=== PATIENT | female | born 1970 | race Caucasian/White ===

== ENCOUNTER → 2016-08-18 | Outpatient (CLI) | payer MEDICARE, MEDICAID ==
[~2016-08-18] MED LIST: CALC1TAB87 PO; EMTR1TAB4 PO; ERGO1CAP10 PO; FURO20TA PO; OMEP20CA2 PO; OMEP40CA2 PO; SPIR50TA PO; SUST50CA PO; VALA1TAB PO; XIFA550T4 PO
[2016-08-18 09:07] LABS: HEMATOCRIT 32.9 % (35.0-46.0); MEAN CELL VOLUME 99.7 FL (80.0-100.0); MEAN CORPUSCULAR HEMOGLOBIN 33.5 PG (27.0-34.0); MEAN CORPUSCULAR HGB CONC 33.6 % (32.0-36.0); PLATELET COUNT 67 TH/MM3 (150-450); RED CELL DISTRIBUTION WIDTH 17.6 % (11.6-17.2); WHITE BLOOD COUNT 2.8 TH/MM3 (4.0-11.0)
[2016-08-18 09:11] LABS: REVIEW FLAG FINAL
[2016-08-18 09:18] LABS: APTT (PATIENT) 33.2 SEC (24.3-30.1); INTERNATIONAL NORMALIZED RATIO 1.4 RATIO; PROTHROMBIN TIME - PATIENT 16.2 SEC (9.8-11.6)
== END ==
LOC: CLAB 08:48
PROVIDERS: ATTEND Specialist
DX: B18.2 Chronic viral hepatitis C (principal); D70.9 Neutropenia, unspecified; N18.9 Chronic kidney disease, unspecified; D69.6 Thrombocytopenia, unspecified
CPT/HCPCS: 36415; 85027; 85610; 85730

== ENCOUNTER 2016-08-20 09:39 | Day surgery (SDC) | payer MEDICARE, MEDICAID ==
[~2016-08-20 09:39] MED LIST changes: -ERGO1CAP10 PO; -FURO20TA PO; -OMEP40CA2 PO; -VALA1TAB PO
[2016-08-20 10:32] VITALS: BP 117/61; PULSE 99; RESP 22; TEMP 97; O2SAT 90
[2016-08-20 12:01] VITALS: BP 100/56; PULSE 89; RESP 18; TEMP 98.6; O2SAT 91
[2016-08-20 12:09] VITALS: BP 92/45; PULSE 85; RESP 18; O2SAT 91
--- NOTE | 2016-08-20 12:20 | RADRPT ---
EXAM DATE/TIME: 08/20/2016 10:25 [facility] COMPARISON: EXTERNAL COMPARISON: US GUID[facility], [facility] 2016[facility] - LOWER LIMITED, S ep 2015. [facility], US LIVER February 10, 2016. INDICATIONS : Ascites. MEDICAL HISTORY : Hepatitis C. Cirrhosis. Gastroesophageal reflux disease. Migrane. Headache. Heart burn. Arthritis. De pression. Anxiety. Claustrophobia. HIV. Thrombocytopenia. SURGICAL HISTORY : Tonsillectomy. section. Tubal ligation. Benign lesion removed from neck. ENCOUNTER: Sequela ACUITY: 1 week PAIN SCORE: 3/10 LOCATION: Right lower quadrant [place]UID: [place] [address] cc of hina fluid was removed. Fluid was discarded. Paracentesis was therapeutic only. Post procedure scanning reveals no hematoma or other complication. TECHNIQUE: 1. Ultrasound guidance for abdominal paracentesis. 2. Paracentesis. The risks, benefits, and alternatives to ultrasound guided paracentesis were explained to the patient in detail including the risk of bleeding and infection. Written and verbal informed consent was obt ained. Patient was prepped and draped in the usual fashion. 6-Lithuanian catheter placed in the peritoneal spac e and 10,000 cc of fluid were removed. The patient tolerated the procedure well and left the ultrasound suite in stable condition. CONCLUSION: Uncomplicated ultrasound guided paracentesis. Patient received albumin per protocol. Dwight Tellez MD FACR on August 20, 2016 at 12:17 Board Certified Radiologist. This report was verified electronically.
[2016-08-20 12:24] VITALS: BP 95/53; PULSE 86; RESP 18; O2SAT 88
[2016-08-20] MEDS ORDERED: ALBUMIN HUMAN 25% 12.5GM-W/50GM FOR 62.5GM IV ONE (12:30)
[2016-08-20] MEDS ORDERED: ALBUMIN HUMAN 25% 50GM-W/12.5GM FOR 62.5GM IV ONE (12:30)
[2016-08-20 12:57] VITALS: BP 109/56; PULSE 89; RESP 20; TEMP 98.5; O2SAT 90
== END 2016-08-20 13:50 | disposition home or self-care (01) ==
LOC: HRAD 09:39 → HRIP 09:40 → HRAD 13:50
PROVIDERS: ATTEND Specialist
DX: R18.8 Other ascites (principal)
CPT/HCPCS: 49083; 96365; C1729; P9047

== ENCOUNTER → 2016-09-08 | Outpatient (CLI) | payer MEDICARE, MEDICAID ==
[~2016-09-08] MED LIST changes: +ERGO1CAP10 PO; +FURO20TA PO; +OMEP40CA2 PO; +VALA1TAB PO
[2016-09-08 08:45] LABS: HEMATOCRIT 31.5 % (35.0-46.0); MEAN CELL VOLUME 98.6 FL (80.0-100.0); MEAN CORPUSCULAR HEMOGLOBIN 33.4 PG (27.0-34.0); MEAN CORPUSCULAR HGB CONC 33.9 % (32.0-36.0); PLATELET COUNT 64 TH/MM3 (150-450); RED CELL DISTRIBUTION WIDTH 17.3 % (11.6-17.2)
[2016-09-08 08:47] LABS: REVIEW FLAG FINAL
[2016-09-08 08:52] LABS: APTT (PATIENT) 34.8 SEC (24.3-30.1); INTERNATIONAL NORMALIZED RATIO 1.4 RATIO; PROTHROMBIN TIME - PATIENT 15.5 SEC (9.8-11.6)
== END ==
LOC: CLAB 08:27
PROVIDERS: ATTEND Specialist
DX: D70.9 Neutropenia, unspecified (principal); D69.6 Thrombocytopenia, unspecified; Z79.899 Other long term (current) drug therapy
CPT/HCPCS: 36415; 85027; 85610; 85730

== ENCOUNTER 2016-09-13 07:54 | Day surgery (SDC) | payer MEDICARE, MEDICAID ==
[~2016-09-13 07:54] MED LIST changes: -ERGO1CAP10 PO; -FURO20TA PO; -OMEP40CA2 PO; -VALA1TAB PO
[2016-09-13 08:29] VITALS: BP 133/78; PULSE 100; RESP 22; TEMP 98.6; O2SAT 92
[2016-09-13 10:20] VITALS: BP 106/51; PULSE 83; RESP 18; TEMP 98.5; O2SAT 90
--- NOTE | 2016-09-13 10:23 | RADRPT ---
EXAM DATE/TIME: 09/13/2016 08:24 [facility] COMPARISON: EXTERNAL COMPARISON: US GUIDED ABD PARACENTESIS, August 20, 2016, 10:25. [facility], CT ABDOMEN, W & W/O CONTRAS T, Aug 27 2016, US ABDOMEN LOWER LIMITED, April 21, 2016, MRI ABDOMEN W & W/O CONTRAST, August, January 04, 2014, US ABDOMEN - COMPLETE, August 22, 2013, March 06, 2013, [facility], C T ABDOMEN, W/O CONTRAST, November 20, 2012. INDICATIONS : Ascites. MEDICAL HISTORY : Hepatitis C. Cirrhosis. Arthritis. GERD. Migraines. Heart murmur. COPD. HIV. Asthma. Dyspnea. Ascites . Thrombocytopenia. Depression. Anxiety. Substance use. SURGICAL HISTORY : Tonsillectomy. section. Tubal ligation. Benign lesion removed from neck. Paracentesis. Blood transfusions. ENCOUNTER: Sequela ACUITY: 3 weeks PAIN SCORE: 10/10 LOCATION: Right lower quadrant FLUID: Total volume of 10,900 cc of clear, hina fluid was removed. Fluid was discarded. Paracentesis was therapeutic only. Post procedure scanning reveals no hematoma or other complication. TECHNIQUE: 1. Ultrasound guidance for abdominal paracentesis. 2. Paracentesis. The risks, benefits, and alternatives to ultrasound guided paracentesis were explained to the patient in detail including the risk of bleeding and infection. Written and verbal informed consent was obt ained. With the patient on the ultrasound table, ultrasound imaging was used to select the most appropriate approach for paracentesis. Overlying skin was prepped and draped in the usual sterile fashion and wi th a local anesthetic, a dermatotomy was made with an 11 blade scalpel. A 6 Italian [id number]-[id number]-cefldyrk ca theter was introduced into the peritoneal cavity and fluid was collected. The patient tolerated the procedure well and left the ultrasound suite in stable condition. CONCLUSION: Uncomplicated ultrasound guided paracentesis. Panchito Rocha MD on September 13, 2016 at 10:21 Board Certified Radiologist. This report was verified electronically.
[2016-09-13] MEDS ORDERED: ALBUMIN HUMAN 25% 50GM-W/12.5GM FOR 62.5GM IV ONE (10:30)
[2016-09-13] MEDS ORDERED: ALBUMIN HUMAN 25% 12.5GM-W/50GM FOR 62.5GM IV ONE (10:30)
[2016-09-13 10:35] VITALS: BP 104/64; PULSE 85; RESP 18; O2SAT 91
== END 2016-09-13 12:10 | disposition home or self-care (01) ==
LOC: HRAD 07:54 → HRIP 07:55 → HRAD 12:10
PROVIDERS: ATTEND Specialist
DX: R18.8 Other ascites (principal); K74.60 Unspecified cirrhosis of liver; B19.20 Unspecified viral hepatitis C without hepatic coma; K21.9 Gastro-esophageal reflux disease without esophagitis; J44.9 Chronic obstructive pulmonary disease, unspecified; R01.1 Cardiac murmur, unspecified; B20 Human immunodeficiency virus [HIV] disease; D69.6 Thrombocytopenia, unspecified
CPT/HCPCS: 49083; 96365; C1729; P9047

== ENCOUNTER → 2016-09-28 | Outpatient (CLI) | payer MEDICARE, MEDICAID ==
[~2016-09-28] MED LIST changes: +ERGO1CAP10 PO; +FURO20TA PO; +OMEP40CA2 PO; +VALA1TAB PO
[2016-09-28 10:06] LABS: APTT (PATIENT) 34.9 SEC (24.3-30.1); INTERNATIONAL NORMALIZED RATIO 1.4 RATIO; PROTHROMBIN TIME - PATIENT 15.4 SEC (9.8-11.6)
[2016-09-28 10:23] LABS: ANION GAP 11 MEQ/L (5-15); BICARBONATE 18.2 MEQ/L (21.0-32.0); BLOOD UREA NITROGEN 38 MG/DL (7-18); CHLORIDE 113 MEQ/L (98-107); GLOMERULAR FILTRATION RATE 29 ML/MIN (>89); GLUCOSE,FASTING 110 MG/DL (74-99); POTASSIUM 3.7 MEQ/L (3.5-5.1); SODIUM (NA) 142 MEQ/L (136-145)
[2016-09-28 11:12] LABS: HEMOGLOBIN A1b 0.6 %; HEMOGLOBIN Ao 86.3 %; HEMOGLOBIN F 1.7 %; HEMOGLOBIN LA1C 1.9 %; HEMOGLOBIN P3 4.9 %
== END ==
LOC: CLAB 09:22
PROVIDERS: ATTEND Specialist
DX: B20 Human immunodeficiency virus [HIV] disease (principal); E55.9 Vitamin D deficiency, unspecified; D70.9 Neutropenia, unspecified; R10.84 Generalized abdominal pain; G47.00 Insomnia, unspecified; K74.60 Unspecified cirrhosis of liver; N18.9 Chronic kidney disease, unspecified; K21.9 Gastro-esophageal reflux disease without esophagitis; B18.2 Chronic viral hepatitis C; B00.9 Herpesviral infection, unspecified; D69.6 Thrombocytopenia, unspecified; F10.10 Alcohol abuse, uncomplicated; R60.1 Generalized edema; R80.8 Other proteinuria; Z79.899 Other long term (current) drug therapy
CPT/HCPCS: 36415; 80048; 82140; 83036; 85610; 85730

== ENCOUNTER 2016-09-30 08:56 | Day surgery (SDC) | payer MEDICARE, MEDICAID ==
[~2016-09-30 08:56] MED LIST changes: -ERGO1CAP10 PO; -FURO20TA PO; -OMEP40CA2 PO; -VALA1TAB PO
[2016-09-30 10:43] VITALS: BP 117/68; PULSE 91; RESP 22; TEMP 97.8; O2SAT 92
[2016-09-30 12:17] VITALS: BP 97/42; PULSE 84; RESP 22; TEMP 98; O2SAT 96
[2016-09-30] MEDS ORDERED: ALBUMIN HUMAN 25% 12.5GM-W/50GM FOR 62.5GM IV ONE (12:30)
[2016-09-30] MEDS ORDERED: ALBUMIN HUMAN 25% 50GM-W/12.5GM FOR 62.5GM IV ONE (12:30)
[2016-09-30 12:32] VITALS: BP 112/70; PULSE 83; RESP 20; O2SAT 97
--- NOTE | 2016-09-30 15:50 | RADRPT ---
EXAM DATE/TIME: 09/30/2016 10:37 [facility] COMPARISON: EXTERNAL COMPARISON: US GUIDED ABD PARACENTESIS, September 13, 2016, 8:24. [facility], CT ABDOMEN, W & W/O CONTRAS T, Aug 27 2016. US ABDOMEN LOWER LIMITEDSeptember 2015, MRI ABDOMEN W & W/O CONTRAST,August 13, 2015, January 04, 2014, US ABDOMEN - COMPLETE, August 22, 2013, March 06, 2013, [facility], CT A BDOMEN,COMPLETE, August 22, 2013, March 06, 2013,[facility], CT ABDOMEN,W/O CONTRAST, November 20, 2012. INDICATIONS : Ascites. MEDICAL HISTORY : Gastroesophageal reflux disease. Hepatitis C. Gastroesophageal reflux disease. HIV. Blood transfusion s. Arthritis. Migraines. Heart murmur. Asthma. Dyspnea. Ascites. Thrombocytopenia. Depression. Anxiet y. Substance use. Cirrhosis. SURGICAL HISTORY : Tonsillectomy. Tubal ligation. section. Benign lesion removed neck. Paracentesis. ENCOUNTER: Sequela ACUITY: 2 weeks PAIN SCORE: 0/10 LOCATION: Right lower quadrant FLUID: Total volume of 11,700 cc of clear, yellow fluid was removed. Fluid was discarded. Paracentesis was therapeutic only. Post procedure scanning reveals no hematoma or other complication. TECHNIQUE: 1. Ultrasound guidance for abdominal paracentesis. 2. Paracentesis. The risks, benefits, and alternatives to ultrasound guided paracentesis were explained to the patient in detail including the risk of bleeding and infection. Written and verbal informed consent was obt ained. With the patient on the ultrasound table, ultrasound imaging was used to select the most appropriate approach for paracentesis. Overlying skin was prepped and draped in the usual sterile fashion and wi th a local anesthetic, a dermatotomy was made with an 11 blade scalpel. A 6 Australian [id number]-S-sgubwmwt ca theter was introduced into the peritoneal cavity and fluid was collected. The patient tolerated the procedure well and left the ultrasound suite in stable condition. CONCLUSION: Uncomplicated ultrasound guided paracentesis. Valente Lorenzo MD on September 30, 2016 at 15:48 Board Certified Radiologist. This report was verified electronically.
== END 2016-09-30 13:40 | disposition home or self-care (01) ==
LOC: HRAD 08:56 → HRIP 08:57 → HRAD 13:40
PROVIDERS: ATTEND Specialist
DX: R18.8 Other ascites (principal); B19.20 Unspecified viral hepatitis C without hepatic coma; K21.9 Gastro-esophageal reflux disease without esophagitis; F32.9 Major depressive disorder, single episode, unspecified; J45.909 Unspecified asthma, uncomplicated; M19.90 Unspecified osteoarthritis, unspecified site
CPT/HCPCS: 49083; 96365; C1729; P9047

== ENCOUNTER 2016-10-13 21:01 | Emergency (ER) | payer MEDICARE, MEDICAID ==
[~2016-10-13] VITALS: Ht 167.6 cm; Wt 81.5 kg
[~2016-10-13 21:01] MED LIST changes: -ERGO1CAP10 PO; -FURO20TA PO; -OMEP40CA2 PO; -VALA1TAB PO
[2016-10-13 21:08] VITALS: BP 126/74; PULSE 100; RESP 24; TEMP 98.1; O2SAT 92
[2016-10-13] MEDS ORDERED: FURO20TA PO (21:26)
[2016-10-13] MEDS ORDERED: ERGO1CAP10 PO (21:26)
[2016-10-13] MEDS ORDERED: VALA1TAB PO (21:26)
[2016-10-13] MEDS ORDERED: OMEP40CA2 PO (21:26)
--- NOTE | 2016-10-13 21:40 | PD ---
HPI Chief Complaint: Abdominal Pain Time Seen by Provider: 21:22 Travel History International Travel<30 days: No Contact w/Intl Traveler<30days: No Traveled to known affect area: No History of Present Illness HPI Patient is a 46-year-old female with history of liver cirrhosis secondary to alcoholism, and to emergency room with complaints of abdominal pain. Patient reports that she has history of a ventral hernia, reports that around 8:30 tonight, she went to get up from her couch and felt pop or twisting sensation to her abdomen. Patient reports that she began to have increased pain to her abdomen near her hernia site. Patient is concerned for possible incarcerated hernia. Patient reports that her abdomen is distended at baseline, patient reports that she is getting ready to schedule her paracentesis. Patient with no fevers or chills, no nausea or vomiting at this time. PFSH Past Medical History Arthritis: Yes (KNEES) Asthma: Yes (SINCE 2003) Autoimmune Disease: No Anxiety: Yes Depression: Yes (DX YEARS AGO) Heart Rhythm Problems: No Cancer: Yes (BENIGN LESION REMOVED FROM LEFT NECK) Cardiovascular Problems: Yes (HEART MURMUR) High Cholesterol: No Chemotherapy: No Chest Pain: No Congestive Heart Failure: No Cirrhosis: Yes COPD: Yes Cerebrovascular Accident: No Diabetes: No Diminished Hearing: No Endocrine: No Gastrointestinal Disorders: Yes (ASCITES) GERD: Yes Genitourinary: No Headaches: Yes Hepatitis: Yes (HEP C) Hiatal Hernia: No Immune Disorder: Yes (HIV DX. 2000) Implanted Vascular Access Dvce: Yes Kidney Stones: No Musculoskeletal: No Neurologic: No Psychiatric: Yes Reproductive: Yes (LAST PERIOD 2008) Immunizations Current: Yes Migraines: Yes Radiation Therapy: No Renal Failure: No Seizures: No Sickle Cell Disease: No Sleep Apnea: No Thyroid Disease: No Ulcer: No Tetanus Vaccination: Unknown Influenza Vaccination: Yes ?: Not LMP: menapause Menopausal: Yes Tubal Ligation: Yes (1999) Past Surgical History Abdominal Surgery: No AICD: No Arteriovenous Shunt: No Body Medical Devices: TUBES TIED WITH METAL BANDS Cardiac Surgery: No Section: Yes (1st child ) Ear Surgery: No Endocrine Surgery: No Eye Surgery: No Genitourinary Surgery: No Gynecologic Surgery: Yes (/TUBAL LIGATION) Insulin Pump: No Joint Replacement: No Oral Surgery: No Pacemaker: No Thoracic Surgery: No Tonsillectomy: Yes (and adniods) Other Surgery: Yes (lump removed from neck-non cancerous, paracentesis) Social History Alcohol Use: No (former) Tobacco Use: Yes Substance Use: Yes (MARIJUANA history) Allergies-Medications (Allergen,Severity, Reaction): Coded Allergies: Erythromycin (Verified Allergy, Severe, Anaphylaxis, 05/03/16) Reported Meds & Prescriptions Reported Meds & Active Scripts Active Reported Vitamin D (Ergocalciferol) 50,000 Unit Cap 50,000 Units PO Q7D Valacyclovir (Valacyclovir HCl) 1 Gm Tab 1,000 Mg PO DAILY Furosemide 20 Mg Tab 20 Mg PO BID Omeprazole 40 Mg Cap 40 Mg PO DAILY Descovy (Emtricitabine-Tenofovir Alafenamide) 200-25 mg Tab 1 Tab PO DAILY Sustiva (Efavirenz) 50 Mg Cap 50 Mg PO DAILY Xifaxan (Rifaximin) 550 Mg Tab 550 Mg PO Q12HR Spironolactone 50 Mg Tab 50 Mg PO BID Calcium 600 with Vitamin D (Calcium Carbonate-Cholecalciferol) 600-400 mg-Unit Tab 1 Tab PO DAILY Review of Systems General / Constitutional: No: Fever Eyes: No: Visual changes HENT: No: Headaches Cardiovascular: No: Chest Pain or Discomfort Respiratory: No: Shortness of Breath Gastrointestinal: Positive: Abdominal Pain Genitourinary: No: Dysuria Musculoskeletal: No: Pain Skin: No Rash Neurologic: No: Weakness Psychiatric: No: Depression Endocrine: No: Polydipsia Hematologic/Lymphatic: No: Easy Bruising Physical Exam Narrative GENERAL: Mild distress SKIN: Warm and dry. HEAD: Atraumatic. Normocephalic. EYES: Pupils equal and round. No scleral icterus. No injection or drainage. ENT: No nasal bleeding or discharge. Mucous membranes pink and moist. NECK: Trachea midline. No JVD. CARDIOVASCULAR: Regular rate and rhythm. No murmur appreciated. RESPIRATORY: No accessory muscle use. Clear to auscultation. Breath sounds equal bilaterally. GASTROINTESTINAL: Abdomen soft, non-tender, distended with ascitic fluids MUSCULOSKELETAL: No obvious deformities. No clubbing. No cyanosis. No edema. NEUROLOGICAL: Awake and alert. No obvious cranial nerve deficits. Motor grossly within normal limits. Normal speech. PSYCHIATRIC: Appropriate mood and affect; insight and judgment normal. Data Data Last Documented VS Vital Signs Date Time Temp Pulse Resp B/P Pulse Ox O2 Delivery O2 Flow Rate FiO2 10/13/16 21:08 98.1 100 24 126/74 92 Orders Complete Blood Count With Diff (10/13/16 21:34) Comprehensive Metabolic Panel (10/13/16 21:34) Lipase (10/13/16 21:34) Prothrombin Time / Inr (Pt) (10/13/16 21:34) Act Partial Throm Time (Ptt) (10/13/16 21:34) Iv Access Insert/Monitor (10/13/16 21:34) Morphine Inj (Morphine Inj) (10/13/16 21:45) Sodium Chloride 0.9% Flush (Ns Flush) (10/13/16 21:45) Iodixanol 320 Inj (Rad Ct) (Visipaque 32 (10/13/16 22:45) Ct Abd/Pel W Iv Contrast(Rout) (10/13/16 22:49) Labs Laboratory Tests Test 10/13/16 21:45 White Blood Count 3.4 TH/MM3 Red Blood Count 3.28 MIL/MM3 Hemoglobin 10.7 GM/DL Hematocrit 31.9 % Mean Corpuscular Volume 97.2 FL Mean Corpuscular Hemoglobin 32.6 PG Mean Corpuscular Hemoglobin 33.5 % Concent Red Cell Distribution Width 19.1 % Platelet Count 69 TH/MM3 Mean Platelet Volume 8.8 FL Neutrophils (%) (Auto) 66.4 % Lymphocytes (%) (Auto) 13.3 % Monocytes (%) (Auto) 17.5 % Eosinophils (%) (Auto) 2.3 % Basophils (%) (Auto) 0.5 % Neutrophils # (Auto) 2.3 TH/MM3 Lymphocytes # (Auto) 0.5 TH/MM3 Monocytes # (Auto) 0.6 TH/MM3 Eosinophils # (Auto) 0.1 TH/MM3 Basophils # (Auto) 0.0 TH/MM3 CBC Comment AUTO DIFF Differential Comment AUTO DIFF CONFIRMED Platelet Estimate LOW Platelet Morphology Comment NORMAL Ovalocytes 1+ Prothrombin Time 15.5 SEC Prothromb Time International 1.4 RATIO Ratio Activated Partial 31.3 SEC Thromboplast Time Sodium Level 142 MEQ/L Potassium Level 3.6 MEQ/L Chloride Level 112 MEQ/L Carbon Dioxide Level 22.8 MEQ/L Anion Gap 7 MEQ/L Blood Urea Nitrogen 29 MG/DL Creatinine 1.75 MG/DL Estimat Glomerular Filtration 31 ML/MIN Rate Random Glucose 140 MG/DL Calcium Level 8.0 MG/DL Total Bilirubin 2.1 MG/DL Aspartate Amino Transf 24 U/L (AST/SGOT) Alanine Aminotransferase 20 U/L (ALT/SGPT) Alkaline Phosphatase 147 U/L Total Protein 6.0 GM/DL Albumin 2.7 GM/DL Lipase 227 U/L MDM Medical Decision Making Medical Screen Exam Complete: Yes Emergency Medical Condition: Yes Interpretation(s) Vital Signs Date Time Temp Pulse Resp B/P Pulse Ox O2 Delivery O2 Flow Rate FiO2 10/13/16 21:08 98.1 100 24 92 Differential Diagnosis Incarcerated ventral hernia, liver cirrhosis, abdominal ascites Narrative Course Patient is a 46-year-old female who presents to emergency room with complaints of abdominal pain. She reports that she is end-stage liver disease with history of liver cirrhosis from alcoholism. Patient reports that she got from her couch today noticed increased pain to her hernia, reports that she feels that something twisted her abdomen, patient here for evaluation of possible incarcerated ventral hernia. Labs as well as CAT scan of abdomen and pelvis ordered. CBC & BMP Diagram 10/13/16 21:45 Last Impressions Abdomen/Pelvis CT 10/13/16 5240 Signed Impressions: Service Date/Time: Thursday, October 13, 2016 22:46 - CONCLUSION: 1. Severe cirrhosis with large retroperitoneal, perisplenic and periumbilical varicosities. 2. Extensive abdominal ascites. 3. Splenomegaly. Jeison Yu MD Patient with extensive abdominal ascites and abdominal varicosities. Patient with no obstructed ventral hernia. A copy of patient's CAT scan report was given to her. 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 Patient comfortable at this time. Diagnosis Primary Impression: Abdominal pain Qualified Code: R10.84 - Generalized abdominal pain Additional Impressions: Liver cirrhosis Qualified Code: K70.31 - Alcoholic cirrhosis of liver with ascites Ascites Qualified Code: K70.31 - Ascites due to alcoholic cirrhosis Splenomegaly Abdominal varicosities Renal insufficiency Anemia Thrombocytopenia Patient Instructions: General Instructions Additional Instructions: Please follow-up with your primary care doctor as soon as possible Please follow-up with your manager of broadcast content Return to the emergency room as needed Please bring a copy of your CAT scan report to doctor's office for follow-up Disposition: 01 DISCHARGE HOME Condition: Maribell Garsia DO Oct 13, 2016 21:40
[2016-10-13] MEDS ORDERED: SODIUM CHLORIDE 0.9% FLUSH 5 ML FLUSH IVF PRN (21:45)
[2016-10-13] MEDS ORDERED: MORPHINE SULFATE 4 MG/ML INJ IV PUSH ONE (21:45)
[2016-10-13 22:20] LABS: AUTOMATED NEUTROPHIL # 2.3 TH/MM3 (1.8-7.7); BASOPHIL % 0.5 % (0.0-2.0); EOSINOPHIL # 0.1 TH/MM3 (0-0.4); EOSINOPHIL % 2.3 % (0.0-4.0); HEMATOCRIT 31.9 % (35.0-46.0); LYMPH % 13.3 % (9.0-44.0); LYMPHOCYTE # 0.5 TH/MM3 (1.0-4.8); MEAN CELL VOLUME 97.2 FL (80.0-100.0); MEAN CORPUSCULAR HEMOGLOBIN 32.6 PG (27.0-34.0); MEAN CORPUSCULAR HGB CONC 33.5 % (32.0-36.0); MONO % 17.5 % (0.0-8.0); NEUT % 66.4 % (16.0-70.0); PLATELET COUNT 69 TH/MM3 (150-450); RED BLOOD COUNT 3.28 MIL/MM3 (4.00-5.30); RED CELL DISTRIBUTION WIDTH 19.1 % (11.6-17.2); WHITE BLOOD COUNT 3.4 TH/MM3 (4.0-11.0)
[2016-10-13 22:23] LABS: APTT (PATIENT) 31.3 SEC (24.3-30.1); HEMO FLAGS AUTO DIFF; INTERNATIONAL NORMALIZED RATIO 1.4 RATIO; PROTHROMBIN TIME - PATIENT 15.5 SEC (9.8-11.6)
[2016-10-13 22:26] LABS: ANION GAP 7 MEQ/L (5-15); AST (GOT) 24 U/L (15-37); BICARBONATE 22.8 MEQ/L (21.0-32.0); BLOOD UREA NITROGEN 29 MG/DL (7-18); CHLORIDE 112 MEQ/L (98-107); GLOMERULAR FILTRATION RATE 31 ML/MIN (>89); POTASSIUM 3.6 MEQ/L (3.5-5.1); SODIUM (NA) 142 MEQ/L (136-145)
[2016-10-13 22:33] LABS: ALKALINE PHOSPHATASE 147 U/L (45-117); ALT (GPT) 20 U/L (10-53); TOTAL BILIRUBIN ADULT 2.1 MG/DL (0.2-1.0)
[2016-10-13] MEDS ORDERED: IODIXANOL 320 MG/ML 10 ML VIAL (for Rad CT) IV ONE (22:45)
[2016-10-13 23:09] LABS: OVALOCYTES 1+ (NORMAL); PLATELET ESTIMATE SMEAR LOW (NORMAL); PLATELET MORPHOLOGY NORMAL (NORMAL); SCAN/DIFF AUTO DIFF CONFIRMED
--- NOTE | 2016-10-13 23:22 | RADRPT ---
EXAM DATE/TIME: 10/13/2016 22:46 [facility] COMPARISON: No previous studies available for comparison. INDICATIONS : Abdomen pain with ascites. IV CONTRAST: 50 cc Visipaque (iodixanol) IV ORAL CONTRAST: No oral contrast ingested. RADIATION DOSE: 15.17 CTDIvol (mGy) MEDICAL HISTORY : Cardiovascular disease. Chronic obstructive pulmonary disease. Hepatitis C.HIV SURGICAL HISTORY : Tubal ligation. section. ENCOUNTER: Initial ACUITY: 1 week PAIN SCALE: 8/10 LOCATION: Bilateral abdomen TECHNIQUE: Volumetric scanning of the abdomen and pelvis was performed. Using automated exposure control and ad justment of the mA and/or kV according to patient size, radiation dose was kept as low as reasonably achievable to obtain optimal diagnostic quality images. FINDINGS: LOWER LUNGS: The visualized lower lungs are clear. LIVER: Extremely diminutive and nodular characteristic of severe cirrhosis. Multiple gallstones within a con tracted gallbladder lumen. SPLEEN: Enlarged at 15.9 cm. Extensive splenic and retroperitoneal as well as periumbilical varicosities. PANCREAS: Within normal limits. KIDNEYS: Normal in size and shape. There is no mass, stone or hydronephrosis. ADRENAL GLANDS: Within normal limits. VASCULAR: There is no aortic aneurysm. BOWEL/MESENTERY: The stomach, small bowel, and colon demonstrate no acute abnormality. Extensive ascites. ABDOMINAL WALL: As mentioned previously, very large paraumbilical varicosities. RETROPERITONEUM: There is no lymphadenopathy. BLADDER: No wall thickening or mass. REPRODUCTIVE: Within normal limits. INGUINAL: There is no lymphadenopathy or hernia. MUSCULOSKELETAL: Within normal limits for patient age. CONCLUSION: 1. Severe cirrhosis with large retroperitoneal, perisplenic and periumbilical varicosities. 2. Extensive abdominal ascites. 3. Splenomegaly. Jeison Yu MD on October 13, 2016 at 23:17 Board Certified Radiologist. This report was verified electronically.
[2016-10-14 00:11] VITALS: BP 122/68
== END 2016-10-14 00:35 | disposition home or self-care (01) ==
LOC: NEPA 21:01
DX: R10.9 Unspecified abdominal pain (principal); K70.31 Alcoholic cirrhosis of liver with ascites; N28.9 Disorder of kidney and ureter, unspecified; D69.6 Thrombocytopenia, unspecified; R01.1 Cardiac murmur, unspecified; B19.20 Unspecified viral hepatitis C without hepatic coma; D64.9 Anemia, unspecified; Z72.0 Tobacco use
CPT/HCPCS: 36415; 74177; 80053; 83690; 85025; 85027; 85610; 85730; 96374; 99284; J2270; Q9967

== ENCOUNTER → 2016-10-13 | Outpatient (CLI) | payer MEDICARE, MEDICAID ==
[~2016-10-13] MED LIST changes: +ERGO1CAP10 PO; +FURO20TA PO; +OMEP40CA2 PO; +VALA1TAB PO
[2016-10-13 09:36] LABS: HEMATOCRIT 31.2 % (35.0-46.0); MEAN CELL VOLUME 98.5 FL (80.0-100.0); MEAN CORPUSCULAR HEMOGLOBIN 32.4 PG (27.0-34.0); MEAN CORPUSCULAR HGB CONC 32.9 % (32.0-36.0); PLATELET COUNT 63 TH/MM3 (150-450); RED BLOOD COUNT 3.17 MIL/MM3 (4.00-5.30); RED CELL DISTRIBUTION WIDTH 18.9 % (11.6-17.2); WHITE BLOOD COUNT 2.5 TH/MM3 (4.0-11.0)
[2016-10-13 09:38] LABS: REVIEW FLAG FINAL
[2016-10-13 09:44] LABS: APTT (PATIENT) 34.3 SEC (24.3-30.1); INTERNATIONAL NORMALIZED RATIO 1.4 RATIO; PROTHROMBIN TIME - PATIENT 15.5 SEC (9.8-11.6)
== END ==
LOC: CLAB 09:14
PROVIDERS: ATTEND Specialist
DX: D70.9 Neutropenia, unspecified (principal); D69.6 Thrombocytopenia, unspecified; Z79.899 Other long term (current) drug therapy
CPT/HCPCS: 36415; 85027; 85610; 85730

== ENCOUNTER 2016-10-19 07:55 | Day surgery (SDC) | payer MEDICARE, MEDICAID ==
[~2016-10-19 07:55] MED LIST changes: +ERGO1CAP10 PO; +FURO20TA PO; -OMEP20CA2 PO; +OMEP40CA2 PO; +VALA1TAB PO
[2016-10-19 08:17] VITALS: BP 127/71; PULSE 93; RESP 22; TEMP 98.5; O2SAT 90
[2016-10-19] MEDS ORDERED: ALBUMIN HUMAN 25% 12.5GM-W/50GM FOR 62.5GM IV ONE (10:45)
[2016-10-19] MEDS ORDERED: ALBUMIN HUMAN 25% 50GM-W/12.5GM FOR 62.5GM IV ONE (10:45)
[2016-10-19 10:50] VITALS: BP 91/52; PULSE 84; RESP 16; TEMP 98.1; O2SAT 93
[2016-10-19 11:38] VITALS: BP 109/50; PULSE 93; RESP 16; O2SAT 90
--- NOTE | 2016-10-19 15:14 | RADRPT ---
EXAM DATE/TIME: 10/19/2016 08:32 [facility] COMPARISON: No previous studies available for comparison. EXTERNAL COMPARISON: [facility], CT ABDOMEN, W & W/O CONTRAST, Aug 27 2016. INDICATIONS : Ascites. MEDICAL HISTORY : Arthritis. HIV. Cirrhosis. Hep C. Heart murmur. COPD. Migraines. Ascites. Dyspnea. Asthma. GERD. Dep ression. Anxiety. Substance use. SURGICAL HISTORY : Tonsillectomy. section. Adenoidectomy. Tubal ligation. Blood transfusions. Benign lump katheryn melissa from neck. Paracentesis. ENCOUNTER: Sequela ACUITY: 3 weeks PAIN SCORE: 08/17 LOCATION: Right lower quadrant [place]UID: [place] [address] cc of clear, yellow fluid was removed. Fluid was discarded. Paracentesis was therapeutic only. Post procedure scanning reveals no hematoma or other complication. TECHNIQUE: 1. Ultrasound guidance for abdominal paracentesis. 2. Paracentesis. The risks, benefits, and alternatives to ultrasound guided paracentesis were explained to the patient in detail including the risk of bleeding and infection. Written and verbal informed consent was obt ained. With the patient on the ultrasound table, ultrasound imaging was used to select the most appropriate approach for paracentesis. Overlying skin was prepped and draped in the usual sterile fashion and wi th a local anesthetic, a dermatotomy was made with an 11 blade scalpel. A 6 Georgian Qhk-P-vukzdqft ca theter was introduced into the peritoneal cavity and fluid was collected. The patient tolerated the procedure well and left the ultrasound suite in stable condition. CONCLUSION: Uncomplicated ultrasound guided paracentesis. Casa Mahmood MD on October 19, 2016 at 15:12 Board Certified Radiologist. This report was verified electronically.
== END 2016-10-19 12:00 | disposition home or self-care (01) ==
LOC: HRAD 07:55 → HRIP 07:57 → HRAD 12:00
PROVIDERS: ATTEND Specialist
DX: R18.8 Other ascites (principal); M19.90 Unspecified osteoarthritis, unspecified site; B19.20 Unspecified viral hepatitis C without hepatic coma; K74.60 Unspecified cirrhosis of liver; G43.909 Migraine, unspecified, not intractable, without status migrainosus; J45.909 Unspecified asthma, uncomplicated; F32.9 Major depressive disorder, single episode, unspecified; F41.9 Anxiety disorder, unspecified; F19.10 Other psychoactive substance abuse, uncomplicated; Z21 Asymptomatic human immunodeficiency virus [HIV] infection status; Z88.1 Allergy status to other antibiotic agents
CPT/HCPCS: 49083; 96365; C1729; P9047

== ENCOUNTER → 2016-11-29 | Outpatient (CLI) | payer MEDICARE, MEDICAID ==
[2016-11-29 14:49] LABS: MEAN CELL VOLUME 99.8 FL (80.0-100.0); MEAN CORPUSCULAR HEMOGLOBIN 31.4 PG (27.0-34.0); MEAN CORPUSCULAR HGB CONC 31.5 % (32.0-36.0); PLATELET COUNT 76 TH/MM3 (150-450); RED CELL DISTRIBUTION WIDTH 19.4 % (11.6-17.2); WHITE BLOOD COUNT 4.4 TH/MM3 (4.0-11.0)
[2016-11-29 14:50] LABS: REVIEW FLAG FINAL
[2016-11-29 15:16] LABS: APTT (PATIENT) 34.3 SEC (24.3-30.1); INTERNATIONAL NORMALIZED RATIO 1.4 RATIO; PROTHROMBIN TIME - PATIENT 15.2 SEC (9.8-11.6)
== END ==
LOC: CLAB 13:29
PROVIDERS: ATTEND Specialist
DX: R18.8 Other ascites (principal); M19.90 Unspecified osteoarthritis, unspecified site; B19.20 Unspecified viral hepatitis C without hepatic coma; K74.60 Unspecified cirrhosis of liver
CPT/HCPCS: 36415; 85027; 85610; 85730

== ENCOUNTER 2016-12-02 07:39 | Day surgery (SDC) | payer MEDICARE, MEDICAID ==
[2016-12-02 08:29] VITALS: BP 105/59; PULSE 87; RESP 18; TEMP 97.2; O2SAT 92
[2016-12-02 09:40] VITALS: BP 112/62; PULSE 81; RESP 16; TEMP 98; O2SAT 94
[2016-12-02] MEDS ORDERED: ALBUMIN HUMAN 25% 12.5GM-W/25GM FOR 37.5GM IV ONE (09:45)
[2016-12-02] MEDS ORDERED: ALBUMIN HUMAN 25% 25GM-W/12.5GM FOR 37.5GM IV ONE (09:45)
[2016-12-02 09:55] VITALS: BP 110/59; PULSE 89; RESP 16; O2SAT 94
[2016-12-02 10:10] VITALS: BP 114/57; PULSE 86; RESP 16; O2SAT 94
--- NOTE | 2016-12-02 11:36 | RADRPT ---
EXAM DATE/TIME: 12/02/2016 08:19 [facility] COMPARISON: EXTERNAL COMPARISON: US GUIDED ABD PARACENTESIS, October 19, 2016, 8:32. US GUIDED ABD PARACENTESIS, September 13, 2016, 8:2 4. [facility], CT ABDOMEN, W & W/O CONTRAST, Aug 27 2016. US ABDOMEN LOWER LIMITEDSeptember 1 2015, MRI ABDOMEN W & W/O CONTRAST,August 13, 2015, January 04, 2014, US ABDOMEN - COMPLETE, August 22, 2013, March 06, 2013, [facility], CT ABDOMEN,COMPLETE, August 22, 2013, March 06, 2013,[facility], CT ABDOMEN,W/O CONTRAST, November 20, 2012. INDICATIONS : Ascites. MEDICAL HISTORY : Arthritis. HIV. Cirrhosis. Hepatitis C. Heart murmur. COPD. Migraines. Ascites. Dyspnea. Asthma. GERD . Depression. Anxiety. Substance use. SURGICAL HISTORY : Tonsillectomy. section. Adenoidectomy. Tubal ligation. Blood transfusions. Benign lump remov ed from neck. Paracentesis. ENCOUNTER: Sequela ACUITY: 1 month PAIN SCORE: 1/10 LOCATION: Right lower quadrant FLUID: Total volume of 6,100 cc of clear, yellow fluid was removed. Fluid was discarded. Paracentesis was therapeutic only. Post procedure scanning reveals no hematoma or other complication. TECHNIQUE: 1. Ultrasound guidance for abdominal paracentesis. 2. Paracentesis. The risks, benefits, and alternatives to ultrasound guided paracentesis were explained to the patient in detail including the risk of bleeding and infection. Written and verbal informed consent was obt ained. With the patient on the ultrasound table, ultrasound imaging was used to select the most appropriate approach for paracentesis. Overlying skin was prepped and draped in the usual sterile fashion and wi th a local anesthetic, a dermatotomy was made with an 11 blade scalpel. A 6 Slovak Iqj-Y-mftiztbd ca theter was introduced into the peritoneal cavity and fluid was collected. The patient tolerated the procedure well and left the ultrasound suite in stable condition. CONCLUSION: Uncomplicated ultrasound guided paracentesis. Valente Lorenzo MD on December 02, 2016 at 11:34 Board Certified Radiologist. This report was verified electronically.
== END 2016-12-02 10:30 | disposition home or self-care (01) ==
LOC: HRIP 07:39 → HRAD 07:39
PROVIDERS: ATTEND Specialist
DX: R18.8 Other ascites (principal); B19.20 Unspecified viral hepatitis C without hepatic coma; K21.9 Gastro-esophageal reflux disease without esophagitis; N18.9 Chronic kidney disease, unspecified; J44.9 Chronic obstructive pulmonary disease, unspecified; J45.909 Unspecified asthma, uncomplicated
CPT/HCPCS: 49083; 96365; C1729; P9047

== ENCOUNTER 2016-12-10 07:59 | Day surgery (SDC) | payer MEDICARE, MEDICAID ==
[2016-12-10 08:38] VITALS: BP 80/54; PULSE 79; RESP 18; TEMP 97.2; O2SAT 91
[2016-12-10 10:50] VITALS: BP 78/52; PULSE 78; RESP 18; TEMP 97.2; O2SAT 92
[2016-12-10] MEDS ORDERED: ALBUMIN HUMAN 25% 12.5GM-W/25GM FOR 37.5GM IV ONE ×2 (11:00)
[2016-12-10] MEDS ORDERED: ALBUMIN HUMAN 25% 25GM-W/12.5GM FOR 37.5GM IV ONE ×2 (11:00)
[2016-12-10 11:05] VITALS: BP 97/53; PULSE 76; RESP 18; O2SAT 92
[2016-12-10 11:41] VITALS: BP 100/54; PULSE 75; RESP 18; O2SAT 91
--- NOTE | 2016-12-10 12:46 | RADRPT ---
EXAM DATE/TIME: 12/10/2016 08:52 [facility] COMPARISON: EXTERNAL COMPARISON: US GUIDED ABD PARACENTESIS, December 02, 2016, 8:19. [facility], CT ABDOMEN, W & W/O contrast, Aug 27 2016. US ABDOMEN LOWER LIMITEDSeptember 2015, MRI ABDOMENW & W/O CONTRAST,August 13, 2015 , January 04, 2014, US ABDOMEN - COMPLETE, [id number], March 06, 2013, [facility], CT ABDOMEN ,COMPLETE, August 22, 2013, February,[facility], CT ABDOMEN,W/O CONTRAST, November 20 3., INDICATIONS : Ascites. MEDICAL HISTORY : Cirrhosis. HIV. Arthritis. Migraines. Ascites. Dyspnea. Asthma. GERD. Depression. Anxiety. Substance use.Hepatitis C. Heart murmur. COPD. SURGICAL HISTORY : Tonsillectomy. section. Blood transfusions. Benign lump removed from neck. Paracentesis.Tub al ligation.Adenoidectomy. ENCOUNTER: Sequela ACUITY: 1 week PAIN SCORE: 1/10 LOCATION: Right lower quadrant FLUID: Total volume of 6700 cc of clear, yellow fluid was removed. Fluid was discarded. Paracentesis was therapeutic only. Post procedure scanning reveals no hematoma or other complication. TECHNIQUE: 1. Ultrasound guidance for abdominal paracentesis. 2. Paracentesis. The risks, benefits, and alternatives to ultrasound guided paracentesis were explained to the patient in detail including the risk of bleeding and infection. Written and verbal informed consent was obt ained. With the patient on the ultrasound table, ultrasound imaging was used to select the most appropriate approach for paracentesis. Overlying skin was prepped and draped in the usual sterile fashion and wi th a local anesthetic, a dermatotomy was made with an 11 blade scalpel. A 6 Greek Qvn-G-lckvacsr ca theter was introduced into the peritoneal cavity and fluid was collected. The patient tolerated the procedure well and left the ultrasound suite in stable condition. CONCLUSION: Uncomplicated ultrasound guided paracentesis. Valente Lorenzo MD on December 10, 2016 at 12:44 Board Certified Radiologist. This report was verified electronically.
== END 2016-12-10 11:40 | disposition home or self-care (01) ==
LOC: HRAD 07:59 → HRIP 08:02 → HRAD 11:40
PROVIDERS: ATTEND Specialist
DX: R18.8 Other ascites (principal); K21.9 Gastro-esophageal reflux disease without esophagitis; R06.00 Dyspnea, unspecified; J45.909 Unspecified asthma, uncomplicated; B19.20 Unspecified viral hepatitis C without hepatic coma; J44.9 Chronic obstructive pulmonary disease, unspecified; Z21 Asymptomatic human immunodeficiency virus [HIV] infection status
CPT/HCPCS: 49083; 96365; 96366; C1729

== ENCOUNTER 2016-12-17 07:48 | Day surgery (SDC) | payer MEDICARE, MEDICAID ==
[2016-12-17 08:17] VITALS: BP 101/59; PULSE 98; RESP 22; TEMP 97.6; O2SAT 94
[2016-12-17 09:15] VITALS: BP 100/54; PULSE 85; RESP 20; TEMP 98.2; O2SAT 94
[2016-12-17] MEDS ORDERED: ALBUMIN HUMAN 25% 12.5GM-W/25GM FOR 37.5GM IV ONE (09:15)
[2016-12-17] MEDS ORDERED: ALBUMIN HUMAN 25% 25GM-W/12.5GM FOR 37.5GM IV ONE (09:15)
[2016-12-17 09:30] VITALS: BP 95/54; PULSE 89; RESP 20; O2SAT 94
--- NOTE | 2016-12-17 15:56 | RADRPT ---
EXAM DATE/TIME: 12/17/2016 08:07 [facility] COMPARISON: No previous studies available for comparison. EXTERNAL COMPARISON: [facility], CT ABDOMEN, W & W/O CONTRAST, Aug 27 2016. INDICATIONS : Ascites. MEDICAL HISTORY : Arthritis. HIV. Hepatitis C. Cancer. Thrombocytopenia. Cirrhosis. Heart mumur. Migraines. COPD. Asthm a. Dyspnea. Ascites. GERD. Substance use. Depression. Anxiety. SURGICAL HISTORY : Tonsillectomy. section. Tubal ligation. Adenoidectomy. Benign lesion removed from left neck. Blood transfusions. Paracentesis. ENCOUNTER: Sequela ACUITY: 1 week PAIN SCORE: 2/10 LOCATION: Right lower quadrant FLUID: Total volume of 6,600 cc of clear, hina fluid was removed. Fluid was discarded. Paracentesis was therapeutic only. Post procedure scanning reveals no hematoma or other complication. TECHNIQUE: 1. Ultrasound guidance for abdominal paracentesis. 2. Paracentesis. The risks, benefits, and alternatives to ultrasound guided paracentesis were explained to the patient in detail including the risk of bleeding and infection. Written and verbal informed consent was obt ained. With the patient on the ultrasound table, ultrasound imaging was used to select the most appropriate approach for paracentesis. Overlying skin was prepped and draped in the usual sterile fashion and wi th a local anesthetic, a dermatotomy was made with an 11 blade scalpel. A 6 Indian Rvl-Z-castinyx ca theter was introduced into the peritoneal cavity and fluid was collected. The patient tolerated the procedure well and left the ultrasound suite in stable condition. CONCLUSION: Uncomplicated ultrasound guided paracentesis. Casa Mahmood MD on December 17, 2016 at 15:53 Board Certified Radiologist. This report was verified electronically.
== END 2016-12-17 10:46 | disposition home or self-care (01) ==
LOC: HRIP 07:48 → HRAD 07:48
PROVIDERS: ATTEND Specialist
DX: R18.8 Other ascites (principal); J44.9 Chronic obstructive pulmonary disease, unspecified; J45.909 Unspecified asthma, uncomplicated; D69.6 Thrombocytopenia, unspecified; B19.20 Unspecified viral hepatitis C without hepatic coma; K21.9 Gastro-esophageal reflux disease without esophagitis; K74.60 Unspecified cirrhosis of liver; R01.1 Cardiac murmur, unspecified; Z21 Asymptomatic human immunodeficiency virus [HIV] infection status
CPT/HCPCS: 49083; 96365; C1729; P9047

== ENCOUNTER → 2016-12-24 | Day surgery (SDC) | payer MEDICARE, MEDICAID ==
[~2016-12-24] MED LIST changes: +LACTATED RINGER'S 1000 ML INJ 1,000 ML ONE
== END | disposition home or self-care (01) ==
LOC: ESDC 09:24
PROVIDERS: ATTEND Internal Medicine Gastroenterology
DX: K74.60 Unspecified cirrhosis of liver (principal); Z53.9 Procedure and treatment not carried out, unspecified reason
CPT/HCPCS: J7120

== ENCOUNTER 2016-12-27 07:49 | Day surgery (SDC) | payer MEDICARE, MEDICAID ==
[~2016-12-27 07:49] MED LIST changes: -LACTATED RINGER'S 1000 ML INJ 1,000 ML ONE
[2016-12-27 08:47] VITALS: BP 100/60; PULSE 90; RESP 22; TEMP 98.1; O2SAT 92
[2016-12-27 10:00] VITALS: BP 89/46; PULSE 83; RESP 18; TEMP 98.2; O2SAT 94
[2016-12-27] MEDS ORDERED: ALBUMIN HUMAN 25% 50 GM IV ONE (10:00)
--- NOTE | 2016-12-27 10:12 | RADRPT ---
EXAM DATE/TIME: 12/27/2016 08:37 [facility] COMPARISON: US GUIDED ABD PARACENTESIS, December 17, 2016, 8:07. INDICATIONS : Ascites. MEDICAL HISTORY : Arthritis. HIV. Hepatitis C. Thrombocytopenia. Cirrhosis. Heart murmur. Migraines. COPD. Asthma. Dys pnea. Ascites. GERD. Substance use. Depression. SURGICAL HISTORY : Tonsillectomy. section. Tubal ligation. Adenoidectomy. Benign lesion removed from left neck. Blood transfusions. Paracentesis. ENCOUNTER: Sequela ACUITY: 2 weeks PAIN SCORE: 1/10 LOCATION: Left abdomen. FLUID: Total volume of 8200 cc of clear, yellow fluid was removed. Fluid was discarded. Paracentesis was therapeutic only. Post procedure scanning reveals no hematoma or other complication. TECHNIQUE: 1. Ultrasound guidance for abdominal paracentesis. 2. Paracentesis. The risks, benefits, and alternatives to ultrasound guided paracentesis were explained to the patient in detail including the risk of bleeding and infection. Written and verbal informed consent was obt ained. With the patient on the ultrasound table, ultrasound imaging was used to select the most appropriate approach for paracentesis. Overlying skin was prepped and draped in the usual sterile fashion and wi th a local anesthetic, a dermatotomy was made with an 11 blade scalpel. A 6 Danish Clq-I-tzpphjcj ca theter was introduced into the peritoneal cavity and fluid was collected. The patient tolerated the procedure well and left the ultrasound suite in stable condition. CONCLUSION: Uncomplicated ultrasound guided paracentesis. Valente Lorenzo MD on December 27, 2016 at 10:11 Board Certified Radiologist. This report was verified electronically.
[2016-12-27 10:15] VITALS: BP 104/52; PULSE 87; RESP 18; O2SAT 94
[2016-12-27 10:30] VITALS: BP 109/58; PULSE 85; RESP 18; O2SAT 93
== END 2016-12-27 11:25 | disposition home or self-care (01) ==
LOC: HRAD 07:49 → HRIP 07:51 → HRAD 11:25
PROVIDERS: ATTEND Specialist
DX: R18.8 Other ascites (principal); N18.9 Chronic kidney disease, unspecified; B19.20 Unspecified viral hepatitis C without hepatic coma; J44.9 Chronic obstructive pulmonary disease, unspecified; J45.909 Unspecified asthma, uncomplicated; K21.9 Gastro-esophageal reflux disease without esophagitis
CPT/HCPCS: 49083; 96365; C1729; P9047

== ENCOUNTER → 2017-01-04 | Outpatient (CLI) | payer MEDICARE, MEDICAID ==
[2017-01-04 11:23] LABS: HEMATOCRIT 28.2 % (35.0-46.0); MEAN CELL VOLUME 96.3 FL (80.0-100.0); MEAN CORPUSCULAR HEMOGLOBIN 31.8 PG (27.0-34.0); PLATELET COUNT 58 TH/MM3 (150-450); RED BLOOD COUNT 2.93 MIL/MM3 (4.00-5.30); WHITE BLOOD COUNT 2.8 TH/MM3 (4.0-11.0)
[2017-01-04 11:27] LABS: REVIEW FLAG FINAL
[2017-01-04 11:33] LABS: APTT (PATIENT) 33.6 SEC (24.3-30.1); INTERNATIONAL NORMALIZED RATIO 1.4 RATIO; PROTHROMBIN TIME - PATIENT 15.3 SEC (9.8-11.6)
[2017-01-04 11:49] LABS: ALKALINE PHOSPHATASE 160 U/L (45-117); ALT (GPT) 16 U/L (10-53); ANION GAP 9 MEQ/L (5-15); AST (GOT) 17 U/L (15-37); BICARBONATE 23.2 MEQ/L (21.0-32.0); BLOOD UREA NITROGEN 45 MG/DL (7-18); CHLORIDE 108 MEQ/L (98-107); GLOMERULAR FILTRATION RATE 22 ML/MIN (>89); GLUCOSE,FASTING 98 MG/DL (74-99); POTASSIUM 3.8 MEQ/L (3.5-5.1); SODIUM (NA) 140 MEQ/L (136-145); TOTAL BILIRUBIN ADULT 1.6 MG/DL (0.2-1.0)
== END ==
LOC: CLAB 10:45
PROVIDERS: ATTEND Specialist
DX: B20 Human immunodeficiency virus [HIV] disease (principal); B18.2 Chronic viral hepatitis C; K74.60 Unspecified cirrhosis of liver; N18.9 Chronic kidney disease, unspecified
CPT/HCPCS: 36415; 80053; 85027; 85610; 85730

== ENCOUNTER 2017-01-07 13:30 | Day surgery (SDC) | payer MEDICARE, MEDICAID ==
[2017-01-07 14:16] VITALS: BP 93/51; PULSE 101; RESP 20; TEMP 98; O2SAT 91
[2017-01-07] MEDS ORDERED: ALBUMIN HUMAN 25% 25 GM/100 ML BAGP IV ONE (14:45)
[2017-01-07 15:30] VITALS: BP 94/41; PULSE 85; RESP 16; TEMP 98.3; O2SAT 93
[2017-01-07 15:45] VITALS: BP 95/50; PULSE 92; RESP 16; O2SAT 93
[2017-01-07 16:00] VITALS: BP 98/32; PULSE 94; RESP 16; O2SAT 93
--- NOTE | 2017-01-07 16:07 | RADRPT ---
EXAM DATE/TIME: 01/07/2017 14:18 [facility] COMPARISON: US GUIDED ABD PARACENTESIS, December 27, 2016, 8:37. INDICATIONS : Ascites. MEDICAL HISTORY : Chronic obstructive pulmonary disease. Gastroesophageal reflux disease. Arthritis. HIV. Hepatitis C. Thrombocytopenia. Cirrhosis. Heart murmur. Substance use. Depression. SURGICAL HISTORY : Tonsillectomy. section. Tubal ligation. Adenoidectomy. Paracentesis. ENCOUNTER: Subsequent ACUITY: 2 weeks PAIN SCORE: 4/10 LOCATION: Left lower quadrant FLUID: Total volume of 9400 cc of clear, yellowamber fluid was removed. Fluid was discarded. Paracentesis was therapeutic only. Post procedure scanning reveals no hematoma or other complication. TECHNIQUE: 1. Ultrasound guidance for abdominal paracentesis. 2. Paracentesis. The risks, benefits, and alternatives to ultrasound guided paracentesis were explained to the patient in detail including the risk of bleeding and infection. Written and verbal informed consent was obt ained. With the patient on the ultrasound table, ultrasound imaging was used to select the most appropriate approach for paracentesis. Overlying skin was prepped and draped in the usual sterile fashion and wi th a local anesthetic, a dermatotomy was made with an 11 blade scalpel. A 6 Persian Fcu-Q-tqftrmbi ca theter was introduced into the peritoneal cavity and fluid was collected. The patient tolerated the procedure well and left the ultrasound suite in stable condition. CONCLUSION: Uncomplicated ultrasound guided paracentesis. Patient received albumin per protocol. Dwight Tellez MD FACR on January 07, 2017 at 16:05 Board Certified Radiologist. This report was verified electronically.
[2017-01-07 16:16] VITALS: BP 92/46; PULSE 90; RESP 16; O2SAT 93
== END 2017-01-07 16:30 | disposition home or self-care (01) ==
LOC: HRAD 13:30
PROVIDERS: ATTEND Specialist
DX: R18.8 Other ascites (principal); J44.9 Chronic obstructive pulmonary disease, unspecified; F32.9 Major depressive disorder, single episode, unspecified; K21.9 Gastro-esophageal reflux disease without esophagitis; M19.90 Unspecified osteoarthritis, unspecified site; B19.20 Unspecified viral hepatitis C without hepatic coma; Z21 Asymptomatic human immunodeficiency virus [HIV] infection status; Z88.1 Allergy status to other antibiotic agents
CPT/HCPCS: 49083; 96365; C1729; P9047

== ENCOUNTER → 2017-01-10 | Day surgery (SDC) | payer MEDICARE, MEDICAID ==
[~2017-01-10] MED LIST changes: +LACTATED RINGER'S 1000 ML INJ 1,000 ML ONE; +PROPOFOL 200 MG/20 ML AMP IV ONE
--- NOTE | 2017-01-10 15:48 | GIPROC ---
[facility] [address], [address] COLONOSCOPY PROCEDURE REPORT EXAM DATE: 01/10/2017 PATIENT NAME: Glenna Craig MR #: [id number] BIRTHDATE: 1970 ENDOSCOPIST: Renetta Leon MD ORDER #: [id number] ROLLER MAN: Marichuy Wallace RN STATUS: outpatient INDICATIONS: The patient is a 46 yr old female here for a colonoscopy due to average risk patient for colon cancer and pre liver transplant w/u PROCEDURE PERFORMED: Colonoscopy, screening MEDICATIONS: None and Per Anesthesia. PREP QUALITY: fair ESTIMATED BLOOD LOSS: None CONSENT: The patient understands the risks and benefits of the procedure and understands that these risks include, but are not limited to: sedation, allergic reaction, infection, perforation and/or bleeding. Alternative means of evaluation and treatment include, among others: physical exam, x-rays, and/or surgical intervention. The patient elects to proceed with this endoscopic procedure. medical equipment was checked for proper function. Hand hygiene and appropriate measures for infection prevention was taken. After the risks, benefits and alternatives of the procedure were thoroughly explained, Informed consent was verified, confirmed and timeout was successfully executed by the treatment team. A digital exam revealed no abnormalities of the rectum The EC-3490Li ([id number]) endoscope was introduced through the anus and advanced to the cecum, which was identified by both the appendix and ileocecal valve. The instrument was then slowly withdrawn as the colon was fully examined. COLON FINDINGS: Normal colonoscopy. Retroflexed views revealed no abnormalities The scope was then completely withdrawn from the patient and the procedure terminated. ADVERSE EVENTS: There were no complications. IMPRESSIONS: 1. Normal colonoscopy 2. Retroflexed views revealed no abnormalities 3. Revealed no abnormalities of the rectum RECOMMENDATIONS: 1. Yearly hemoccult 2. High fiber diet RECALL: Return 10 years Colonoscopy Renetta Leon MD eSigned: Renetta Leon MD 01/10/2017 3:48 PM cc: Kevin Jurado M.D.
--- NOTE | 2017-01-10 15:53 | GIPROC ---
[facility] [address], [address] EGD PROCEDURE REPORT EXAM DATE: 01/10/2017 PATIENT NAME: Glenna Craig MR #: [id number] BIRTHDATE: 1970 ATTENDING: Renetta Leon MD ORDER #: [id number] COUNCILPERSON: Marichuy Wallace RN STATUS: outpatient INDICATIONS: The patient is a 46 yr old female here for an EGD due to H/O liver cirrohsis liver Txp W/U PROCEDURE PERFORMED: EGD, diagnostic MEDICATIONS: None and Per Anesthesia. TOPICAL ANESTHETIC: none CONSENT: The patient understands the risks and benefits of the procedure and understands that these risks include, but are not limited to: sedation, allergic reaction, infection, perforation and/or bleeding. Alternative means of evaluation and treatment include, among others: physical exam, x-rays, and/or surgical intervention. The patient elects to proceed with this endoscopic procedure. medical equipment was checked for proper function. Hand hygiene and appropriate measures for infection prevention was taken. After the risks, benefits and alternatives of the procedure were thoroughly explained, Informed consent was verified, confirmed and timeout was successfully executed by the treatment team. The patient was anesthetized with topical anesthesia and the EC-3490Li ([id number]) and EC-3490Li ([id number]) endoscope was introduced through the mouth and advanced to the second portion of the duodenum. Retroflexed views revealed gastropathy The gastroscope was then slowly withdrawn and removed. 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 Grade 1 esophageal varices. Grade C esophagitis Bx not done because of low PLT. ADVERSE EVENTS: There were no complications. IMPRESSIONS: 1. 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 Grade 1 esophageal varices 3. Grade C esophagitis Bx not done because of low PLT 4. Retroflexed views revealed gastropathy RECOMMENDATIONS: 1. Continue PPI 2. No ETOH continue meds check stool for H pylori PATIENT CONDITION: stable DISPOSITION: Home REPEAT EXAM: Return as needed for EGD Renetta Leon MD eSigned: Renetta Leon MD 01/10/2017 3:52 PM cc: Kevin Jurado M.D. PATIENT NAME: Glenna Craig MR#: [id number]
== END | disposition home or self-care (01) ==
LOC: ESDC 12:39
PROVIDERS: ATTEND Hospitalist
DX: Z01.818 Encounter for other preprocedural examination (principal); K74.60 Unspecified cirrhosis of liver; I85.00 Esophageal varices without bleeding; K20.9 Esophagitis, unspecified; K31.9 Disease of stomach and duodenum, unspecified; R19.8 Other specified symptoms and signs involving the digestive system and abdomen
CPT/HCPCS: 00740; 00810; 43235; 45378; J7120

== ENCOUNTER 2017-01-13 08:08 | Day surgery (SDC) | payer MEDICARE, MEDICAID ==
[~2017-01-13 08:08] MED LIST changes: -LACTATED RINGER'S 1000 ML INJ 1,000 ML ONE; -PROPOFOL 200 MG/20 ML AMP IV ONE
[2017-01-13 08:41] VITALS: BP 98/58; PULSE 89; RESP 20; TEMP 98; O2SAT 91
[2017-01-13] MEDS ORDERED: ALBUMIN HUMAN 25% 25GM-W/12.5GM FOR 37.5GM IV ONE (10:00)
[2017-01-13] MEDS ORDERED: ALBUMIN HUMAN 25% 12.5GM-W/25GM FOR 37.5GM IV ONE (10:00)
[2017-01-13 10:10] VITALS: BP 96/42; PULSE 75; RESP 19; TEMP 97.9; O2SAT 91
[2017-01-13 10:25] VITALS: BP 94/52; PULSE 74; RESP 18; O2SAT 91
--- NOTE | 2017-01-13 10:48 | RADRPT ---
EXAM DATE/TIME: 01/13/2017 08:37 [facility] COMPARISON: US GUIDED ABD PARACENTESIS, January 07, 2017, 14:18. INDICATIONS : Ascites. MEDICAL HISTORY : Chronic obstructive pulmonary disease. Gastroesophageal reflux disease. Arthritis. HIV. Hepatitis C. Thrombocytopenia. Cirrhosis. Heart murmur. Substance use. Depression. SURGICAL HISTORY : Tonsillectomy. section. Tubal ligation. Adenoidectomy. Paracentesis. ENCOUNTER: Sequela ACUITY: 1 week PAIN SCORE: 5/10 LOCATION: Right lower quadrant FLUID: Total volume of 6,100 cc of clear, red fluid was removed. Fluid was discarded. Paracentesis was therapeutic only. Post procedure scanning reveals no hematoma or other complication. TECHNIQUE: 1. Ultrasound guidance for abdominal paracentesis. 2. Paracentesis. The risks, benefits, and alternatives to ultrasound guided paracentesis were explained to the patient in detail including the risk of bleeding and infection. Written and verbal informed consent was obt ained. With the patient on the ultrasound table, ultrasound imaging was used to select the most appropriate approach for paracentesis. Overlying skin was prepped and draped in the usual sterile fashion and wi th a local anesthetic, a dermatotomy was made with an 11 blade scalpel. A 6 Albanian Oem-B-vamokibc ca theter was introduced into the peritoneal cavity and fluid was collected. The patient tolerated the procedure well and left the ultrasound suite in stable condition. CONCLUSION: Uncomplicated ultrasound guided paracentesis. Kevin Tellez MD on January 13, 2017 at 10:45 Board Certified Radiologist. This report was verified electronically.
== END 2017-01-13 11:06 | disposition home or self-care (01) ==
LOC: HRAD 08:08 → HRIP 08:09 → HRAD 11:06
PROVIDERS: ATTEND Specialist
DX: K74.60 Unspecified cirrhosis of liver (principal); B19.20 Unspecified viral hepatitis C without hepatic coma; J44.9 Chronic obstructive pulmonary disease, unspecified; K21.9 Gastro-esophageal reflux disease without esophagitis; F32.9 Major depressive disorder, single episode, unspecified; M19.90 Unspecified osteoarthritis, unspecified site; Z21 Asymptomatic human immunodeficiency virus [HIV] infection status; Z88.1 Allergy status to other antibiotic agents
CPT/HCPCS: 49083; 96365; C1729; P9047

== ENCOUNTER 2017-01-21 08:06 | Day surgery (SDC) | payer MEDICARE, MEDICAID ==
[2017-01-21 08:39] VITALS: BP 101/61; PULSE 96; RESP 18; TEMP 97; O2SAT 93
[2017-01-21 09:45] VITALS: BP 88/48; PULSE 84; RESP 18; O2SAT 93
[2017-01-21 10:00] VITALS: BP 98/50; PULSE 84; RESP 18; O2SAT 94
--- NOTE | 2017-01-21 10:23 | RADRPT ---
EXAM DATE/TIME: 01/21/2017 08:28 [facility] COMPARISON: US GUIDED ABD PARACENTESIS, January 13, 2017, 8:37. INDICATIONS : Ascities. MEDICAL HISTORY : Chronic obstructive pulmonary disease. Gastroesophageal reflux disease. Headache. Heart murmur. Asth ma. Dyspnea. Ascities. Arthritis. Depression. Anxiety. Cirrhosis. Hepatits. Platelet transfusions. SURGICAL HISTORY : Tonsillectomy. Tubal ligation. section. Adnoidectomy. Benign lesion removed from neck. ENCOUNTER: Sequela ACUITY: > 1 yr PAIN SCORE: 2/10 LOCATION: Left lower quadrant FLUID: Total volume of 5400 cc of clear, yellow fluid was removed. Fluid was discarded. Paracentesis was therapeutic only. Post procedure scanning reveals no hematoma or other complication. TECHNIQUE: 1. Ultrasound guidance for abdominal paracentesis. 2. Paracentesis. The risks, benefits, and alternatives to ultrasound guided paracentesis were explained to the patient in detail including the risk of bleeding and infection. Written and verbal informed consent was obt ained. With the patient on the ultrasound table, ultrasound imaging was used to select the most appropriate approach for paracentesis. Overlying skin was prepped and draped in the usual sterile fashion and wi th a local anesthetic, a dermatotomy was made with an 11 blade scalpel. A 6 Occitan Bee-O-lfrknhdy ca theter was introduced into the peritoneal cavity and fluid was collected. The patient tolerated the procedure well and left the ultrasound suite in stable condition. CONCLUSION: Uncomplicated ultrasound guided paracentesis. Dwight Tellez MD FACR on January 21, 2017 at 10:02 Board Certified Radiologist. This report was verified electronically.
== END 2017-01-21 10:10 | disposition home or self-care (01) ==
LOC: HRAD 08:06 → HRIP 08:11 → HRAD 10:10
PROVIDERS: ATTEND Specialist
DX: R18.8 Other ascites (principal); K74.60 Unspecified cirrhosis of liver; J44.9 Chronic obstructive pulmonary disease, unspecified; K21.9 Gastro-esophageal reflux disease without esophagitis; F32.9 Major depressive disorder, single episode, unspecified; F41.9 Anxiety disorder, unspecified; M19.90 Unspecified osteoarthritis, unspecified site; Z88.1 Allergy status to other antibiotic agents
CPT/HCPCS: 49083; C1729

== ENCOUNTER 2017-01-26 07:49 | Day surgery (SDC) | payer MEDICARE, MEDICAID ==
[2017-01-26 08:07] VITALS: BP 105/58; PULSE 90; RESP 18; TEMP 97.6; O2SAT 92
[2017-01-26] MEDS ORDERED: ALBUMIN HUMAN 25% 25 GM/100 ML BAGP IV ONE (08:45)
[2017-01-26 09:42] VITALS: BP 99/43; PULSE 81; RESP 18; TEMP 97.3; O2SAT 95
[2017-01-26 09:47] VITALS: BP 94/45; PULSE 84; RESP 17; O2SAT 96
--- NOTE | 2017-01-26 10:23 | RADRPT ---
EXAM DATE/TIME: 01/26/2017 08:12 [facility] COMPARISON: US GUIDED ABD PARACENTESIS, January 21, 2017, 8:28. INDICATIONS : Ascites. MEDICAL HISTORY : Chronic obstructive pulmonary disease. Gastroesophageal reflux disease. Headache. Heart murmur. Asth ma. Dyspnea. Ascities. Arthritis. Depression. Anxiety. Cirrhosis.Hepatits. Platelet transfusions. SURGICAL HISTORY : Tonsillectomy. Tubal ligation. section. Adnoidectomy. Benign lesion removed from neck. ENCOUNTER: Sequela ACUITY: 4 - 6 days PAIN SCORE: 7/10 LOCATION: Left lower quadrant FLUID: Total volume of 9,500 cc of clear, yellow fluid was removed. Fluid was discarded. Paracentesis was therapeutic only. Post procedure scanning reveals no hematoma or other complication. TECHNIQUE: 1. Ultrasound guidance for abdominal paracentesis. 2. Paracentesis. The risks, benefits, and alternatives to ultrasound guided paracentesis were explained to the patient in detail including the risk of bleeding and infection. Written and verbal informed consent was obt ained. With the patient on the ultrasound table, ultrasound imaging was used to select the most appropriate approach for paracentesis. Overlying skin was prepped and draped in the usual sterile fashion and wi th a local anesthetic, a dermatotomy was made with an 11 blade scalpel. A 6 Uruguayan Yqe-G-aqvfhnrt ca theter was introduced into the peritoneal cavity and fluid was collected. The patient tolerated the procedure well and left the ultrasound suite in stable condition. CONCLUSION: Uncomplicated ultrasound guided paracentesis. Patient received albumin per protocol. Dwight Tellez MD FACR on January 26, 2017 at 10:21 Board Certified Radiologist. This report was verified electronically.
[2017-01-26 10:40] VITALS: BP 102/50; PULSE 82; RESP 18; O2SAT 95
== END 2017-01-26 10:45 | disposition home or self-care (01) ==
LOC: HRAD 07:49 → HRIP 07:51 → HRAD 10:45
PROVIDERS: ATTEND Specialist
DX: R18.8 Other ascites (principal); J44.9 Chronic obstructive pulmonary disease, unspecified; J45.909 Unspecified asthma, uncomplicated; K21.9 Gastro-esophageal reflux disease without esophagitis; K75.9 Inflammatory liver disease, unspecified; K74.60 Unspecified cirrhosis of liver; F32.9 Major depressive disorder, single episode, unspecified; F41.9 Anxiety disorder, unspecified; M19.90 Unspecified osteoarthritis, unspecified site
CPT/HCPCS: 49083; 96365; C1729; P9047

== ENCOUNTER 2017-02-03 07:55 | Day surgery (SDC) | payer MEDICARE, MEDICAID ==
[2017-02-03 10:50] VITALS: BP 96/50; PULSE 88; RESP 20; TEMP 97.7; O2SAT 94
[2017-02-03] MEDS ORDERED: ALBUMIN HUMAN 25% 12.5GM-W/50GM FOR 62.5GM IV ONE (11:00)
[2017-02-03] MEDS ORDERED: ALBUMIN HUMAN 25% 50GM-W/12.5GM FOR 62.5GM IV ONE (11:00)
--- NOTE | 2017-02-03 11:10 | RADRPT ---
EXAM DATE/TIME: 02/03/2017 08:53 [facility] COMPARISON: US GUIDED ABD PARACENTESIS, January 26, 2017, 8:12. INDICATIONS : Ascites. MEDICAL HISTORY : Chronic obstructive pulmonary disease. Gastroesophageal reflux disease. SURGICAL HISTORY : Tonsillectomy. Tubal ligation. section. Adenoidectomy. Benign lesion ENCOUNTER: Sequela ACUITY: 4 - 6 days PAIN SCORE: 4/10 LOCATION: Right lower quadrant FLUID: Total volume of 9000 cc of clear, yellow fluid was removed. Fluid was discarded. Paracentesis was therapeutic only. Post procedure scanning reveals no hematoma or other complication. TECHNIQUE: 1. Ultrasound guidance for abdominal paracentesis. 2. Paracentesis. The risks, benefits, and alternatives to ultrasound guided paracentesis were explained to the patient in detail including the risk of bleeding and infection. Written and verbal informed consent was obt ained. With the patient on the ultrasound table, ultrasound imaging was used to select the most appropriate approach for paracentesis. Overlying skin was prepped and draped in the usual sterile fashion and wi th a local anesthetic, a dermatotomy was made with an 11 blade scalpel. A 6 [place] Islander Dgs-M-ntkiicou ca theter was introduced into the peritoneal cavity and fluid was collected. The patient tolerated the procedure well and left the ultrasound suite in stable condition. CONCLUSION: Uncomplicated ultrasound guided paracentesis. Panchito Rocha MD on February 03, 2017 at 11:07 Board Certified Radiologist. This report was verified electronically.
[2017-02-03 11:48] VITALS: BP 102/58; PULSE 80; RESP 18; O2SAT 95
== END 2017-02-03 12:00 | disposition home or self-care (01) ==
LOC: HRAD 07:55 → HRIP 07:58 → HRAD 12:00
PROVIDERS: ATTEND Specialist
DX: R18.8 Other ascites (principal)
CPT/HCPCS: 49083; 96365; C1729; P9047; 96366

== ENCOUNTER → 2017-02-07 | Outpatient (CLI) | payer MEDICARE, MEDICAID ==
[2017-02-07 09:44] LABS: HEMATOCRIT 26.3 % (35.0-46.0); MEAN CELL VOLUME 96.8 FL (80.0-100.0); MEAN CORPUSCULAR HEMOGLOBIN 31.8 PG (27.0-34.0); MEAN CORPUSCULAR HGB CONC 32.8 % (32.0-36.0); PLATELET COUNT 73 TH/MM3 (150-450); RED BLOOD COUNT 2.72 MIL/MM3 (4.00-5.30); RED CELL DISTRIBUTION WIDTH 18.4 % (11.6-17.2); WHITE BLOOD COUNT 3.3 TH/MM3 (4.0-11.0)
[2017-02-07 09:49] LABS: REVIEW FLAG FINAL
[2017-02-07 09:52] LABS: APTT (PATIENT) 33.2 SEC (24.3-30.1); INTERNATIONAL NORMALIZED RATIO 1.5 RATIO; PROTHROMBIN TIME - PATIENT 16.7 SEC (9.8-11.6)
[2017-02-07 10:21] LABS: ALKALINE PHOSPHATASE 150 U/L (45-117); ALT (GPT) 21 U/L (10-53); TOTAL BILIRUBIN ADULT 1.8 MG/DL (0.2-1.0)
[2017-02-07 10:23] LABS: ANION GAP 9 MEQ/L (5-15); AST (GOT) 26 U/L (15-37); BICARBONATE 19.6 MEQ/L (21.0-32.0); BLOOD UREA NITROGEN 64 MG/DL (7-18); CHLORIDE 113 MEQ/L (98-107); GLOMERULAR FILTRATION RATE 17 ML/MIN (>89); GLUCOSE,FASTING 120 MG/DL (74-99); POTASSIUM 3.7 MEQ/L (3.5-5.1); SODIUM (NA) 142 MEQ/L (136-145)
== END ==
LOC: CLAB 09:05
PROVIDERS: ATTEND Specialist
DX: B18.2 Chronic viral hepatitis C (principal); R18.8 Other ascites
CPT/HCPCS: 36415; 80053; 85027; 85610; 85730

== ENCOUNTER 2017-02-10 08:56 | Emergency (ER) | payer MEDICARE, MEDICAID ==
[~2017-02-10] VITALS: Ht 167.6 cm; Wt 80.0 kg
[2017-02-10] VITALS (9 sets, daily range): BP systolic 97–118; BP diastolic 49–58; PULSE 75–90; RESP 16–28; TEMP 97–97.7; O2SAT 88–98
[~2017-02-10 08:56] MED LIST changes: -SODI325T PO
[2017-02-10 09:30] LABS: AUTOMATED NEUTROPHIL # 2.2 TH/MM3 (1.8-7.7); BASOPHIL % 0.8 % (0.0-2.0); EOSINOPHIL # 0.1 TH/MM3 (0-0.4); EOSINOPHIL % 1.8 % (0.0-4.0); HEMATOCRIT 27.2 % (35.0-46.0); LYMPH % 10.9 % (9.0-44.0); LYMPHOCYTE # 0.3 TH/MM3 (1.0-4.8); MEAN CELL VOLUME 96.7 FL (80.0-100.0); MEAN CORPUSCULAR HEMOGLOBIN 31.2 PG (27.0-34.0); MEAN CORPUSCULAR HGB CONC 32.3 % (32.0-36.0); MONO % 11.6 % (0.0-8.0); NEUT % 74.9 % (16.0-70.0); PLATELET COUNT 61 TH/MM3 (150-450); RED BLOOD COUNT 2.82 MIL/MM3 (4.00-5.30); RED CELL DISTRIBUTION WIDTH 18.3 % (11.6-17.2); WHITE BLOOD COUNT 2.9 TH/MM3 (4.0-11.0)
[2017-02-10 09:31] LABS: HEMO FLAGS AUTO DIFF
[2017-02-10 10:08] LABS: ANION GAP 11 MEQ/L (5-15); AST (GOT) 18 U/L (15-37); BICARBONATE 15.9 MEQ/L (21.0-32.0); BLOOD UREA NITROGEN 71 MG/DL (7-18); CHLORIDE 109 MEQ/L (98-107); GLOMERULAR FILTRATION RATE 15 ML/MIN (>89); POTASSIUM 3.7 MEQ/L (3.5-5.1); SODIUM (NA) 136 MEQ/L (136-145)
[2017-02-10 10:09] LABS: ALT (GPT) 20 U/L (10-53)
[2017-02-10 10:12] LABS: ALKALINE PHOSPHATASE 164 U/L (45-117); TOTAL BILIRUBIN ADULT 1.6 MG/DL (0.2-1.0)
[2017-02-10 10:13] LABS: OVALOCYTES 2+ (NORMAL); PLATELET ESTIMATE SMEAR LOW (NORMAL); PLATELET MORPHOLOGY NORMAL (NORMAL); SCAN/DIFF AUTO DIFF CONFIRMED; TEARDROP RBCS 1+ (NORMAL)
--- NOTE | 2017-02-10 10:43 | PD ---
HPI Chief Complaint: Abdominal distension Time Seen by Provider: 09:44 Travel History International Travel<30 days: No Contact w/Intl Traveler<30days: No Traveled to known affect area: No History of Present Illness HPI 46yo F with PMH of cirrhosis presents to the ED because her blood was too low for paracentesis. States she had blood work drawn Tuesday and has weekly paracentesis and is suppose to have paracentesis today but they told her that her blood is too low so they cant do it. Pt has abdominal distension and RUQ and epigastric abdominal pain for 2 days. States feels like pain when her abdomen distends too much. Is on list for liver transplant. Denies any fever, chest pain, sob, urinary complaints. +NBNB vomiting. PFSH Past Medical History Arthritis: Yes (KNEES) Asthma: Yes (SINCE 2003) Autoimmune Disease: No Anxiety: Yes Depression: Yes (DX YEARS AGO) Heart Rhythm Problems: No Cancer: Yes (BENIGN LESION REMOVED FROM LEFT NECK) Cardiovascular Problems: Yes (HEART MURMUR) High Cholesterol: No Chemotherapy: No Chest Pain: No Congestive Heart Failure: No Cirrhosis: Yes COPD: Yes Cerebrovascular Accident: No Diabetes: No Diminished Hearing: No Endocrine: No Gastrointestinal Disorders: Yes (ASCITES) GERD: Yes Genitourinary: No Headaches: Yes Hepatitis: Yes (HEP C) Hiatal Hernia: No Heparin Induced Thrombocytopen: No Hypertension: No Immune Disorder: Yes (HIV DX. 2000) Implanted Vascular Access Dvce: Yes Kidney Stones: No Musculoskeletal: No Neurologic: No Psychiatric: Yes Reproductive: Yes (LAST PERIOD 2008) Respiratory: Yes (copd) Immunizations Current: Yes Migraines: Yes Radiation Therapy: No Renal Failure: No Seizures: No Sickle Cell Disease: No Sleep Apnea: No Thyroid Disease: No Ulcer: No ?: Not Menopausal: Yes Tubal Ligation: Yes (1999) Past Surgical History Abdominal Surgery: No AICD: No Arteriovenous Shunt: No Body Medical Devices: TUBES TIED WITH METAL BANDS Cardiac Surgery: No Section: Yes (1st child ) Ear Surgery: No Endocrine Surgery: No Eye Surgery: No Genitourinary Surgery: No Gynecologic Surgery: Yes (/TUBAL LIGATION) Insulin Pump: No Joint Replacement: No Neurologic Surgery: No Oral Surgery: No Pacemaker: No Thoracic Surgery: No Tonsillectomy: Yes (and adniods) Other Surgery: Yes (lump removed from neck-non cancerous, paracentesis) Social History Alcohol Use: No (former, pt states she quit) Tobacco Use: No Substance Use: No (MARIJUANA history) Allergies-Medications (Allergen,Severity, Reaction): Coded Allergies: Erythromycin (Verified Allergy, Severe, Anaphylaxis, 02/10/17) Reported Meds & Prescriptions Reported Meds & Active Scripts Active Reported Vitamin D (Ergocalciferol) 50,000 Unit Cap 50,000 Units PO Q7D Valacyclovir (Valacyclovir HCl) 1 Gm Tab 1,000 Mg PO DAILY Furosemide 20 Mg Tab 20 Mg PO BID Omeprazole 40 Mg Cap 40 Mg PO DAILY Descovy (Emtricitabine-Tenofovir Alafenamide) 200-25 mg Tab 1 Tab PO DAILY Sustiva (Efavirenz) 50 Mg Cap 50 Mg PO DAILY Xifaxan (Rifaximin) 550 Mg Tab 550 Mg PO Q12HR Spironolactone 50 Mg Tab 50 Mg PO BID Calcium 600 with Vitamin D (Calcium Carbonate-Cholecalciferol) 600-400 mg-Unit Tab 1 Tab PO DAILY Review of Systems Except as stated in HPI: all other systems reviewed are Neg Physical Exam Narrative GENERAL: 46yo F in mild distress. SKIN: Focused skin assessment warm/dry. HEAD: Atraumatic. Normocephalic. EYES: Pupils equal and round. No scleral icterus. No injection or drainage. CARDIOVASCULAR: Regular rate and rhythm. No murmur appreciated. RESPIRATORY: No accessory muscle use. Clear to auscultation. Breath sounds equal bilaterally. GASTROINTESTINAL: Abdomen soft, +Distension. +TTP epigastric and RUQ. No guarding. MUSCULOSKELETAL: No obvious deformities. No clubbing. No cyanosis. No edema. NEUROLOGICAL: Awake and alert. No obvious cranial nerve deficits. Motor grossly within normal limits. Normal speech. PSYCHIATRIC: Appropriate mood and affect; insight and judgment normal. Data Data Last Documented VS Vital Signs Date Time Temp Pulse Resp B/P Pulse Ox O2 Delivery O2 Flow Rate FiO2 02/10/17 14:53 81 16 97/50 98 Room Air 02/10/17 12:54 97.0 Orders Complete Blood Count With Diff (02/10/17 09:05) Comprehensive Metabolic Panel (02/10/17 09:05) Urinalysis - C+S If Indicated (02/10/17 09:05) Type And Screen (02/10/17 10:39) Lipase (02/10/17 10:39) Prothrombin Time / Inr (Pt) (02/10/17 10:39) Act Partial Throm Time (Ptt) (02/10/17 10:39) Morphine Inj (Morphine Inj) (02/10/17 12:00) Ed Urine Pregnancytest Poc (02/10/17 11:49) Bhcg Screen Qualitative (02/10/17 11:51) Us Guided Abd Paracentesis (02/10/17 ) Vital Signs (Adult) [id number] (02/10/17 13:12) Wound (02/10/17 13:12) Notify Radiology (02/10/17 13:12) Change Dressing (02/10/17 13:12) Albumin 25% Inj (Albumin 25% Inj) (02/10/17 13:15) Discharge Instructions (02/10/17 13:12) Albumin 25% Inj (Albumin 25% Inj) (02/10/17 15:00) Albumin 25% Inj (Albumin 25% Inj) (02/10/17 15:00) Labs Laboratory Tests Test 02/10/17 02/10/17 09:20 10:46 White Blood Count 2.9 TH/MM3 Red Blood Count 2.82 MIL/MM3 Hemoglobin 8.8 GM/DL Hematocrit 27.2 % Mean Corpuscular Volume 96.7 FL Mean Corpuscular Hemoglobin 31.2 PG Mean Corpuscular Hemoglobin 32.3 % Concent Red Cell Distribution Width 18.3 % Platelet Count 61 TH/MM3 Mean Platelet Volume 9.9 FL Neutrophils (%) (Auto) 74.9 % Lymphocytes (%) (Auto) 10.9 % Monocytes (%) (Auto) 11.6 % Eosinophils (%) (Auto) 1.8 % Basophils (%) (Auto) 0.8 % Neutrophils # (Auto) 2.2 TH/MM3 Lymphocytes # (Auto) 0.3 TH/MM3 Monocytes # (Auto) 0.3 TH/MM3 Eosinophils # (Auto) 0.1 TH/MM3 Basophils # (Auto) 0.0 TH/MM3 CBC Comment AUTO DIFF Differential Comment AUTO DIFF CONFIRMED Platelet Estimate LOW Platelet Morphology Comment NORMAL Tear Drop Cells 1+ Ovalocytes 2+ Sodium Level 136 MEQ/L Potassium Level 3.7 MEQ/L Chloride Level 109 MEQ/L Carbon Dioxide Level 15.9 MEQ/L Anion Gap 11 MEQ/L Blood Urea Nitrogen 71 MG/DL Creatinine 3.38 MG/DL Estimat Glomerular Filtration 15 ML/MIN Rate Random Glucose 114 MG/DL Calcium Level 8.4 MG/DL Total Bilirubin 1.6 MG/DL Aspartate Amino Transf 18 U/L (AST/SGOT) Alanine Aminotransferase 20 U/L (ALT/SGPT) Alkaline Phosphatase 164 U/L Total Protein 5.9 GM/DL Albumin 3.3 GM/DL Lipase 352 U/L Beta HCG, Qualitative LESS THAN 1 MIU/ML Prothrombin Time 15.9 SEC Prothromb Time International 1.4 RATIO Ratio Activated Partial 33.1 SEC Thromboplast Time Blood Type O POSITIVE Antibody Screen NEGATIVE MDM Medical Decision Making Medical Screen Exam Complete: Yes Emergency Medical Condition: Yes Differential Diagnosis Cirrhosis vs. thrombocytopenia vs. pancreatitis vs. hepatitis Narrative Course 46yo F with cirrhosis here with abdominal pain and distension because she was not able to do paracentesis today. Labs reviewed, WBC at 2.9, H/H low at 8.8/ 27.2. Thrombocytopenic at 61. This is all at her baseline compared to her old labs. BUN/creatinine is a little worst than prior but not by much and pt knows about this and her PMD is following it. States she is still urinating without any trouble. Pt was given morphine which helped with the pain. I discussed with IR and they said they will be able to do paracentesis with those labs and that he do paracentesis for her every week. Pt returned from paracentesis and abdomen is now soft and nontender. Watson that pain was due to her distension. No signs of infection such as fever. Return precautions given. Discussed with Dr. Jurado who wants pt to follow up Tuesday. I informed pt. Diagnosis Primary Impression: Cirrhosis of liver Qualified Code: K74.69 - Other cirrhosis of liver Patient Instructions: General Instructions Departure Forms: Tests/Procedures Additional Instructions: Please follow up with your PMD Dr. Jurado on Tuesday. Return to the ED if symptoms worsen. Med/Other Pt SpecificInfo: No Change to Meds Disposition: DISCHARGE HOME Condition: Stable Shirley Rothman DO Feb 10, 2017 10:43
[2017-02-10 11:14] LABS: APTT (PATIENT) 33.1 SEC (24.3-30.1); INTERNATIONAL NORMALIZED RATIO 1.4 RATIO; PROTHROMBIN TIME - PATIENT 15.9 SEC (9.8-11.6)
[2017-02-10] MEDS ORDERED: MORPHINE SULFATE 4 MG/ML INJ IV PUSH ONE (12:00)
[2017-02-10] MEDS ORDERED: ALBUMIN HUMAN 25% 25 GM/100 ML BAGP IV ONE (13:15)
--- NOTE | 2017-02-10 14:06 | PD.RAD ---
Post US Procedure Prog Note Pre Procedure Diagnosis: (1) Ascites (2) Liver cirrhosis Post Procedure Diagnosis: (1) Ascites (2) Liver cirrhosis Procedure Date: Feb 10, 2017 Supervising Radiologist: Valente Lorenzo Proceduralist/Assist: Apryl Sierra RDMS Estimated blood loss: none Anesthesia: Local Plan of Activity Patient to Unit: Other Patient Condition: Fair See PACS Report for procedural detail/treatment Drainage Procedure Procedure 1 Imaging Guidance: Ultrasound Side: Left Procedure Type: Paracentesis Fluid Removal (CCs): 9300 Fluid Description: Clear, Yellow Plan back to ED to receive albumin and then discharge after 2 hours Valente Lorenzo MD Feb 10, 2017 14:06
--- NOTE | 2017-02-10 14:09 | RADRPT ---
EXAM DATE/TIME: 02/10/2017 12:41 [facility] COMPARISON: US GUIDED ABD PARACENTESIS, February 03, 2017, 8:53. INDICATIONS : Ascites. MEDICAL HISTORY : Chronic obstructive pulmonary disease. Gastroesophageal reflux disease. SURGICAL HISTORY : Tonsillectomy. Tubal ligation. section. Adenoidectomy. ENCOUNTER: Subsequent ACUITY: 3 days PAIN SCORE: 4/10 LOCATION: Left lower quadrant FLUID: Total volume of 9,300 cc of clear, yellow fluid was removed. Fluid was discarded. Paracentesis was therapeutic only. Post procedure scanning reveals no hematoma or other complication. TECHNIQUE: 1. Ultrasound guidance for abdominal paracentesis. 2. Paracentesis. The risks, benefits, and alternatives to ultrasound guided paracentesis were explained to the patient in detail including the risk of bleeding and infection. Written and verbal informed consent was obt ained. With the patient on the ultrasound table, ultrasound imaging was used to select the most appropriate approach for paracentesis. Overlying skin was prepped and draped in the usual sterile fashion and wi th a local anesthetic, a dermatotomy was made with an 11 blade scalpel. A 6 Portuguese Sgr-L-zzmxzpfo ca theter was introduced into the peritoneal cavity and fluid was collected. The patient tolerated the procedure well and left the ultrasound suite in stable condition. CONCLUSION: Uncomplicated ultrasound guided paracentesis. Valente Lorenzo MD on February 10, 2017 at 14:02 Board Certified Radiologist. This report was verified electronically.
[2017-02-10] MEDS ORDERED: ALBUMIN HUMAN 25% 50GM-W/12.5GM FOR 62.5GM IV ONE (15:00)
[2017-02-10] MEDS ORDERED: ALBUMIN HUMAN 25% 12.5GM-W/50GM FOR 62.5GM IV ONE (15:00)
== END 2017-02-10 19:06 | disposition home or self-care (01) ==
LOC: NEPC 08:56
DX: K74.60 Unspecified cirrhosis of liver (principal); R18.8 Other ascites; M17.0 Bilateral primary osteoarthritis of knee; J44.9 Chronic obstructive pulmonary disease, unspecified; R01.1 Cardiac murmur, unspecified; B19.20 Unspecified viral hepatitis C without hepatic coma; B20 Human immunodeficiency virus [HIV] disease; Z79.899 Other long term (current) drug therapy
CPT/HCPCS: 49083; 80053; 83690; 84703; 85025; 85610; 85730; 86850; 86900; 86901; 96374; 96375; 99285; C1729; J2270; P9047

== ENCOUNTER → 2017-02-10 | Outpatient (CLI) | payer MEDICARE, MEDICAID ==
[~2017-02-10] MED LIST changes: +SODI325T PO
[2017-02-10 09:18] LABS: HEMATOCRIT 25.9 % (35.0-46.0); MEAN CELL VOLUME 97.7 FL (80.0-100.0); MEAN CORPUSCULAR HEMOGLOBIN 30.5 PG (27.0-34.0); MEAN CORPUSCULAR HGB CONC 31.2 % (32.0-36.0); PLATELET COUNT 59 TH/MM3 (150-450); RED BLOOD COUNT 2.65 MIL/MM3 (4.00-5.30); RED CELL DISTRIBUTION WIDTH 18.3 % (11.6-17.2); WHITE BLOOD COUNT 2.7 TH/MM3 (4.0-11.0)
[2017-02-10 09:20] LABS: REVIEW FLAG AUTO DIFF
[2017-02-10 09:27] LABS: APTT (PATIENT) 33.8 SEC (24.3-30.1); INTERNATIONAL NORMALIZED RATIO 1.4 RATIO; PROTHROMBIN TIME - PATIENT 15.4 SEC (9.8-11.6)
[2017-02-10 09:38] LABS: MAGNESIUM 2.6 MG/DL (1.5-2.5); TRANSFERRIN IRON PROFILE 171 MG/DL (200-360)
== END ==
LOC: CLAB 08:33
PROVIDERS: ATTEND Specialist
DX: Z01.812 Encounter for preprocedural laboratory examination (principal); N18.9 Chronic kidney disease, unspecified; D69.6 Thrombocytopenia, unspecified; B18.2 Chronic viral hepatitis C; D64.9 Anemia, unspecified; B20 Human immunodeficiency virus [HIV] disease; D70.9 Neutropenia, unspecified
CPT/HCPCS: 36415; 82140; 82310; 82668; 83540; 83550; 83735; 84100; 85027; 85610; 85730

== ENCOUNTER 2017-02-18 07:59 | Day surgery (SDC) | payer MEDICARE, MEDICAID ==
[~2017-02-18] VITALS: Ht 167.6 cm; Wt 66.0 kg
[2017-02-18 08:20] VITALS: BP 93/49; PULSE 81; RESP 20; TEMP 98.7; O2SAT 90
[2017-02-18 10:00] VITALS: BP 91/44; PULSE 75; RESP 18; O2SAT 94
[2017-02-18] MEDS ORDERED: ALBUMIN HUMAN 25% 50 GM IV ONE (10:00)
[2017-02-18 10:14] VITALS: BP 96/47; PULSE 84; RESP 17; O2SAT 94
--- NOTE | 2017-02-18 10:35 | RADRPT ---
EXAM DATE/TIME: 02/18/2017 08:01 [facility] COMPARISON: US GUIDED ABD PARACENTESIS, February 10, 2017, 12:41. INDICATIONS : Ascites. MEDICAL HISTORY : Chronic obstructive pulmonary disease. Gastroesophageal reflux disease. SURGICAL HISTORY : Tonsillectomy. Tubal ligation. section. Adenoidectomy. ENCOUNTER: Sequela ACUITY: 2 weeks PAIN SCORE: 3/10 LOCATION: Left lower quadrant FLUID: Total volume of 7300 cc of clear, yellow fluid was removed. Fluid was discarded. Paracentesis was therapeutic only. Post procedure scanning reveals no hematoma or other complication. TECHNIQUE: 1. Ultrasound guidance for abdominal paracentesis. 2. Paracentesis. The risks, benefits, and alternatives to ultrasound guided paracentesis were explained to the patient in detail including the risk of bleeding and infection. Written and verbal informed consent was obt ained. With the patient on the ultrasound table, ultrasound imaging was used to select the most appropriate approach for paracentesis. Overlying skin was prepped and draped in the usual sterile fashion and wi th a local anesthetic, a dermatotomy was made with an 11 blade scalpel. A 6 Telugu Rsc-X-ykifyqdg ca theter was introduced into the peritoneal cavity and fluid was collected. The patient tolerated the procedure well and left the ultrasound suite in stable condition. CONCLUSION: Uncomplicated ultrasound guided paracentesis. Kevin Tellez MD on February 18, 2017 at 10:10 Board Certified Radiologist. This report was verified electronically.
[2017-02-18 11:28] VITALS: BP 88/41; PULSE 77; RESP 20; TEMP 97.8; O2SAT 93
[2017-02-18] MEDS ORDERED: SODI325T PO (13:00)
[2017-02-18] MEDS ORDERED: IRON SUCROSE INJ 200 MG in SODIUM CHLORIDE 0.9% INJ 100 ML IV ONE (13:00)
[2017-02-18 14:30] VITALS: BP 93/48; PULSE 80; RESP 18; TEMP 97.6; O2SAT 92
--- NOTE | 2017-02-18 15:50 | PD.RAD ---
Radiology Post PICC Prog Note Pre Procedure Diagnosis: (1) Anemia Post Procedure Diagnosis: (1) Anemia Procedure: Right PICC line placement Procedure Date: Feb 18, 2017 Supervising Radiologist Junior Desai JR Proceduralist/Assist: Edwina Smith RT(R)() Device Side: Right Burundian: 4 single lumen cm: 39 Catheter: Power PICC Plan of Activity Patient to Unit: [facility] Patient Condition: Good PICC line can be used immediately Jr. Desai Thomas Justin MD Feb 18, 2017 15:50
[2017-02-18] MEDS ORDERED: SODIUM CHLORIDE 0.9% FLUSH 10 ML FLUSH IVF PRN ×2 (16:00)
--- NOTE | 2017-02-18 16:33 | RADRPT ---
EXAM DATE/TIME: 02/18/2017 14:26 [facility] COMPARISON: No previous studies available for comparison. INDICATIONS : Patient with anemia in need of PICC line placement for iron infusion. MEDICAL HISTORY : HIV, Hepatitis C, Thrombocytopenia, COPD, GERD, Migraines, Ascites, Asthma, Heart murmur, Cirrhosis SURGICAL HISTORY : Non cancerous lump removed from neck, Paracentesis ENCOUNTER: Initial ACUITY: 4-6 days PAIN SCORE: 0/10 FLUORO TIME: 1.15 minutes IMAGE SERIES: 1 ACCESS: Right basilic vein DEVICE(S): 1.) 4 Indonesian single lumen 39 cm Xcela Power PICC PROCEDURE : 1. Ultrasound guidance for venous catheterization. 2. Fluoroscopic guidance. 3. Ultrasound & fluoroscopic guided central venous Power PICC line placement. The risks, benefits and alternatives to the procedure were explained and verbal and written consent w as obtained. The site was prepped in sterile fashion. Full sterile technique was used, including ca p, mask, sterile gloves and gown and a large sterile sheet. Hand hygiene and 2% chlorhexidine prep w as utilized per protocol for cutaneous antisepsis with appropriate dry time for site. The skin and s ubcutaneous tissues were infiltrated with local anesthetic solution. Under direct ultrasound guidance, a suitable vein was accessed and a measuring guidewire was introduc ed and positioned in the central venous system. The ultrasound images depicting access guidance were saved and stored to PACS for permanent record. A Power Injectable PICC line was cut to prescribed length and introduced, positioned with tip at the cavoatrial junction level. The line was flushed and secured per protocol. CONCLUSION: 1. Uncomplicated central venous Power PICC line placement. 2. The PICC line can be used immediately. Junior Desai Jr., MD on February 18, 2017 at 16:31 Board Certified Radiologist. This report was verified electronically.
[2017-02-19] MEDS ORDERED: SODIUM CHLORIDE 0.9% FLUSH 10 ML FLUSH IVF SCH (09:00)
[2017-02-22] MEDS ORDERED: HYDR-3133 PO (12:15)
[2017-02-22] MEDS ORDERED: ZOFR8TAB PO (12:15)
[2017-02-22] MEDS ORDERED: SODI650T PO (12:15)
[2017-02-22] MEDS ORDERED: PROM12.54 PO (12:15)
[2017-02-22] MEDS ORDERED: FLUT1SPR5 EACH NARE (12:15)
[2017-02-22] MEDS ORDERED: CIPR750T2 PO (12:15)
[2017-02-22] MEDS ORDERED: ERGO400T PO (12:15)
[2017-02-22] MEDS ORDERED: SUST600T PO (12:15)
[2017-02-22] MEDS ORDERED: OMEP40CA2 PO (12:15)
[2017-02-23] MEDS ORDERED: IRON100P2 IV (14:03)
== END 2017-02-18 16:34 | disposition home or self-care (01) ==
LOC: HRAD 07:59 → HRIP 08:00 → HRAD 16:34
PROVIDERS: ATTEND Specialist
DX: R18.8 Other ascites (principal); D64.9 Anemia, unspecified; B19.20 Unspecified viral hepatitis C without hepatic coma; J44.9 Chronic obstructive pulmonary disease, unspecified; K21.9 Gastro-esophageal reflux disease without esophagitis; Z21 Asymptomatic human immunodeficiency virus [HIV] infection status
CPT/HCPCS: 36569; 49083; 76937; 77001; 96365; C1729; C1751; J1642; J1756; P9047

== ENCOUNTER 2017-02-24 08:03 | Day surgery (SDC) | payer MEDICARE, MEDICAID ==
[~2017-02-24 08:03] MED LIST changes: +CIPR750T2 PO; -ERGO1CAP10 PO; +ERGO400T PO; +FLUT1SPR5 EACH NARE; -FURO20TA PO; +HYDR-3133 PO; +IRON100P2 IV; +PROM12.54 PO; +SODI650T PO; -SPIR50TA PO; -SUST50CA PO; +SUST600T PO; +ZOFR8TAB PO
[2017-02-24 10:05] VITALS: BP 106/38; PULSE 83; RESP 18; TEMP 97.7; O2SAT 93
[2017-02-24] MEDS ORDERED: LIDOCAINE HCL 1% PF 30 ML VIAL ONE (10:11)
[2017-02-24] MEDS ORDERED: ALBUMIN HUMAN 25% 50 GM IV ONE (10:15)
[2017-02-24 10:20] VITALS: BP 106/38; PULSE 84; RESP 18; O2SAT 94
[2017-02-24] MEDS ORDERED: PICC PRN After Blood Draw NS Lock Flush IV FLUSH (11:00)
[2017-02-24] MEDS ORDERED: PICC HIT (ADULT) PRN NS Lock Flush IV FLUSH (11:00)
[2017-02-24] MEDS ORDERED: PICC PRN Heparin 100 units/ml Lock Flush IV FLUSH (11:00)
--- NOTE | 2017-02-24 16:01 | RADRPT ---
EXAM DATE/TIME: 02/24/2017 08:39 [facility] COMPARISON: No previous studies available for comparison. INDICATIONS : Ascites. Vancomycin within 2 hrs of procedure, Ancef (or alternative) within 1 hr of procedure start. MEDICAL HISTORY : Arthritis. Cirrhosis. Hepatitis C. Head trauma. Migraines. Heart murmur. COPD. Asthma. Dyspnea. Ascit es. GERD. HIV. SURGICAL HISTORY : Tonsillectomy. section. Tubal ligation. Adenoidectomy. Benign lesion from left neck removed. Paracenetesis. AV fistula, right arm. Blood transfusions. ENCOUNTER: Sequela ACUITY: 1 week PAIN SCORE: 8/10 LOCATION: Right lower quadrant FLUID: Total volume of 7,900 cc of clear, red fluid was removed. Fluid was discarded. Paracentesis was therapeutic only. Post procedure scanning reveals no hematoma or other complication. TECHNIQUE: 1. Ultrasound guidance for abdominal paracentesis. 2. Paracentesis. The risks, benefits, and alternatives to ultrasound guided paracentesis were explained to the patient in detail including the risk of bleeding and infection. Written and verbal informed consent was obt ained. With the patient on the ultrasound table, ultrasound imaging was used to select the most appropriate approach for paracentesis. Overlying skin was prepped and draped in the usual sterile fashion and wi th a local anesthetic, a dermatotomy was made with an 11 blade scalpel. A 6 Mohawk Sip-M-ufaasxcn ca theter was introduced into the peritoneal cavity and fluid was collected. The patient tolerated the procedure well and left the ultrasound suite in stable condition. CONCLUSION: Uncomplicated ultrasound guided paracentesis. Casa Mahmood MD on February 24, 2017 at 15:59 Board Certified Radiologist. This report was verified electronically.
== END 2017-02-24 11:10 | disposition home or self-care (01) ==
LOC: HRAD 08:03 → HRIP 08:09 → HRAD 11:10
PROVIDERS: ATTEND Specialist
DX: R18.8 Other ascites (principal); J44.9 Chronic obstructive pulmonary disease, unspecified; K21.9 Gastro-esophageal reflux disease without esophagitis
CPT/HCPCS: 49083; 96365; C1729; J1642; P9047; 96366

== ENCOUNTER 2017-03-03 08:20 | Day surgery (SDC) | payer MEDICARE, MEDICAID ==
[~2017-03-03 08:20] MED LIST changes: -IRON100P2 IV
[2017-03-03 08:58] VITALS: BP 96/57; PULSE 81; RESP 20; TEMP 97.6; O2SAT 91
[2017-03-03] MEDS ORDERED: LIDOCAINE HCL 1% PF 30 ML VIAL ONE (09:42)
[2017-03-03 10:15] VITALS: BP_SYST 112; BP_SYST 117; BP_DIAS 55; BP_DIAS 67; PULSE 77; PULSE 79; RESP 18; TEMP 97.9; O2SAT 95; O2SAT 96
[2017-03-03] MEDS ORDERED: ALBUMIN HUMAN 25% 25 GM/100 ML BAGP IV ONE (10:17)
[2017-03-03] MEDS ORDERED: ALBUMIN HUMAN 25% 50 GM IV ONE (11:15)
--- NOTE | 2017-03-03 11:48 | RADRPT ---
EXAM DATE/TIME: 03/03/2017 08:48 [facility] COMPARISON: US GUIDED ABD PARACENTESIS, February 24, 2017, 8:39. INDICATIONS : Ascites. MEDICAL HISTORY : Arthritis. Cirrhosis. Hepatitis C. Head trauma. Migraines. Heart murmur. SURGICAL HISTORY : Tonsillectomy. section. Tubal ligation. Adenoidectomy. Benign ENCOUNTER: Subsequent ACUITY: 1 week PAIN SCORE: 2/10 LOCATION: Left lower quadrant FLUID: Total volume of 8,100 cc of clear, yellow fluid was removed. Fluid was discarded. Paracentesis was therapeutic only. Post procedure scanning reveals no hematoma or other complication. TECHNIQUE: 1. Ultrasound guidance for abdominal paracentesis. 2. Paracentesis. The risks, benefits, and alternatives to ultrasound guided paracentesis were explained to the patient in detail including the risk of bleeding and infection. Written and verbal informed consent was obt ained. With the patient on the ultrasound table, ultrasound imaging was used to select the most appropriate approach for paracentesis. Overlying skin was prepped and draped in the usual sterile fashion and wi th a local anesthetic, a dermatotomy was made with an 11 blade scalpel. A 6 Korean Tut-E-dabjjmls ca theter was introduced into the peritoneal cavity and fluid was collected. The patient tolerated the procedure well and left the ultrasound suite in stable condition. CONCLUSION: Uncomplicated ultrasound guided paracentesis. Jeison Yu MD on March 03, 2017 at 11:46 Board Certified Radiologist. This report was verified electronically.
== END 2017-03-03 11:05 | disposition home or self-care (01) ==
LOC: HRAD 08:20 → HRIP 08:32 → HRAD 11:05
PROVIDERS: ATTEND Specialist
DX: R18.8 Other ascites (principal); B19.20 Unspecified viral hepatitis C without hepatic coma; K74.60 Unspecified cirrhosis of liver; M19.90 Unspecified osteoarthritis, unspecified site; J45.909 Unspecified asthma, uncomplicated; B20 Human immunodeficiency virus [HIV] disease
CPT/HCPCS: 49083; 96365; C1729; P9047

== ENCOUNTER → 2017-03-08 | Outpatient (CLI) | payer MEDICARE, OTHER ==
[2017-03-08 12:45] LABS: HEMATOCRIT 33.1 % (35.0-46.0); MEAN CELL VOLUME 107.7 FL (80.0-100.0); MEAN CORPUSCULAR HEMOGLOBIN 35.1 PG (27.0-34.0); MEAN CORPUSCULAR HGB CONC 32.6 % (32.0-36.0); PLATELET COUNT 60 TH/MM3 (150-450); RED BLOOD COUNT 3.07 MIL/MM3 (4.00-5.30); RED CELL DISTRIBUTION WIDTH 25.2 % (11.6-17.2); WHITE BLOOD COUNT 4.5 TH/MM3 (4.0-11.0)
[2017-03-08 12:48] LABS: REVIEW FLAG FINAL
[2017-03-08 12:50] LABS: APTT (PATIENT) 34.3 SEC (24.3-30.1); INTERNATIONAL NORMALIZED RATIO 1.5 RATIO; PROTHROMBIN TIME - PATIENT 16.8 SEC (9.8-11.6)
== END ==
LOC: CLAB 12:26
PROVIDERS: ATTEND Specialist
DX: K21.9 Gastro-esophageal reflux disease without esophagitis (principal); B18.2 Chronic viral hepatitis C; N18.9 Chronic kidney disease, unspecified; R18.0 Malignant ascites; Z13.6 Encounter for screening for cardiovascular disorders; Z12.11 Encounter for screening for malignant neoplasm of colon
CPT/HCPCS: 36415; 85027; 85610; 85730

== ENCOUNTER 2017-03-10 09:36 | Day surgery (SDC) | payer MEDICARE, OTHER ==
[2017-03-10 10:01] VITALS: BP 107/60; PULSE 102; RESP 20; TEMP 96.9; O2SAT 90
[2017-03-10] MEDS ORDERED: LIDOCAINE HCL 1% PF 30 ML VIAL ONE (10:16)
[2017-03-10 10:55] VITALS: BP 133/60; PULSE 89; RESP 20; TEMP 98.1; O2SAT 95
[2017-03-10] MEDS ORDERED: ALBUMIN HUMAN 25% 25 GM/100 ML BAGP IV ONE (11:00)
--- NOTE | 2017-03-10 11:11 | PD.RAD ---
Post US Procedure Prog Note Pre Procedure Diagnosis: (1) Ascites Post Procedure Diagnosis: (1) Ascites Procedure Date: Mar 10, 2017 Supervising Radiologist: Valente Lorenzo Proceduralist/Assist: Gabbie Fong RDMS Anesthesia: Local Plan of Activity Patient to Unit: R[facility]U Patient Condition: Good See PACS Report for procedural detail/treatment Drainage Procedure Procedure 1 Imaging Guidance: Ultrasound Side: Left Procedure Type: Paracentesis Fluid Removal (CCs): 7100 Fluid Description: Clear, Yellow Plan to ROPU for albumin then discharge home. Valente Lorenzo MD Mar 10, 2017 11:10
--- NOTE | 2017-03-10 11:12 | RADRPT ---
EXAM DATE/TIME: 03/10/2017 09:54 [facility] COMPARISON: US GUIDED ABD PARACENTESIS, March 03, 2017, 8:48. INDICATIONS : Ascities. MEDICAL HISTORY : Arthritis. Cirrhosis. Hepatitis C. Head trauma. Migraines. Heart murmur. SURGICAL HISTORY : Tonsillectomy. section. Tubal ligation. Adenoidectomy. ENCOUNTER: Subsequent ACUITY: > 1 yr PAIN SCORE: 1/10 LOCATION: Left lower quadrant FLUID: Total volume of 7,100 cc of clear, red fluid was removed. Fluid was discarded. Paracentesis was therapeutic only. Post procedure scanning reveals no hematoma or other complication. TECHNIQUE: 1. Ultrasound guidance for abdominal paracentesis. 2. Paracentesis. The risks, benefits, and alternatives to ultrasound guided paracentesis were explained to the patient in detail including the risk of bleeding and infection. Written and verbal informed consent was obt ained. With the patient on the ultrasound table, ultrasound imaging was used to select the most appropriate approach for paracentesis. Overlying skin was prepped and draped in the usual sterile fashion and wi th a local anesthetic, a dermatotomy was made with an 11 blade scalpel. A 6 Iranian Urh-L-qsduhlmv ca theter was introduced into the peritoneal cavity and fluid was collected. The patient tolerated the procedure well and left the ultrasound suite in stable condition. CONCLUSION: Uncomplicated ultrasound guided paracentesis. Valente Lorenzo MD on March 10, 2017 at 11:07 Board Certified Radiologist. This report was verified electronically.
[2017-03-10 11:20] VITALS: BP 128/61; PULSE 92; RESP 18; O2SAT 95
== END 2017-03-10 11:46 | disposition home or self-care (01) ==
LOC: HRAD 09:36 → HRIP 09:37 → HRAD 11:46
PROVIDERS: ATTEND Specialist
DX: R18.8 Other ascites (principal)
CPT/HCPCS: 49083; 96365; C1729; P9047

== ENCOUNTER 2017-03-16 08:13 | Day surgery (SDC) | payer MEDICARE, OTHER ==
[2017-03-16 09:19] VITALS: BP 106/53; PULSE 89; RESP 22; TEMP 97.7; O2SAT 93
[2017-03-16] MEDS ORDERED: ALBUMIN HUMAN 25% 25 GM/100 ML BAGP IV ONE (09:30)
[2017-03-16 10:10] VITALS: BP_SYST 113; BP_SYST 49; BP_DIAS 49; PULSE 81; RESP 20; TEMP 98; O2SAT 95
[2017-03-16 10:30] VITALS: BP 117/50; PULSE 80; RESP 20; O2SAT 95
--- NOTE | 2017-03-16 12:40 | RADRPT ---
EXAM DATE/TIME: 03/16/2017 08:52 [facility] COMPARISON: US GUIDED ABD PARACENTESIS, March 10, 2017, 9:54. INDICATIONS : Ascites. MEDICAL HISTORY : Arthritis. Cirrhosis. Hepatitis C. Head trauma. Migraines. Heart murmur. SURGICAL HISTORY : Tonsillectomy. section. Tubal ligation. Adenoidectomy. ENCOUNTER: Sequela ACUITY: 1 week PAIN SCORE: 1/10 LOCATION: Right lower quadrant FLUID: Total volume of 6,800 cc of cloudy, red fluid was removed. Fluid was discarded. Paracentesis was therapeutic only. Post procedure scanning reveals no hematoma or other complication. TECHNIQUE: 1. Ultrasound guidance for abdominal paracentesis. 2. Paracentesis. The risks, benefits, and alternatives to ultrasound guided paracentesis were explained to the patient in detail including the risk of bleeding and infection. Written and verbal informed consent was obt ained. With the patient on the ultrasound table, ultrasound imaging was used to select the most appropriate approach for paracentesis. Overlying skin was prepped and draped in the usual sterile fashion and wi th a local anesthetic, a dermatotomy was made with an 11 blade scalpel. A 6 South Korean Aqk-N-fvcuwgdp ca theter was introduced into the peritoneal cavity and fluid was collected. The patient tolerated the procedure well and left the ultrasound suite in stable condition. CONCLUSION: Uncomplicated ultrasound guided paracentesis. Patient received albumin per protocol. Dwight Tellez MD FACR on March 16, 2017 at 12:38 Board Certified Radiologist. This report was verified electronically.
== END 2017-03-16 11:30 | disposition home or self-care (01) ==
LOC: HRAD 08:13 → HRIP 08:15 → HRAD 11:30
PROVIDERS: ATTEND Specialist
DX: R18.8 Other ascites (principal); B18.2 Chronic viral hepatitis C; N18.9 Chronic kidney disease, unspecified; K21.9 Gastro-esophageal reflux disease without esophagitis; M19.90 Unspecified osteoarthritis, unspecified site; G43.909 Migraine, unspecified, not intractable, without status migrainosus; R01.1 Cardiac murmur, unspecified
CPT/HCPCS: 49083; 96365; C1729

== ENCOUNTER 2017-03-25 07:50 | Day surgery (SDC) | payer MEDICARE, OTHER ==
[2017-03-25 08:12] VITALS: BP 102/49; PULSE 89; RESP 20; TEMP 98; O2SAT 93
[2017-03-25 09:25] VITALS: BP 117/55; PULSE 78; RESP 16; TEMP 97.9; O2SAT 93
[2017-03-25] MEDS ORDERED: ALBUMIN HUMAN 25% 25 GM/100 ML BAGP IV ONE (09:30)
[2017-03-25 09:40] VITALS: BP 111/59; PULSE 80; RESP 16; O2SAT 93
[2017-03-25 09:55] VITALS: BP 111/59; PULSE 80; RESP 16; O2SAT 93
--- NOTE | 2017-03-25 10:42 | RADRPT ---
EXAM DATE/TIME: 03/25/2017 08:08 [facility] COMPARISON: US GUIDED ABD PARACENTESIS, March 16, 2017, 8:52. INDICATIONS : Ascites. MEDICAL HISTORY : Arthritis. Cirrhosis. Hepatitis C. Head trauma. Migraines. Ascites. Heart murmur. SURGICAL HISTORY : Tonsillectomy. section. Tubal ligation. Adenoidectomy. ENCOUNTER: Sequela ACUITY: 1 week PAIN SCORE: 9/10 LOCATION: Right lower quadrant FLUID: Total volume of 6,600 cc of cloudy, hina fluid was removed. Fluid was discarded. Paracentesis was therapeutic only. Post procedure scanning reveals no hematoma or other complication. TECHNIQUE: 1. Ultrasound guidance for abdominal paracentesis. 2. Paracentesis. The risks, benefits, and alternatives to ultrasound guided paracentesis were explained to the patient in detail including the risk of bleeding and infection. Written and verbal informed consent was obt ained. With the patient on the ultrasound table, ultrasound imaging was used to select the most appropriate approach for paracentesis. Overlying skin was prepped and draped in the usual sterile fashion and wi th a local anesthetic, a dermatotomy was made with an 11 blade scalpel. A 6 Nepali Zhn-F-hdtrkyvt ca theter was introduced into the peritoneal cavity and fluid was collected. The patient tolerated the procedure well and left the ultrasound suite in stable condition. CONCLUSION: Uncomplicated ultrasound guided paracentesis. Patient received albumin per protocol. Dwight Tellez MD FACR on March 25, 2017 at 10:40 Board Certified Radiologist. This report was verified electronically.
== END 2017-03-25 10:05 | disposition home or self-care (01) ==
LOC: HRAD 07:50 → HRIP 07:51 → HRAD 10:05
PROVIDERS: ATTEND Specialist
DX: R18.8 Other ascites (principal); B18.2 Chronic viral hepatitis C; K74.60 Unspecified cirrhosis of liver; N18.9 Chronic kidney disease, unspecified; R01.1 Cardiac murmur, unspecified; K21.9 Gastro-esophageal reflux disease without esophagitis; M19.90 Unspecified osteoarthritis, unspecified site; G43.909 Migraine, unspecified, not intractable, without status migrainosus
CPT/HCPCS: 49083; 96365; C1729; P9047

== ENCOUNTER → 2017-03-28 | Outpatient (CLI) | payer MEDICARE, MEDICAID ==
[~2017-03-28] MED LIST changes: +LACT10SO PO; +LOPE1TAB36; +SYMB160A INH
[2017-03-28 10:01] LABS: AUTOMATED NEUTROPHIL # 2.5 TH/MM3 (1.8-7.7); BASOPHIL % 1.1 % (0.0-2.0); EOSINOPHIL # 0.1 TH/MM3 (0-0.4); HEMATOCRIT 33.3 % (35.0-46.0); LYMPH % 11.3 % (9.0-44.0); LYMPHOCYTE # 0.4 TH/MM3 (1.0-4.8); MEAN CELL VOLUME 107.3 FL (80.0-100.0); MEAN CORPUSCULAR HEMOGLOBIN 34.5 PG (27.0-34.0); MEAN CORPUSCULAR HGB CONC 32.2 % (32.0-36.0); NEUT % 66.6 % (16.0-70.0); PLATELET COUNT 67 TH/MM3 (150-450); WHITE BLOOD COUNT 3.7 TH/MM3 (4.0-11.0)
[2017-03-28 10:05] LABS: HEMO FLAGS AUTO DIFF
[2017-03-28 10:08] LABS: APTT (PATIENT) 35.2 SEC (24.3-30.1); INTERNATIONAL NORMALIZED RATIO 1.4 RATIO; PROTHROMBIN TIME - PATIENT 15.3 SEC (9.8-11.6)
[2017-03-28 10:34] LABS: BICARBONATE 17.3 MEQ/L (21.0-32.0); MAGNESIUM 2.5 MG/DL (1.5-2.5); POTASSIUM 3.8 MEQ/L (3.5-5.1)
[2017-03-28 10:35] LABS: ANION GAP 9 MEQ/L (5-15); BICARBONATE 17.3 MEQ/L (21.0-32.0); BLOOD UREA NITROGEN 76 MG/DL (7-18); CHLORIDE 113 MEQ/L (98-107); GLOMERULAR FILTRATION RATE 17 ML/MIN (>89); GLUCOSE,FASTING 103 MG/DL (74-99); POTASSIUM 3.8 MEQ/L (3.5-5.1); SODIUM (NA) 139 MEQ/L (136-145)
[2017-03-28 10:39] LABS: FERRITIN 21 NG/ML (8-252); TRANSFERRIN IRON PROFILE 165 MG/DL (200-360)
[2017-03-28 15:16] LABS: ACANTHOCYTES 1+ (NORMAL); BURR CELLS 2+ (NORMAL); PLATELET ESTIMATE SMEAR LOW (NORMAL); PLATELET MORPHOLOGY NORMAL (NORMAL); SCAN/DIFF AUTO DIFF CONFIRMED; TEARDROP RBCS 1+ (NORMAL)
[2017-03-29 23:53] LABS: CD4/CD8 RATIO 1.4 (0.86-5.00)
[2017-03-30 09:51] LABS: HCV RNA PCR IU/ML LESS THAN 15 IU/mL (0-14); HCV RNA PCR LOGIU/ML LESS THAN 1.18 (0-1.18)
[2017-03-30 11:50] LABS: HIV RNA COPIES LESS THAN 20.0 (<20); HIV RNA LOG COPIES LESS THAN 1.30 (<1.30)
== END ==
LOC: CLAB 08:55
PROVIDERS: ATTEND Specialist
DX: D70.9 Neutropenia, unspecified (principal); R11.10 Vomiting, unspecified; B20 Human immunodeficiency virus [HIV] disease; R10.84 Generalized abdominal pain; D50.9 Iron deficiency anemia, unspecified; B18.2 Chronic viral hepatitis C; R06.02 Shortness of breath; R09.02 Hypoxemia; G93.41 Metabolic encephalopathy; D63.1 Anemia in chronic kidney disease; N25.81 Secondary hyperparathyroidism of renal origin; R80.9 Proteinuria, unspecified; N18.4 Chronic kidney disease, stage 4 (severe)
CPT/HCPCS: 36415; 80048; 80069; 82140; 82306; 82668; 82728; 83540; 83550; 83690; 83735; 83970; 84100; 85025; 85610; 85730; 86355; 86357; 86359; 86360; 87522; 87536

== ENCOUNTER 2017-03-31 07:56 | Day surgery (SDC) | payer MEDICARE, OTHER ==
[~2017-03-31 07:56] MED LIST changes: -LACT10SO PO; -LOPE1TAB36; -SYMB160A INH
[2017-03-31 08:21] VITALS: BP 93/52; PULSE 89; RESP 20; TEMP 97.9; O2SAT 91
[2017-03-31] MEDS ORDERED: LIDOCAINE HCL 1% 20 ML VIAL ONE (08:49)
[2017-03-31 09:10] VITALS: BP 88/52; PULSE 79; RESP 18; O2SAT 95
[2017-03-31 09:20] VITALS: BP 91/48; PULSE 78; RESP 18; O2SAT 92
[2017-03-31 09:30] VITALS: BP 88/52; PULSE 78; RESP 18; TEMP 98.7; O2SAT 92
[2017-03-31] MEDS ORDERED: ALBUMIN HUMAN 25% 12.5GM-W/25GM FOR 37.5GM IV ONE (10:00)
[2017-03-31] MEDS ORDERED: ALBUMIN HUMAN 25% 25GM-W/12.5GM FOR 37.5GM IV ONE (10:00)
--- NOTE | 2017-03-31 10:51 | RADRPT ---
EXAM DATE/TIME: 03/31/2017 08:17 [facility] COMPARISON: US GUIDED ABD PARACENTESIS, March 25, 2017, 8:08. INDICATIONS : Ascites. MEDICAL HISTORY : Arthritis. Cirrhosis. Hepatitis C. Head trauma. Migraines. Ascites. Heart SURGICAL HISTORY : Tonsillectomy. section. Tubal ligation. Adenoidectomy. ENCOUNTER: Sequela ACUITY: 1 day PAIN SCORE: 0/10 LOCATION: Right lower quadrant FLUID: Total volume of 6100 cc of clear, yellow fluid was removed. Fluid was discarded. Paracentesis was therapeutic only. Post procedure scanning reveals no hematoma or other complication. TECHNIQUE: 1. Ultrasound guidance for abdominal paracentesis. 2. Paracentesis. The risks, benefits, and alternatives to ultrasound guided paracentesis were explained to the patient in detail including the risk of bleeding and infection. Written and verbal informed consent was obt ained. With the patient on the ultrasound table, ultrasound imaging was used to select the most appropriate approach for paracentesis. Overlying skin was prepped and draped in the usual sterile fashion and wi th a local anesthetic, a dermatotomy was made with an 11 blade scalpel. A 6 Azeri Pvz-H-twlbtjui ca theter was introduced into the peritoneal cavity and fluid was collected. The patient tolerated the procedure well and left the ultrasound suite in stable condition. CONCLUSION: Uncomplicated ultrasound guided paracentesis. Phoenix Hsu MD on March 31, 2017 at 10:49 Board Certified Radiologist. This report was verified electronically.
== END 2017-03-31 10:55 | disposition home or self-care (01) ==
LOC: HRAD 07:56 → HRIP 07:58 → HRAD 10:55
PROVIDERS: ATTEND Specialist
DX: R18.8 Other ascites (principal); B19.20 Unspecified viral hepatitis C without hepatic coma; K74.60 Unspecified cirrhosis of liver; G43.909 Migraine, unspecified, not intractable, without status migrainosus; M19.90 Unspecified osteoarthritis, unspecified site
CPT/HCPCS: 49083; 96365; C1729; P9047

== ENCOUNTER 2017-04-07 07:59 | Day surgery (SDC) | payer MEDICARE, OTHER ==
[2017-04-07 08:18] VITALS: BP 115/58; PULSE 77; RESP 20; TEMP 97.1; O2SAT 91
[2017-04-07 09:25] VITALS: BP 126/63; PULSE 80; RESP 18; TEMP 97.5; O2SAT 94
[2017-04-07 09:40] VITALS: BP 105/56; PULSE 79; RESP 18; O2SAT 93
[2017-04-07] MEDS ORDERED: ALBUMIN HUMAN 25% 50 GM IV ONE (09:45)
--- NOTE | 2017-04-07 11:59 | RADRPT ---
EXAM DATE/TIME: 04/07/2017 08:09 [facility] COMPARISON: US GUIDED ABD PARACENTESIS, March 31, 2017, 8:17. INDICATIONS : Ascites. MEDICAL HISTORY : Chronic obstructive pulmonary disease. Cirrhosis. Migraine. Asthma. Dyspnea. Hepatitis C. Renal virgie lure. HIV. SURGICAL HISTORY : Tonsillectomy. section. Tubal ligation. Paracentesis. Non-cancerous lesion removed from neck . ENCOUNTER: Sequela ACUITY: 1 week PAIN SCORE: 0/10 LOCATION: Right lower quadrant FLUID: Total volume of 7,500 cc of clear, yellow fluid was removed. Fluid was discarded. Paracentesis was therapeutic only. Post procedure scanning reveals no hematoma or other complication. TECHNIQUE: 1. Ultrasound guidance for abdominal paracentesis. 2. Paracentesis. The risks, benefits, and alternatives to ultrasound guided paracentesis were explained to the patient in detail including the risk of bleeding and infection. Written and verbal informed consent was obt ained. With the patient on the ultrasound table, ultrasound imaging was used to select the most appropriate approach for paracentesis. Overlying skin was prepped and draped in the usual sterile fashion and wi th a local anesthetic, a dermatotomy was made with an 11 blade scalpel. A 6 Russian Vkp-D-jxmeuumo ca theter was introduced into the peritoneal cavity and fluid was collected. The patient tolerated the procedure well and left the ultrasound suite in stable condition. CONCLUSION: Uncomplicated ultrasound guided paracentesis. Junior Desai Jr., MD on April 07, 2017 at 11:57 Board Certified Radiologist. This report was verified electronically.
== END 2017-04-07 10:50 | disposition home or self-care (01) ==
LOC: HRAD 07:59 → HRIP 08:00 → HRAD 10:50
PROVIDERS: ATTEND Specialist
DX: R18.8 Other ascites (principal); B18.2 Chronic viral hepatitis C; K21.9 Gastro-esophageal reflux disease without esophagitis
CPT/HCPCS: 49083; 96365; C1729; P9047

== ENCOUNTER 2017-04-13 06:40 | Day surgery (SDC) | payer MEDICARE, OTHER ==
[~2017-04-13] VITALS: Ht 167.6 cm; Wt 73.0 kg
[2017-04-13] MEDS ORDERED: IOHEXOL 350 MG/ML 50 ML BTL (for Cath Lab) OTHER ONE (06:41)
[2017-04-13] MEDS ORDERED: SODIUM CHLOR 0.9% 1000 ML INJ 1,000 ML IV SCH (07:00)
[2017-04-13 08:04] LABS: AUTOMATED NEUTROPHIL # 1.8 TH/MM3 (1.8-7.7); BASOPHIL # 0.1 TH/MM3 (0-0.2); BASOPHIL % 2.6 % (0.0-2.0); EOSINOPHIL # 0.1 TH/MM3 (0-0.4); EOSINOPHIL % 5.1 % (0.0-4.0); HEMATOCRIT 31.5 % (35.0-46.0); LYMPH % 14.8 % (9.0-44.0); LYMPHOCYTE # 0.4 TH/MM3 (1.0-4.8); MEAN CELL VOLUME 102.2 FL (80.0-100.0); MEAN CORPUSCULAR HEMOGLOBIN 33.7 PG (27.0-34.0); MEAN CORPUSCULAR HGB CONC 32.9 % (32.0-36.0); MONO % 11.6 % (0.0-8.0); NEUT % 65.9 % (16.0-70.0); PLATELET COUNT 63 TH/MM3 (150-450); RED BLOOD COUNT 3.08 MIL/MM3 (4.00-5.30); RED CELL DISTRIBUTION WIDTH 18.2 % (11.6-17.2); WHITE BLOOD COUNT 2.7 TH/MM3 (4.0-11.0)
[2017-04-13 08:11] LABS: HEMO FLAGS AUTO DIFF
[2017-04-13 08:13] LABS: APTT (PATIENT) 33.8 SEC (24.3-30.1); INTERNATIONAL NORMALIZED RATIO 1.4 RATIO; PROTHROMBIN TIME - PATIENT 15.3 SEC (9.8-11.6)
[2017-04-13 08:21] LABS: POTASSIUM 3.7 MEQ/L (3.5-5.1)
[2017-04-13 08:25] LABS: BETA HCG QUANT LESS THAN 1 MIU/ML (0-5)
[2017-04-13] MEDS ORDERED: HEPARIN-NS/PF INJ 500 ML ONE (08:28)
[2017-04-13] MEDS ORDERED: MIDAZOLAM HCL 2 MG/2 ML VIAL ONE ×2 (08:29)
[2017-04-13 09:01] LABS: OVALOCYTES 1+ (NORMAL); SCAN/DIFF AUTO DIFF CONFIRMED; TEARDROP RBCS 1+ (NORMAL)
--- NOTE | 2017-04-13 09:37 | CATHPROC ---
[facility] HIS Report Study Information Study Number Admission Scheduled Start Study Start [id number] Apr 13 2017 6:40AM 04/13/2017 Apr 13 2017 8:24AM [facility] Cardiac Catheterization Admit Source Facility Department Other [facility] - Instructor Nurse Physician and Clinical Staff Initial Gaudencio Medina Egg Smeller Marichuy Guerra,DIEGO Recorder Alize Daily,RT(R) Scrub Jamir Ricci RCIS(BS) Procedures Performed Procedure Location (Site) Vessel Name Coronary Angiograms LCA Left Coronary Coronary Angiograms RCA Right Coronary Equipment Time Welder Metal Fab Description Size Mfg Part Number Used/Scraped [id number] 08:28 SOARES STATON SWAN TARYN CATHETER FR 7 Used *[id number] TRANSDUCER, TRUWAVE [id number] 08:28 SOARES STATON * Used W/STOCKCOCK *[id number] [id number] *[id number] [id number] *[id number] 09:17 DAIG/ST. JAY MEDICAL ANGIOSEAL, FR6 VIP FR 6 Used *[id number] 08:28 MEDLINE INDUSTRIES PACK, CCL CUSTOM * Used *[id number] 08:28 MEDLINE PACER PEN, SKIN DUAL W/ RULER * Used *[id number] 08:50 MERIT MEDICAL SHEATH, FR6.5 PRELUDE 11CM FR 6.5 038ACT Used *[id number] 08:51 MERIT MEDICAL WIRE, 3MMJ .035 180CM 180CM Used *[id number] 08:28 NAMIC MANIFOLD, 4 PORT * Used *[id number] 08:28 NYCOMED OMNIPAQUE, 350 MG, 100ML 100ML [id number] Used [id number] 08:28 YIP MEDICAL BLANKET,WARM AIR CCL * Used *[id number] 08:28 TERUMO MEDICAL SHEATH, FR7 TERUMO (10CM) FR 7 Used *[id number] Scrap: [id number] 09:30 MERIT MEDICAL WIRE, EXCHANGE 260CM 3MMJ 260CM Procedure *[id number] Aborted SHEATH, FR6 TRANSRADIAL RM*[id number] Scrap: Physician 09:01 TERUMO MEDICAL FR 6 SLENDER 10CM *[id number] choice SHEATH, FR6 TRANSRADIAL RM*[id number] Scrap: Physician 09:01 TERUMO MEDICAL FR 6 SLENDER 10CM *[id number] choice Equipment Model, Serial, Lot Number and Expiration Data Description Model Number Serial Number Lot Number Expiration Date SHEATH, FR6.5 PRELUDE 11CM [id number] 02-05-2020 WIRE, 3MMJ .035 180CM [id number] 02-05-2020 History: Current Medications Medication Dosage/Unit Route Frequency Last Date/Time Taken Valtrex History: Allergies Allergy Reaction Erythromycin Anaphylaxis erythromycin base Anaphylaxis adhesive History: Risk Factors Family History of Hypertension Dyslipidemia Previous NE Previous Heart Failure Premature CAD No No Yes No No Prior Valve Prior PCI Prior CABG Surgery No No No Cerebrovascular Peripheral Artery Chronic Lung On Dialysis Diabetes Disease Disease Disease No No No Yes No History: Other Disease Selection Items HIV History: Other Current Smoker Packs a Day Years Used Pack Years Yes 1 35 35 Labs Hgb (g/dl) Hct (%) WBC (l/cumm) Platelets (thousands) 11.60-17.00 35.00-51.00 4.00-11.00 150.00-450.00 10.4 31.5 2.7 63 Glucose (mg/dl) BUN (mg/dl) Creatinine (mg/dl) BUN:Creatinine (1:x) 74.00-106.00 7.00-18.00 0.50-1.30 10.00-20.00 114 69 2.4 28.8 Na (meq/l) K (meq/l) 136.00-145.00 3.50-5.10 141 3.7 INR (PTT:PT) 0.90-1.10 1.4 CPK-MB (ng/ML) 0.50-3.60 Not Drawn Medication Medication Total Dose (Bolus/Oral) Medication Total Dosage/Unit 1% XYLOCAINE 10 mL Medications (Bolus/Oral) Medication Time Given Dosage/Unit Administered By Reason 1% XYLOCAINE 04/13/2017 8:49:33 AM 10 mL Gaudencio Carey 10 mL 1% XYLOCAINE given in lab by Gaudencio Carey in Right Groin via Subcutaneous. Ordered by Gaudencio Carey. Initial Case Assessment Cardiovascular HR Rhythm NIBP Chest Pain 81 nsr 110/65 0 Edema Present Skin color Skin None Normal Warm Dry Circulatory - Right Pulses Dorsalis Pedis Femoral Radial 2 3 3 Scale (0,1,2,3,4,d) Circulatory - Left Pulses Dorsalis Pedis Femoral Radial 2 3 Scale (0,1,2,3,4,d) Neurological State Oriented to time-place- Alert Moves all extremities person Respiration - General Respiration Rate SpO2 (%) O2 (lpm) (B/min) 16 95 4 Chronological Log Time Study Chronological Log 8:20:18 Patient arrived via Bed. 8:24:20 Patient Name, D.O.B, / Armband Verified By R.N. 8:24:21 Consent signed by the physician and the patient and verified by the Instructor Nurse staff. 8:24:21 Pre-op and post- op instructions given; patient acknowledges understanding of instructions. 8:24:24 Presedation assessment performed by Instructor Nurse RN. 8:24:29 Allens test performed on the right radial and ulnar artery. 8:24:37 Patient has been NPO for More than 6Hrs. 8:24:38 Skin Breakdown- 8:24:39 Patient Warmer Placed on the Table. 8:24:40 Case Prominences Protected 8:24:42 A # 20 IV was noted in the Antecubital (right). Grade = 0 8:24:43 History and physical on the chart or being dictated. Assessment: Initial Case, HR=81 BPM, Rhythm=nsr, YKJR=795/65 mmhg, Chest Pain=0, Edema=None, Co kumar=Normal, Skin = Warm, Dry Right Pulses: Randall Ped=2, Femoral=3, Radial=3 8:24:44 Left Pulses: Randall Ped=2, Femoral=3 Neurological: State=Alert, Ox3, CASTELLANOS Respiration: Resp=16 B/min, SpO2=95 %, O2=4 lpm Vitals capture started with the following parameters, Patient=Adult, Interval=5 min, Initial Pr oskvfd=558 mmHg, 8:30:04 Deflation Rate=5 mmHg, Cuff placed on Left Arm 8:30:45 LW=651 bpm, OEUK=845/65 mmhg, SpO2=94.0 %, Resp=19 B/min, Pain=0, Carlos=10, Phelps=2 8:34:32 Reference ECG taken 8:35:36 HR=79 bpm, XENA=887/58 mmhg, SpO2=95.0 %, Resp=28 B/min, Pain=0, Carlos=10, Phelps=2 8:37:00 MD arrived. 8:38:30 Right groin prepped with 2% chlorhexidine, and draped after a 3 min. waiting time. 8:40:37 HR=79 bpm, SHYA=989/59 mmhg, SpO2=95.0 %, Resp=18 B/min 8:45:40 HR=78 bpm, HBBR=081/54 mmhg, SpO2=95.0 %, Resp=20 B/min, Pain=0, Carlos=10, Phelps=2 Time Out. Correct patient, correct procedure,correct physician, power injector not loaded with c ontrast with surgical 8:47:49 team present. Time Out Concurred by MD, individual staff in procedure. 8:48:51 Case Start 8:49:33 10 mL 1% XYLOCAINE given in lab by Gaudencio Carey in Right Groin via Subcutaneous. Ordered by Gaudencio Carey. 8:51:12 HR=86 bpm, LULM=656/54 mmhg, SpO2=95.0 %, Resp=12 B/min, Pain=0, Carlos=10, Phelps=2 8:53:02 Pressure channel 1 zeroed. 8:53:12 Access site was Right Femoral Artery. 8:54:37 A SHEATH, FR6.5 PRELUDE 11CM FR 6.5 was advanced into the Fem Art (right) using the Percutan eous technique. 8:55:38 HR=76 bpm, EBMH=438/51 mmhg, SpO2=94.0 %, Resp=14 B/min, Pain=0, Carlos=10, Phelps=2 8:55:46 Access site was Right Femoral Vein. 8:55:52 A SHEATH, FR7 TERUMO (10CM) FR 7 was advanced into the Fem Vein (right) using the Percutaneo us technique. 9:00:37 HR=77 bpm, NIBP=94/52 mmhg, SpO2=94.0 %, Resp=15 B/min 9:01:03 A SWAN TARYN CATHETER FR 7 was inserted via Fem Vein (right) Recorded Pressure: MPA, HR=78, Condition=Condition 1 9:03:35 (Main Pulmonary Artery) MPA 25/16/20 Recorded Pressure: PCW, HR=81, Condition=Condition 1 9:03:56 (Pulmonary Capillary Wedge) PCW 20/22/17 9:04:55 Saturation: Site=PA (Pulmonary Artery) , O2=84.5 %, Hgb=10.4 gm/dl, Condition=Condition 1. U sed in calculation. Recorded Pressure: RV, HR=74, Condition=Condition 1 9:05:24 (Right Ventricle) RV 37/7/14 9:05:36 HR=78 bpm, NIBP=96/57 mmhg, SpO2=96.0 %, Resp=13 B/min, Pain=0, Carlos=10, Phelps=2 Recorded Pressure: RA, HR=78, Condition=Condition 1 9:05:59 (Right Atrium) RA [id number] 9:06:16 [place] Taryn Catheter Removed 9:06:26 Saturation: Site=FA (Femoral Artery) , O2=96.2 %, Hgb=10.4 gm/dl, Condition=Condition 1. Use d in calculation. A JL 4.0 INFINITI CATHETER FR 6 was advanced over a wire. OMNIPAQUE, 350 MG, 100ML 100ML was use d for 9:07:25 injections. 9:07:43 The LCA was injected and visualized at various angles. OMNIPAQUE, 350 MG, 100ML 100ML used. 9:10:37 HR=77 bpm, MYQV=364/56 mmhg, SpO2=96.0 %, Resp=19 B/min, Pain=0, Carlos=10, Phelps=2 After removing the current catheter a 3DRC INFINITI CATHETER FR 6 was advanced over a WIRE, 3MMJ .035 180CM 9:12:07 180CM. 9:13:35 The RCA was injected and visualized at various angles. OMNIPAQUE, 350 MG, 100ML 100ML used. 9:15:01 Catheter was removed 9:15:11 An injection in the Fem Art (right) was made through the SHEATH, FR6.5 PRELUDE 11CM FR 6.5. 9:15:40 HR=77 bpm, RKFR=007/61 mmhg, SpO2=95.0 %, Resp=13 B/min, Pain=0, Carlos=10, Phelps=2 9:17:30 ANGIOSEAL, FR6 VIP FR 6 placement in the Fem Art (right) 9:18:56 [address] sheath left in place, will be removed in Holding Area 9:19:55 Case End 9:19:59 Sterile dressing applied to site 9:20:00 No case complications noted. 9:20:02 Cine recording checked. 9:20:05 Bedside Report will be given. 9:20:20 A Left and Right Heart Cath was performed. 9:20:39 HR=81 bpm, EQPG=345/60 mmhg, SpO2=97.0 %, Resp=15 B/min, Pain=0, Carlos=10, Phelps=2 9:25:39 HR=53 bpm, TTVT=870/59 mmhg, SpO2=97 %, Resp=14 B/min, Pain=0, Carlos=10, Phelps=2 9:27:11 Patient moved to stretcher End Study - Contrast Media Used In Study Contrast Total Opened (mL) Total Used (mL) Total Wasted (mL) Omnipaque 15 15 0 End Study - Maximum Contrast Load Max Contrast Load (mL) 152.1 End Study - Radiation Exposure Fluoro Time (minutes) 2.9 End Study - Patient Disposition Complications Transferred To Interventional Outcome No Telemetry Bed No attempt made
[2017-04-13] MEDS ORDERED: MISC INFORMATION XX ONE (09:45)
[2017-04-13] MEDS ORDERED: SODIUM CHLORIDE 0.9% FLUSH 10 ML FLUSH IV FLUSH PRN (09:45)
[2017-04-13] MEDS ORDERED: BACITRACIN OINT 0.9 GM PKT TOP ONE (09:45)
[2017-04-13 10:05] VITALS: BP 108/63; PULSE 87; RESP 20; TEMP 97.9; O2SAT 92
--- NOTE | 2017-04-13 10:11 | MA ---
cc: YENIFER ARMENTA M.D., DANIEL A. M.D. DATE: 04/13/2017 BRIEF HISTORY Glenna Craig is a 46-year-old woman who I am asked to do a cardiac catheterization on to clear her for a combined liver kidney transplant. 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 She is not able to undergo transplant without a preop catheterization. Dr. Jurado contacted me directly and I saw her in the office and had this scheduled. DESCRIPTION OF PROCEDURE The patient was brought to the cardiac slab grinder in a fasting state. I did not give her any additional IV sedation. My initial plan was to go radial. They could only find one IV and that was the right antecubital space. I did not want to use that for the right heart cath and since I needed to go femoral for the right heart cath, I decided to do the entire procedure from the right leg. Using 1% lidocaine for local anesthesia, a single stick was used to enter the right femoral artery and a 6-1/2 Bulgarian sheath placed. In similar fashion a sheath was placed in the right femoral vein requiring only a single stick. Coronary angiography was then completed using a left 4 Nessa for left coronary artery with two orthogonal views and a 3DRC for the right coronary artery with one KINYARWANDA cranial view. The coronary arteries appear smooth and normal and I opted to limit her angiography to these three pictures. I then used a few ccs to image the right femoral artery via the sheath which demonstrated the sheath was in good position and used Angio-Seal with good hemostasis. The venous sheath is being pulled manually. There were no complications. Total contrast was limited to 15 ccs. Based on the low volume of contrast I am going to allow her to go home today. Of note, a right heart cath was performed in standard fashion using a [place]-Ashlee catheter in addition to the above procedure. FINDINGS 1. Hemodynamics. Right atrial pressure was 16/12 with a mean of 12. Right ventricular pressure was 37/7 with an end-diastolic pressure of 14. Pulmonary artery pressure was 20/16 with a mean of 20. Pulmonary capillary wedge pressure is 20/22 with a mean of 17. 2. Left ventriculography not performed due to elevated creatinine. Her LV function by echo in the office was normal. 3. Coronary angiography. Coronary circulation is right-dominant. All three coronary arteries appear normal. CONCLUSION 1. Normal coronary arteries. 2. Mildly elevated central venous pressure, although no significant evidence for pulmonary hypertension. Cardiac output was 7.6 liters per minute by Char, based on a femoral artery saturation of 96% and a pulmonary artery saturation of 84.5%. PLAN The patient will be discharged home later today and follow up with Dr. Jurado and the transplant physicians. MD ORACIO Medeiros/IONA /9:28 AM /9:51 AM
[2017-04-13] MEDS ORDERED: SODIUM CHLORIDE 0.9% FLUSH 10 ML FLUSH IV FLUSH SCH (21:00)
== END 2017-04-13 14:40 | disposition home or self-care (01) ==
LOC: HCAT 06:40 → HDIC 06:41 → HCAT 14:40
PROVIDERS: ATTEND Internal Medicine Cardiovascular Disease
DX: N18.9 Chronic kidney disease, unspecified (principal); K74.60 Unspecified cirrhosis of liver; R93.1 Abnormal findings on diagnostic imaging of heart and coronary circulation; B18.2 Chronic viral hepatitis C; B20 Human immunodeficiency virus [HIV] disease; K76.81 Hepatopulmonary syndrome; E78.5 Hyperlipidemia, unspecified; D50.9 Iron deficiency anemia, unspecified; Z87.891 Personal history of nicotine dependence; Z79.899 Other long term (current) drug therapy
CPT/HCPCS: 80048; 82810; 84702; 85025; 85610; 85730; 93456; C1760; C1769; C1893; G0269; J1644; J2250; Q9967

== ENCOUNTER 2017-04-14 07:59 | Day surgery (SDC) | payer MEDICARE, MEDICAID ==
[2017-04-14 08:31] VITALS: BP 105/63; PULSE 96; RESP 20; TEMP 98.1; O2SAT 92
[2017-04-14] MEDS: ALBUMIN HUMAN 25% 25 GM/100 ML BAGP IV ONE (09:00)
[2017-04-14 09:50] VITALS: BP 89/46; PULSE 77; RESP 18; TEMP 98; O2SAT 91
[2017-04-14] MEDS ORDERED: LIDOCAINE HCL 1% 20 ML VIAL ONE (09:55)
[2017-04-14] MEDS ORDERED: ALBUMIN HUMAN 25% 50 GM IV ONE (10:15)
[2017-04-14 10:30] VITALS: BP 106/53; PULSE 77; RESP 18; O2SAT 92
[2017-04-14 11:00] VITALS: BP 112/63; PULSE 90; RESP 18; O2SAT 92
--- NOTE | 2017-04-14 11:30 | RADRPT ---
EXAM DATE/TIME: 04/14/2017 08:26 [facility] COMPARISON: US GUIDED ABD PARACENTESIS, April 07, 2017, 8:09. INDICATIONS : Ascites. MEDICAL HISTORY : Chronic obstructive pulmonary disease. Cirrhosis. Migraine. Asthma. Dyspnea. Hepatitis C. Renal fail ure. HIV. SURGICAL HISTORY : Tonsillectomy. section. Tubal ligation. Paracentesis. Non-cancerous lesion removed from neck . ENCOUNTER: Sequela ACUITY: 2 weeks PAIN SCORE: 4/10 LOCATION: Left lower quadrant FLUID: Total volume of 8,300 cc of clear, yellow fluid was removed. Fluid was discarded. Paracentesis was therapeutic only. Post procedure scanning reveals no hematoma or other complication. TECHNIQUE: 1. Ultrasound guidance for abdominal paracentesis. 2. Paracentesis. The risks, benefits, and alternatives to ultrasound guided paracentesis were explained to the patient in detail including the risk of bleeding and infection. Written and verbal informed consent was obt ained. With the patient on the ultrasound table, ultrasound imaging was used to select the most appropriate approach for paracentesis. Overlying skin was prepped and draped in the usual sterile fashion and wi th a local anesthetic, a dermatotomy was made with an 11 blade scalpel. A 6 [place] Lws-E-ehmliiun ca theter was introduced into the peritoneal cavity and fluid was collected. The patient tolerated the procedure well and left the ultrasound suite in stable condition. CONCLUSION: Uncomplicated ultrasound guided paracentesis. Panchito Rocha MD on April 14, 2017 at 11:28 Board Certified Radiologist. This report was verified electronically.
== END 2017-04-14 11:00 | disposition home or self-care (01) ==
LOC: HRAD 07:59 → HRIP 08:01 → HRAD 11:00
PROVIDERS: ATTEND Specialist
DX: R18.8 Other ascites (principal); J44.9 Chronic obstructive pulmonary disease, unspecified; K74.60 Unspecified cirrhosis of liver; R06.00 Dyspnea, unspecified; B19.20 Unspecified viral hepatitis C without hepatic coma; B20 Human immunodeficiency virus [HIV] disease
CPT/HCPCS: 49083; 96365; C1729; P9047

== ENCOUNTER 2017-04-21 07:25 | Day surgery (SDC) | payer MEDICARE, MEDICAID ==
[2017-04-21 08:19] VITALS: BP 106/57; PULSE 82; RESP 18; TEMP 98; O2SAT 90
[2017-04-21] MEDS ORDERED: ALBUMIN HUMAN 25% 25 GM/100 ML BAGP IV ONE ×2 (08:45→09:46)
[2017-04-21 09:30] VITALS: BP 103/49; PULSE 80; RESP 18; TEMP 97.9; O2SAT 91
--- NOTE | 2017-04-21 09:32 | RADRPT ---
EXAM DATE/TIME: 04/21/2017 08:12 [facility] COMPARISON: US GUIDED ABD PARACENTESIS, April 14, 2017, 8:26. INDICATIONS : Ascites. MEDICAL HISTORY : Chronic obstructive pulmonary disease. Cirrhosis. Migraine. Asthma. Dyspnea. Hepatitis C. Renal failu re. HIV. SURGICAL HISTORY : Tonsillectomy. section. Tubal ligation. Paracentesis. Non-cancerous lesion removed from neck . ENCOUNTER: Sequela ACUITY: 1 week PAIN SCORE: 1/10 LOCATION: Right lower quadrant FLUID: Total volume of 6,400 cc of clear, yellow fluid was removed. Fluid was discarded. Paracentesis was therapeutic only. Post procedure scanning reveals no hematoma or other complication. TECHNIQUE: 1. Ultrasound guidance for abdominal paracentesis. 2. Paracentesis. The risks, benefits, and alternatives to ultrasound guided paracentesis were explained to the patient in detail including the risk of bleeding and infection. Written and verbal informed consent was obt ained. With the patient on the ultrasound table, ultrasound imaging was used to select the most appropriate approach for paracentesis. Overlying skin was prepped and draped in the usual sterile fashion and wi th a local anesthetic, a dermatotomy was made with an 11 blade scalpel. A 6 Swedish Lem-P-yynwpcia ca theter was introduced into the peritoneal cavity and fluid was collected. The patient tolerated the procedure well and left the ultrasound suite in stable condition. CONCLUSION: Uncomplicated ultrasound guided paracentesis. Panchito Rocha MD on April 21, 2017 at 9:31 Board Certified Radiologist. This report was verified electronically.
[2017-04-21] MEDS ORDERED: ALBUMIN HUMAN 25% 25GM-W/12.5GM FOR 37.5GM IV ONE (10:00)
[2017-04-21] MEDS ORDERED: ALBUMIN HUMAN 25% 12.5GM-W/25GM FOR 37.5GM IV ONE (10:00)
[2017-04-21 10:15] VITALS: BP 102/54; PULSE 89; RESP 20; O2SAT 92
== END 2017-04-21 11:00 | disposition home or self-care (01) ==
LOC: HRAD 07:25 → HRIP 07:26 → HRAD 11:00
PROVIDERS: ATTEND Specialist
DX: R18.8 Other ascites (principal); B18.2 Chronic viral hepatitis C; N18.9 Chronic kidney disease, unspecified; B20 Human immunodeficiency virus [HIV] disease; J44.9 Chronic obstructive pulmonary disease, unspecified; K21.9 Gastro-esophageal reflux disease without esophagitis; G43.909 Migraine, unspecified, not intractable, without status migrainosus
CPT/HCPCS: 49083; 96365; C1729; P9047

== ENCOUNTER 2017-04-28 07:36 | Day surgery (SDC) | payer MEDICARE, MEDICAID ==
[2017-04-28 08:02] VITALS: BP 112/62; PULSE 84; RESP 18; TEMP 98.7; O2SAT 93
[2017-04-28 09:00] VITALS: BP 105/56; PULSE 87; RESP 18; TEMP 97.7; O2SAT 93
[2017-04-28] MEDS ORDERED: LOPE1TAB36 (09:43)
[2017-04-28] MEDS ORDERED: LACT10SO PO (09:43)
[2017-04-28 10:00] VITALS: BP 102/50; PULSE 87; RESP 14; O2SAT 94
[2017-04-28] MEDS ORDERED: ALBUMIN HUMAN 25% 50 GM IV ONE (10:00)
[2017-04-28] MEDS ORDERED: ALPRAZolam 0.5 MG TAB PO PRN (11:00)
[2017-04-28 11:11] LABS: AUTOMATED NEUTROPHIL # 0.8 TH/MM3 (1.8-7.7); BASOPHIL % 0.8 % (0.0-2.0); EOSINOPHIL % 2.4 % (0.0-4.0); HEMATOCRIT 26.7 % (35.0-46.0); LYMPHOCYTE # 0.3 TH/MM3 (1.0-4.8); MEAN CELL VOLUME 102.8 FL (80.0-100.0); MEAN CORPUSCULAR HEMOGLOBIN 33.8 PG (27.0-34.0); MEAN CORPUSCULAR HGB CONC 32.9 % (32.0-36.0); MONO % 13.4 % (0.0-8.0); NEUT % 62.4 % (16.0-70.0); PLATELET COUNT 52 TH/MM3 (150-450); RED CELL DISTRIBUTION WIDTH 18.1 % (11.6-17.2); WHITE BLOOD COUNT 1.3 TH/MM3 (4.0-11.0)
[2017-04-28 11:16] LABS: HEMO FLAGS AUTO DIFF
[2017-04-28 11:21] LABS: APTT (PATIENT) 31.6 SEC (24.3-30.1); INTERNATIONAL NORMALIZED RATIO 1.5 RATIO; PROTHROMBIN TIME - PATIENT 17.4 SEC (9.8-11.6)
[2017-04-28 12:00] LABS: ACANTHOCYTES OCC (NORMAL); BANDS 2 % (0-6); BASOPHILS 2 % (0-2); EOSINOPHILS 2 % (0-4); PLATELET ESTIMATE SMEAR LOW (NORMAL); POLYS (SEG NEUTROPHILS) 73 % (16-70); TEARDROP RBCS 1+ (NORMAL); WBC DIFF SAMPLE 100
[2017-04-28 12:01] LABS: OVALOCYTES 1+ (NORMAL); PLATELET MORPHOLOGY NORMAL (NORMAL); SCAN/DIFF FINAL DIFF MANUAL
--- NOTE | 2017-04-28 15:11 | RADRPT ---
EXAM DATE/TIME: 04/28/2017 07:41 [facility] COMPARISON: No previous studies available for comparison. INDICATIONS : Ascites. MEDICAL HISTORY : Cirrhosis. Hepatitis C. Arthritis. Head trauma. Migraines. COPD. Asthma. Ascites. GERD. Chronic kidne y disease. HIV. Thrombocytopenia. Depression. Anxiety. SURGICAL HISTORY : Tonsillectomy. section. Tubal ligation. Adenoidectomy. Benign tumor removed from left neck. Blood transfusions. Paracentesis. ENCOUNTER: Initial ACUITY: 1 week PAIN SCORE: 2/10 LOCATION: Right lower quadrant FLUID: Total volume of 7700 cc of clear, yellow fluid was removed. Fluid was discarded. Paracentesis was therapeutic only. Post procedure scanning reveals no hematoma or other complication. TECHNIQUE: 1. Ultrasound guidance for abdominal paracentesis. 2. Paracentesis. The risks, benefits, and alternatives to ultrasound guided paracentesis were explained to the patient in detail including the risk of bleeding and infection. Written and verbal informed consent was obt ained. With the patient on the ultrasound table, ultrasound imaging was used to select the most appropriate approach for paracentesis. Overlying skin was prepped and draped in the usual sterile fashion and wi th a local anesthetic, a dermatotomy was made with an 11 blade scalpel. A 6 Irish Kfd-B-jcvaaadw ca theter was introduced into the peritoneal cavity and fluid was collected. The patient tolerated the procedure well and left the ultrasound suite in stable condition. CONCLUSION: Uncomplicated ultrasound guided paracentesis. Casa Mahmood MD on April 28, 2017 at 15:10 Board Certified Radiologist. This report was verified electronically.
== END 2017-04-28 14:00 | disposition home or self-care (01) ==
LOC: HRAD 07:36 → HRIP 07:41 → HRAD 14:00
PROVIDERS: ATTEND Specialist
DX: R18.8 Other ascites (principal); B19.20 Unspecified viral hepatitis C without hepatic coma; K21.9 Gastro-esophageal reflux disease without esophagitis; J44.9 Chronic obstructive pulmonary disease, unspecified; N18.9 Chronic kidney disease, unspecified
CPT/HCPCS: 49083; 85007; 85027; 85610; 85730; 96365; C1729; P9047

== ENCOUNTER 2017-05-01 18:26 | Observation (INO) | payer MEDICARE, MEDICAID ==
[~2017-05-01 18:26] MED LIST changes: -FLUT1SPR5 EACH NARE; -HYDR-3133 PO; +LACT10SO PO; +LOPE1TAB36; -PROM12.54 PO
[2017-05-01 18:30] VITALS: BP 125/58; PULSE 108; RESP 28; TEMP 97.6; O2SAT 79
[2017-05-01 18:34] VITALS: BP 145/60; PULSE 100; RESP 17; O2SAT 87
[2017-05-01 18:39] VITALS: O2SAT 93
[2017-05-01] MEDS ORDERED: SODIUM CHLORIDE 0.9% FLUSH 10 ML FLUSH IV FLUSH PRN ×2 (18:45→20:45)
--- NOTE | 2017-05-01 19:22 | RADRPT ---
EXAM DATE/TIME: 05/01/2017 18:37 [facility] COMPARISON: CHEST SINGLE AP, September 15, 2015, 15:29. INDICATIONS : Short of breath. MEDICAL HISTORY : Cirrhosis. Hepatitis C. Arthritis. Head trauma. Migraines. COPD. Asthma. SURGICAL HISTORY : Tonsillectomy. section. Tubal ligation. Adenoidectomy. Benign ENCOUNTER: Subsequent ACUITY: 1 day PAIN SCORE: 0/10 LOCATION: Bilateral chest FINDINGS: A single view of the chest demonstrates the lungs to be symmetrically aerated without evidence of mas s, infiltrate or effusion. The cardiomediastinal contours are unremarkable. Osseous structures are intact. CONCLUSION: No acute disease. Reynold Leblanc MD on May 01, 2017 at 19:20 Board Certified Radiologist. This report was verified electronically.
[2017-05-01 19:24] VITALS: BP 108/58; PULSE 92; RESP 20; O2SAT 96
[2017-05-01 19:26] LABS: HEMATOCRIT 32.8 % (35.0-46.0); MEAN CELL VOLUME 103.3 FL (80.0-100.0); MEAN CORPUSCULAR HEMOGLOBIN 33.7 PG (27.0-34.0); MEAN CORPUSCULAR HGB CONC 32.6 % (32.0-36.0); PLATELET COUNT 54 TH/MM3 (150-450); RED BLOOD COUNT 3.18 MIL/MM3 (4.00-5.30); RED CELL DISTRIBUTION WIDTH 18.2 % (11.6-17.2); WHITE BLOOD COUNT 3.2 TH/MM3 (4.0-11.0)
--- NOTE | 2017-05-01 19:29 | PD ---
HPI Chief Complaint: Respiratory Symptoms Time Seen by Provider: 18:39 Travel History International Travel<30 days: No Contact w/Intl Traveler<30days: No Traveled to known affect area: No History of Present Illness HPI 47-year-old female came to the emergency room with history of fluid leaking from the site where she had paracentesis done last week. Patient has history of ascites and requires paracentesis every week. She has history of hepatitis C and hepatorenal syndrome. She requires 4 L of oxygen at home via nasal cannula on a regular basis. When she came to triage she was on room air and her oxygen saturation was in the 80s. Patient was brought back emergently. Patient is not in any respiratory distress. No history of chest pain or any other pain. She is on a transplant list for liver and kidney. [facility]LY [facility] Past Medical History Narrative Medical List of her past medical, surgical, social and family history is reviewed from the nursing note. Arthritis: Yes (KNEES) Asthma: Yes (SINCE 2003) Autoimmune Disease: No Anxiety: Yes Depression: Yes Heart Rhythm Problems: No Cancer: Yes (BENIGN LESION REMOVED FROM LEFT NECK) Cardiovascular Problems: Yes (HEART MURMUR) High Cholesterol: No Chemotherapy: No Chest Pain: No Congestive Heart Failure: No Cirrhosis: Yes COPD: Yes Cerebrovascular Accident: No Diabetes: No Diminished Hearing: No Endocrine: No Gastrointestinal Disorders: Yes (ASCITES, HEP C) GERD: Yes Genitourinary: Yes Headaches: Yes Hepatitis: Yes (c) Hiatal Hernia: No Immune Disorder: Yes (HIV DX. 2000) Implanted Vascular Access Dvce: Yes Kidney Stones: No Musculoskeletal: Yes Neurologic: Yes Psychiatric: Yes Reproductive: Yes (LAST PERIOD 2008) Respiratory: Yes Immunizations Current: Yes Migraines: Yes Radiation Therapy: No Renal Failure: Yes Seizures: No Sickle Cell Disease: No Sleep Apnea: No Thyroid Disease: No Ulcer: No ?: Not Menopausal: Yes Tubal Ligation: Yes (1999) Past Surgical History Abdominal Surgery: No AICD: No Arteriovenous Shunt: No Body Medical Devices: TUBES TIED WITH METAL BANDS Cardiac Surgery: No Section: Yes (1st child ) Ear Surgery: No Endocrine Surgery: No Eye Surgery: No Genitourinary Surgery: No Gynecologic Surgery: Yes (/TUBAL LIGATION) Insulin Pump: No Joint Replacement: No Oral Surgery: No Pacemaker: No Thoracic Surgery: No Tonsillectomy: Yes (and adenoids) Other Surgery: Yes (lump removed from neck-non cancerous, paracentesis) Social History Alcohol Use: No Tobacco Use: No Substance Use: No Allergies-Medications (Allergen,Severity, Reaction): Coded Allergies: adhesive (Verified Allergy, Severe, 05/01/17) erythromycin base (Unverified Allergy, Severe, Anaphylaxis, 05/01/17) Comments List of her allergies reviewed from the nursing note. Reported Meds & Prescriptions Reported Meds & Active Scripts Active Reported Imodium Multi-Symptom Rel Cplt (Loperamide HCl/Simethicone) 2 Mg-125 Mg Tablet Lactulose Liq (Lactulose) 10 Gm/15 Ml Soln 15 Ml PO BID Zofran (Ondansetron HCl) 8 Mg Tab 8 Mg PO TID Vitamin D (Ergocalciferol (Vitamin D2)) 400 Unit Tablet 50,000 PO WEEKLY ONE TIME PER WEEK X6 WEEKS THEN DECREASE TO EVERY OTHER WEEK Ciprofloxacin (Ciprofloxacin HCl) 750 Mg Tab 750 Mg PO MONTHLY PRIOR TO PARACENTESIS Sodium Bicarbonate 650 Mg Tab 650 Mg PO BIDPC Omeprazole 40 Mg Cap 40 Mg PO DAILY Tuesday BEFORE MEALS Sustiva (Efavirenz) 600 Mg Tab 600 Mg PO HS Valacyclovir (Valacyclovir HCl) 1 Gm Tab 1,000 Mg PO DAILY Descovy (Emtricitabine-Tenofovir Alafenamide) 200-25 mg Tab 1 Tab PO DAILY Xifaxan (Rifaximin) 550 Mg Tab 550 Mg PO Q12HR Calcium 600 with Vitamin D (Calcium Carbonate-Cholecalciferol) 600-400 mg-Unit Tab 1 Tab PO BID Narrative Medication List of her home medications reviewed from the nursing note. Review of Systems Except as stated in HPI: all other systems reviewed are Neg Physical Exam Narrative GENERAL: Awake, alert, emaciated, moderate distress SKIN: Focused skin assessment warm/dry. Jaundice HEAD: Atraumatic. Normocephalic. EYES: Pupils equal and round. Scleral icteric. No injection or drainage. ENT: No nasal bleeding or discharge. Dry mucous membrane NECK: Trachea midline. No JVD. CARDIOVASCULAR: Regular rate and rhythm. No murmur appreciated. RESPIRATORY: No accessory muscle use. Clear to auscultation. Breath sounds equal bilaterally. GASTROINTESTINAL: Abdomen soft, non-tender, distended, ascites. Hepatic and splenic margins not palpable. In the right lower quadrant the puncture wound is noticed where the tap was done and there is leaking of serous fluid from it. MUSCULOSKELETAL: No obvious deformities. No clubbing. No cyanosis. No edema. NEUROLOGICAL: Awake and alert. No obvious cranial nerve deficits. Motor grossly within normal limits. Normal speech. PSYCHIATRIC: Appropriate mood and affect; insight and judgment normal. Data Data Last Documented VS Orders Orders Complete Blood Count With Diff (05/01/17 18:40) Comprehensive Metabolic Panel (05/01/17 18:40) Prothrombin Time / Inr (Pt) (05/01/17 18:40) Iv Access Insert/Monitor (05/01/17 18:40) Ecg Monitoring (05/01/17 18:40) Oximetry (05/01/17 18:40) Sodium Chloride 0.9% Flush (Ns Flush) (05/01/17 18:45) Chest, Single Ap (05/01/17 ) Type And Screen (05/01/17 18:40) Admit Order (Ed Use Only) (05/01/17 20:39) Efavirenz (Sustiva) (05/01/17 21:00) Lactulose Liq (Lactulose Liq) (05/01/17 21:00) Rifaximin (Xifaxan) (05/01/17 21:00) Sodium Bicarbonate (Sodium Bicarbonate) (05/02/17 09:00) Valacyclovir (Valtrex) (05/02/17 09:00) Patient Own Medication (05/02/17 09:00) Pantoprazole (Protonix) (05/02/17 06:00) Labs Laboratory Tests Test 05/01/17 19:00 White Blood Count 3.2 TH/MM3 Red Blood Count 3.18 MIL/MM3 Hemoglobin 10.7 GM/DL Hematocrit 32.8 % Mean Corpuscular Volume 103.3 FL Mean Corpuscular Hemoglobin 33.7 PG Mean Corpuscular Hemoglobin Concent 32.6 % Red Cell Distribution Width 18.2 % Platelet Count 54 TH/MM3 Mean Platelet Volume 9.1 FL CBC Comment AUTO DIFF Differential Total Cells Counted 100 Neutrophils % (Manual) 80 % Band Neutrophils % 1 % Lymphocytes % 8 % Monocytes % 8 % Eosinophils % 2 % Basophils % 1 % Neutrophils # (Manual) 2.6 TH/MM3 Differential Comment FINAL DIFF MANUAL Platelet Estimate LOW Platelet Morphology Comment NORMAL Tear Drop Cells 1+ Ovalocytes 1+ Acanthocytes 1+ Prothrombin Time 16.5 SEC Prothromb Time International Ratio 1.5 RATIO Blood Urea Nitrogen 47 MG/DL Creatinine 2.46 MG/DL Random Glucose 142 MG/DL Total Protein 5.4 GM/DL Albumin 3.1 GM/DL Calcium Level 8.1 MG/DL Alkaline Phosphatase 200 U/L Aspartate Amino Transf (AST/SGOT) 35 U/L Alanine Aminotransferase (ALT/SGPT) 22 U/L Total Bilirubin 2.5 MG/DL Sodium Level 140 MEQ/L Potassium Level 3.5 MEQ/L Chloride Level 113 MEQ/L Carbon Dioxide Level 18.6 MEQ/L Anion Gap 8 MEQ/L Estimat Glomerular Filtration Rate 21 ML/MIN [facility] Medical Decision Making Medical Screen Exam Complete: Yes Emergency Medical Condition: Yes Medical Record Reviewed: Yes Differential Diagnosis Leaking from paracentesis site, complication a paracentesis, hypoxia, oxygen dependent Narrative Course 7:29 PM awaiting for the blood test result. Chest x-rays within normal limits. Case has been signed over to the oncoming ER physician. Procedures EKG Prior to Arrival: No Scripts Budesonide-Formoterol Inh (Symbicort Inh) 160-4.5 Mcg/Act Aero 1 PUFF INH Q12HR for COPD, #1 INHALER Prov: Geena Loera PA-C 05/03/17 Patric Lcokhart MD May 01, 2017 19:29
[2017-05-01 19:36] LABS: HEMO FLAGS AUTO DIFF
--- NOTE | 2017-05-01 19:36 | PD ---
Data Data Last Documented VS Vital Signs Date Time Temp Pulse Resp B/P (MAP) Pulse Ox O2 Delivery O2 Flow Rate FiO2 05/01/17 19:24 94 Nasal Cannula 5.00 05/01/17 19:24 92 20 108/58 (75) 05/01/17 18:30 97.6 Orders Orders Complete Blood Count With Diff (05/01/17 18:40) Comprehensive Metabolic Panel (05/01/17 18:40) Prothrombin Time / Inr (Pt) (05/01/17 18:40) Iv Access Insert/Monitor (05/01/17 18:40) Ecg Monitoring (05/01/17 18:40) Oximetry (05/01/17 18:40) Sodium Chloride 0.9% Flush (Ns Flush) (05/01/17 18:45) Chest, Single Ap (05/01/17 ) Type And Screen (05/01/17 18:40) Admit Order (Ed Use Only) (05/01/17 20:39) Efavirenz (Sustiva) (05/01/17 21:00) Lactulose Liq (Lactulose Liq) (05/01/17 21:00) Rifaximin (Xifaxan) (05/01/17 21:00) Sodium Bicarbonate (Sodium Bicarbonate) (05/02/17 09:00) Valacyclovir (Valtrex) (05/02/17 09:00) Patient Own Medication (05/02/17 09:00) Pantoprazole (Protonix) (05/02/17 06:00) Labs Laboratory Tests Test 05/01/17 19:00 White Blood Count 3.2 TH/MM3 Red Blood Count 3.18 MIL/MM3 Hemoglobin 10.7 GM/DL Hematocrit 32.8 % Mean Corpuscular Volume 103.3 FL Mean Corpuscular Hemoglobin 33.7 PG Mean Corpuscular Hemoglobin Concent 32.6 % Red Cell Distribution Width 18.2 % Platelet Count 54 TH/MM3 Mean Platelet Volume 9.1 FL CBC Comment AUTO DIFF Differential Total Cells Counted 100 Neutrophils % (Manual) 80 % Band Neutrophils % 1 % Lymphocytes % 8 % Monocytes % 8 % Eosinophils % 2 % Basophils % 1 % Neutrophils # (Manual) 2.6 TH/MM3 Differential Comment FINAL DIFF MANUAL Platelet Estimate LOW Platelet Morphology Comment NORMAL Tear Drop Cells 1+ Ovalocytes 1+ Acanthocytes 1+ Prothrombin Time 16.5 SEC Prothromb Time International Ratio 1.5 RATIO Blood Urea Nitrogen 47 MG/DL Creatinine 2.46 MG/DL Random Glucose 142 MG/DL Total Protein 5.4 GM/DL Albumin 3.1 GM/DL Calcium Level 8.1 MG/DL Alkaline Phosphatase 200 U/L Aspartate Amino Transf (AST/SGOT) 35 U/L Alanine Aminotransferase (ALT/SGPT) 22 U/L Total Bilirubin 2.5 MG/DL Sodium Level 140 MEQ/L Potassium Level 3.5 MEQ/L Chloride Level 113 MEQ/L Carbon Dioxide Level 18.6 MEQ/L Anion Gap 8 MEQ/L Estimat Glomerular Filtration Rate 21 ML/MIN [facility] Medical Record Reviewed: Yes Supervised Visit with EDILBERTO: No Interpretation(s) Last Impressions Chest X-Ray 05/01/17 0000 Signed Impressions: Service Date/Time: Monday, May 01, 2017 18:37 - CONCLUSION: No acute disease. Reynold Leblanc MD Narrative Course During the course of the patients emergency department visit, the patients history, examination, and differential diagnosis were reviewed with the patient. The patient had IV access obtained and blood work sent for analysis. The patient was placed on a cardiac surgeon with oximetry and blood pressure monitoring. The patient's case was checked out to me by Dr. Lockhart at the conclusion of her shift. Please see her complete history and physical. She recommended that the patient be admitted to the hospital after evaluation. The patient on arrival to triage was noted to have a pulse in the low 100s at 108, increased respiratory rate at 28, with O2 saturations on room air of 79%. The patient is normally on supplemental oxygen of 4 L continuously at home. The patient did require increased supplementation in the emergency department. The patient is currently on 5 L and saturating 94% to 96%. The patient's laboratory studies are remarkable for a white count of 3.2, hemoglobin 10.7, platelets 54 with 80 neutrophils, 1 band, lymphocytes 8, CMP is remarkable for chloride of 113, CO2 18.6, BUN 27, creatinine 2.46, glucose 142, calcium 8.1, total bilirubin 2.5, alkaline phosphatase 200, albumin 3.1, INR 1.5 Radiology studies were reviewed and remarkable for a chest x-ray that shows no acute abnormality. The patients results were discussed with the patient, including the plan of care. I explained that further testing and/ or monitoring is indicated based on the patients history, examination, and/ or laboratory findings. Therefore, I recommended admission for additional evaluation. The patient expressed understanding and was agreeable with this plan. The patient was admitted to the hospital in stable condition and sent to a bed under the care of the [facility]. Physician Communication Physician Communication The patient's case was discussed with Dr. Delacruz who did agree to admit the patient for further evaluation and treatment at this time. Diagnosis Primary Impression: Ascites Qualified Codes: R18.8 - Other ascites Additional Impression: Abdominal pain Qualified Codes: R10.9 - Unspecified abdominal pain Daphnie Carey MD May 01, 2017 19:36
[2017-05-01 19:40] LABS: INTERNATIONAL NORMALIZED RATIO 1.5 RATIO; PROTHROMBIN TIME - PATIENT 16.5 SEC (9.8-11.6)
[2017-05-01 19:43] LABS: ALT (GPT) 22 U/L (10-53)
[2017-05-01 19:44] LABS: ALKALINE PHOSPHATASE 200 U/L (45-117); TOTAL BILIRUBIN ADULT 2.5 MG/DL (0.2-1.0)
[2017-05-01 19:48] LABS: ANION GAP 8 MEQ/L (5-15); AST (GOT) 35 U/L (15-37); BICARBONATE 18.6 MEQ/L (21.0-32.0); BLOOD UREA NITROGEN 47 MG/DL (7-18); CHLORIDE 113 MEQ/L (98-107); GLOMERULAR FILTRATION RATE 21 ML/MIN (>89); POTASSIUM 3.5 MEQ/L (3.5-5.1); SODIUM (NA) 140 MEQ/L (136-145)
[2017-05-01 20:14] LABS: BANDS 1 % (0-6); BASOPHILS 1 % (0-2); EOSINOPHILS 2 % (0-4); NEUTROPHIL # MANUAL DIFF 2.6 TH/MM3 (1.8-7.7); POLYS (SEG NEUTROPHILS) 80 % (16-70); WBC DIFF SAMPLE 100
[2017-05-01 20:15] LABS: ACANTHOCYTES 1+ (NORMAL); OVALOCYTES 1+ (NORMAL); PLATELET ESTIMATE SMEAR LOW (NORMAL); PLATELET MORPHOLOGY NORMAL (NORMAL); SCAN/DIFF FINAL DIFF MANUAL; TEARDROP RBCS 1+ (NORMAL)
[2017-05-01] MEDS ORDERED: NALOXONE HCL 0.4 MG/ML AMP IV PUSH PRN (20:45)
[2017-05-01] MEDS ORDERED: RESP: ALBUTEROL 2.5 MG/IPRATROPIUM 0.5 MG NEB (PRN) NEB (20:45)
[2017-05-01] MEDS ORDERED: TEMAZEPAM 15 MG CAP PO PRN (20:45)
--- NOTE | 2017-05-01 20:46 | HHI.HP ---
HPI Service [facility] Primary Care Physician Kevin Jurado MD Admission Diagnosis Recurrent severe ascites with continuous leakage from paracentesis Diagnoses: Chief Complaint: Leaking from paracentesis site. Travel History International Travel<30 Days: No Contact w/Intl Traveler <30 Da: No Traveled to Known Affected Are: No History of Present Illness 47-year-old female with a medical history significant for end-stage liver disease, HIV, esophageal varices, oxygen dependent COPD who presented to the emergency room with complaint of leakage from the paracentesis site. Patient reports he is on the liver transplant list and has been followed by the [facility]. She gets paracentesis once a week and since the last procedure on , she has been having leaking from the paracentesis site. Fluid is clear, occasionally blood-tinged. The patient has significant COPD and is oxygen dependent. She arrived to the emergency room without her oxygen and was in respiratory distress requiring oxygen supplementation. She is currently comfortable on 4 L on a nasal cannula. On my evaluation, she has a very small one on the right lower quadrant but I could not appreciate any more leakage. She reports her abdomen is not more distended than usual. She denies any fevers or chills. She states she came to the hospital because she was getting tired of feeling soaked. Review of Systems Constitutional: DENIES: Fever, Chills Respiratory: DENIES: Shortness of breath Cardiovascular: DENIES: Chest pain, Palpitations Gastrointestinal: DENIES: Abdominal pain, Black stools, Bloody stools, Nausea, Vomiting Integumentary: COMPLAINS OF: Rash Except as stated in HPI: all other systems reviewed are Neg Past Family Social History Past Medical History End-stage liver disease, on transplant list per the patient Chronic kidney disease HIV, compliant with treatment Hepatitis C, was treated. Esophageal varices Past Surgical History Tumor resection from her throat. Known cancers. Esophageal varices banding Reported Medications Reported Meds & Active Scripts Active Reported Imodium Multi-Symptom Rel Cplt (Loperamide HCl/Simethicone) 2 Mg-125 Mg Tablet Lactulose Liq (Lactulose) 10 Gm/15 Ml Soln 15 Ml PO BID Zofran (Ondansetron HCl) 8 Mg Tab 8 Mg PO TID Vitamin D (Ergocalciferol (Vitamin D2)) 400 Unit Tablet 50,000 PO WEEKLY ONE TIME PER WEEK X6 WEEKS THEN DECREASE TO EVERY OTHER WEEK Ciprofloxacin (Ciprofloxacin HCl) 750 Mg Tab 750 Mg PO MONTHLY PRIOR TO PARACENTESIS Sodium Bicarbonate 650 Mg Tab 650 Mg PO BIDPC Omeprazole 40 Mg Cap 40 Mg PO DAILY Tuesday BEFORE MEALS Sustiva (Efavirenz) 600 Mg Tab 600 Mg PO HS Valacyclovir (Valacyclovir HCl) 1 Gm Tab 1,000 Mg PO DAILY Descovy (Emtricitabine-Tenofovir Alafenamide) 200-25 mg Tab 1 Tab PO DAILY Xifaxan (Rifaximin) 550 Mg Tab 550 Mg PO Q12HR Calcium 600 with Vitamin D (Calcium Carbonate-Cholecalciferol) 600-400 mg-Unit Tab 1 Tab PO BID Allergies: Coded Allergies: adhesive (Verified Allergy, Severe, 05/01/17) erythromycin base (Unverified Allergy, Severe, Anaphylaxis, 05/01/17) Family History Reviewed and found to be noncontributory to the current presentation. Social History Patient smoked about half a pack per day for 30 years. She quit in January of this year. She was also an alcoholic for 20+ years. She quit 2-1/2 years ago. No illicit drug use. Physical Exam Vital Signs Vital Signs Date Time Temp Pulse Resp B/P (MAP) Pulse Ox O2 Delivery O2 Flow Rate FiO2 05/01/17 19:24 94 Nasal Cannula 5.00 05/01/17 19:24 92 20 108/58 (75) 96 Nasal Cannula 5.00 05/01/17 18:54 4.00 05/01/17 18:39 93 4.00 05/01/17 18:34 100 17 145/60 (88) 87 05/01/17 18:30 97.6 108 28 125/58 (80) 79 Room Air Physical Exam GENERAL: Chronically ill-appearing female. SKIN: On the right lower quadrant of the abdomen, there is a small open wound but is not currently draining. No erythema or warmth. HEAD: Atraumatic. Normocephalic. No temporal or scalp tenderness. EYES: Pupils equal round and reactive. Extraocular motions intact. No scleral icterus. No injection or drainage. ENT: Nose without bleeding, purulent drainage or septal hematoma. Throat without erythema, tonsillar hypertrophy or exudate. Uvula midline. Airway patent. NECK: Trachea midline. No JVD or lymphadenopathy. Supple, nontender, no meningeal signs. CARDIOVASCULAR: Regular rate and rhythm without murmurs, gallops, or rubs. RESPIRATORY: Clear to auscultation. Breath sounds equal bilaterally. No wheezes , rales, or rhonchi. GASTROINTESTINAL: Abdomen is enlarged, caput medusae. Abdomen is soft and nontender. MUSCULOSKELETAL: Extremities without clubbing, cyanosis, or edema. NEUROLOGICAL: Awake and alert. Cranial nerves II through XII intact. Motor and sensory grossly within normal limits. Five out of 5 muscle strength in all muscle groups. Normal speech. Laboratory Laboratory Tests Test 05/01/17 19:00 White Blood Count 3.2 Red Blood Count 3.18 Hemoglobin 10.7 Hematocrit 32.8 Mean Corpuscular Volume 103.3 Mean Corpuscular Hemoglobin 33.7 Mean Corpuscular Hemoglobin Concent 32.6 Red Cell Distribution Width 18.2 Platelet Count 54 Mean Platelet Volume 9.1 CBC Comment AUTO DIFF Differential Total Cells Counted 100 Neutrophils % (Manual) 80 Band Neutrophils % 1 Lymphocytes % 8 Monocytes % 8 Eosinophils % 2 Basophils % 1 Neutrophils # (Manual) 2.6 Differential Comment FINAL DIFF MANUAL Platelet Estimate LOW Platelet Morphology Comment NORMAL Tear Drop Cells 1+ Ovalocytes 1+ Acanthocytes 1+ Prothrombin Time 16.5 Prothromb Time International Ratio 1.5 Blood Urea Nitrogen 47 Creatinine 2.46 Random Glucose 142 Total Protein 5.4 Albumin 3.1 Calcium Level 8.1 Alkaline Phosphatase 200 Aspartate Amino Transf (AST/SGOT) 35 Alanine Aminotransferase (ALT/SGPT) 22 Total Bilirubin 2.5 Sodium Level 140 Potassium Level 3.5 Chloride Level 113 Carbon Dioxide Level 18.6 Anion Gap 8 Estimat Glomerular Filtration Rate 21 Result Diagram: 05/01/17189905/01/171899 Imaging Last Impressions Chest X-Ray 05/01/17 0000 Signed Impressions: Service Date/Time: Monday, May 01, 2017 18:37 - CONCLUSION: No acute disease. MD Rene Stein VTE Risk Assessment Rene VTE Risk Assessment: Mod/High Risk (score >= 2) VTE Pharm Contraindication: High risk for bleeding Caprini Risk Assessment Model Point Value = 1 Point Value = 2 Point Value = 3 Point Value = 5 Age 41-60 Minor surgery BMI > 25 kg/m2 Swollen legs Varicose veins or History of unexplained or recurrent spontaneous Oral contraceptives or hormone replacement Sepsis (< 1 month) Serious lung disease, including pneumonia (< 1 month) Abnormal pulmonary function Acute myocardial infarction Congestive heart failure (< 1 month) History of inflammatory bowel disease Medical patient at bed rest Age 61-74 Arthroscopic surgery Major open surgery (> 45 min) Laparoscopic surgery (> 45 min) Malignancy Confined to bed (> 72 hours) Immobilizing plaster cast Central venous access Age >= 75 History of VTE Family history of VTE Factor V Leiden Prothrombin [id number] Lupus anticoagulant Anticardiolipin antibodies Elevated serum homocysteine Heparin-induced thrombocytopenia Other congenital or acquired thrombophilia Stroke (< 1 month) Elective arthroplasty Hip, pelvis, or leg fracture Acute spinal cord injury (< 1 month) Prophylaxis Regimen Total Risk Factor Score Risk Level Prophylaxis Regimen 0-1 Low Early ambulation 2 Moderate Order ONE of the following: *Sequential Compression Device (SCD) *Heparin 5000 units SQ BID 3-4 Higher Order ONE of the following medications: *Heparin 5000 units SQ TID *Enoxaparin/Lovenox 40 mg SQ daily (WT < 150 kg, CrCl > 30 mL/min) *Enoxaparin/Lovenox 30 mg SQ daily (WT < 150 kg, CrCl > 10-29 mL/min) *Enoxaparin/Lovenox 30 mg SQ BID (WT < 150 kg, CrCl > 30 mL/min) AND/OR *Sequential Compression Device (SCD) 5 or more Highest Order ONE of the following medications: *Heparin 5000 units SQ TID (Preferred with Epidurals) *Enoxaparin/Lovenox 40 mg SQ daily (WT < 150 kg, CrCl > 30 mL/min) *Enoxaparin/Lovenox 30 mg SQ daily (WT < 150 kg, CrCl > 10-29 mL/min) *Enoxaparin/Lovenox 30 mg SQ BID (WT < 150 kg, CrCl > 30 mL/min) AND *Sequential Compression Device (SCD) Assessment and Plan Problem List: (1) Chronic kidney disease (CKD) stage G4/A1, severely decreased glomerular filtration rate (GFR) between 15-29 mL/min/1.73 square meter and albuminuria creatinine ratio less than 30 mg/g ICD Code: N18.4 - Chronic kidney disease, stage 4 (severe) (2) Cirrhosis of liver ICD Code: K74.60 - Cirrhosis of liver Status: Chronic (3) COPD (chronic obstructive pulmonary disease) ICD Code: J44.9 - Chronic obstructive pulmonary disease, unspecified Status: Acute (4) HIV (human immunodeficiency virus infection) ICD Code: Z21 - HIV (human immunodeficiency virus infection) Status: Chronic Assessment and Plan 47-year-old female with liver cirrhosis, on the transplant list at the [facility] presents with leaking of paracentesis site. Patient also presented to the ED with outer home oxygen and went into respiratory distress. Patient admitted for observation. Liver cirrhosis, ascites: - Patient gets weekly paracentesis. Last one was 3 days ago. Has been having leakage from the site at home. However, I could not appreciate any leakage on my exam. She denies any worsening of abdominal distention warranting repeat paracentesis. No abdominal pain. - Continue to monitor overnight. Nursing to apply dressing. If leaking reoccur, would consult IR. COPD: Not in exacerbation. The patient is oxygen dependent and was not using it on presentation. She left it at home. At baseline, she is around 92 % on 4 L nasal cannula. - Continue supplemental oxygen - Breathing treatments as needed. Add Symbicort. HIV: Continue home dose antivirals. CKD stage IV: Stable. Avoid nephrotoxins. If the patient does not experience any further leakage from the paracentesis site and remain stable, she can be discharged tomorrow to follow-up with IR per her regular once weekly schedule. Jean Marie Delacruz MD May 01, 2017 20:46
[2017-05-01 23:18] VITALS: BP 98/55; PULSE 84; RESP 20; O2SAT 98
[2017-05-02] MEDS: SODIUM CHLORIDE 0.9% FLUSH 10 ML FLUSH IV FLUSH SCH ×3 (00:16→21:30)
[2017-05-02] MEDS: LACTULOSE SYRUP 20 GM/30 ML CUP PO SCH ×3 (00:16→21:30)
[2017-05-02] MEDS: RIFAXIMIN 550 MG TAB PO SCH ×3 (00:17→21:30)
[2017-05-02] MEDS: BUDESONIDE-FORMOTEROL 160/4.5 MCG INHALER INH SCH ×3 (00:17→21:35)
[2017-05-02 01:02] VITALS: BP 114/55; PULSE 96; RESP 18; TEMP 98.1; O2SAT 97
[2017-05-02] MEDS: ONDANSETRON HCL 4 MG/2 ML VIAL IVP PRN ×2 (02:43→17:52)
[2017-05-02 03:42] VITALS: BP 101/48; PULSE 93; RESP 18; TEMP 98.1; O2SAT 98
[2017-05-02] MEDS: PANTOPRAZOLE SOD 40 MG DELAYED RELEASE TAB PO SCH (07:14)
--- NOTE | 2017-05-02 08:30 | HHI.PR ---
Subjective Remarks Follow-up for leaking after paracentesis. The patient reports paracentesis site in her right lower quadrant is still draining more than episodes of drainage are in the past, but reports improvement overnight. She has another paracentesis and a liver biopsy planned for 3 days. She denies any bleeding. She would be happy with home nursing to help her with dressing changes. Objective Vitals Vital Signs Date Time Temp Pulse Resp B/P (MAP) Pulse Ox O2 Delivery O2 Flow Rate FiO2 05/02/17 03:42 98.1 93 18 101/48 (65) 98 05/02/17 01:02 98.1 96 18 114/55 (74) 97 05/01/17 23:18 84 20 98/55 (69) 98 Nasal Cannula 4.00 05/01/17 19:24 94 Nasal Cannula 5.00 05/01/17 19:24 92 20 108/58 (75) 96 Nasal Cannula 5.00 05/01/17 18:54 4.00 05/01/17 18:39 93 4.00 05/01/17 18:34 100 17 145/60 (88) 87 05/01/17 18:30 97.6 108 28 125/58 (80) 79 Room Air Result Diagram: 05/01/17 1900 05/01/17 1900 Imaging Last Impressions Chest X-Ray 05/01/17 0000 Signed Impressions: Service Date/Time: Monday, May 01, 2017 18:37 - CONCLUSION: No acute disease. Reynold Leblanc MD Objective Remarks GENERAL: Well-developed well-nourished. Chronically ill appearing. In no acute distress. SKIN: Warm and dry. Clean right lower quadrant paracentesis site with some surrounding partially soaked towels, but no active draining or surrounding erythema. HEENT: Normocephalic. Pupils equal and round. Mucous membranes pink and moist. CARDIOVASCULAR: Regular rate and rhythm. No murmur appreciated. RESPIRATORY: No accessory muscle use. Clear to auscultation. Breath sounds equal bilaterally. GASTROINTESTINAL: Abdomen distended but soft and nontender. Caput medusa. Reducible ventral hernia. MUSCULOSKELETAL: No obvious deformities. Digital clubbing. Lower extremity edema. NEUROLOGICAL: Awake and alert. No focal neurological deficits. Moves upper and lower extremities spontaneously. Normal speech. PSYCHIATRIC: Appropriate mood and affect; insight and judgment normal. A/P Problem List: (1) Chronic kidney disease (CKD) stage G4/A1, severely decreased glomerular filtration rate (GFR) between 15-29 mL/min/1.73 square meter and albuminuria creatinine ratio less than 30 mg/g ICD Code: N18.4 - Chronic kidney disease, stage 4 (severe) Status: Chronic (2) Cirrhosis of liver ICD Code: K74.60 - Cirrhosis of liver Status: Chronic (3) COPD (chronic obstructive pulmonary disease) ICD Code: J44.9 - Chronic obstructive pulmonary disease, unspecified Status: Chronic (4) HIV (human immunodeficiency virus infection) ICD Code: Z21 - HIV (human immunodeficiency virus infection) Status: Chronic Assessment and Plan 47-year-old female with liver cirrhosis, on the transplant list at the [facility] presents with leaking of paracentesis site. Patient also presented to the ED with outer home oxygen and went into respiratory distress. Patient admitted for observation. Liver cirrhosis, ascites: No worsening of abdominal distention warranting repeat paracentesis. No abdominal pain. Afebrile with no leukocytosis. - Patient gets weekly paracentesis. Last one was 3 days ago. Has been having leakage from the site at home. No leaking on exam, but some drainage noted on towels at bedside. Discussed with RN, apply abdominal dressing to monitor drainage. Nursing to contact IR to have them evaluate the area. - Case management consulted, D/W, for [facility] nursing for dressing changes COPD: Chronic respiratory failure on home O2. Not in exacerbation. The patient is oxygen dependent and was not using it on presentation and thus was hypoxic. O2 sat better now on home 4 L. - Continue supplemental oxygen - Breathing treatments as needed. - Symbicort added. HIV: Continue home antivirals. CKD stage IV: Creatinine stable compared to previous. Avoid nephrotoxins. Discharge Planning Anticipate discharge later today with [facility] if abdominal drainage is controlled. Discussed with RN, drainage was not well controlled today and IR requested an abdominal ultrasound and they will evaluate Problem Qualifiers (1) Cirrhosis of liver: [place] Ni May 02, 2017 08:30
[2017-05-02] MEDS: SODIUM BICARBONATE 650 MG TAB PO SCH ×2 (08:39→17:52)
[2017-05-02] MEDS ORDERED: EMTRICITABINE TENOFOVIR ALAFENAMIDE PO SCH (09:00)
[2017-05-02 09:01] VITALS: BP 96/55; PULSE 90; RESP 20; TEMP 98.2; O2SAT 92
[2017-05-02] MEDS: valACYclovir HCL 500 MG TAB PO SCH (10:14)
[2017-05-02] MEDS ORDERED: HYDR-3133 PO (10:56)
[2017-05-02] MEDS ORDERED: hydrOXYzine HCL 25 MG TAB PO SCH (11:00)
[2017-05-02] MEDS: hydrOXYzine HCL 25 MG TAB PO SCH (12:27)
[2017-05-02] MEDS: EMTRICITABINE TENOFOVIR ALAFENAMIDE PO SCH (12:28)
[2017-05-02 14:07] VITALS: BP 118/56; PULSE 86; RESP 18; TEMP 98; O2SAT 93
[2017-05-02 16:01] VITALS: BP 101/45; PULSE 96; RESP 18; TEMP 98.7; O2SAT 92
--- NOTE | 2017-05-02 16:03 | RADRPT ---
EXAM DATE/TIME: 05/02/2017 12:39 [place] COMPARISON: US ABDOMEN - LOWER LIMITED, December 30, 2015, 10:42. INDICATIONS : Ascites. MEDICAL HISTORY : Cirrhosis. Hepatitis C. Arthritis. Head trauma. Migraines. COPD. Asthma. Ascites. GERD. Chronic kidne y disease. HIV. Thrombocytopenia. Depression. Anxiety. SURGICAL HISTORY : Tonsillectomy. section. Tubal ligation. Adenoidectomy. Benign tumor removed from left neck. Blood transfusions. Paracentesis. ENCOUNTER: Subsequent ACUITY: 3 days PAIN SCORE: 0/10 LOCATION: Abdomen. AREA EVALUATED: Abdomen. FINDINGS: Imaging of the abdomen and pelvis was performed to evaluate for ascites for possible paracentesis. T here are findings of cirrhosis with moderate ascites. CONCLUSION: 1. Adequate ascites for paracentesis Luis Antonio Terry MD on May 02, 2017 at 15:38 Board Certified Radiologist. This report was verified electronically.
[2017-05-02 19:41] VITALS: BP 98/55; PULSE 96; RESP 18; TEMP 96.3; O2SAT 93
[2017-05-03 01:00] VITALS: BP 100/51; PULSE 87; RESP 18; TEMP 97.8; O2SAT 92
[2017-05-03 04:05] VITALS: BP 99/55; PULSE 84; RESP 18; TEMP 97.8; O2SAT 92
[2017-05-03] MEDS: PANTOPRAZOLE SOD 40 MG DELAYED RELEASE TAB PO SCH (06:23)
[2017-05-03 07:53] VITALS: BP 106/51; PULSE 81; RESP 20; TEMP 97.4; O2SAT 96
--- NOTE | 2017-05-03 08:27 | HHI.DCPOC ---
Discharge Care Plan Diagnosis: (1) Cirrhosis of liver (2) Ascites Goals to Promote Your Health * To prevent worsening of your condition and complications * To maintain your health at the optimal level Directions to Meet Your Goals Take your medications as prescribed Follow your dietary instruction Follow activity as directed Keep your appointments as scheduled Take your immunizations and boosters as scheduled If your symptoms worsen call your PCP, if no PCP go to Urgent Care Center or Emergency Room Smoking is Dangerous to Your Health. Avoid second hand smoke Call the 24-hour hour crisis hotline for domestic abuse at Geena Loera PA-C May 03, 2017 08:27
[2017-05-03] MEDS ORDERED: SYMB160A INH (08:39)
--- NOTE | 2017-05-03 08:40 | HHI.PR ---
Subjective Remarks Follow up for ascites, leaking after paracentesis. The patient reports her leakage has resolved. She denies any significant abdominal pain. She would rather wait for her scheduled appointment tomorrow for her paracentesis and liver biopsy. She is tolerating oral intake. She agrees to go home. Objective Vitals Vital Signs Date Time Temp Pulse Resp B/P (MAP) Pulse Ox O2 Delivery O2 Flow Rate FiO2 05/03/17 07:53 97.4 81 20 106/51 (69) 96 05/03/17 04:05 97.8 84 18 99/55 (70) 92 05/03/17 01:00 97.8 87 18 100/51 (67) 92 05/02/17 19:41 96.3 96 18 98/55 (69) 93 05/02/17 16:01 98.7 96 18 101/45 (63) 92 05/02/17 14:07 98.0 86 18 118/56 (76) 93 05/02/17 09:01 98.2 90 20 96/55 (69) 92 I/O 05/02/17 05/02/17 05/02/17 05/03/17 05/03/17 05/03/17 07:00 15:00 23:00 07:00 15:00 23:00 Intake Total 240 ml 620 ml Balance 240 ml 620 ml Intake Oral 240 ml 620 ml # Voids 2 1 Result Diagram: 05/01/17189905/01/171899 Imaging Last Impressions Abdomen Ultrasound 05/02/17 0000 Signed Impressions: Service Date/Time: Tuesday, May 02, 2017 12:39 - CONCLUSION: 1. Adequate ascites for paracentesis Luis Antonio Terry MD Chest X-Ray 05/01/17 0000 Signed Impressions: Service Date/Time: Monday, May 01, 2017 18:37 - CONCLUSION: No acute disease. Reynold Leblanc MD Objective Remarks GENERAL: Well-nourished, well-developed pleasant middle aged female patient in [facility]. SKIN: Warm and dry. No rash. HEENT: Normocephalic. Atraumatic.Pupils equal and round. Mucous membranes pink and moist. CARDIOVASCULAR: Regular rate and rhythm. S1, S2 noted. No murmur appreciated. RESPIRATORY: No accessory muscle use. Clear to auscultation. Breath sounds equal bilaterally. GASTROINTESTINAL: Abdomen soft, non-tender, +distended, +caput medusa. Normoactive bowel sounds x4. MUSCULOSKELETAL: No obvious deformities. Extremities without clubbing, cyanosis , or edema. NEUROLOGICAL: Awake and alert. No obvious cranial nerve deficits. Motor grossly within normal limits. Normal speech. PSYCHIATRIC: Appropriate mood and affect; insight and judgment normal. Medications and IVs Current Medications Medications (Trade) Dose Ordered Sig/Arianne Route Start Time Stop Time Status Last Admin (Sustiva) 600 mg HS PO 05/01/17 21:00 05/02/17 21:30 (Lactulose Liq) 15 ml BID PO 05/01/17 21:00 05/02/17 21:30 (Xifaxan) 550 mg Q12HR PO 05/01/17 21:00 05/02/17 21:30 (Sodium Bicarbonate) 650 mg BIDPC PO 05/02/17 09:00 05/02/17 17:52 (Valtrex) 1,000 mg DAILY PO 05/02/17 09:00 05/02/17 10:14 (Protonix) 40 mg DAILY@0600 PO 05/02/17 06:00 05/03/17 06:23 (NS Flush) 2 ml UNSCH PRN IV FLUSH 05/01/17 20:45 05/02/17 17:52 (NS Flush) 2 ml BID IV FLUSH 05/01/17 21:00 05/02/17 21:30 (Zofran Inj) 4 mg Q6H PRN IVP 05/01/17 20:45 05/02/17 17:52 (Restoril) 15 mg HS PRN PO 05/01/17 20:45 (Narcan Inj) 0.4 mg UNSCH PRN IV PUSH 05/01/17 20:45 (Symbicort 160-4.5 Inh) 1 puff Q12HR INH 05/01/17 21:00 05/02/17 21:35 (Duoneb Neb) 1 ampule Q6HR NEB PRN NEB 05/01/17 20:45 Patient Own Medication PT OWN MED: (Emtricitabine-Tenofo... DAILY PO 05/02/17 13:00 05/02/17 12:28 (Atarax) 25 mg DAILY PO 05/02/17 13:00 05/02/17 12:27 A/P Problem List: (1) Chronic kidney disease (CKD) stage G4/A1, severely decreased glomerular filtration rate (GFR) between 15-29 mL/min/1.73 square meter and albuminuria creatinine ratio less than 30 mg/g ICD Code: N18.4 - Chronic kidney disease, stage 4 (severe) Status: Chronic (2) Cirrhosis of liver ICD Code: K74.60 - Cirrhosis of liver Status: Chronic (3) COPD (chronic obstructive pulmonary disease) ICD Code: J44.9 - Chronic obstructive pulmonary disease, unspecified Status: Chronic (4) HIV (human immunodeficiency virus infection) ICD Code: Z21 - HIV (human immunodeficiency virus infection) Status: Chronic Assessment and Plan 47-year-old female with liver cirrhosis, on the transplant list at the [facility] presents with leaking of paracentesis site. Patient also presented to the ED with outer home oxygen and went into respiratory distress. Patient admitted for observation. Liver cirrhosis, ascites: No worsening of abdominal distention warranting repeat paracentesis. No abdominal pain. Afebrile with no leukocytosis. - Patient gets weekly paracentesis. Last one was 3 days ago. Has been having leakage from the site at home. No leaking on exam, but some drainage noted on towels at bedside. - Applied abdominal dressing to monitor drainage, much improved - IR consulted, abdominal U/S showed enough ascites for paracentesis however patient wishes to wait for her scheduled paracentesis/liver biopsy tomorrow . - Case management consulted for [facility] nursing for dressing changes - stable for discharge COPD: Chronic respiratory failure on home O2. Not in exacerbation. The patient is oxygen dependent and was not using it on presentation and thus was hypoxic. O2 sat better now on home 4 L. - Continue supplemental oxygen - Breathing treatments as needed. - Symbicort added. HIV: Continue home antivirals. CKD stage IV: Creatinine stable compared to previous. Avoid nephrotoxins. Discharge Planning Plan for patient to return tomorrow 05/04 for her scheduled paracentesis/liver biopsy. Discharge patient to home with [facility] Condition on discharge: Improved Liver Failure Diet as tolerated Ad Anz activity Rx written: Symbicort bid Follow-up with primary care physician within 1 week Problem Qualifiers (1) Cirrhosis of liver: Geena Loera PA-C May 03, 2017 8:40 am
[2017-05-03] MEDS: SODIUM BICARBONATE 650 MG TAB PO SCH (09:00)
[2017-05-03] MEDS: hydrOXYzine HCL 25 MG TAB PO SCH (09:00)
[2017-05-03] MEDS: LACTULOSE SYRUP 20 GM/30 ML CUP PO SCH (09:00)
[2017-05-03] MEDS: RIFAXIMIN 550 MG TAB PO SCH (09:00)
[2017-05-03] MEDS: valACYclovir HCL 500 MG TAB PO SCH (09:00)
[2017-05-03] MEDS: EMTRICITABINE TENOFOVIR ALAFENAMIDE PO SCH (09:00)
[2017-05-03] MEDS: BUDESONIDE-FORMOTEROL 160/4.5 MCG INHALER INH SCH (09:00)
[2017-05-03] MEDS: SODIUM CHLORIDE 0.9% FLUSH 10 ML FLUSH IV FLUSH SCH (09:00)
--- NOTE | 2017-05-03 15:47 | HHI.FF ---
Face to Face Verification Diagnosis: (1) Ascites (2) Cirrhosis of liver (3) Abdominal varicosities (4) HIV (human immunodeficiency virus infection) (5) Chronic kidney disease (CKD) stage G4/A1, severely decreased glomerular filtration rate (GFR) between 15-29 mL/min/1.73 square meter and albuminuria creatinine ratio less than 30 mg/g Home Health Nursing Order: Medical education Signs/symptoms of disease process Wound care and dressing changes (please apply absorbent dressing and cover paracentesis site. ) I have seen patient Glenna Craig on 05/03/17. My clinical findings support the need for the requested home health care services because: Ltd mobility - disease progression Deconditioned w/ increased weakness Limited ability to care for self I certify that my clinical findings support that this patient is homebound because: Unsafe to leave home unassisted Unable to use public transportation Geena Loera PA-C May 03, 2017 15:47
[2017-05-04] MEDS ORDERED: LIDOCAINE HCL 1% 20 ML VIAL ONE (13:00)
== END 2017-05-03 09:36 | disposition home or self-care (01) ==
LOC: NEPE 18:26 → NEDH 20:41 → NEPFCDU 05-02 00:05
PROVIDERS: ADMIT Hospitalist; ATTEND Hospitalist
DX: K91.89 Other postprocedural complications and disorders of digestive system (principal); R18.8 Other ascites; K72.90 Hepatic failure, unspecified without coma; B19.20 Unspecified viral hepatitis C without hepatic coma; I85.00 Esophageal varices without bleeding; J44.9 Chronic obstructive pulmonary disease, unspecified; I12.9 Hypertensive chronic kidney disease with stage 1 through stage 4 chronic kidney disease, or unspecified chronic kidney disease; N18.4 Chronic kidney disease, stage 4 (severe); Z76.82 Awaiting organ transplant status; B20 Human immunodeficiency virus [HIV] disease; Z99.81 Dependence on supplemental oxygen; Z87.891 Personal history of nicotine dependence
CPT/HCPCS: 71010; 76705; 80053; 85007; 85027; 85610; 86850; 86900; 86901; 96374; 96376; 99285; G0378; J2405

== ENCOUNTER 2017-05-04 08:21 | Inpatient (IN) | payer MEDICARE, MEDICAID ==
[~2017-05-04 08:21] MED LIST changes: +HYDR-3133 PO; +SYMB160A INH
[2017-05-04] MEDS ORDERED: LIDOCAINE HCL 1% 30 ML VIAL SQ ONE (08:22)
[2017-05-04] MEDS ORDERED: ALBUMIN HUMAN 25% 25GM-W/12.5GM FOR 37.5GM IV ONE (11:00)
[2017-05-04] MEDS ORDERED: ALBUMIN HUMAN 25% 12.5GM-W/25GM FOR 37.5GM IV ONE (11:00)
[2017-05-04 11:05] VITALS: BP 104/52; PULSE 88; RESP 20; TEMP 97.9; O2SAT 93
[2017-05-04 11:25] VITALS: BP 105/70; PULSE 80; RESP 19; O2SAT 95
[2017-05-04] MEDS ORDERED: ALPRAZolam 0.5 MG TAB PO PRN (11:30)
[2017-05-04] MEDS ORDERED: ONDANSETRON ODT 4 MG TAB PO PRN (12:45)
[2017-05-04 14:23] VITALS: BP 91/55; PULSE 71; RESP 16; TEMP 98; O2SAT 92
--- NOTE | 2017-05-04 15:16 | HHI.HP ---
[facility] Service [facility] Primary Care Physician Kevin Jurado MD Admission Diagnosis Severe ascites and need for kidney biopsy for listing on transplant list at [facility] for a liver kidney transplant Diagnoses: (1) Ascites Diagnosis: Principal (2) COPD (chronic obstructive pulmonary disease) Diagnosis: Secondary (3) Chronic kidney disease (CKD) stage G4/A1, severely decreased glomerular filtration rate (GFR) between 15-29 mL/min/1.73 square meter and albuminuria creatinine ratio less than 30 mg/g Diagnosis: Principal (4) HIV (human immunodeficiency virus infection) Diagnosis: Secondary (5) Cirrhosis of liver Diagnosis: Secondary (6) Anemia Diagnosis: Secondary (7) Liver cirrhosis Diagnosis: Secondary (8) Thrombocytopenia Diagnosis: Secondary (9) Abdominal pain Diagnosis: Secondary (10) Hepatitis C Diagnosis: Secondary (11) GERD (gastroesophageal reflux disease) Diagnosis: Secondary Travel History International Travel<30 Days: No Contact w/Intl Traveler <30 Da: No Traveled to Known Affected Are: No History of Present Illness Patient is a 47-year-old female with medical history for end-stage liver disease HIV/AIDS esophageal varices history of oxygen dependent COPD history of cirrhosis with thrombocytopenia and anemia with chronic weekly paracentesis is who presents today for a renal biopsy so that she can be on the list at [facility] regarding liver kidney transplant Has already had a paracentesis today with Dr. Tellez and is scheduled to have a kidney biopsy tomorrow Review of Systems ROS Limitations: Poor Historian Constitutional: DENIES: Diaphoretic episodes, Fatigue, Fever, Weight gain, Weight loss, Chills, Dizziness Endocrine: DENIES: Abnorml menstrual pattern, Heat/cold intolerance Eyes: DENIES: Blurred vision, Diplopia, Eye inflammation Ears, nose, mouth, throat: DENIES: Tinnitus, Hearing loss, Vertigo, Nasal discharge, Oral lesions, Running Nose, Epistaxis Respiratory: DENIES: Apneas, Cough, Snoring, Wheezing, Hemoptysis Cardiovascular: DENIES: Chest pain, Palpitations, Syncope, Dyspnea on Exertion Gastrointestinal: COMPLAINS OF: Abdominal pain, DENIES: Black stools, Bloody stools, Constipation, Diarrhea Genitourinary: DENIES: Abnormal vaginal bleeding, Dysmenorrhea, Dyspareunia, Sexual dysfunction Musculoskeletal: DENIES: Joint pain, Muscle aches, Stiffness, Joint Swelling Integumentary: DENIES: Abnormal pigmentation, Pruritus, Rash, Nail changes Hematologic/lymphatic: DENIES: Bruising, Lymphadenopathy Immunologic/allergic: DENIES: Eczema, Urticaria Neurologic: DENIES: Abnormal gait, Headache, Localized weakness, Paresthesias, Seizures, Speech Problems Psychiatric: COMPLAINS OF: Confusion, DENIES: Anxiety, Mood changes, Depression , Hallucinations, Agitation, Delusions Past Family Social History Past Medical History End-stage liver disease on transplant list per patient Chronic kidney disease to have biopsy today so that she can be on the liver/ kidney transplant list at [facility] HIV compliant with treatment Hepatitis C treated Esophageal varices End-stage liver disease End-stage kidney disease History HIV and IV drug abuse Past Surgical History tUMOR RESECTION FROM HER THROAT Esophageal varices banding sections Multiple paracentesis Reported Medications Reported Meds & Active Scripts Active Symbicort Inh (Budesonide/Formoterol Fumarate) 160-4.5 Mcg/Act Aero 1 Puff INH Q12HR Reported Hydroxyzine HCl 25 Mg Tab 25 Mg PO DAILY Imodium Multi-Symptom Rel Cplt (Loperamide HCl/Simethicone) 2 Mg-125 Mg Tablet Lactulose Liq (Lactulose) 10 Gm/15 Ml Soln 15 Ml PO BID Zofran (Ondansetron HCl) 8 Mg Tab 8 Mg PO TID Vitamin D (Ergocalciferol (Vitamin D2)) 400 Unit Tablet 50,000 PO WEEKLY ONE TIME PER WEEK X6 WEEKS THEN DECREASE TO EVERY OTHER WEEK Ciprofloxacin (Ciprofloxacin HCl) 750 Mg Tab 750 Mg PO MONTHLY PRIOR TO PARACENTESIS Sodium Bicarbonate 650 Mg Tab 650 Mg PO BIDPC Omeprazole 40 Mg Cap 40 Mg PO DAILY Tuesday BEFORE MEALS Sustiva (Efavirenz) 600 Mg Tab 600 Mg PO HS Valacyclovir (Valacyclovir HCl) 1 Gm Tab 1,000 Mg PO DAILY Descovy (Emtricitabine-Tenofovir Alafenamide) 200-25 mg Tab 1 Tab PO DAILY Xifaxan (Rifaximin) 550 Mg Tab 550 Mg PO Q12HR Calcium 600 with Vitamin D (Calcium Carbonate-Cholecalciferol) 600-400 mg-Unit Tab 1 Tab PO BID Allergies: Coded Allergies: adhesive (Verified Allergy, Severe, 05/01/17) erythromycin base (Unverified Allergy, Severe, Anaphylaxis, 05/01/17) Active Ordered Medications Current Medications Albumin Human (Albumin 25% Inj) 25 gm ONCE ONCE IV Last administered on 11:05; Start 05/04/17 at 11:00; Stop 05/04/17 at 11:01; Status DC Albumin Human (Albumin 25% Inj) 12.5 gm ONCE ONCE IV Last administered on 05/04 11:05; Start 05/04/17 at 11:00; Stop 05/04/17 at 11:01; Status DC Alprazolam (Xanax) 0.5 mg UNSCH X1 PRN PO PRIOR TO PROCEDURE; Start 05/04/17 at 11:30; Stop 05/04/17 at 16:00 Loperamide HCl (Imodium) 2 mg BID PO ; Start 05/04/17 at 21:00 Lactulose (Lactulose Liq) 15 ml BID PO ; Start 05/04/17 at 21:00 Efavirenz (Sustiva) 600 mg HS PO ; Start 05/04/17 at 21:00 Hydroxyzine HCl (Atarax) 25 mg DAILY PO ; Start 05/05/17 at 09:00 Pantoprazole Sodium (Protonix) 40 mg MoWeFr PO ; Start 05/06/17 at 08:00 Ondansetron HCl (Zofran Odt) 8 mg TID PRN PO NAUSEA OR VOMITING; Start at 12:45 Rifaximin (Xifaxan) 550 mg Q12HR PO ; Start 05/04/17 at 21:00 Sodium Bicarbonate (Sodium Bicarbonate) 650 mg BIDPC PO ; Start 05/04/17 at 18: 00 Valacyclovir HCl (Valtrex) 1,000 mg DAILY PO ; Start 05/05/17 at 09:00 Patient Own Medication PT OWN MED: DESC... DAILY PO ; Start 05/05/17 at 09:00; Status Future Hold Calcium/Vitamin D (Oscal-D 250-125) 500 mg BID PO ; Start 05/04/17 at 21:00 Budesonide/ Formoterol Fumarate (Symbicort 160-4.5 Inh) 1 puff Q12HR INH ; Start 05/04/17 at 21:00 Lidocaine HCl (Xylocaine 1% Inj) 10 ml STK-MED ONCE SQ Last administered on t 08:22; Start 05/04/17 at 08:22; Stop 05/04/17 at 13:32; Status DC Family History Denies any history that she can remember is a very poor historian Social History Smoked about a half pack a day for 30 years quit in January History of alcoholic for 20+ years quit 2-1/2 years ago Denies any illicit drug use Had previously been in IV drug abuser Physical Exam Vital Signs Vital Signs Date Time Temp Pulse Resp B/P (MAP) Pulse Ox O2 Delivery O2 Flow Rate FiO2 05/04/17 14:23 98.0 71 16 91/55 (67) 92 05/04/17 11:25 80 19 105/70 (82) 95 05/04/17 11:05 97.9 88 20 104/52 (69) 93 Physical Exam GENERAL: This is a patient In no apparent distress. Appears chronically ill appearing SKIN: No rashes, ecchymoses or lesions. Cool and dry. Left lower abdomen is dressed from site of paracentesis HEAD: Atraumatic. Normocephalic. No temporal or scalp tenderness. EYES: Pupils equal round and reactive. Extraocular motions intact. No scleral icterus. No injection or drainage. ENT: Nose without bleeding, purulent drainage or septal hematoma. Throat without erythema, tonsillar hypertrophy or exudate. Uvula midline. Airway patent. Tongue is midline NECK: Trachea midline. No JVD or lymphadenopathy. Supple, nontender, no meningeal signs. CARDIOVASCULAR: Regular rate and rhythm without murmurs, gallops, or rubs. S1 and S2 no S3 or S4 no heave or thrill or rub or gallop RESPIRATORY: Clear to auscultation. Breath sounds equal bilaterally. No wheezes , rales, or rhonchi. GASTROINTESTINAL: Abdomen soft, non-tender, distended enlarged has CAPUT MEDUSAE. No rebound rigidity or guarding MUSCULOSKELETAL: Extremities without clubbing, cyanosis, or edema. No joint tenderness, effusion, or edema noted. No calf tenderness. Negative Homans sign bilaterally. NEUROLOGICAL: Awake and alert. Cranial nerves II through XII intact. Motor and sensory grossly within normal limits. 4 out of 5 muscle strength in all muscle groups. Normal speech. Insight and judgment is limited Mood and behavior. Is Slightly abnormal Caprini VTE Risk Assessment Caprini VTE Risk Assessment: Mod/High Risk (score >= 2) Caprini Risk Assessment Model Point Value = 1 Point Value = 2 Point Value = 3 Point Value = 5 Age 41-60 Minor surgery BMI > 25 kg/m2 Swollen legs Varicose veins or History of unexplained or recurrent spontaneous Oral contraceptives or hormone replacement Sepsis (< 1 month) Serious lung disease, including pneumonia (< 1 month) Abnormal pulmonary function Acute myocardial infarction Congestive heart failure (< 1 month) History of inflammatory bowel disease Medical patient at bed rest Age 61-74 Arthroscopic surgery Major open surgery (> 45 min) Laparoscopic surgery (> 45 min) Malignancy Confined to bed (> 72 hours) Immobilizing plaster cast Central venous access Age >= 75 History of VTE Family history of VTE Factor V Leiden Prothrombin [id number] Lupus anticoagulant Anticardiolipin antibodies Elevated serum homocysteine Heparin-induced thrombocytopenia Other congenital or acquired thrombophilia Stroke (< 1 month) Elective arthroplasty Hip, pelvis, or leg fracture Acute spinal cord injury (< 1 month) Prophylaxis Regimen Total Risk Factor Score Risk Level Prophylaxis Regimen 0-1 Low Early ambulation 2 Moderate Order ONE of the following: *Sequential Compression Device (SCD) *Heparin 5000 units SQ BID 3-4 Higher Order ONE of the following medications: *Heparin 5000 units SQ TID *Enoxaparin/Lovenox 40 mg SQ daily (WT < 150 kg, CrCl > 30 mL/min) *Enoxaparin/Lovenox 30 mg SQ daily (WT < 150 kg, CrCl > 10-29 mL/min) *Enoxaparin/Lovenox 30 mg SQ BID (WT < 150 kg, CrCl > 30 mL/min) AND/OR *Sequential Compression Device (SCD) 5 or more Highest Order ONE of the following medications: *Heparin 5000 units SQ TID (Preferred with Epidurals) *Enoxaparin/Lovenox 40 mg SQ daily (WT < 150 kg, CrCl > 30 mL/min) *Enoxaparin/Lovenox 30 mg SQ daily (WT < 150 kg, CrCl > 10-29 mL/min) *Enoxaparin/Lovenox 30 mg SQ BID (WT < 150 kg, CrCl > 30 mL/min) AND *Sequential Compression Device (SCD) Assessment and Plan Problem List: (1) Chronic kidney disease (CKD) stage G4/A1, severely decreased glomerular filtration rate (GFR) between 15-29 mL/min/1.73 square meter and albuminuria creatinine ratio less than 30 mg/g ICD Code: N18.4 - Chronic kidney disease, stage 4 (severe) Status: Chronic (2) HIV (human immunodeficiency virus infection) ICD Code: Z21 - HIV (human immunodeficiency virus infection) Status: Chronic (3) Hepatitis C ICD Code: B19.20 - Hepatitis C Status: Chronic (4) Abdominal pain ICD Code: R10.9 - Unspecified abdominal pain Status: Acute (5) GERD (gastroesophageal reflux disease) ICD Code: K21.9 - GERD (gastroesophageal reflux disease) Status: Chronic (6) Thrombocytopenia ICD Code: D69.6 - Thrombocytopenia Status: Acute (7) Liver cirrhosis ICD Code: K74.60 - Unspecified cirrhosis of liver Status: Acute (8) Ascites ICD Code: R18.8 - Other ascites Status: Acute (9) Anemia ICD Code: D64.9 - Anemia, unspecified Status: Acute (10) COPD (chronic obstructive pulmonary disease) ICD Code: J44.9 - Chronic obstructive pulmonary disease, unspecified Status: Chronic (11) Abdominal varicosities ICD Code: I86.8 - Varicose veins of other specified sites Status: Acute Assessment and Plan Chronic kidney disease stage IV scheduled to undergo biopsy tomorrow with interventional radiology so that patient can be listed on transplant list at [facility] for combination liver kidney transplant Chronic liver cirrhosis with ascites status post paracentesis today on chronic Xifaxan on chronic lactulose HIV-AIDS on chronic home medications stable COPD exacerbation on chronic oxygen dependent Chronic kidney disease stage 4/5 to have GERD on PPI and history of esophageal varices Code Status fULL CODE Discussed Condition With Patient and RN and myself Physician Certification 2 Midnight Certification Type: Admission for Inpatient Services Order for Inpatient Services The services are ordered in accordance with Medicare regulations or non- Medicare payer requirements, as applicable. In the case of services not specified as inpatient-only, they are appropriately provided as inpatient services in accordance with the 2-midnight benchmark. Estimated LOS (days): 2 2 days is the estimated time the patient will need to remain in the hospital, assuming treatment plan goals are met and no additional complications. Post-Hospital Plan: Home Dwight Feldman DO May 04, 2017 15:16
[2017-05-04] MEDS ORDERED: ONDANSETRON HCL 4 MG/2 ML VIAL IVP PRN (15:30)
[2017-05-04] MEDS ORDERED: MAGNESIUM HYDROXIDE SUSP 30 ML CUP PO PRN (15:30)
[2017-05-04] MEDS ORDERED: SENNOSIDES 8.6 MG TAB PO PRN (15:30)
[2017-05-04] MEDS ORDERED: SODIUM CHLORIDE 0.9% FLUSH 10 ML FLUSH IV FLUSH PRN (15:30)
[2017-05-04] MEDS ORDERED: PROCHLORPERAZINE 25 MG SUPP RECTAL PRN (15:30)
[2017-05-04] MEDS ORDERED: traMADol HCL 50 MG TAB PO PRN ×2 (15:30)
[2017-05-04] MEDS ORDERED: LACTULOSE SYRUP 20 GM/30 ML CUP PO PRN (15:30)
[2017-05-04] MEDS ORDERED: BISACODYL 10 MG SUPP RECTAL PRN (15:30)
[2017-05-04] MEDS ORDERED: NALOXONE HCL 0.4 MG/ML AMP IV PUSH PRN (15:30)
[2017-05-04] MEDS ORDERED: RESP: ALBUTEROL 2.5 MG/IPRATROPIUM 0.5 MG NEB (PRN) NEB (15:30)
--- NOTE | 2017-05-04 16:36 | RADRPT ---
EXAM DATE/TIME: 05/04/2017 08:42 [facility] COMPARISON: US ABDOMEN - LOWER LIMITED, May 02, 2017, 12:39. INDICATIONS : Ascites. MEDICAL HISTORY : Cirrhosis. Hepatitis C. Arthritis. Head trauma. Migraines. COPD. Asthma. Ascites. GERD. Chronic kidne y disease. HIV. Thrombocytopenia. Depression. Anxiety. SURGICAL HISTORY : Tonsillectomy. section. Tubal ligation. Adenoidectomy. Benign tumor removed from left neck. Blood transfusions. Paracentesis. ENCOUNTER: Sequela ACUITY: 1 day PAIN SCORE: 0/10 LOCATION: Left lower quadrant FLUID: Total volume of 6,600 cc of clear, yellow fluid was removed. Fluid was discarded. Paracentesis was therapeutic only. Post procedure scanning reveals no hematoma or other complication. TECHNIQUE: 1. Ultrasound guidance for abdominal paracentesis. 2. Paracentesis. The risks, benefits, and alternatives to ultrasound guided paracentesis were explained to the patient in detail including the risk of bleeding and infection. Written and verbal informed consent was obt ained. With the patient on the ultrasound table, ultrasound imaging was used to select the most appropriate approach for paracentesis. Overlying skin was prepped and draped in the usual sterile fashion and wi th a local anesthetic, a dermatotomy was made with an 11 blade scalpel. A 6 Bengali [id number] ca theter was introduced into the peritoneal cavity and fluid was collected. The patient tolerated the procedure well and left the ultrasound suite in stable condition. CONCLUSION: Uncomplicated ultrasound guided paracentesis. Kevin Tellez MD on May 04, 2017 at 16:34 Board Certified Radiologist. This report was verified electronically.
[2017-05-04 17:09] VITALS: BP_SYST 94; PULSE 80; RESP 16; TEMP 98.1; O2SAT 90
[2017-05-04 17:54] VITALS: PULSE 83
[2017-05-04 17:57] LABS: AUTOMATED NEUTROPHIL # 0.9 TH/MM3 (1.8-7.7); HEMATOCRIT 25.4 % (35.0-46.0); LYMPH % 18.4 % (9.0-44.0); LYMPHOCYTE # 0.3 TH/MM3 (1.0-4.8); MEAN CELL VOLUME 102.2 FL (80.0-100.0); MEAN CORPUSCULAR HEMOGLOBIN 33.8 PG (27.0-34.0); MEAN CORPUSCULAR HGB CONC 33.1 % (32.0-36.0); MONO % 13.2 % (0.0-8.0); NEUT % 65.4 % (16.0-70.0); PLATELET COUNT 38 TH/MM3 (150-450); RED BLOOD COUNT 2.48 MIL/MM3 (4.00-5.30); RED CELL DISTRIBUTION WIDTH 18.2 % (11.6-17.2); WHITE BLOOD COUNT 1.4 TH/MM3 (4.0-11.0)
[2017-05-04 17:59] LABS: HEMO FLAGS AUTO DIFF
[2017-05-04] MEDS: SODIUM BICARBONATE 650 MG TAB PO SCH (18:00)
[2017-05-04 18:06] LABS: INTERNATIONAL NORMALIZED RATIO 1.6 RATIO
[2017-05-04 18:33] LABS: EOSINOPHILS 2 % (0-4); POLYS (SEG NEUTROPHILS) 73 % (16-70); WBC DIFF SAMPLE 100
[2017-05-04 18:34] LABS: PLATELET ESTIMATE SMEAR LOW (NORMAL); PLATELET MORPHOLOGY NORMAL (NORMAL); SCAN/DIFF FINAL DIFF MANUAL
[2017-05-04 20:00] VITALS: BP 97/46; PULSE 82; RESP 16; TEMP 98; O2SAT 95
[2017-05-04] MEDS: DOCUSATE SODIUM 50 MG/SENNA 8.6 MG TAB PO SCH (20:31)
[2017-05-04] MEDS: LACTULOSE SYRUP 20 GM/30 ML CUP PO SCH (20:32)
[2017-05-04] MEDS: RIFAXIMIN 550 MG TAB PO SCH (20:33)
[2017-05-04] MEDS: LOPERAMIDE HCL 2 MG CAP PO SCH (20:33)
[2017-05-04] MEDS: guaiFENesin E.R. 600 MG TAB PO SCH (20:33)
[2017-05-04] MEDS: SODIUM CHLORIDE 0.9% FLUSH 10 ML FLUSH IV FLUSH SCH (20:33)
[2017-05-04] MEDS: CALCIUM/VITAMIN D 250 MG/125 U TAB PO SCH (20:33)
[2017-05-04] MEDS: BUDESONIDE-FORMOTEROL 160/4.5 MCG INHALER INH SCH (20:59)
[2017-05-05] VITALS (21 sets, daily range): BP systolic 92–143; BP diastolic 48–89; PULSE 63–99; RESP 16–20; TEMP 97.4–98.7; O2SAT 91–98
[2017-05-05] MEDS ORDERED: LIDOCAINE HCL 1% 20 ML VIAL ONE (08:01)
[2017-05-05 08:52] LABS: AUTOMATED NEUTROPHIL # 1.8 TH/MM3 (1.8-7.7); BASOPHIL % 0.7 % (0.0-2.0); EOSINOPHIL # 0.1 TH/MM3 (0-0.4); EOSINOPHIL % 2.2 % (0.0-4.0); HEMATOCRIT 29.6 % (35.0-46.0); LYMPH % 16.3 % (9.0-44.0); LYMPHOCYTE # 0.4 TH/MM3 (1.0-4.8); MEAN CELL VOLUME 102.1 FL (80.0-100.0); MEAN CORPUSCULAR HEMOGLOBIN 33.4 PG (27.0-34.0); MEAN CORPUSCULAR HGB CONC 32.7 % (32.0-36.0); MONO % 9.7 % (0.0-8.0); NEUT % 71.1 % (16.0-70.0); PLATELET COUNT 50 TH/MM3 (150-450); RED BLOOD COUNT 2.89 MIL/MM3 (4.00-5.30); RED CELL DISTRIBUTION WIDTH 18.6 % (11.6-17.2); WHITE BLOOD COUNT 2.5 TH/MM3 (4.0-11.0)
[2017-05-05 08:55] LABS: HEMO FLAGS AUTO DIFF
[2017-05-05] MEDS: valACYclovir HCL 500 MG TAB PO SCH (09:00)
[2017-05-05] MEDS: SODIUM BICARBONATE 650 MG TAB PO SCH ×2 (09:00→17:30)
[2017-05-05] MEDS: guaiFENesin E.R. 600 MG TAB PO SCH ×2 (09:00→21:00)
[2017-05-05] MEDS ORDERED: DESCOVY PO SCH (09:00)
[2017-05-05] MEDS: BUDESONIDE-FORMOTEROL 160/4.5 MCG INHALER INH SCH ×2 (09:00→22:20)
[2017-05-05] MEDS: LOPERAMIDE HCL 2 MG CAP PO SCH ×2 (09:00→22:24)
[2017-05-05] MEDS: DOCUSATE SODIUM 50 MG/SENNA 8.6 MG TAB PO SCH ×2 (09:00→21:00)
[2017-05-05] MEDS: RIFAXIMIN 550 MG TAB PO SCH ×2 (09:00→22:24)
[2017-05-05] MEDS: LACTULOSE SYRUP 20 GM/30 ML CUP PO SCH ×2 (09:00→22:24)
[2017-05-05] MEDS: hydrOXYzine HCL 25 MG TAB PO SCH (09:00)
[2017-05-05] MEDS: CALCIUM/VITAMIN D 250 MG/125 U TAB PO SCH ×2 (09:00→22:23)
[2017-05-05] MEDS: SODIUM CHLORIDE 0.9% FLUSH 10 ML FLUSH IV FLUSH SCH ×2 (09:00→22:23)
[2017-05-05 09:01] LABS: INTERNATIONAL NORMALIZED RATIO 1.5 RATIO; PROTHROMBIN TIME - PATIENT 17.3 SEC (9.8-11.6)
[2017-05-05 09:18] LABS: ANION GAP 10 MEQ/L (5-15); BICARBONATE 19.1 MEQ/L (21.0-32.0); BLOOD UREA NITROGEN 52 MG/DL (7-18); CHLORIDE 111 MEQ/L (98-107); GLOMERULAR FILTRATION RATE 19 ML/MIN (>89); MAGNESIUM 2.1 MG/DL (1.5-2.5); POTASSIUM 3.6 MEQ/L (3.5-5.1); SODIUM (NA) 140 MEQ/L (136-145)
[2017-05-05 09:19] LABS: AST (GOT) 19 U/L (15-37)
[2017-05-05 09:27] LABS: ALKALINE PHOSPHATASE 184 U/L (45-117); ALT (GPT) 18 U/L (10-53); FREE T4 0.91 NG/DL (0.76-1.46); TOTAL BILIRUBIN ADULT 2.3 MG/DL (0.2-1.0)
[2017-05-05] MEDS ORDERED: MIDAZOLAM HCL 2 MG/2 ML VIAL ONE (09:27)
[2017-05-05 10:25] LABS: ACANTHOCYTES OCC (NORMAL); KERATOCYTES OCC (NORMAL); OVALOCYTES 2+ (NORMAL); PLATELET ESTIMATE SMEAR LOW (NORMAL); PLATELET MORPHOLOGY NORMAL (NORMAL); SCAN/DIFF AUTO DIFF CONFIRMED; TEARDROP RBCS 1+ (NORMAL)
--- NOTE | 2017-05-05 11:52 | RADRPT ---
EXAM DATE/TIME: 05/05/2017 09:30 [facility] COMPARISON: No previous studies available for comparison. INDICATIONS : Right renal biopsy SEDATION TIME: 30 minutes BIOPSY SITE: Right kidney MEDICATION(S): 1.) 2 mg midazolam (Versed) IV 2.) 100 mcg fentanyl (Sublimaze) IV DEVICE(S): 1.) 18 gauge Temno core biopsy needle MEDICAL HISTORY : Renal failure. SURGICAL HISTORY : None. ENCOUNTER: Initial ACUITY: 1 day PAIN SCORE: 1/10 LOCATION: Bilateral flank A total of one core specimen(s) were obtained and sent to the laboratory for pathologic evaluation. PROCEDURE: 1. CT guided renal biopsy. 2. Conscious sedation with continuous EKG and oximetry monitoring. 3. EKG and oximetry remained stable throughout the procedure. Prior to the procedure informed consent was obtained. Any appropriate prior imaging studies were rev iewed. Using automated exposure control and adjustment of the mA and/or kV according to patient size, radiat ion dose was kept as low as reasonably achievable to obtain optimal diagnostic quality images. DICOM format image data is available electronically for review and comparison. The site was prepped in a sterile fashion. Full sterile technique was used, including cap, mask, abdulaziz rile gloves and gown and a large sterile sheet. Hand hygiene and 2% chlorhexidine and/or betadine/al cohol prep was utilized per protocol for cutaneous antisepsis. The skin and subcutaneous tissues wer e infiltrated with local anesthetic solution. With CT guidance the previously identified target was localized. Biopsy was performed using the presc ribed needle as above. Adequate hemostasis was obtained with compression at the puncture site. Follow-up CT scan revealed minimal perinephric hemorrhage. The patient was left on the scanner and re scanned after a 10 minute waiting period, and there was no change in the small hematoma. The patient tolerated the procedure well and there were no complications. The patient was returned to the Radiology Outpatient Unit in stable condition. CONCLUSION: Uncomplicated CT guided biopsy. Valente Tracey MD on May 05, 2017 at 11:49 Board Certified Radiologist. This report was verified electronically.
--- NOTE | 2017-05-05 12:15 | PD.RAD ---
Post CT Procedure Prog Note Pre Procedure Diagnosis: (1) Renal insufficiency Post Procedure Diagnosis: (1) Renal insufficiency Procedure Date: May 05, 2017 Supervising Radiologist: Valente Tracey Estimated blood loss: 10 ml Anesthesia: Local, Conscious Sedation Plan of Activity Patient to Unit: ROPU Patient Condition: Good See PACS Report for procedural detail/treatment Biopsy Imaging Guidance: CT Side: Right Biopsy Procedure: Kidney Specimen: Core Biopsy Valente Tracey MD May 05, 2017 12:15
[2017-05-05 12:38] LABS: AUTOMATED NEUTROPHIL # 1.2 TH/MM3 (1.8-7.7); BASOPHIL % 0.2 % (0.0-2.0); EOSINOPHIL % 1.9 % (0.0-4.0); LYMPH % 12.4 % (9.0-44.0); LYMPHOCYTE # 0.2 TH/MM3 (1.0-4.8); MEAN CELL VOLUME 103.2 FL (80.0-100.0); MEAN CORPUSCULAR HEMOGLOBIN 33.5 PG (27.0-34.0); MEAN CORPUSCULAR HGB CONC 32.5 % (32.0-36.0); MONO % 16.5 % (0.0-8.0); PLATELET COUNT 55 TH/MM3 (150-450); RED BLOOD COUNT 2.33 MIL/MM3 (4.00-5.30); RED CELL DISTRIBUTION WIDTH 18.6 % (11.6-17.2); WHITE BLOOD COUNT 1.7 TH/MM3 (4.0-11.0)
[2017-05-05 12:40] LABS: HEMO FLAGS AUTO DIFF
[2017-05-05 13:23] LABS: BANDS 4 % (0-6); BASOPHILS 2 % (0-2); EOSINOPHILS 1 % (0-4); NEUTROPHIL # MANUAL DIFF 1.3 TH/MM3 (1.8-7.7); POLYS (SEG NEUTROPHILS) 71 % (16-70); WBC DIFF SAMPLE 100
[2017-05-05 13:24] LABS: KERATOCYTES OCC (NORMAL); OVALOCYTES 2+ (NORMAL); PLATELET ESTIMATE SMEAR LOW (NORMAL); PLATELET MORPHOLOGY NORMAL (NORMAL); SCAN/DIFF FINAL DIFF MANUAL; TEARDROP RBCS 1+ (NORMAL)
[2017-05-05 14:01] LABS: AUTOMATED NEUTROPHIL # 0.9 TH/MM3 (1.8-7.7); BASOPHIL % 0.6 % (0.0-2.0); EOSINOPHIL % 1.9 % (0.0-4.0); HEMATOCRIT 23.4 % (35.0-46.0); LYMPH % 14.6 % (9.0-44.0); LYMPHOCYTE # 0.2 TH/MM3 (1.0-4.8); MEAN CELL VOLUME 101.8 FL (80.0-100.0); MEAN CORPUSCULAR HEMOGLOBIN 33.3 PG (27.0-34.0); MEAN CORPUSCULAR HGB CONC 32.7 % (32.0-36.0); MONO % 18.4 % (0.0-8.0); NEUT % 64.5 % (16.0-70.0); PLATELET COUNT 49 TH/MM3 (150-450); RED CELL DISTRIBUTION WIDTH 18.5 % (11.6-17.2); WHITE BLOOD COUNT 1.4 TH/MM3 (4.0-11.0)
[2017-05-05 14:02] LABS: HEMO FLAGS AUTO DIFF
[2017-05-05 14:54] LABS: BANDS 2 % (0-6); BASOPHILS 2 % (0-2); EOSINOPHILS 3 % (0-4); NEUTROPHIL # MANUAL DIFF 0.7 TH/MM3 (1.8-7.7); OVALOCYTES 1+ (NORMAL); PLATELET ESTIMATE SMEAR LOW (NORMAL); PLATELET MORPHOLOGY NORMAL (NORMAL); POLYS (SEG NEUTROPHILS) 50 % (16-70); SCAN/DIFF FINAL DIFF MANUAL; TEARDROP RBCS 1+ (NORMAL); WBC DIFF SAMPLE 100
--- NOTE | 2017-05-05 15:35 | OTSOAPIP ---
ATTEMPTED AT 1200 OFF FLOOR FOR BIOPSY. REATTEMPTED AT 330 PM AND HE IS NOW [facility] X 6 HOURS. WILL REATTEMPT TOMORROW. PROCEDURE KIDNEY BIOPSY. Therapist: Emely Garcia OTR/L Signature on file
[2017-05-05 16:24] LABS: HEMOGLOBIN A1a 0.8 %; HEMOGLOBIN A1b 0.7 %; HEMOGLOBIN Ao 84.6 %; HEMOGLOBIN F 1.3 %; HEMOGLOBIN LA1C 2.4 %; HEMOGLOBIN P3 6.2 %
--- NOTE | 2017-05-05 17:18 | HHI.PR ---
Subjective Remarks Reports no active pain after procedure. Reports her abdominal distention is better after paracentesis. Objective Vitals Vital Signs Date Time Temp Pulse Resp B/P (MAP) Pulse Ox O2 Delivery O2 Flow Rate FiO2 05/05/17 16:45 97.9 85 16 92/52 (65) 91 05/05/17 13:29 81 18 108/62 (77) 95 05/05/17 13:00 75 17 103/60 (74) 93 05/05/17 12:05 98.1 81 17 110/71 94 05/05/17 12:00 82 17 101/62 (75) 92 05/05/17 11:50 98.7 82 18 118/72 94 05/05/17 11:30 80 18 110/72 (85) 93 05/05/17 11:21 97.4 82 17 122/89 98 05/05/17 11:06 97.4 87 17 113/63 91 05/05/17 11:00 82 16 122/89 (100) 92 05/05/17 10:45 97.4 87 16 113/63 (80) 91 05/05/17 10:45 97.4 87 17 113/63 (80) 91 05/05/17 09:58 98.0 83 20 100/57 95 05/05/17 09:41 98.0 81 18 119/65 95 05/05/17 08:18 98.0 76 17 118/57 92 05/05/17 07:30 98.0 76 17 118/57 (77) 92 05/05/17 07:00 79 05/05/17 04:00 98.2 97 18 100/48 (65) 95 05/05/17 00:10 98.3 91 18 105/51 (69) 95 05/04/17 20:00 98.0 82 16 97/46 (63) 95 05/04/17 17:54 83 I/O 05/04/17 05/04/17 05/04/17 05/05/17 05/05/17 05/05/17 07:00 15:00 23:00 07:00 15:00 23:00 Intake Total 682 ml Balance 682 ml Intake FFP 372 ml Platelets 285 ml Blood Product IV Normal Saline Flush 25 ml # Voids 2 2 Result Diagram: 05/05/17 1350 05/05/17 0830 Objective Remarks GENERAL: This is a well-nourished, well-developed patient, in no apparent distress. CARDIOVASCULAR: Regular rate and rhythm RESPIRATORY: Clear to auscultation. Breath sounds equal bilaterally. No wheezes , rales, or rhonchi. GASTROINTESTINAL: Abdomen soft, non-tender, nondistended. Normal active bowel sounds, small ventral hernia reducible MUSCULOSKELETAL: Extremities without clubbing, cyanosis, trace edema NEURO: Alert & Oriented x4 to person, place, time, situation. Moves all ext x4 A/P Problem List: (1) Chronic kidney disease (CKD) stage G4/A1, severely decreased glomerular filtration rate (GFR) between 15-29 mL/min/1.73 square meter and albuminuria creatinine ratio less than 30 mg/g ICD Code: N18.4 - Chronic kidney disease, stage 4 (severe) Status: Chronic (2) HIV (human immunodeficiency virus infection) ICD Code: Z21 - HIV (human immunodeficiency virus infection) Status: Chronic (3) Hepatitis C ICD Code: B19.20 - Hepatitis C Status: Chronic (4) Abdominal pain ICD Code: R10.9 - Unspecified abdominal pain Status: Acute (5) GERD (gastroesophageal reflux disease) ICD Code: K21.9 - GERD (gastroesophageal reflux disease) Status: Chronic (6) Thrombocytopenia ICD Code: D69.6 - Thrombocytopenia Status: Acute (7) Liver cirrhosis ICD Code: K74.60 - Unspecified cirrhosis of liver Status: Acute (8) Ascites ICD Code: R18.8 - Other ascites Status: Acute (9) Anemia ICD Code: D64.9 - Anemia, unspecified Status: Acute (10) COPD (chronic obstructive pulmonary disease) ICD Code: J44.9 - Chronic obstructive pulmonary disease, unspecified Status: Chronic (11) Abdominal varicosities ICD Code: I86.8 - Varicose veins of other specified sites Status: Acute Assessment and Plan Chronic kidney disease stage IV status post biopsy of kidney with interventional radiology today in order to be listed on transplant list at [facility] for combination liver kidney transplant, due to recent drop of the initial paracentesis in preparation for kidney biopsy patient was admitted inpatient for close monitoring of her hemoglobin especially with her history of pancytopenia and thrombocytopenia to monitor for any acute bleed. Post procedure hemoglobin reviewed. Repeat CBC in the morning to be detained. Consider dose of Epogen pending hemoglobin level in the morning. Acute on chronic anemia rule out any acute bleed postprocedure Chronic liver cirrhosis with ascites status post paracentesis yesterday on chronic Xifaxan on chronic lactulose HIV-AIDS on chronic home medications stable, follow with Dr. Jurado COPD exacerbation on chronic oxygen dependentthis is stable Chronic kidney disease stage 4/5 - refer to [facility] for consideration of kidney transplant GERD on PPI and history of esophageal varices Physician Certification 2 Midnight Certification Type: Admission for Inpatient Services Order for Inpatient Services The services are ordered in accordance with Medicare regulations or non- Medicare payer requirements, as applicable. In the case of services not specified as inpatient-only, they are appropriately provided as inpatient services in accordance with the 2-midnight benchmark. Estimated LOS (days): 2 days is the estimated time the patient will need to remain in the hospital, assuming treatment plan goals are met and no additional complications. Post-Hospital Plan: Home July Graham MD May 05, 2017 17:17
[2017-05-06 01:18] VITALS: BP 105/53; PULSE 99; RESP 16; TEMP 98.1; O2SAT 92
[2017-05-06 02:42] VITALS: O2SAT 95
[2017-05-06 04:20] VITALS: BP 111/50; PULSE 96; RESP 16; TEMP 98; O2SAT 95
[2017-05-06 07:30] LABS: HEMATOCRIT 23.8 % (35.0-46.0); MEAN CELL VOLUME 101.7 FL (80.0-100.0); MEAN CORPUSCULAR HEMOGLOBIN 33.5 PG (27.0-34.0); PLATELET COUNT 44 TH/MM3 (150-450); RED BLOOD COUNT 2.34 MIL/MM3 (4.00-5.30); RED CELL DISTRIBUTION WIDTH 18.5 % (11.6-17.2); WHITE BLOOD COUNT 1.5 TH/MM3 (4.0-11.0)
[2017-05-06 07:35] LABS: HEMO FLAGS AUTO DIFF
[2017-05-06] MEDS ORDERED: PANTOPRAZOLE SOD 40 MG DELAYED RELEASE TAB PO SCH (08:00)
[2017-05-06 08:16] VITALS: BP 96/48; PULSE 88; RESP 17; TEMP 98.2; O2SAT 91
[2017-05-06] MEDS: BUDESONIDE-FORMOTEROL 160/4.5 MCG INHALER INH SCH (09:00)
[2017-05-06] MEDS: LACTULOSE SYRUP 20 GM/30 ML CUP PO SCH (09:00)
[2017-05-06] MEDS: guaiFENesin E.R. 600 MG TAB PO SCH (09:00)
[2017-05-06] MEDS: SODIUM BICARBONATE 650 MG TAB PO SCH (10:09)
[2017-05-06] MEDS: valACYclovir HCL 500 MG TAB PO SCH (10:10)
[2017-05-06] MEDS: CALCIUM/VITAMIN D 250 MG/125 U TAB PO SCH (10:10)
[2017-05-06] MEDS: LOPERAMIDE HCL 2 MG CAP PO SCH (10:10)
[2017-05-06] MEDS: hydrOXYzine HCL 25 MG TAB PO SCH (10:10)
[2017-05-06 11:53] VITALS: BP 99/49; PULSE 99; RESP 18; TEMP 98.7; O2SAT 90
[2017-05-06 12:11] LABS: BANDS 2 % (0-6); BASOPHILS 2 % (0-2); CORRECTED NUCLEATED RBC 1 /100 WBC (0-0); EOSINOPHILS 1 % (0-4); NEUTROPHIL # MANUAL DIFF 1.1 TH/MM3 (1.8-7.7); OVALOCYTES 1+ (NORMAL); PLATELET ESTIMATE SMEAR LOW (NORMAL); POLYS (SEG NEUTROPHILS) 71 % (16-70); TEARDROP RBCS 1+ (NORMAL); WBC DIFF SAMPLE 100
[2017-05-06 12:12] LABS: PLATELET MORPHOLOGY NORMAL (NORMAL); SCAN/DIFF FINAL DIFF MANUAL
--- NOTE | 2017-05-06 13:52 | HHI.PR ---
Subjective Remarks Doing well. No complaints. No pain. No bleeding. Feels like she is at her baseline. Wants to go home. Objective Vitals Vital Signs Date Time Temp Pulse Resp B/P (MAP) Pulse Ox O2 Delivery O2 Flow Rate FiO2 05/06/17 11:53 98.7 99 18 99/49 (66) 90 05/06/17 08:16 98.2 88 17 96/48 (64) 91 05/06/17 04:20 98.0 96 16 111/50 (70) 95 05/06/17 02:42 95 05/06/17 01:18 98.1 99 16 105/53 (70) 92 05/05/17 21:30 96 05/05/17 20:34 97.7 99 20 96/53 (67) 91 05/05/17 20:17 21 05/05/17 16:45 97.9 85 16 92/52 (65) 91 I/O 05/05/17 05/05/17 05/05/17 05/06/17 05/06/17 05/06/17 07:00 15:00 23:00 07:00 15:00 23:00 Intake Total 682 ml Balance 682 ml Intake FFP 372 ml Platelets 285 ml Blood Product IV Normal Saline Flush 25 ml # Voids 2 2 4 Result Diagram: 05/06/17 0645 05/05/17 0830 Objective Remarks GENERAL: This is a well-nourished, well-developed patient, in no apparent distress. CARDIOVASCULAR: Regular rate and rhythm RESPIRATORY: Clear to auscultation. Breath sounds equal bilaterally. No wheezes , rales, or rhonchi. GASTROINTESTINAL: Abdomen soft, non-tender, nondistended. Normal active bowel sounds, small ventral hernia reducible MUSCULOSKELETAL: Extremities without clubbing, cyanosis, trace edema NEURO: Alert & Oriented x4 to person, place, time, situation. Moves all ext x4 A/P Problem List: (1) Chronic kidney disease (CKD) stage G4/A1, severely decreased glomerular filtration rate (GFR) between 15-29 mL/min/1.73 square meter and albuminuria creatinine ratio less than 30 mg/g ICD Code: N18.4 - Chronic kidney disease, stage 4 (severe) Status: Chronic (2) HIV (human immunodeficiency virus infection) ICD Code: Z21 - HIV (human immunodeficiency virus infection) Status: Chronic (3) Hepatitis C ICD Code: B19.20 - Hepatitis C Status: Chronic (4) Abdominal pain ICD Code: R10.9 - Unspecified abdominal pain Status: Acute (5) GERD (gastroesophageal reflux disease) ICD Code: K21.9 - GERD (gastroesophageal reflux disease) Status: Chronic (6) Thrombocytopenia ICD Code: D69.6 - Thrombocytopenia Status: Acute (7) Liver cirrhosis ICD Code: K74.60 - Unspecified cirrhosis of liver Status: Acute (8) Ascites ICD Code: R18.8 - Other ascites Status: Acute (9) Anemia ICD Code: D64.9 - Anemia, unspecified Status: Acute (10) COPD (chronic obstructive pulmonary disease) ICD Code: J44.9 - Chronic obstructive pulmonary disease, unspecified Status: Chronic (11) Abdominal varicosities ICD Code: I86.8 - Varicose veins of other specified sites Status: Acute Assessment and Plan Chronic kidney disease stage IV status post biopsy of kidney with interventional radiology yesterday 05/05 in order to be listed on transplant list at [place] [facility] for combination liver kidney transplant, due to recent drop of the initial paracentesis in preparation for kidney biopsy patient was admitted inpatient for close monitoring of her hemoglobin especially with her history of pancytopenia and thrombocytopenia to monitor for any acute bleed. Post procedure hemoglobin reviewed and has been stable since procedure. Acute on chronic anemia due to chronic kidney disease rule out any acute bleed postprocedure -hemoglobin has remained stable overnight. - Chronic liver cirrhosis with ascites status post paracentesis yesterday on chronic Xifaxan on chronic lactulose HIV-AIDS on chronic home medications stable, follow with Dr. Jurado COPD exacerbation on chronic oxygen - stable Chronic kidney disease stage 4/5 - refer to [facility] for consideration of kidney transplant GERD on PPI and history of esophageal varices Discharge Planning Discharge patient to home Condition on discharge: stable Renal Diet as tolerated Ad Naz activity No new Rx written: Follow-up with primary care physician July Graham MD May 06, 2017 13:52
--- NOTE | 2017-05-06 14:03 | HHI.FF ---
Face to Face Verification Diagnosis: (1) Liver cirrhosis (2) Chronic kidney disease (CKD) stage G4/A1, severely decreased glomerular filtration rate (GFR) between 15-29 mL/min/1.73 square meter and albuminuria creatinine ratio less than 30 mg/g Home Health Nursing Order: Signs/symptoms of disease process Wound care and dressing changes Instructions: for paracentesis site. I have seen patient Glenna Craig on 05/06/17. My clinical findings support the need for the requested home health care services because: Ltd mobility - disease progression I certify that my clinical findings support that this patient is homebound because: Post-op weakness July Graham MD May 06, 2017 14:03
== END 2017-05-06 15:08 | disposition home health service (06) | DRG 682 ==
LOC: HRAD 08:21 → HRIP 08:22 → N05B 14:02 → HRAD 05-05 10:13 → N05B 05-05 10:14
PROVIDERS: ADMIT Family Medicine; ATTEND Family Medicine
PROC: 0W9G3ZZ Drainage of Peritoneal Cavity, Percutaneous Approach (ICD-10-PCS; principal; 2017-05-04)
PROC: 0TB03ZX Excision of Right Kidney, Percutaneous Approach, Diagnostic (ICD-10-PCS; 2017-05-05)
DX: N18.4 Chronic kidney disease, stage 4 (severe) (principal); B20 Human immunodeficiency virus [HIV] disease; K72.90 Hepatic failure, unspecified without coma; Z76.82 Awaiting organ transplant status; R18.8 Other ascites; D69.6 Thrombocytopenia, unspecified; J44.1 Chronic obstructive pulmonary disease with (acute) exacerbation; K91.89 Other postprocedural complications and disorders of digestive system; Z99.81 Dependence on supplemental oxygen; K74.60 Unspecified cirrhosis of liver; K21.9 Gastro-esophageal reflux disease without esophagitis; I86.8 Varicose veins of other specified sites; D63.1 Anemia in chronic kidney disease; B18.2 Chronic viral hepatitis C; Z87.891 Personal history of nicotine dependence
CPT/HCPCS: 36430; 49083; 50200; 71010; 76705; 77012; 80053; 82140; 83036; 83735; 84100; 84439; 84443; 85007; 85025; 85027; 85610; 86850; 86900; 86901; 86927; 88305; 88313; 88342; 88346; 88348; 88350; 96374; 96376; 99285; C1729; G0378; J2250; J2405; J3010; P9017; P9035; P9047

== ENCOUNTER 2017-05-12 09:53 | Day surgery (SDC) | payer MEDICARE, MEDICAID ==
[2017-05-12] MEDS ORDERED: LIDOCAINE HCL 1% 20 ML VIAL ONE (10:28)
[2017-05-12 10:35] VITALS: BP 100/51; PULSE 81; RESP 20; TEMP 98.7; O2SAT 91
[2017-05-12 11:50] VITALS: BP 84/46; PULSE 77; RESP 16; TEMP 98; O2SAT 94
[2017-05-12 12:33] VITALS: BP 89/51; PULSE 72; RESP 16; O2SAT 94
[2017-05-12] MEDS ORDERED: ALBUMIN HUMAN 25% 50 GM IV ONE ×2 (13:00)
--- NOTE | 2017-05-12 15:38 | RADRPT ---
EXAM DATE/TIME: 05/12/2017 10:19 [facility] COMPARISON: No previous studies available for comparison. INDICATIONS : Ascites. MEDICAL HISTORY : Cirrhosis. Hepatitis C. Arthritis. Head trauma. Migraines. COPD. Asthma. Ascites. GERD. Chronic kidne y disease. HIV. Thrombocytopenia. Depression. Anxiety. SURGICAL HISTORY : Tonsillectomy. section. Tubal ligation. Adenoidectomy. Benign tumor removed from left neck. Blood transfusions. Paracentesis. ENCOUNTER: Sequela ACUITY: 1 day PAIN SCORE: 2/10 LOCATION: Right lower quadrant FLUID: Total volume of 7300 cc of clear, yellow fluid was removed. Fluid was discarded. Paracentesis was therapeutic only. Post procedure scanning reveals no hematoma or other complication. TECHNIQUE: 1. Ultrasound guidance for abdominal paracentesis. 2. Paracentesis. The risks, benefits, and alternatives to ultrasound guided paracentesis were explained to the patient in detail including the risk of bleeding and infection. Written and verbal informed consent was obt ained. With the patient on the ultrasound table, ultrasound imaging was used to select the most appropriate approach for paracentesis. Overlying skin was prepped and draped in the usual sterile fashion and wi th a local anesthetic, a dermatotomy was made with an 11 blade scalpel. A 6 Serbian Xlv-M-cjunzszd ca theter was introduced into the peritoneal cavity and fluid was collected. The patient tolerated the procedure well and left the ultrasound suite in stable condition. CONCLUSION: Uncomplicated ultrasound guided paracentesis. Casa Mahmood MD on May 12, 2017 at 15:36 Board Certified Radiologist. This report was verified electronically.
== END 2017-05-12 13:14 | disposition home or self-care (01) ==
LOC: HRIP 09:53 → HRAD 09:53
PROVIDERS: ATTEND Specialist
DX: R18.8 Other ascites (principal); B19.20 Unspecified viral hepatitis C without hepatic coma; J44.9 Chronic obstructive pulmonary disease, unspecified; K21.9 Gastro-esophageal reflux disease without esophagitis; N18.9 Chronic kidney disease, unspecified; D69.6 Thrombocytopenia, unspecified; G43.909 Migraine, unspecified, not intractable, without status migrainosus; M19.90 Unspecified osteoarthritis, unspecified site
CPT/HCPCS: 49083; 96365; C1729; P9047

== ENCOUNTER 2017-05-19 09:46 | Day surgery (SDC) | payer MEDICARE, MEDICAID ==
[2017-05-19 10:23] VITALS: BP 108/59; PULSE 82; RESP 20; TEMP 97; O2SAT 90
[2017-05-19] MEDS ORDERED: LIDOCAINE HCL 1% 20 ML VIAL ONE (11:34)
[2017-05-19 11:40] VITALS: BP 100/51; PULSE 74; RESP 20; TEMP 97.7; O2SAT 91
[2017-05-19] MEDS ORDERED: ALBUMIN HUMAN 25% 50 GM IV ONE (12:00)
--- NOTE | 2017-05-19 12:39 | RADRPT ---
EXAM DATE/TIME: 05/19/2017 10:11 [facility] COMPARISON: US GUIDED ABD PARACENTESIS, May 12, 2017, 10:19. INDICATIONS : Ascites. MEDICAL HISTORY : Cirrhosis. Hepatitis C. Arthritis. Head trauma. Migraines. COPD. Asthma. SURGICAL HISTORY : Tonsillectomy. section. Tubal ligation. Adenoidectomy. Benign tumor removed from left neck. Blood transfusions. Paracentesis. ENCOUNTER: Subsequent ACUITY: 1 week PAIN SCORE: 0/10 LOCATION: Left lower quadrant FLUID: Total volume of 8,350 cc of clear, yellow fluid was removed. Fluid was discarded. Paracentesis was therapeutic only. Post procedure scanning reveals no hematoma or other complication. TECHNIQUE: 1. Ultrasound guidance for abdominal paracentesis. 2. Paracentesis. The risks, benefits, and alternatives to ultrasound guided paracentesis were explained to the patient in detail including the risk of bleeding and infection. Written and verbal informed consent was obt ained. With the patient on the ultrasound table, ultrasound imaging was used to select the most appropriate approach for paracentesis. Overlying skin was prepped and draped in the usual sterile fashion and wi th a local anesthetic, a dermatotomy was made with an 11 blade scalpel. A 6 Slovak Lva-S-mdwhuhwp ca theter was introduced into the peritoneal cavity and fluid was collected. The patient tolerated the procedure well and left the ultrasound suite in stable condition. CONCLUSION: Uncomplicated ultrasound guided paracentesis. Junior Desai Jr., MD on May 19, 2017 at 12:37 Board Certified Radiologist. This report was verified electronically.
== END 2017-05-19 13:40 | disposition home or self-care (01) ==
LOC: HRAD 09:46 → HRIP 09:47 → HRAD 13:40
PROVIDERS: ATTEND Specialist
DX: R18.8 Other ascites (principal); B19.20 Unspecified viral hepatitis C without hepatic coma; K21.9 Gastro-esophageal reflux disease without esophagitis; N18.9 Chronic kidney disease, unspecified
CPT/HCPCS: 49083; 96365; C1729; P9047

== ENCOUNTER 2017-05-25 09:49 | Day surgery (SDC) | payer MEDICARE, MEDICAID ==
[2017-05-25] MEDS ORDERED: ALBUMIN 25% INJ 0 ML IV ONE (11:00)
[2017-05-25 11:10] VITALS: BP 101/51; PULSE 102; RESP 22; TEMP 98; O2SAT 90
[2017-05-25 12:05] VITALS: BP 88/58; PULSE 84; RESP 18; TEMP 98; O2SAT 90
[2017-05-25 12:20] VITALS: BP 98/50; PULSE 81; RESP 18; O2SAT 90
[2017-05-25 12:26] VITALS: BP 88/58; PULSE 84; RESP 18; TEMP 98; O2SAT 90
[2017-05-25] MEDS ORDERED: ALBUMIN 25% INJ 50 ML IV ONE (12:45)
[2017-05-25] MEDS ORDERED: ALBUMIN 25% IV ONE (12:45)
[2017-05-25] MEDS ORDERED: ALBUMIN 25% INJ 100 ML IV ONE (12:45)
--- NOTE | 2017-05-25 13:06 | PD.RAD ---
Post US Procedure Prog Note Pre Procedure Diagnosis: (1) Hepatitis C (2) Ascites Post Procedure Diagnosis: (1) Ascites Procedure Date: May 25, 2017 Supervising Radiologist: Valente Lorenzo Estimated blood loss: none Anesthesia: Local Plan of Activity Patient to Unit: R[facility]U Patient Condition: Good See PACS Report for procedural detail/treatment Drainage Procedure Procedure 1 Imaging Guidance: Ultrasound Side: Left Procedure Type: Paracentesis Drainage: Suction Fluid Removal (CCs): 6800 Fluid Description: Clear, Yellow Plan to [facility] for albumin then discharge. Valente Lorenzo MD May 25, 2017 13:05
--- NOTE | 2017-05-25 14:05 | RADRPT ---
EXAM DATE/TIME: 05/25/2017 10:12 [facility] COMPARISON: US GUIDED ABD PARACENTESIS, May 19, 2017, 10:11. INDICATIONS : Ascites. Vancomycin within 2 hrs of procedure, Ancef (or alternative) within 1 hr of procedure start. MEDICAL HISTORY : Chronic obstructive pulmonary disease. Hepatitis C. Arthritis. Head trauma. Migraines. COPD. Asthma. SURGICAL HISTORY : Tonsillectomy. section. Tubal ligation. Adenoidectomy. Benign tumor removed from left neck. Blood transfusions. Paracentesis. ENCOUNTER: Sequela ACUITY: 1 week PAIN SCORE: 1/10 LOCATION: Left lower quadrant FLUID: Total volume of 6800 cc of clear, yellow fluid was removed. Fluid was discarded. Paracentesis was therapeutic only. Post procedure scanning reveals no hematoma or other complication. TECHNIQUE: 1. Ultrasound guidance for abdominal paracentesis. 2. Paracentesis. The risks, benefits, and alternatives to ultrasound guided paracentesis were explained to the patient in detail including the risk of bleeding and infection. Written and verbal informed consent was obt ained. With the patient on the ultrasound table, ultrasound imaging was used to select the most appropriate approach for paracentesis. Overlying skin was prepped and draped in the usual sterile fashion and wi th a local anesthetic, a dermatotomy was made with an 11 blade scalpel. A 6 Vietnamese Nkj-Q-qnhrwggk ca theter was introduced into the peritoneal cavity and fluid was collected. The patient tolerated the procedure well and left the ultrasound suite in stable condition. CONCLUSION: Uncomplicated ultrasound guided paracentesis. Valente Lorenzo MD on May 25, 2017 at 13:02 Board Certified Radiologist. This report was verified electronically.
[2017-05-25] MEDS ORDERED: LIDOCAINE HCL 1% PF 30 ML VIAL ONE (14:49)
== END 2017-05-25 13:15 | disposition home or self-care (01) ==
LOC: HRAD 09:49 → HRIP 09:55 → HRAD 13:15
PROVIDERS: ATTEND Specialist
DX: R18.8 Other ascites (principal); B19.20 Unspecified viral hepatitis C without hepatic coma; J44.9 Chronic obstructive pulmonary disease, unspecified
CPT/HCPCS: 49083; 96365; C1729; P9047

== ENCOUNTER 2017-06-02 09:56 | Day surgery (SDC) | payer MEDICARE, MEDICAID ==
[2017-06-02 10:25] VITALS: BP 100/56; PULSE 79; RESP 20; TEMP 98.6; O2SAT 91
[2017-06-02 11:35] VITALS: BP 87/44; PULSE 73; RESP 18; TEMP 96.3; O2SAT 93
[2017-06-02] MEDS ORDERED: LIDOCAINE HCL 1% 20 ML VIAL ONE (11:41)
--- NOTE | 2017-06-02 11:41 | RADRPT ---
EXAM DATE/TIME: 06/02/2017 10:05 [facility] COMPARISON: US GUIDED ABD PARACENTESIS, May 25, 2017, 10:12. INDICATIONS : Ascites. MEDICAL HISTORY : HIV. Chronic obstructive pulmonary disease. Hepatitis C. Arthritis. Head trauma. SURGICAL HISTORY : Tonsillectomy. section. Tubal ligation. Adenoidectomy. Benigntumor removed from left neck. B lood transfusions. Paracentesis. ENCOUNTER: Sequela ACUITY: 1 week PAIN SCORE: LOCATION: FLUID: Total volume of 9200 cc of clear, yellow fluid was removed. Fluid was discarded. Paracentesis was therapeutic only. Post procedure scanning reveals no hematoma or other complication. TECHNIQUE: 1. Ultrasound guidance for abdominal paracentesis. 2. Paracentesis. The risks, benefits, and alternatives to ultrasound guided paracentesis were explained to the patient in detail including the risk of bleeding and infection. Written and verbal informed consent was obt ained. With the patient on the ultrasound table, ultrasound imaging was used to select the most appropriate approach for paracentesis. Overlying skin was prepped and draped in the usual sterile fashion and wi th a local anesthetic, a dermatotomy was made with an 11 blade scalpel. A 6 Turkish Dbr-M-qfnkvpnh ca theter was introduced into the peritoneal cavity and fluid was collected. The patient tolerated the procedure well and left the ultrasound suite in stable condition. CONCLUSION: Uncomplicated ultrasound guided paracentesis. Phoenix Hsu MD on June 02, 2017 at 11:39 Board Certified Radiologist. This report was verified electronically.
[2017-06-02 11:50] VITALS: BP 82/45; PULSE 70; RESP 18; O2SAT 93
[2017-06-02] MEDS ORDERED: ALBUMIN HUMAN 25% 12.5GM-W/50GM FOR 62.5GM IV ONE (12:00)
[2017-06-02] MEDS ORDERED: ALBUMIN HUMAN 25% 50GM-W/12.5GM FOR 62.5GM IV ONE (12:00)
== END 2017-06-02 13:08 | disposition home or self-care (01) ==
LOC: HRAD 09:56 → HRIP 09:57 → HRAD 13:08
PROVIDERS: ATTEND Specialist
DX: R18.8 Other ascites (principal); J44.9 Chronic obstructive pulmonary disease, unspecified; B19.20 Unspecified viral hepatitis C without hepatic coma; B20 Human immunodeficiency virus [HIV] disease; M19.90 Unspecified osteoarthritis, unspecified site
CPT/HCPCS: 49083; 96365; C1729; P9047

== ENCOUNTER → 2017-06-07 | Outpatient (CLI) | payer MEDICARE, MEDICAID ==
[2017-06-07 09:10] LABS: AUTOMATED NEUTROPHIL # 1.6 TH/MM3 (1.8-7.7); BASOPHIL % 0.8 % (0.0-2.0); EOSINOPHIL % 1.8 % (0.0-4.0); HEMATOCRIT 28.6 % (35.0-46.0); HEMOGLOBIN 9.5 GM/DL (11.6-15.3); LYMPHOCYTE # 0.5 TH/MM3 (1.0-4.8); MEAN CELL VOLUME 101.7 FL (80.0-100.0); MEAN CORPUSCULAR HEMOGLOBIN 33.6 PG (27.0-34.0); MEAN CORPUSCULAR HGB CONC 33.1 % (32.0-36.0); MEAN PLATELET VOLUME 9.6 FL (7.0-11.0); MONO % 13.3 % (0.0-8.0); MONOCYTE # 0.3 TH/MM3 (0-0.9); NEUT % 63.1 % (16.0-70.0); PLATELET COUNT 59 TH/MM3 (150-450); RED BLOOD COUNT 2.82 MIL/MM3 (4.00-5.30); RED CELL DISTRIBUTION WIDTH 19.3 % (11.6-17.2); WHITE BLOOD COUNT 2.5 TH/MM3 (4.0-11.0)
[2017-06-07 09:14] LABS: INTERNATIONAL NORMALIZED RATIO 1.5 RATIO; PROTHROMBIN TIME - PATIENT 16.3 SEC (9.8-11.6)
[2017-06-07 09:32] LABS: ALBUMIN 3.2 GM/DL (3.4-5.0); CALCIUM 8.1 MG/DL (8.5-10.1); CREATININE 3.11 MG/DL (0.50-1.00); DIRECT BILIRUBIN ADULT 0.9 MG/DL (0.0-0.2)
[2017-06-07 09:35] LABS: TOTAL BILIRUBIN ADULT 1.9 MG/DL (0.2-1.0); TOTAL PROTEIN 5.7 GM/DL (6.4-8.2)
[2017-06-07 10:05] LABS: OVALOCYTES 1+ (NORMAL); TEARDROP RBCS 1+ (NORMAL)
== END ==
LOC: CLAB 08:30
PROVIDERS: ATTEND Specialist
DX: B20 Human immunodeficiency virus [HIV] disease (principal); R09.02 Hypoxemia; D50.9 Iron deficiency anemia, unspecified; B18.2 Chronic viral hepatitis C; D70.9 Neutropenia, unspecified
CPT/HCPCS: 36415; 80048; 80076; 82140; 85025; 85610; 85730; 86355; 86357; 86359; 86360; 87536

== ENCOUNTER 2017-06-09 09:38 | Day surgery (SDC) | payer MEDICARE, MEDICAID ==
[2017-06-09 10:25] VITALS: BP 91/50; PULSE 86; RESP 20; TEMP 98.7; O2SAT 90
[2017-06-09] MEDS ORDERED: ALBUMIN 25% INJ 0 ML IV ONE (11:30)
[2017-06-09 11:45] VITALS: BP 93/41; PULSE 81; RESP 20; TEMP 98.2; O2SAT 92
[2017-06-09 12:00] VITALS: BP 90/41; PULSE 78; RESP 20; O2SAT 90
[2017-06-09] MEDS ORDERED: ALBUMIN HUMAN 25% 25GM-W/12.5GM FOR 37.5GM IV ONE ×2 (12:30→12:45)
[2017-06-09] MEDS ORDERED: ALBUMIN HUMAN 25% 12.5GM-W/25GM FOR 37.5GM IV ONE ×2 (12:30→12:45)
--- NOTE | 2017-06-09 13:58 | RADRPT ---
EXAM DATE/TIME: 06/09/2017 10:11 [facility] COMPARISON: US GUIDED ABD PARACENTESIS, June 02, 2017, 10:05. INDICATIONS : Ascites. MEDICAL HISTORY : Ascites. GERD. Chronic kidney disease. HIV. Thrombocytopenia. Depression. Anxiety. Cirrhosis. Hepatit is C. Arthritis. Head trauma. Migraines. COPD. Asthma. SURGICAL HISTORY : Tonsillectomy. section. Tubal ligation. Adenoidectomy. Benign tumor removed from left neck. Blood transfusions. Paracentesis. ENCOUNTER: Sequela ACUITY: 1 week PAIN SCORE: 0/10 LOCATION: Left lower quadrant FLUID: Total volume of 6,200 cc of clear, yellow fluid was removed. Fluid was discarded. Paracentesis was therapeutic only. Post procedure scanning reveals no hematoma or other complication. TECHNIQUE: 1. Ultrasound guidance for abdominal paracentesis. 2. Paracentesis. The risks, benefits, and alternatives to ultrasound guided paracentesis were explained to the patient in detail including the risk of bleeding and infection. Written and verbal informed consent was obt ained. With the patient on the ultrasound table, ultrasound imaging was used to select the most appropriate approach for paracentesis. Overlying skin was prepped and draped in the usual sterile fashion and wi th a local anesthetic, a dermatotomy was made with an 11 blade scalpel. A 6 Danish Yjg-E-ugzutnun ca theter was introduced into the peritoneal cavity and fluid was collected. The patient tolerated the procedure well and left the ultrasound suite in stable condition. CONCLUSION: Uncomplicated ultrasound guided paracentesis. Panchito Rocha MD on June 09, 2017 at 13:57 Board Certified Radiologist. This report was verified electronically.
== END 2017-06-09 12:38 | disposition home or self-care (01) ==
LOC: HRAD 09:38 → HRIP 09:42 → HRAD 12:38
PROVIDERS: ATTEND Specialist
DX: R18.8 Other ascites (principal); B18.2 Chronic viral hepatitis C; N18.9 Chronic kidney disease, unspecified; K21.9 Gastro-esophageal reflux disease without esophagitis
CPT/HCPCS: 49083; 96365; C1729; P9047

== ENCOUNTER 2017-06-17 08:14 | Day surgery (SDC) | payer MEDICARE, MEDICAID ==
[2017-06-17 08:49] VITALS: BP 109/47; PULSE 98; RESP 20; TEMP 98; O2SAT 95
[2017-06-17] MEDS ORDERED: ALBUMIN 25% INJ 0 ML IV ONE (09:30)
[2017-06-17 09:35] VITALS: BP 91/47; PULSE 82; RESP 18; TEMP 97.8; O2SAT 96
--- NOTE | 2017-06-17 09:41 | PD.RAD ---
Post US Procedure Prog Note Pre Procedure Diagnosis: (1) Ascites Post Procedure Diagnosis: (1) Ascites Procedure Date: Jun 17, 2017 Supervising Radiologist: Valente Lorenzo Estimated blood loss: minimal Anesthesia: Local Plan of Activity Patient to Unit: [facility] Patient Condition: Fair See PACS Report for procedural detail/treatment Drainage Procedure Procedure 1 Imaging Guidance: Ultrasound Side: Left Procedure Type: Paracentesis Drainage: Suction Fluid Removal (CCs): 6200 Fluid Description: Clear, Red Plan to ROPU for albumin then discharge. Valente Lorenzo MD Jun 17, 2017 09:41
--- NOTE | 2017-06-17 09:43 | RADRPT ---
EXAM DATE/TIME: 06/17/2017 08:29 [facility] COMPARISON: US GUIDED ABD PARACENTESIS, June 09, 2017, 10:11. INDICATIONS : Ascites. MEDICAL HISTORY : Hepatitis C. Arthritis. Cirrhosis. Ascites. GERD. Chronic kidney disease. Thrombocytopenia. HIV. Head trauma. Migraines. COPD. Asthma. SURGICAL HISTORY : Tonsillectomy. section. Tubal ligation. Adenoidectomy. Benign tumor removed from left neck. Paracentesis. Blood transfusions. ENCOUNTER: Sequela ACUITY: 1 week PAIN SCORE: 6/10 LOCATION: Left lower quadrant FLUID: Total volume of 6200 cc of clear, red fluid was removed. Fluid was discarded. Paracentesis was therapeutic only. Post procedure scanning reveals no hematoma or other complication. TECHNIQUE: 1. Ultrasound guidance for abdominal paracentesis. 2. Paracentesis. The risks, benefits, and alternatives to ultrasound guided paracentesis were explained to the patient in detail including the risk of bleeding and infection. Written and verbal informed consent was obt ained. With the patient on the ultrasound table, ultrasound imaging was used to select the most appropriate approach for paracentesis. Overlying skin was prepped and draped in the usual sterile fashion and wi th a local anesthetic, a dermatotomy was made with an 11 blade scalpel. A 6 Ukrainian Opf-U-irxltwtu ca theter was introduced into the peritoneal cavity and fluid was collected. The patient tolerated the procedure well and left the ultrasound suite in stable condition. CONCLUSION: Uncomplicated ultrasound guided paracentesis. Valente Lorenzo MD on June 17, 2017 at 9:39 Board Certified Radiologist. This report was verified electronically.
[2017-06-17 09:50] VITALS: BP 91/46; PULSE 83; RESP 18; O2SAT 97
== END 2017-06-17 11:10 | disposition home or self-care (01) ==
LOC: HRAD 08:14 → HRIP 08:17 → HRAD 11:10
PROVIDERS: ATTEND Specialist
DX: R18.8 Other ascites (principal); B19.20 Unspecified viral hepatitis C without hepatic coma; N18.9 Chronic kidney disease, unspecified; K21.9 Gastro-esophageal reflux disease without esophagitis; J44.9 Chronic obstructive pulmonary disease, unspecified
CPT/HCPCS: 49083; 96365; 96366; C1729; P9047

== ENCOUNTER 2017-06-20 15:35 | Inpatient (IN) | payer MEDICARE, MEDICAID ==
[2017-06-20] VITALS (7 sets, daily range): BP systolic 105–116; BP diastolic 53–59; PULSE 73–90; RESP 14–20; TEMP 97.7; O2SAT 93–97
[~2017-06-20] VITALS: Ht 165.1 cm; Wt 66.0 kg
[2017-06-20] MEDS ORDERED: SODIUM CHLOR 0.9% 1000 ML INJ 1,000 ML IV SCH ×2 (15:40→18:35)
[2017-06-20] MEDS ORDERED: SODIUM CHLORIDE 0.9% FLUSH 5 ML FLUSH IV FLUSH PRN (15:45)
--- NOTE | 2017-06-20 15:57 | PD ---
HPI Chief Complaint: Altered Mental Status Time Seen by Provider: 15:40 Travel History International Travel<30 days: No (Unable to obtain) Contact w/Intl Traveler<30days: No (Unable to obtain) Traveled to known affect area: No (Unable to obtain) History of Present Illness HPI 47-year-old female patient presents to the ER today brought in by EMS, apparently was found unresponsive by neighbor, patient is fairly disoriented, not able to give any further history. Modifying Factors: None Associated Signs & Symptoms: Altered mental status Risk Factors: Unknown PFSH Past Medical History Arthritis: Yes (KNEES) Asthma: Yes (SINCE 2003) Autoimmune Disease: No Anxiety: Yes Depression: Yes Heart Rhythm Problems: No Cancer: Yes (BENIGN LESION REMOVED FROM LEFT NECK) Cardiovascular Problems: Yes (HEART MURMUR) High Cholesterol: No Chemotherapy: No Chest Pain: No Congestive Heart Failure: No Cirrhosis: Yes COPD: Yes Cerebrovascular Accident: No Diabetes: No Diminished Hearing: No Endocrine: No Gastrointestinal Disorders: Yes (ASCITES, HEP C) GERD: Yes Genitourinary: Yes Headaches: Yes Hepatitis: Yes (c) Hiatal Hernia: No Immune Disorder: Yes (HIV DX. 2000) Implanted Vascular Access Dvce: Yes Kidney Stones: No Musculoskeletal: Yes Neurologic: Yes Psychiatric: Yes Reproductive: Yes (LAST PERIOD 2008) Respiratory: Yes Immunizations Current: Yes Migraines: Yes Radiation Therapy: No Renal Failure: Yes Seizures: No Sickle Cell Disease: No Sleep Apnea: No Thyroid Disease: No Ulcer: No ?: Unknown Menopausal: Yes Tubal Ligation: Yes (1999) Past Surgical History Abdominal Surgery: No AICD: No Arteriovenous Shunt: No Body Medical Devices: TUBES TIED WITH METAL BANDS Cardiac Surgery: No Section: Yes (1st child ) Ear Surgery: No Endocrine Surgery: No Eye Surgery: No Genitourinary Surgery: No Gynecologic Surgery: Yes (/TUBAL LIGATION) Insulin Pump: No Joint Replacement: No Oral Surgery: No Pacemaker: No Thoracic Surgery: No Tonsillectomy: Yes (and adenoids) Other Surgery: Yes (lump removed from neck-non cancerous, paracentesis) Social History Alcohol Use: No Tobacco Use: No Substance Use: No Allergies-Medications (Allergen,Severity, Reaction): Coded Allergies: adhesive (Verified Allergy, Severe, 05/01/17) erythromycin base (Unverified Allergy, Severe, Anaphylaxis, 05/01/17) Reported Meds & Prescriptions Reported Meds & Active Scripts Active Symbicort Inh (Budesonide/Formoterol Fumarate) 160-4.5 Mcg/Act Aero 1 Puff INH Q12HR Reported Hydroxyzine HCl 25 Mg Tab 25 Mg PO DAILY Imodium Multi-Symptom Rel Cplt (Loperamide HCl/Simethicone) 2 Mg-125 Mg Tablet Lactulose Liq (Lactulose) 10 Gm/15 Ml Soln 15 Ml PO BID Zofran (Ondansetron HCl) 8 Mg Tab 8 Mg PO TID Vitamin D (Ergocalciferol (Vitamin D2)) 400 Unit Tablet 50,000 PO WEEKLY ONE TIME PER WEEK X6 WEEKS THEN DECREASE TO EVERY OTHER WEEK Ciprofloxacin (Ciprofloxacin HCl) 750 Mg Tab 750 Mg PO MONTHLY PRIOR TO PARACENTESIS Sodium Bicarbonate 650 Mg Tab 650 Mg PO BIDPC Omeprazole 40 Mg Cap 40 Mg PO DAILY Tuesday BEFORE MEALS Sustiva (Efavirenz) 600 Mg Tab 600 Mg PO HS Valacyclovir (Valacyclovir HCl) 1 Gm Tab 1,000 Mg PO DAILY Descovy (Emtricitabine-Tenofovir Alafenamide) 200-25 mg Tab 1 Tab PO DAILY Xifaxan (Rifaximin) 550 Mg Tab 550 Mg PO Q12HR Calcium 600 with Vitamin D (Calcium Carbonate-Cholecalciferol) 600-400 mg-Unit Tab 1 Tab PO BID Review of Systems ROS Limitations: Altered Mental Status Physical Exam Narrative GENERAL: Well-developed middle age female patient currently in moderate distress , disoriented, lethargic. SKIN: Focused skin assessment warm/dry. HEAD: Atraumatic. Normocephalic. EYES: Pupils are small, equal and round. No scleral icterus. No injection or drainage. ENT: No nasal bleeding or discharge. Dry mucous membranes. NECK: Trachea midline. No JVD. CARDIOVASCULAR: Regular rate and rhythm. No murmur appreciated. RESPIRATORY: No accessory muscle use. Clear to auscultation. Breath sounds equal bilaterally. GASTROINTESTINAL: Abdomen soft, non-tender, nondistended. Hepatic and splenic margins not palpable. MUSCULOSKELETAL: No obvious deformities. No clubbing. No cyanosis. No edema. NEUROLOGICAL: Lethargic. Disoriented, not able to follow commands. PSYCHIATRIC: Lethargic and disoriented. Not able to answer questions. Data Data Last Documented VS Vital Signs Date Time Temp Pulse Resp B/P (MAP) Pulse Ox O2 Delivery O2 Flow Rate FiO2 06/20/17 17:50 97 Room Air 06/20/17 17:28 73 16 Orders Orders Electrocardiogram (06/20/17 15:40) Complete Blood Count With Diff (06/20/17 15:40) Comprehensive Metabolic Panel (06/20/17 15:40) Creatine Kinase (Cpk) (06/20/17 15:40) Prothrombin Time / Inr (Pt) (06/20/17 15:40) Act Partial Throm Time (Ptt) (06/20/17 15:40) Troponin I (06/20/17 15:40) Thyroid Stimulating Hormone (06/20/17 15:40) Urinalysis - C+S If Indicated (06/20/17 15:40) Lactic Acid Sepsis Protocol (06/20/17 15:40) Blood Culture (06/20/17 15:40) Chest, Single Ap (06/20/17 15:40) Ct Brain W/O Iv Contrast(Rout) (06/20/17 15:40) Blood Glucose (06/20/17 15:40) Ecg Monitoring (06/20/17 15:40) Iv Access Insert/Monitor (06/20/17 15:40) Oximetry (06/20/17 15:40) Urinary Catheter Insert/Apply (06/20/17 15:40) Sodium Chloride 0.9% Flush (Ns Flush) (06/20/17 15:45) Sodium Chlor 0.9% 1000 Ml Inj (Ns 1000 M (06/20/17 15:40) Drug Screen, Random Urine (06/20/17 15:40) Alcohol (Ethanol) (06/20/17 15:40) Urine Culture (06/20/17 16:00) Ammonia (06/20/17 17:21) Admit Order (Ed Use Only) (06/20/17 18:10) Labs Laboratory Tests Test 06/20/17 16:00 06/20/17 16:15 06/20/17 17:33 Urine Color YELLOW Urine Turbidity CLEAR Urine pH 6.0 Urine Specific [place] 1.018 Urine Protein TRACE mg/dL Urine Glucose (UA) NEG mg/dL Urine Ketones NEG mg/dL Urine Occult Blood NEG Urine Nitrite NEG Urine Bilirubin NEG Urine Urobilinogen 2.0 MG/DL Urine Leukocyte Esterase NEG Urine RBC 1 /hpf Urine WBC 1 /hpf Urine Squamous Epithelial Cells <1 /hpf Urine Bacteria RARE /hpf Urine Mucus FEW /lpf Microscopic Urinalysis Comment CATH-CULTURE IND White Blood Count 2.6 TH/MM3 Red Blood Count 2.47 MIL/MM3 Hemoglobin 8.2 GM/DL Hematocrit 25.5 % Mean Corpuscular Volume 103.3 FL Mean Corpuscular Hemoglobin 33.3 PG Mean Corpuscular Hemoglobin Concent 32.2 % Red Cell Distribution Width 19.9 % Platelet Count 46 TH/MM3 Mean Platelet Volume 11.2 FL Neutrophils (%) (Auto) 75.1 % Lymphocytes (%) (Auto) 13.8 % Monocytes (%) (Auto) 10.0 % Eosinophils (%) (Auto) 0.7 % Basophils (%) (Auto) 0.4 % Neutrophils # (Auto) 1.9 TH/MM3 Lymphocytes # (Auto) 0.4 TH/MM3 Monocytes # (Auto) 0.3 TH/MM3 Eosinophils # (Auto) 0.0 TH/MM3 Basophils # (Auto) 0.0 TH/MM3 CBC Comment AUTO DIFF Differential Comment AUTO DIFF CONFIRMED Platelet Estimate LOW Platelet Morphology Comment NORMAL Tear Drop Cells 1+ Ovalocytes 1+ Prothrombin Time 17.6 SEC Prothromb Time International Ratio 1.6 RATIO Activated Partial Thromboplast Time 32.5 SEC Blood Urea Nitrogen 73 MG/DL Creatinine 3.85 MG/DL Random Glucose 97 MG/DL Total Protein 5.3 GM/DL Albumin 3.0 GM/DL Calcium Level 8.6 MG/DL Alkaline Phosphatase 133 U/L Aspartate Amino Transf (AST/SGOT) 18 U/L Alanine Aminotransferase (ALT/SGPT) 18 U/L Total Bilirubin 2.8 MG/DL Sodium Level 140 MEQ/L Potassium Level 5.4 MEQ/L Chloride Level 110 MEQ/L Carbon Dioxide Level 19.2 MEQ/L Anion Gap 11 MEQ/L Estimat Glomerular Filtration Rate 12 ML/MIN Lactic Acid Level 2.3 mmol/L Total Creatine Kinase 43 U/L Troponin I LESS THAN 0.02 NG/ML Thyroid Stimulating Hormone 3rd Gen 1.040 uIU/ML Ethyl Alcohol Level LESS THAN 3 MG/DL Ammonia 128 MCMOL/L [facility] Medical Decision Making Medical Screen Exam Complete: Yes Emergency Medical Condition: Yes Medical Record Reviewed: Yes Interpretation(s) Laboratory Tests Test 06/20/17 16:00 06/20/17 16:15 06/20/17 17:33 Urine Bacteria RARE /hpf (NONE) Urine Mucus FEW /lpf (OCC) White Blood Count 2.6 TH/MM3 (4.0-11.0) Red Blood Count 2.47 MIL/MM3 (4.00-5.30) Hemoglobin 8.2 GM/DL (11.6-15.3) Hematocrit 25.5 % (35.0-46.0) Mean Corpuscular Volume 103.3 FL (80.0-100.0) Red Cell Distribution Width 19.9 % (11.6-17.2) Platelet Count 46 TH/MM3 (150-450) Mean Platelet Volume 11.2 FL (7.0-11.0) Neutrophils (%) (Auto) 75.1 % (16.0-70.0) Monocytes (%) (Auto) 10.0 % (0.0-8.0) Lymphocytes # (Auto) 0.4 TH/MM3 (1.0-4.8) Platelet Estimate LOW (NORMAL) Tear Drop Cells 1+ (NORMAL) Ovalocytes 1+ (NORMAL) Prothrombin Time 17.6 SEC (9.8-11.6) Activated Partial Thromboplast Time 32.5 SEC (24.3-30.1) Blood Urea Nitrogen 73 MG/DL (7-18) Creatinine 3.85 MG/DL (0.50-1.00) Total Protein 5.3 GM/DL (6.4-8.2) Albumin 3.0 GM/DL (3.4-5.0) Alkaline Phosphatase 133 U/L (45-117) Total Bilirubin 2.8 MG/DL (0.2-1.0) Potassium Level 5.4 MEQ/L (3.5-5.1) Chloride Level 110 MEQ/L (98-107) Carbon Dioxide Level 19.2 MEQ/L (21.0-32.0) Estimat Glomerular Filtration Rate 12 ML/MIN (>89) Lactic Acid Level 2.3 mmol/L (0.4-2.0) Troponin I LESS THAN 0.02 NG/ML Ammonia 128 MCMOL/L (11-32) Last [address] 06/20/17 3390 Signed Impressions: Service Date/Time: Tuesday, June 20, 2017 16:42 - CONCLUSION: Negative for an acute process. Dwight Tellez MD FACR Chest X-Ray 06/20/17 1540 Signed Impressions: Service Date/Time: Tuesday, June 20, 2017 15:47 - CONCLUSION: Chronic appearing interstitial changes. Stable compared to the previous. Kevin Tellez MD Differential Diagnosis Altered mental status: Dehydration versus metabolic issues versus sepsis versus acute intracranial processes Narrative Course CT the brain is negative for any signs of acute intracranial processes. Lab work is otherwise unremarkable, BUN and creatinine is fairly baseline for her, but the lactate is mildly elevated. She may have some underlying dehydration as well. IV fluids were initiated. CPK was unremarkable and I'm not suspecting rhabdomyolysis in this case. Her ammonia is quite elevated and this patient has previous history of ascites and liver disease, there is concern of hepatic encephalopathy. At this point, case was discussed with outpatient admitting clerk, Dr. Arredondo, for further treatment and evaluation. Aggregate critical care time was 25 minutes. Time to perform other separately billable procedures was not included in the critical care time. My time did not include minutes spent treating any other patients simultaneously or on activities that did not directly contribute to the patient's treatment. The services I provided to this patient were to treat and/or prevent clinically significant deterioration that could result in: Sepsis, acute cranial processes , worsening liver failure, hepatorenal syndrome, I provided critical care services requiring my management, as noted below: Chart data review, documentation time, medication orders and management, vital sign assessments/reviewing monitor data, ordering and reviewing lab tests, ordering and interpreting/reviewing x-rays and diagnostic studies, care of the patient and discussion of the patient with the admitting physicians. Diagnosis Primary Impression: Hyperammonemia Additional Impressions: Cirrhosis of liver Encephalopathy acute Admitting Information Admitting Physician Requests: Admit Chanel Guillen MD Jun 20, 2017 15:57
[2017-06-20 16:47] LABS: ANION GAP 11 MEQ/L (5-15); AST (GOT) 18 U/L (15-37); AUTOMATED NEUTROPHIL # 1.9 TH/MM3 (1.8-7.7); BASOPHIL % 0.4 % (0.0-2.0); BICARBONATE 19.2 MEQ/L (21.0-32.0); BLOOD UREA NITROGEN 73 MG/DL (7-18); CHLORIDE 110 MEQ/L (98-107); EOSINOPHIL % 0.7 % (0.0-4.0); GLOMERULAR FILTRATION RATE 12 ML/MIN (>89); HEMATOCRIT 25.5 % (35.0-46.0); LYMPH % 13.8 % (9.0-44.0); LYMPHOCYTE # 0.4 TH/MM3 (1.0-4.8); MEAN CELL VOLUME 103.3 FL (80.0-100.0); MEAN CORPUSCULAR HEMOGLOBIN 33.3 PG (27.0-34.0); MEAN CORPUSCULAR HGB CONC 32.2 % (32.0-36.0); NEUT % 75.1 % (16.0-70.0); PLATELET COUNT 46 TH/MM3 (150-450); POTASSIUM 5.4 MEQ/L (3.5-5.1); RED BLOOD COUNT 2.47 MIL/MM3 (4.00-5.30); RED CELL DISTRIBUTION WIDTH 19.9 % (11.6-17.2); SODIUM (NA) 140 MEQ/L (136-145); WHITE BLOOD COUNT 2.6 TH/MM3 (4.0-11.0)
[2017-06-20 16:48] LABS: ALCOHOL LESS THAN 3 MG/DL (0-5)
[2017-06-20 16:55] LABS: APTT (PATIENT) 32.5 SEC (24.3-30.1); HEMO FLAGS AUTO DIFF; INTERNATIONAL NORMALIZED RATIO 1.6 RATIO; PROTHROMBIN TIME - PATIENT 17.6 SEC (9.8-11.6)
[2017-06-20 16:56] LABS: BACTERIA, URINE RARE /hpf; BLOOD, URINE NEG (NEG); GLUCOSE,URINE NEG (NEG); KETONE, URINE NEG (NEG); MUCUS URINE FEW /lpf (OCC); NITRITE,URINE NEG (NEG); SQUAMOUS EPITHELIAL CELL URINE <1 /hpf (0-5); URINE COLOR YELLOW (YELLW/STRAW)
[2017-06-20 16:57] LABS: COMMENT (UR) CATH-CULTURE IND; CULTURE IF INDICATED CATH CULTURE IND
[2017-06-20 16:57] LABS: ALKALINE PHOSPHATASE 133 U/L (45-117); ALT (GPT) 18 U/L (10-53); TOTAL BILIRUBIN ADULT 2.8 MG/DL (0.2-1.0)
[2017-06-20 16:58] LABS: CREATINE KINASE 43 U/L (26-192)
--- NOTE | 2017-06-20 16:59 | RADRPT ---
EXAM DATE/TIME: 06/20/2017 16:42 [facility] COMPARISON: CHEST SINGLE AP, June 20, 2017, 15:47. CT BRAIN W/O CONTRAST, June 10, 2015, 8:09. INDICATIONS : Altered mental status. RADIATION DOSE: 28.17 CTDIvol (mGy) ; Patient motion MEDICAL HISTORY : Cardiovascular disease. Hepatitis C. renal failure, ascites SURGICAL HISTORY : liver transplant ENCOUNTER: Initial ACUITY: 1 day PAIN SCALE: 0/10 LOCATION: cranial TECHNIQUE: Multiple contiguous axial images were obtained of the head. Using automated exposure control and adj ustment of the mA and/or kV according to patient size, radiation dose was kept as low as reasonably a chievable to obtain optimal diagnostic quality images. DICOM format image data is available electro nically for review and comparison. Moderate motion artifact is present. FINDINGS: CEREBRUM: The ventricles are normal for age. No evidence of midline shift, mass lesion, hemorrhage or acute in farction. No extra-axial fluid collections are seen. POSTERIOR FOSSA: The cerebellum and brainstem are intact. The 4th ventricle is midline. The cerebellopontine angle i s unremarkable. EXTRACRANIAL: The visualized portion of the orbits is intact. SKULL: The calvaria is intact. No evidence of skull fracture. CONCLUSION: Negative for an acute process. Dwight Tellez MD FACR on June 20, 2017 at 16:57 Board Certified Radiologist. This report was verified electronically.
--- NOTE | 2017-06-20 17:34 | RADRPT ---
EXAM DATE/TIME: 06/20/2017 15:47 [facility] COMPARISON: CHEST SINGLE AP, May 01, 2017, 18:37. INDICATIONS : Syncope MEDICAL HISTORY : Hepatitis C. Arthritis. Cirrhosis. Ascites. GERD. Chronic kidney disease, Thrombocytopenia. HIV. Head trauma. Migraines. COPD. Asthma SURGICAL HISTORY : Tonsillectomy. section. Tubal ligation. Adenoidectomy. Benign tumor removed from left neck. Paracentesis. Blood transfusions ENCOUNTER: Initial ACUITY: 1 day PAIN SCORE: Non-responsive. LOCATION: chest FINDINGS: The heart is normal in size. There are chronic appearing interstitial changes within the pulmonary pa renchyma. These are stable compared to the prior examination. The visualized bony structures are denilson sly intact. CONCLUSION: Chronic appearing interstitial changes. Stable compared to the previous. Kevin Tellez MD on June 20, 2017 at 16:13 Board Certified Radiologist. This report was verified electronically.
[2017-06-20 17:44] LABS: OVALOCYTES 1+ (NORMAL); PLATELET ESTIMATE SMEAR LOW (NORMAL); PLATELET MORPHOLOGY NORMAL (NORMAL); SCAN/DIFF AUTO DIFF CONFIRMED; TEARDROP RBCS 1+ (NORMAL)
[2017-06-20 18:23] LABS: LACTIC ACID GHOST NOT REPORTABLE
--- NOTE | 2017-06-20 18:40 | HHI.HP ---
[facility] Service Critical Care Medicine Primary Care Physician Unknown Admission Diagnosis hepatic encephalopathy Diagnosis: (1) Hyperkalemia Diagnosis: Principal (2) Gastroesophageal reflux disease Diagnosis: Secondary (3) Esophageal varices Diagnosis: Secondary (4) Hyperammonemia Diagnosis: Principal (5) Macrocytic anemia Diagnosis: Principal (6) Ascites Diagnosis: Secondary (7) Hepatitis C Diagnosis: Principal (8) Chronic kidney disease (CKD) stage G4/A1, severely decreased glomerular filtration rate (GFR) between 15-29 mL/min/1.73 square meter and albuminuria creatinine ratio less than 30 mg/g Diagnosis: Principal (9) HIV (human immunodeficiency virus infection) Diagnosis: Principal (10) GERD (gastroesophageal reflux disease) Diagnosis: Secondary (11) Thrombocytopenia Diagnosis: Principal (12) Liver cirrhosis Diagnosis: Secondary Chief Complaint: Altered mental status/thalami neighbor minimally responsive Travel History International Travel<30 Days: No (Unable to obtain) Contact w/Intl Traveler <30 Da: No (Unable to obtain) Traveled to Known Affected Are: No (Unable to obtain) Sepsis Criteria SIRS Criteria (2 or more): Heart rate over 90 Sepsis Criteria (SIRS+source): Infect source susp/known Severe Sepsis (+one): Lactate >2 History of Present Illness This is a 47-year-old female. Date of admission 06/20/2017. Past medical history includes HIV, hepatitis C since treated, chronic kidney disease stage IV to 5, end-stage liver disease on transplant list at [facility] according to patient, gastroesophageal reflux disease and esophageal varices. Patient was not seen for several days and was found by EMS with open pill bottles that on the floor. Due to altered mental status patient was transferred to [facility]. She was oriented to person only. Arousable but falls asleep easily. Moves all 4 extremity spontaneously.. In the ED, CT brain revealed no acute intracranial findings. Chest x-ray revealed chronic findings on was unremarkable. Blood gases currently pending. Ammonia levels elevated 120. Patient is currently on Xifaxan and lactulose at home. Unknown compliance. I'll: Less than 3. Urine toxicology screen pending. Creatinine elevated 3.8. Baseline around 3.2. Bili was elevated LFT is essentially normal. We are asked to admit due to acute encephalopathy likely secondary to hyperammonia. 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 History of EtOH clean since February Gastroesophageal reflux disease Insomnia Esophageal varices History of osteoarthritis Past Surgical History Tubal ligation Kidney biopsy Tonsillectomy Benign tumor removed from left neck Esophageal varices banding Multiple paracentesis Reported Medications Symbicort Inh (Budesonide/Formoterol Fumarate) 160-4.5 Mcg/Act Aero 1 Puff INH Q12HR Reported Hydroxyzine HCl 25 Mg Tab 25 Mg PO DAILY Imodium Multi-Symptom Rel Cplt (Loperamide HCl/Simethicone) 2 Mg-125 Mg Tablet Lactulose Liq (Lactulose) 10 Gm/15 Ml Soln 15 Ml PO BID Zofran (Ondansetron HCl) 8 Mg Tab 8 Mg PO TID Vitamin D (Ergocalciferol (Vitamin D2)) 400 Unit Tablet 50,000 PO WEEKLY ONE TIME PER WEEK X6 WEEKS THEN DECREASE TO EVERY OTHER WEEK Ciprofloxacin (Ciprofloxacin HCl) 750 Mg Tab 750 Mg PO MONTHLY PRIOR TO PARACENTESIS Sodium Bicarbonate 650 Mg Tab 650 Mg PO BIDPC Omeprazole 40 Mg Cap 40 Mg PO DAILY Tuesday BEFORE MEALS Sustiva (Efavirenz) 600 Mg Tab 600 Mg PO HS Valacyclovir (Valacyclovir HCl) 1 Gm Tab 1,000 Mg PO DAILY Descovy (Emtricitabine-Tenofovir Alafenamide) 200-25 mg Tab 1 Tab PO DAILY Xifaxan (Rifaximin) 550 Mg Tab 550 Mg PO Q12HR Calcium 600 with Vitamin D (Calcium Carbonate-Cholecalciferol) 600-400 mg-Unit Tab 1 Tab PO BID Active Ordered Medications Reviewed in EMR Family History Mother is alive. Father with Alzheimer's dementia Social History 1/2-1 pack per day tobacco 30 years. Currently 1-2 cigars daily. Quit alcohol since February. Prior heavy alcohol drinker 20 years. Quit IV drugs with/ cocaine/THC 16 years ago Physical Exam Vital Signs Vital Signs Date Time Temp Pulse Resp B/P (MAP) Pulse Ox O2 Delivery O2 Flow Rate FiO2 06/20/17 17:50 97 Room Air 06/20/17 17:28 73 16 96 Room Air 06/20/17 15:49 79 20 109/53 (71) 97 Room Air 06/20/17 15:45 79 20 109/53 (71) 97 Physical Exam GENERAL: 47-year-old female, resting in bed in no acute distress SKIN: Warm and dry. Chronic venous stasis bilateral lower extremities HEAD: Atraumatic. Normocephalic. EYES: Pupils equal and round about 2 mm and reactive. + scleral icterus. No injection or drainage. ENT: No nasal bleeding or discharge. Mucous membranes pink and moist. NECK: Trachea midline. No JVD. CARDIOVASCULAR: Regular rate and rhythm. S1, S2 no S4. Without murmur RESPIRATORY: Minutes breath sounds. Positive end expiratory wheeze.. Breath sounds equal bilaterally. GASTROINTESTINAL: Abdomen soft, protuberant. Slightly tender to deep palpation all 4 quadrants. MUSCULOSKELETAL: Extremities with trace lower extremity. NEUROLOGICAL: Awake and alert person only. No obvious cranial nerve defects. Motor grossly within normal limits. Five out of 5 muscle strength in the arms and legs. Slurred speech. PSYCHIATRIC: Infused Laboratory Laboratory Tests Test 06/20/17 16:00 06/20/17 16:15 06/20/17 17:33 Urine Color YELLOW Urine Turbidity CLEAR Urine pH 6.0 Urine Specific [place] 1.018 Urine Protein TRACE Urine Glucose (UA) NEG Urine Ketones NEG Urine Occult Blood NEG Urine Nitrite NEG Urine Bilirubin NEG Urine Urobilinogen 2.0 Urine Leukocyte Esterase NEG Urine RBC 1 Urine WBC 1 Urine Squamous Epithelial Cells <1 Urine Bacteria RARE Urine Mucus FEW Microscopic Urinalysis Comment CATH-CULTURE IND White Blood Count 2.6 Red Blood Count 2.47 Hemoglobin 8.2 Hematocrit 25.5 Mean Corpuscular Volume 103.3 Mean Corpuscular Hemoglobin 33.3 Mean Corpuscular Hemoglobin Concent 32.2 Red Cell Distribution Width 19.9 Platelet Count 46 Mean Platelet Volume 11.2 Neutrophils (%) (Auto) 75.1 Lymphocytes (%) (Auto) 13.8 Monocytes (%) (Auto) 10.0 Eosinophils (%) (Auto) 0.7 Basophils (%) (Auto) 0.4 Neutrophils # (Auto) 1.9 Lymphocytes # (Auto) 0.4 Monocytes # (Auto) 0.3 Eosinophils # (Auto) 0.0 Basophils # (Auto) 0.0 CBC Comment AUTO DIFF Differential Comment AUTO DIFF CONFIRMED Platelet Estimate LOW Platelet Morphology Comment NORMAL Tear Drop Cells 1+ Ovalocytes 1+ Prothrombin Time 17.6 Prothromb Time International Ratio 1.6 Activated Partial Thromboplast Time 32.5 Blood Urea Nitrogen 73 Creatinine 3.85 Random Glucose 97 Total Protein 5.3 Albumin 3.0 Calcium Level 8.6 Alkaline Phosphatase 133 Aspartate Amino Transf (AST/SGOT) 18 Alanine Aminotransferase (ALT/SGPT) 18 Total Bilirubin 2.8 Sodium Level 140 Potassium Level 5.4 Chloride Level 110 Carbon Dioxide Level 19.2 Anion Gap 11 Estimat Glomerular Filtration Rate 12 Lactic Acid Level 2.3 Total Creatine Kinase 43 Troponin I LESS THAN 0.02 Thyroid Stimulating Hormone 3rd Gen 1.040 Ethyl Alcohol Level LESS THAN 3 Ammonia 128 Date/Time Source Procedure Growth Status 06/20/17 16:16 Blood Peripheral Aerobic Blood Culture Pending Received 06/20/17 16:16 Blood Peripheral Anaerobic Blood Culture Pending Received 06/20/17 16:00 Urine Catheterized Urine Urine Culture Pending Received Result Diagram: 06/20/17 1615 06/20/17 1615 Imaging Last Impressions Head CT 06/20/17 1540 Signed Impressions: Service Date/Time: Tuesday, June 20, 2017 16:42 - CONCLUSION: Negative for an acute process. Dwight Tellez MD FACR Chest X-Ray 06/20/17 1540 Signed Impressions: Service Date/Time: Tuesday, June 20, 2017 15:47 - CONCLUSION: Chronic appearing interstitial changes. Stable compared to the previous. Kevin Tellez MD [place] VTE Risk Assessment Caprini VTE Risk Assessment: Mod/High Risk (score >= 2) VTE Pharm Contraindication: Coagulopathy,INR elevated Caprini Risk Assessment Model Point Value = 1 Point Value = 2 Point Value = 3 Point Value = 5 Age 41-60 Minor surgery BMI > 25 kg/m2 Swollen legs Varicose veins or History of unexplained or recurrent spontaneous Oral contraceptives or hormone replacement Sepsis (< 1 month) Serious lung disease, including pneumonia (< 1 month) Abnormal pulmonary function Acute myocardial infarction Congestive heart failure (< 1 month) History of inflammatory bowel disease Medical patient at bed rest Age 61-74 Arthroscopic surgery Major open surgery (> 45 min) Laparoscopic surgery (> 45 min) Malignancy Confined to bed (> 72 hours) Immobilizing plaster cast Central venous access Age >= 75 History of VTE Family history of VTE Factor V Leiden Prothrombin [id number] Lupus anticoagulant Anticardiolipin antibodies Elevated serum homocysteine Heparin-induced thrombocytopenia Other congenital or acquired thrombophilia Stroke (< 1 month) Elective arthroplasty Hip, pelvis, or leg fracture Acute spinal cord injury (< 1 month) Prophylaxis Regimen Total Risk Factor Score Risk Level Prophylaxis Regimen 0-1 Low Early ambulation 2 Moderate Order ONE of the following: *Sequential Compression Device (SCD) *Heparin 5000 units SQ BID 3-4 Higher Order ONE of the following medications: *Heparin 5000 units SQ TID *Enoxaparin/Lovenox 40 mg SQ daily (WT < 150 kg, CrCl > 30 mL/min) *Enoxaparin/Lovenox 30 mg SQ daily (WT < 150 kg, CrCl > 10-29 mL/min) *Enoxaparin/Lovenox 30 mg SQ BID (WT < 150 kg, CrCl > 30 mL/min) AND/OR *Sequential Compression Device (SCD) 5 or more Highest Order ONE of the following medications: *Heparin 5000 units SQ TID (Preferred with Epidurals) *Enoxaparin/Lovenox 40 mg SQ daily (WT < 150 kg, CrCl > 30 mL/min) *Enoxaparin/Lovenox 30 mg SQ daily (WT < 150 kg, CrCl > 10-29 mL/min) *Enoxaparin/Lovenox 30 mg SQ BID (WT < 150 kg, CrCl > 30 mL/min) AND *Sequential Compression Device (SCD) Assessment and Plan Assessment and Plan Neuro/Psych: Acute encephalopathy toxic metabolic secondary to elevated ammonia CT brain 06/20 revealed no acute intracranial findings Ammonia level is 128 - See GI. Holding hydroxyzine 25 mg daily with altered mental status. Resume when clinically indicated CV: History of heart murmur Follow-up on echocardiogram Patient is currently on no antihypertensives. Are normal saline at 84 cc an hour while nothing by mouth except meds Resp: Prior tobaccoism COPD Nasal cannula to maintain saturations greater than equal to 90% Incentive spirometry while awake Continue budesonide/formoterol 160/4.5 2 puffs twice a day/home medication with albuterol/ipratropium aerosols every 6 hours with albuterol aerosols every 2 hours. Dyspnea Chest x-ray 06/20 revealed chronic scarring psych is secondary to undergoing tobaccoism GI: Hyperammonia End-stage liver disease on transplant list at [facility] patient Elevated total bilirubin History of hepatitis C - treated Hypoalbuminemia Xifaxan 550 twice a day, lactulose 30 cc 4 times a day. On 15 cc twice a day at home. Recheck ammonia level in a.m. Recheck liver function tests in a.m. Patient is currently nothing by mouth except for medications IV pantoprazole for GI prophylaxis. On omeprazole 40 mg daily home Patient paracentesis 06/17 with 6200 cc taken off. : Zaldivar catheter if indicated for accurate I's and O's in a critically ill patient Endo: Sliding-scale insulin if indicated to maintain euglycemia Follow-up on TSH was 1.04 Renal: Chronic kidney disease stage IV to 5 Continue sodium bicarbonate 650 mg by mouth twice a day/home medication Gentle hydration Monitor urine output Accurate I's and O's Follow-up on urine eosinophils electrolytes. Abdominal ultrasound ordered Heme: Leukopenia Macrocytic anemia Thrombocytopenia Elevated INR Monitor CBC and coags daily. Follow trends. ID: HIV HSV prophylaxis Continue valacyclovir 1 g daily - really just a 500 mg daily in light of GFR less than 29 Efavirenz 600 mg at night and Emtricitabine/tenofovir 200/25 one tablet daily to be continued/HIV medications Started on cefepime 2 g IV 1 followed by 1 g daily for possible SBP Follow-up of abdominal ultrasound. May need repeat paracentesis Pharmacy consult is renally adjust dose FEN: Hyperkalemia Calcium gluconate 1 g, insulin/D50 and Kayexalate. Recheck in 3 Hours MSK: PT evaluate and treat Continue calcium vitamin D once reconcile medications completed with vitamin D2 was well defer to a.m. team Access - Utilize peripheral IV. Central line if indicated Prophylaxis - GI - pantoprazole - DVT - SCD/holding pharmacological prophylaxis in light of elevated coags Level III admission Code Status Full code Discussed Condition With Dr. Sallie KUMAR physician. Patient. Care plan discussed all questions answered. Problem Qualifiers (1) Gastroesophageal reflux disease: Qualified Codes: K21.9 - Gastro-esophageal reflux disease without esophagitis (2) Esophageal varices: Qualified Codes: I85.00 - Esophageal varices without bleeding (3) Ascites: Qualified Codes: R18.8 - Other ascites (4) Hepatitis C: Qualified Codes: B19.21 - Unspecified viral hepatitis C with hepatic coma (5) GERD (gastroesophageal reflux disease): Qualified Codes: K21.9 - Gastro-esophageal reflux disease without esophagitis (6) Liver cirrhosis: Qualified Codes: K74.60 - Unspecified cirrhosis of liver Eulogio Arredondo MD Jun 20, 2017 18:40
[2017-06-20] MEDS ORDERED: SENNOSIDES 8.6 MG TAB PO PRN (18:45)
[2017-06-20] MEDS ORDERED: BISACODYL 10 MG SUPP RECTAL PRN (18:45)
[2017-06-20] MEDS ORDERED: LACTULOSE SYRUP 20 GM/30 ML CUP PO PRN (18:45)
[2017-06-20] MEDS ORDERED: ONDANSETRON HCL 4 MG/2 ML VIAL IV PUSH PRN (18:45)
[2017-06-20] MEDS ORDERED: RESP: ALBUTEROL 2.5 MG/3 ML NEB (PRN) INH (18:45)
[2017-06-20] MEDS ORDERED: MAGNESIUM HYDROXIDE SUSP 30 ML CUP PO PRN (18:45)
[2017-06-20] MEDS ORDERED: MISCELLANEOUS NURSING INFORMATION XX SCH (18:45)
[2017-06-20] MEDS ORDERED: CHLORHEXIDINE GLUCONATE 2 % 1 PACK (2 CLOTHS) TOP PRN (18:45)
[2017-06-20] MEDS ORDERED: SODIUM CHLORIDE 0.9% FLUSH 10 ML FLUSH IV FLUSH PRN (18:45)
[2017-06-20] MEDS ORDERED: CEFEPIME INJ 2,000 MG in SODIUM CHLORIDE 0.9% INJ 100 ML IV ONE (21:00)
[2017-06-20] MEDS: BUDESONIDE-FORMOTEROL 160/4.5 MCG INHALER INH SCH (21:00)
[2017-06-20] MEDS: RESP: ALBUTEROL 2.5 MG/IPRATROPIUM 0.5 MG NEB (SCH) INH (21:32)
[2017-06-20] MEDS: RIFAXIMIN 550 MG TAB PO SCH (22:35)
[2017-06-20] MEDS: DOCUSATE SODIUM 50 MG/SENNA 8.6 MG TAB PO SCH (22:35)
[2017-06-20] MEDS: LACTULOSE SYRUP 20 GM/30 ML CUP PO SCH (22:35)
[2017-06-20] MEDS: SODIUM CHLORIDE 0.9% FLUSH 10 ML FLUSH IV FLUSH SCH (22:35)
[2017-06-20] MEDS: SODIUM CHLOR 0.9% 1000 ML INJ 1,000 ML IV SCH (22:36)
--- NOTE | 2017-06-20 23:12 | RADRPT ---
EXAM DATE/TIME: 06/20/2017 22:10 [place] COMPARISON: No previous studies available for comparison. INDICATIONS : Liver failure. MEDICAL HISTORY : Hepatitis C. Arthritis. Cirrhosis. Ascites. GERD. Chronic kidney disease. Thrombocytopenia. HIV. Head trauma. Migraines. COPD. Asthma. SURGICAL HISTORY : Tonsillectomy. section. Tubal ligation. Adenoidectomy. Benign tumor removed from left neck. Paracentesis. Blood transfusions. ENCOUNTER: Subsequent ACUITY: > 1 year PAIN SCORE: 5/10 LOCATION: Abdomen. MEASUREMENTS: LIVER: 14.4 cm length COMMON DUCT: 7 mm RIGHT KIDNEY: 9.3 x 4.8 x 4.3 cm LEFT KIDNEY: 8.5 x 3.1 x 3.7 cm SPLEEN: 15.1 cm length AORTA: 2.1cm maximal FINDINGS: Significant bowel gas throughout the abdomen. Large abdominal wall varicosities LIVER: Liver is very heterogeneous and cirrhotic. There is diffuse ascites around the liver. COMMON DUCT: No intraluminal mass or stone visualized. GALLBLADDER: At least one large gallstone is noted. PANCREAS: The visualized portions are within normal limits. RIGHT KIDNEY: No hydronephrosis, stone or mass with some increased echogenicity to the cortex. LEFT KIDNEY: No hydronephrosis, stone or mass with some increased echogenicity to the cortex. SPLEEN: No focal lesion but it is quite enlarged measuring 15.1 cm. Extensive varicosities around the splenic hilum.. AORTA: Non aneurysmal. IVC: Within normal limits. CONCLUSION: Very cirrhotic appearing liver with extensive varices and ascites. The kidneys are echogenic and smal l. Sherman Lopez MD on June 20, 2017 at 23:09 Board Certified Radiologist. This report was verified electronically.
[2017-06-21] VITALS (12 sets, daily range): BP systolic 104–130; BP diastolic 51–76; PULSE 87–128; RESP 20–34; TEMP 94.2–98.6; O2SAT 91–95
[2017-06-21] MEDS: RESP: ALBUTEROL 2.5 MG/IPRATROPIUM 0.5 MG NEB (SCH) INH ×4 (03:38→20:17)
[2017-06-21] MEDS ORDERED: CHLORHEXIDINE GLUCONATE 2 % 1 PACK (2 CLOTHS) TOP SCH (04:00)
[2017-06-21] MEDS ORDERED: GLUCAGON 1 MG/ML VIAL OTHER PRN (04:45)
[2017-06-21] MEDS ORDERED: DEXTROSE 50% IN WATER 50 ML VIAL(D50) IV PUSH PRN (04:45)
[2017-06-21] MEDS: INSULIN NovoLIN REGULAR SUPPLEMENTAL SCALE SQ SCH ×3 (06:00→18:00)
[2017-06-21 06:50] LABS: AUTOMATED NEUTROPHIL # 1.4 TH/MM3 (1.8-7.7); BASOPHIL % 0.7 % (0.0-2.0); EOSINOPHIL % 0.9 % (0.0-4.0); HEMATOCRIT 24.2 % (35.0-46.0); LYMPH % 15.4 % (9.0-44.0); LYMPHOCYTE # 0.3 TH/MM3 (1.0-4.8); MEAN CELL VOLUME 103.6 FL (80.0-100.0); MEAN CORPUSCULAR HEMOGLOBIN 33.4 PG (27.0-34.0); MEAN CORPUSCULAR HGB CONC 32.2 % (32.0-36.0); MONO % 11.5 % (0.0-8.0); NEUT % 71.5 % (16.0-70.0); PLATELET COUNT 36 TH/MM3 (150-450); RED BLOOD COUNT 2.33 MIL/MM3 (4.00-5.30); RED CELL DISTRIBUTION WIDTH 19.7 % (11.6-17.2)
[2017-06-21 07:01] LABS: APTT (PATIENT) 37.4 SEC (24.3-30.1); INTERNATIONAL NORMALIZED RATIO 1.6 RATIO; PROTHROMBIN TIME - PATIENT 18.1 SEC (9.8-11.6)
[2017-06-21 07:02] LABS: HEMO FLAGS AUTO DIFF
[2017-06-21 07:37] LABS: ALKALINE PHOSPHATASE 123 U/L (45-117); ALT (GPT) 23 U/L (10-53); AMYLASE 38 U/L (25-115); ANION GAP 11 MEQ/L (5-15); AST (GOT) 21 U/L (15-37); BLOOD UREA NITROGEN 68 MG/DL (7-18); CHLORIDE 116 MEQ/L (98-107); FREE T4 1.21 NG/DL (0.76-1.46); GLOMERULAR FILTRATION RATE 14 ML/MIN (>89); INDIRECT BILIRUBIN 2.3 MG/DL (0.0-0.8); MAGNESIUM 2.1 MG/DL (1.5-2.5); POTASSIUM 4.6 MEQ/L (3.5-5.1); SODIUM (NA) 145 MEQ/L (136-145); TOTAL BILIRUBIN ADULT 3.4 MG/DL (0.2-1.0)
[2017-06-21 07:43] LABS: CREATINE KINASE 48 U/L (26-192)
[2017-06-21] MEDS: SODIUM CHLOR 0.9% 1000 ML INJ 1,000 ML IV SCH ×2 (08:55→21:16)
[2017-06-21 09:00] LABS: OVALOCYTES 1+ (NORMAL); PLATELET ESTIMATE SMEAR LOW (NORMAL); PLATELET MORPHOLOGY NORMAL (NORMAL); SCAN/DIFF AUTO DIFF CONFIRMED; TEARDROP RBCS 1+ (NORMAL)
[2017-06-21] MEDS ORDERED: valACYclovir HCL 500 MG TAB PO SCH (09:00)
[2017-06-21] MEDS: SODIUM CHLORIDE 0.9% FLUSH 10 ML FLUSH IV FLUSH SCH ×2 (09:00→21:08)
[2017-06-21] MEDS: LACTULOSE SYRUP 20 GM/30 ML CUP PO SCH ×3 (09:00→21:07)
[2017-06-21] MEDS: valACYclovir HCL 500 MG TAB PO SCH (09:48)
[2017-06-21] MEDS: RIFAXIMIN 550 MG TAB PO SCH ×2 (09:48→21:08)
[2017-06-21] MEDS: SODIUM BICARBONATE 650 MG TAB PO SCH ×2 (09:48→18:24)
[2017-06-21] MEDS: PANTOPRAZOLE SODIUM 40 MG VIAL IV PUSH SCH (09:48)
[2017-06-21] MEDS: DOCUSATE SODIUM 50 MG/SENNA 8.6 MG TAB PO SCH ×2 (09:49→21:08)
[2017-06-21] MEDS ORDERED: MIDO2.5T PO (11:27)
[2017-06-21] MEDS ORDERED: PHYTONADIONE 5 MG TAB PO ONE (12:00)
--- NOTE | 2017-06-21 14:20 | EKG ---
Date Performed: 06/20/2017 Time Performed: 17:57:55 PTAGE: 47 years EKG: Sinus rhythm WITH SHORT MS INTERVAL BORDERLINE ECG NO PREVIOUS TRACING DOCTOR: Kurtis Suazo Interpretating Date/Time 06/21/2017 14:13:54
--- NOTE | 2017-06-21 17:24 | HHI.CCPN ---
Subjective Remarks/Hospital Course 06/20: This is a 47-year-old female. Date of admission 06/20/2017. Past medical history includes HIV, hepatitis C since treated, chronic kidney disease stage IV to 5, end-stage liver disease on transplant list at [facility] according to patient, gastroesophageal reflux disease and esophageal varices. Patient was not seen for several days and was found by EMS with open pill bottles that on the floor. Due to altered mental status patient was transferred to [facility]. She was oriented to person only. Arousable but falls asleep easily. Moves all 4 extremity spontaneously. In the ED, CT brain revealed no acute intracranial findings. Chest x-ray revealed chronic findings on was unremarkable. Blood gases currently pending. Ammonia levels elevated 120. Patient is currently on Xifaxan and lactulose at home. Unknown compliance. Creatinine elevated 3.8. Baseline around 3.2. Bili was elevated LFT is essentially normal. We are asked to admit due to acute encephalopathy likely secondary to hyperammonia. 06/21: Awake and alert, following commands. Appears comfortable on nasal cannula. Tells me that she gets weekly paracentesis. Objective Vital Signs Date Time Temp Pulse Resp B/P (MAP) Pulse Ox O2 Delivery O2 Flow Rate FiO2 06/21/17 07:42 95 Nasal Cannula 4.00 06/21/17 06:00 93 06/21/17 04:00 98.4 20 112/56 (74) Intake and Output 06/21/17 06/21/17 06/22/17 08:00 16:00 00:00 Output Total 525 ml Balance -525 ml Result Diagram: 06/21/17 0619 06/21/17618 Imaging Last Impressions Head CT 06/20/17 1540 Signed Impressions: Service Date/Time: Tuesday, June 20, 2017 16:42 - CONCLUSION: Negative for an acute process. Dwight Tellez MD FACR Chest X-Ray 06/20/17 1540 Signed Impressions: Service Date/Time: Tuesday, June 20, 2017 15:47 - CONCLUSION: Chronic appearing interstitial changes. Stable compared to the previous. Kevin Tellez MD Objective Remarks GENERAL: 47-year-old female, resting in bed in no acute distress SKIN: Warm and dry. Chronic venous stasis bilateral lower extremities HEAD: Atraumatic. Normocephalic. EYES: Pupils equal and round about 2 mm and reactive. + scleral icterus. No injection or drainage. ENT: No nasal bleeding or discharge. Mucous membranes pink and moist. NECK: Trachea midline. No JVD. CARDIOVASCULAR: Regular rate and rhythm. S1, S2 no S4. Without murmur RESPIRATORY: Minutes breath sounds. Positive end expiratory wheeze.. Breath sounds equal bilaterally. GASTROINTESTINAL: Abdomen soft, protuberant. Slightly tender to deep palpation all 4 quadrants. MUSCULOSKELETAL: Extremities with trace lower extremity. NEUROLOGICAL: Awake alert oriented 3. No obvious cranial nerve defects. Motor grossly within normal limits. Five out of 5 muscle strength in the arms and legs. A/P Assessment and Plan Neuro/Psych: Acute encephalopathy toxic metabolic secondary to elevated ammonia CT brain 06/20 revealed no acute intracranial findings Ammonia level is 128 - See GI. Holding hydroxyzine 25 mg daily with altered mental status. Resume when clinically indicated CV: History of heart murmur Follow-up on echocardiogram Patient is currently on no antihypertensives. Are normal saline at 84 cc an hour while nothing by mouth except meds Resp: Prior tobaccoism COPD Nasal cannula to maintain saturations greater than equal to 90% Incentive spirometry while awake Continue budesonide/formoterol 160/4.5 2 puffs twice a day/home medication with albuterol/ipratropium aerosols every 6 hours with albuterol aerosols every 2 hours. Dyspnea Chest x-ray 06/20 revealed chronic scarring psych is secondary to undergoing tobaccoism GI: Hyperammonia End-stage liver disease on transplant list at [facility] patient Elevated total bilirubin History of hepatitis C - treated Hypoalbuminemia Xifaxan 550 twice a day, lactulose 30 cc 4 times a day. On 15 cc twice a day at home. Recheck ammonia level in a.m. Recheck liver function tests in a.m. Patient is currently nothing by mouth except for medications IV pantoprazole for GI prophylaxis. On omeprazole 40 mg daily home Patient paracentesis 06/17 with 6200 cc taken off. Is scheduled for paracentesis for 06/23 as outpatient with IR. : Zaldivar catheter if indicated for accurate I's and O's in a critically ill patient Endo: Sliding-scale insulin if indicated to maintain euglycemia Follow-up on TSH was 1.04 Renal: Chronic kidney disease stage IV to 5 Continue sodium bicarbonate 650 mg by mouth twice a day/home medication Gentle hydration Monitor urine output Accurate I's and O's Follow-up on urine eosinophils electrolytes. Abdominal ultrasound ordered Heme: Leukopenia Macrocytic anemia Thrombocytopenia Elevated INR Monitor CBC and coags daily. Follow trends. ID: HIV HSV prophylaxis Continue valacyclovir 1 g daily - really just a 500 mg daily in light of GFR less than 29 Efavirenz 600 mg at night and Emtricitabine/tenofovir 200/25 one tablet daily to be continued/HIV medications Started on cefepime 2 g IV 1 followed by 1 g daily for possible SBP Follow-up of abdominal ultrasound. May need repeat paracentesis Pharmacy consult is renally adjust dose FEN: Hyperkalemia-resolved Given Calcium gluconate 1 g, insulin/D50 and Kayexalate on 06/20 MSK: PT evaluate and treat Continue calcium vitamin D once reconcile medications completed with vitamin D2 was well defer to a.m. team Access - Utilize peripheral IV. Central line if indicated Prophylaxis - GI - pantoprazole - DVT - SCD/holding pharmacological prophylaxis in light of elevated coags Consult palliative care to assist with deciding goals of therapy. Long-term prognosis extremely poor. Transfer to hospitalist service for further medical management. Joe Herbert MD Jun 21, 2017 17:24
[2017-06-21] MEDS ORDERED: PHYTONADIONE 5 MG/SWFI 5 ML ORAL SYR PO ONE (18:00)
[2017-06-21] MEDS ORDERED: CEFEPIME INJ 1,000 MG in SODIUM CHLORIDE 0.9% INJ 100 ML IV SCH (21:00)
[2017-06-21] MEDS: BUDESONIDE-FORMOTEROL 160/4.5 MCG INHALER INH SCH (21:16)
[2017-06-22] VITALS: BP 132/63; PULSE 125; RESP 24; TEMP 98.1; O2SAT 92
[2017-06-22] MEDS: RESP: ALBUTEROL 2.5 MG/IPRATROPIUM 0.5 MG NEB (SCH) INH ×2 (03:13→10:00)
[2017-06-22 04:00] VITALS: BP 119/60; PULSE 109; RESP 24; TEMP 98.3; O2SAT 94
[2017-06-22] MEDS: INSULIN NovoLIN REGULAR SUPPLEMENTAL SCALE SQ SCH ×3 (06:00→12:00)
[2017-06-22] MEDS: valACYclovir HCL 500 MG TAB PO SCH (08:21)
[2017-06-22] MEDS: SODIUM BICARBONATE 650 MG TAB PO SCH (08:21)
[2017-06-22] MEDS: PANTOPRAZOLE SODIUM 40 MG VIAL IV PUSH SCH (08:22)
[2017-06-22] MEDS: RIFAXIMIN 550 MG TAB PO SCH (08:23)
[2017-06-22] MEDS: LACTULOSE SYRUP 20 GM/30 ML CUP PO SCH ×2 (08:23→13:00)
[2017-06-22] MEDS: SODIUM CHLORIDE 0.9% FLUSH 10 ML FLUSH IV FLUSH SCH (08:23)
[2017-06-22] MEDS: DOCUSATE SODIUM 50 MG/SENNA 8.6 MG TAB PO SCH (08:23)
[2017-06-22 08:57] LABS: AUTOMATED NEUTROPHIL # 3.3 TH/MM3 (1.8-7.7); BASOPHIL % 0.5 % (0.0-2.0); EOSINOPHIL % 0.8 % (0.0-4.0); HEMATOCRIT 24.9 % (35.0-46.0); LYMPH % 7.7 % (9.0-44.0); LYMPHOCYTE # 0.3 TH/MM3 (1.0-4.8); MEAN CELL VOLUME 104.4 FL (80.0-100.0); MEAN CORPUSCULAR HEMOGLOBIN 33.3 PG (27.0-34.0); MEAN CORPUSCULAR HGB CONC 31.9 % (32.0-36.0); PLATELET COUNT 41 TH/MM3 (150-450); RED BLOOD COUNT 2.38 MIL/MM3 (4.00-5.30); RED CELL DISTRIBUTION WIDTH 19.8 % (11.6-17.2); WHITE BLOOD COUNT 4.3 TH/MM3 (4.0-11.0)
[2017-06-22 09:00] LABS: INTERNATIONAL NORMALIZED RATIO 1.5 RATIO; PROTHROMBIN TIME - PATIENT 17.3 SEC (9.8-11.6)
[2017-06-22] MEDS: BUDESONIDE-FORMOTEROL 160/4.5 MCG INHALER INH SCH (09:00)
[2017-06-22 09:04] LABS: HEMO FLAGS AUTO DIFF
[2017-06-22 09:25] LABS: ALKALINE PHOSPHATASE 132 U/L (45-117); ALT (GPT) 22 U/L (10-53); ANION GAP 14 MEQ/L (5-15); AST (GOT) 19 U/L (15-37); BICARBONATE 14.2 MEQ/L (21.0-32.0); BLOOD UREA NITROGEN 64 MG/DL (7-18); CHLORIDE 113 MEQ/L (98-107); GLOMERULAR FILTRATION RATE 15 ML/MIN (>89); POTASSIUM 3.1 MEQ/L (3.5-5.1); SODIUM (NA) 141 MEQ/L (136-145); TOTAL BILIRUBIN ADULT 2.8 MG/DL (0.2-1.0)
--- NOTE | 2017-06-22 09:25 | HHI.DS ---
Discharge Summary Admission Date Jun 20, 2017 at 18:11 Discharge Date: Jun 22, 2017 Admitting Diagnosis hepatic encephalopathy (1) Hyperkalemia ICD Code: E87.5 - Hyperkalemia Diagnosis: Principal (2) Gastroesophageal reflux disease ICD Code: K21.9 - Gastro-esophageal reflux disease without esophagitis Diagnosis: Secondary (3) Esophageal varices ICD Code: I85.00 - Esophageal varices without bleeding Diagnosis: Secondary (4) Hyperammonemia ICD Code: E72.20 - Disorder of urea cycle metabolism, unspecified Diagnosis: Principal (5) Macrocytic anemia ICD Code: D53.9 - Nutritional anemia, unspecified Diagnosis: Principal (6) Ascites ICD Code: R18.8 - Other ascites Diagnosis: Secondary Status: Acute (7) Hepatitis C ICD Code: B19.20 - Hepatitis C Diagnosis: Principal Status: Chronic (8) Chronic kidney disease (CKD) stage G4/A1, severely decreased glomerular filtration rate (GFR) between 15-29 mL/min/1.73 square meter and albuminuria creatinine ratio less than 30 mg/g ICD Code: N18.4 - Chronic kidney disease, stage 4 (severe) Diagnosis: Principal Status: Chronic (9) HIV (human immunodeficiency virus infection) ICD Code: Z21 - HIV (human immunodeficiency virus infection) Diagnosis: Principal Status: Chronic (10) GERD (gastroesophageal reflux disease) ICD Code: K21.9 - GERD (gastroesophageal reflux disease) Diagnosis: Secondary Status: Chronic (11) Thrombocytopenia ICD Code: D69.6 - Thrombocytopenia Diagnosis: Principal Status: Acute (12) Liver cirrhosis ICD Code: K74.60 - Unspecified cirrhosis of liver Diagnosis: Secondary Status: Acute Procedures none Brief History - From Admission This is a 47-year-old female. Date of admission 06/20/2017. Past medical history includes HIV, hepatitis C since treated, chronic kidney disease stage IV to 5, end-stage liver disease on transplant list at [facility] according to patient, gastroesophageal reflux disease and esophageal varices. Patient was not seen for several days and was found by EMS with open pill bottles that on the floor. Due to altered mental status patient was transferred to [facility]. She was oriented to person only. Arousable but falls asleep easily. Moves all 4 extremity spontaneously.. In the ED, CT brain revealed no acute intracranial findings. Chest x-ray revealed chronic findings on was unremarkable. Blood gases currently pending. Ammonia levels elevated 120. Patient is currently on Xifaxan and lactulose at home. Unknown compliance. I'll: Less than 3. Urine toxicology screen pending. Creatinine elevated 3.8. Baseline around 3.2. Bili was elevated LFT is essentially normal. We are asked to admit due to acute encephalopathy likely secondary to hyperammonia. CBC/BMP: 06/22/17 0802 06/21/17 0619 Significant Findings Laboratory Tests Test 06/20/17 16:00 06/20/17 16:15 06/20/17 17:33 06/20/17 19:50 Urine Bacteria RARE /hpf (NONE) Urine Mucus FEW /lpf (OCC) White Blood Count 2.6 TH/MM3 (4.0-11.0) Red Blood Count 2.47 MIL/MM3 (4.00-5.30) Hemoglobin 8.2 GM/DL (11.6-15.3) Hematocrit 25.5 % (35.0-46.0) Mean Corpuscular Volume 103.3 FL (80.0-100.0) Red Cell Distribution Width 19.9 % (11.6-17.2) Platelet Count 46 TH/MM3 (150-450) Mean Platelet Volume 11.2 FL (7.0-11.0) Neutrophils (%) (Auto) 75.1 % (16.0-70.0) Monocytes (%) (Auto) 10.0 % (0.0-8.0) Lymphocytes # (Auto) 0.4 TH/MM3 (1.0-4.8) Platelet Estimate LOW (NORMAL) Tear Drop Cells 1+ (NORMAL) Ovalocytes 1+ (NORMAL) Prothrombin Time 17.6 SEC (9.8-11.6) Activated Partial Thromboplast Time 32.5 SEC (24.3-30.1) Blood Urea Nitrogen 73 MG/DL (7-18) Creatinine 3.85 MG/DL (0.50-1.00) Total Protein 5.3 GM/DL (6.4-8.2) Albumin 3.0 GM/DL (3.4-5.0) Alkaline Phosphatase 133 U/L (45-117) Total Bilirubin 2.8 MG/DL (0.2-1.0) Potassium Level 5.4 MEQ/L (3.5-5.1) Chloride Level 110 MEQ/L (98-107) Carbon Dioxide Level 19.2 MEQ/L (21.0-32.0) Estimat Glomerular Filtration Rate 12 ML/MIN (>89) Lactic Acid Level 2.3 mmol/L (0.4-2.0) Troponin I LESS THAN 0.02 NG/ML Ammonia 128 MCMOL/L (11-32) Test 06/21/17 06:18 06/21/17 06:19 06/21/17 07:51 06/22/17 08:02 White Blood Count 2.0 TH/MM3 (4.0-11.0) Red Blood Count 2.33 MIL/MM3 (4.00-5.30) 2.38 MIL/MM3 (4.00-5.30) Hemoglobin 7.8 GM/DL (11.6-15.3) 7.9 GM/DL (11.6-15.3) Hematocrit 24.2 % (35.0-46.0) 24.9 % (35.0-46.0) Mean Corpuscular Volume 103.6 FL (80.0-100.0) 104.4 FL (80.0-100.0) Red Cell Distribution Width 19.7 % (11.6-17.2) 19.8 % (11.6-17.2) Platelet Count 36 TH/MM3 (150-450) 41 TH/MM3 (150-450) Neutrophils (%) (Auto) 71.5 % (16.0-70.0) 77.0 % (16.0-70.0) Monocytes (%) (Auto) 11.5 % (0.0-8.0) 14.0 % (0.0-8.0) Neutrophils # (Auto) 1.4 TH/MM3 (1.8-7.7) Lymphocytes # (Auto) 0.3 TH/MM3 (1.0-4.8) 0.3 TH/MM3 (1.0-4.8) Platelet Estimate LOW (NORMAL) Tear Drop Cells 1+ (NORMAL) Ovalocytes 1+ (NORMAL) Prothrombin Time 18.1 SEC (9.8-11.6) 17.3 SEC (9.8-11.6) Activated Partial Thromboplast Time 37.4 SEC (24.3-30.1) Fibrinogen 124 mg/dL (227-377) Blood Urea Nitrogen 68 MG/DL (7-18) Creatinine 3.39 MG/DL (0.50-1.00) Total Protein 4.7 GM/DL (6.4-8.2) Albumin 2.8 GM/DL (3.4-5.0) Calcium Level 8.4 MG/DL (8.5-10.1) Alkaline Phosphatase 123 U/L (45-117) Total Bilirubin 3.4 MG/DL (0.2-1.0) Direct Bilirubin 1.1 MG/DL (0.0-0.2) Chloride Level 116 MEQ/L (98-107) Carbon Dioxide Level 18.0 MEQ/L (21.0-32.0) Estimat Glomerular Filtration Rate 14 ML/MIN (>89) Indirect Bilirubin 2.3 MG/DL (0.0-0.8) Ammonia 91 MCMOL/L (11-32) Troponin I LESS THAN 0.02 NG/ML Mean Corpuscular Hemoglobin Concent 31.9 % (32.0-36.0) Lymphocytes (%) (Auto) 7.7 % (9.0-44.0) Imaging Last Impressions Cyst Biopsy Asp-Paracentesis US 06/22/17 0600 Signed Impressions: Service Date/Time: Thursday, June 22, 2017 10:00 - CONCLUSION: Uncomplicated ultrasound guided paracentesis. Junior Desai Jr., MD Head CT 06/20/17 1540 Signed Impressions: Service Date/Time: Tuesday, June 20, 2017 16:42 - CONCLUSION: Negative for an acute process. Dwight Tellez MD FACR Chest X-Ray 06/20/17 1540 Signed Impressions: Service Date/Time: Tuesday, June 20, 2017 15:47 - CONCLUSION: Chronic appearing interstitial changes. Stable compared to the previous. Kevin Tellez MD Abdomen Ultrasound 06/20/17 0000 Signed Impressions: Service Date/Time: Tuesday, June 20, 2017 22:10 - CONCLUSION: Very cirrhotic appearing liver with extensive varices and ascites. The kidneys are echogenic and small. Sherman Lopez MD PE at Discharge GENERAL: 47-year-old female, resting in bed in no acute distress SKIN: Warm and dry. Chronic venous stasis bilateral lower extremities HEAD: Atraumatic. Normocephalic. EYES: Pupils equal and round about 2 mm and reactive. + scleral icterus. No injection or drainage. ENT: No nasal bleeding or discharge. Mucous membranes pink and moist. NECK: Trachea midline. No JVD. CARDIOVASCULAR: Regular rate and rhythm. S1, S2 no S4. Without murmur RESPIRATORY: Minutes breath sounds. Positive end expiratory wheeze.. Breath sounds equal bilaterally. GASTROINTESTINAL: Abdomen soft, protuberant. Slightly tender to deep palpation all 4 quadrants. MUSCULOSKELETAL: Extremities with trace lower extremity. NEUROLOGICAL: Awake and alert person only. No obvious cranial nerve defects. Motor grossly within normal limits. Five out of 5 muscle strength in the arms and legs. Slurred speech. PSYCHIATRIC: Infused Hospital Course Neuro/Psych: Acute encephalopathy toxic metabolic secondary to elevated ammonia CT brain 06/20 revealed no acute intracranial findings Ammonia level is 128 - See GI. Holding hydroxyzine 25 mg daily with altered mental status. Resume when clinically indicated CV: History of heart murmur Follow-up on echocardiogram Patient is currently on no antihypertensives. Are normal saline at 84 cc an hour while nothing by mouth except meds Resp: Prior tobaccoism COPD Nasal cannula to maintain saturations greater than equal to 90% Incentive spirometry while awake Continue budesonide/formoterol 160/4.5 2 puffs twice a day/home medication with albuterol/ipratropium aerosols every 6 hours with albuterol aerosols every 2 hours. Dyspnea Chest x-ray 06/20 revealed chronic scarring psych is secondary to undergoing tobaccoism GI: Hyperammonia End-stage liver disease on transplant list at [facility] patient Elevated total bilirubin History of hepatitis C - treated Hypoalbuminemia Xifaxan 550 twice a day, lactulose 30 cc 4 times a day. On 15 cc twice a day at home. Recheck ammonia level in a.m. Recheck liver function tests in a.m. Patient is currently nothing by mouth except for medications IV pantoprazole for GI prophylaxis. On omeprazole 40 mg daily home Patient paracentesis 06/17 with 6200 cc taken off. : Zaldivar catheter if indicated for accurate I's and O's in a critically ill patient Endo: Sliding-scale insulin if indicated to maintain euglycemia Follow-up on TSH was 1.04 Renal: Chronic kidney disease stage IV to 5 Continue sodium bicarbonate 650 mg by mouth twice a day/home medication Gentle hydration Monitor urine output Accurate I's and O's Follow-up on urine eosinophils electrolytes. Abdominal ultrasound ordered Heme: Leukopenia Macrocytic anemia Thrombocytopenia Elevated INR Monitor CBC and coags daily. Follow trends. ID: HIV HSV prophylaxis Continue valacyclovir 1 g daily - really just a 500 mg daily in light of GFR less than 29 Efavirenz 600 mg at night and Emtricitabine/tenofovir 200/25 one tablet daily to be continued/HIV medications Started on cefepime 2 g IV 1 followed by 1 g daily for possible SBP Follow-up of abdominal ultrasound. May need repeat paracentesis Pharmacy consult is renally adjust dose FEN: Hyperkalemia Calcium gluconate 1 g, insulin/D50 and Kayexalate. Recheck in 3 Hours MSK: PT evaluate and treat Continue calcium vitamin D once reconcile medications completed with vitamin D2 was well defer to a.m. team Access - Utilize peripheral IV. Central line if indicated Prophylaxis - GI - pantoprazole - DVT - SCD/holding pharmacological prophylaxis in light of elevated coags Level III admission Code Status Full code Discussed Condition With Patient. Care plan discussed all questions answered. Discussed with the patient's PCP Dr. Jurado recommends hospice evaluation [facility]. Patient will have plurodex first and plans to go under hospice care aftre pleurodex placement in about a week. Patient had recent paracentesis and she can;t have pleurodex at this time, she can have pleurodex in about a week. To follow up as OP with her PCP and consultants. Pt Condition on Discharge: Deteriorating Discharge Disposition: Hospice/ Home Discharge Time: > 30 minutes Discharge Instructions DIET: Follow Instructions for: Heart Healthy Diet Activities you can perform: Regular-No Restrictions Follow up Referrals: PCP Follow-up - 2-3 Days Continued Medications: Budesonide-Formoterol Inh (Symbicort Inh) 160-4.5 Mcg/Act Aero 1 PUFF INH Q12HR for COPD, #1 INHALER Calcium Carbonate-Cholecalciferol (Calcium 600 with Vitamin D) 600-400 mg-Unit Tab 1 TAB PO BID for Calcium Supplement, TAB 0 Refills Ciprofloxacin (Ciprofloxacin) 750 Mg Tab 750 MG PO MONTHLY for Infection, TAB 0 Refills PRIOR TO PARACENTESIS Efavirenz (Sustiva) 600 Mg Tab 600 MG PO HS for Mgmt Viral Infection, #30 TAB 0 Refills Emtricitabine-Tenofovir Alafenamide (Descovy) 200-25 mg Tab 1 TAB PO DAILY for Mgmt Viral Infection, #30 TAB 0 Refills Ergocalciferol (Vitamin D2) (Vitamin D) 400 Unit Tablet 50242 PO WEEKLY ONE TIME PER WEEK X6 WEEKS THEN DECREASE TO EVERY OTHER WEEK Hydroxyzine HCl (Hydroxyzine HCl) 25 Mg Tab 25 MG PO DAILY, TAB 0 Refills Lactulose Liq (Lactulose Liq) 10 Gm/15 Ml Soln 15 ML PO BID, ML 0 Refills Loperamide HCl/Simethicone (Imodium Multi-Symptom Rel Cplt) 2 Mg-125 Mg Tablet Midodrine (Midodrine) 2.5 Mg Tab 2.5 MG PO DAILY for Blood Pressure Management, TAB 0 Refills Omeprazole (Omeprazole) 40 Mg Cap 40 MG PO DAILY, #30 CAP 0 Refills Tuesday BEFORE MEALS Ondansetron (Zofran) 8 Mg Tab 8 MG PO TID for Nausea/Vomiting, TAB 0 Refills Rifaximin (Xifaxan) 550 Mg Tab 550 MG PO Q12HR for Hepatic encephalopathy, #60 TAB 0 Refills Sodium Bicarbonate (Sodium Bicarbonate) 650 Mg Tab 650 MG PO BIDPC, #60 TAB 0 Refills Valacyclovir (Valacyclovir) 1 Gm Tab 1000 MG PO DAILY for Mgmt Viral Infection, #30 TAB 0 Refills Babita Sandhu MD Jun 22, 2017 09:25
[2017-06-22 09:54] VITALS: BP 100/66; PULSE 110; RESP 22; TEMP 98.9; O2SAT 92
[2017-06-22 10:13] LABS: OVALOCYTES 1+ (NORMAL); SCAN/DIFF AUTO DIFF CONFIRMED; TEARDROP RBCS 1+ (NORMAL)
[2017-06-22 11:22] VITALS: BP 88/55; PULSE 95; RESP 20; TEMP 98; O2SAT 96
--- NOTE | 2017-06-22 11:28 | RADRPT ---
EXAM DATE/TIME: 06/22/2017 10:00 [facility] COMPARISON: US GUIDED ABD PARACENTESIS, June 17, 2017, 8:29. INDICATIONS : Ascites. MEDICAL HISTORY : Hepatitis C. Arthritis. Cirrhosis. Ascites. GERD. Chronic kidney disease. Thrombocytopenia. HIV. Head trauma. Migraines. COPD. Asthma. SURGICAL HISTORY : Tonsillectomy. section. Tubal ligation. Adenoidectomy. Benign tumor removed from left neck. Paracentesis. Blood transfusions. ENCOUNTER: Sequela ACUITY: 1 week PAIN SCORE: 8/10 LOCATION: Right lower quadrant FLUID: Total volume of 5,650 cc of clear, yellow fluid was removed. Fluid was sent to lab for ordered studies. Post procedure scanning reveals no hematoma or other complication. TECHNIQUE: 1. Ultrasound guidance for abdominal paracentesis. 2. Paracentesis. The risks, benefits, and alternatives to ultrasound guided paracentesis were explained to the patient in detail including the risk of bleeding and infection. Written and verbal informed consent was obt ained. With the patient on the ultrasound table, ultrasound imaging was used to select the most appropriate approach for paracentesis. Overlying skin was prepped and draped in the usual sterile fashion and wi th a local anesthetic, a dermatotomy was made with an 11 blade scalpel. A 6 Italian [id number] ca theter was introduced into the peritoneal cavity and fluid was collected. The patient tolerated the procedure well and left the ultrasound suite in stable condition. CONCLUSION: Uncomplicated ultrasound guided paracentesis. Junior Desai Jr., MD on June 22, 2017 at 11:26 Board Certified Radiologist. This report was verified electronically.
[2017-06-22 11:30] VITALS: BP 94/53; PULSE 105; RESP 20; TEMP 98.3; O2SAT 94
[2017-06-22] MEDS ORDERED: ALBUMIN HUMAN 25% 12.5GM-W/25GM FOR 37.5GM IV ONE (12:00)
[2017-06-22] MEDS ORDERED: ALBUMIN HUMAN 25% 25GM-W/12.5GM FOR 37.5GM IV ONE (12:00)
[2017-06-22] MEDS ORDERED: BENZOCAINE 20% TOPICAL SPRAY 60 ML CAN TOPICAL ONE (12:14)
[2017-06-22 12:34] LABS: PERITONEAL HISTIOCYTES 14 %; PERITONEAL LYMPHS 35 %; PERITONEAL MESOTHELIAL 20 %; PERITONEAL MONOS 24 %; PERITONEAL POLYS(SEGS) 7 %
[2017-06-22 12:35] LABS: PERITONEAL WBC 69 /MM3 (0-10)
--- NOTE | 2017-06-22 15:43 | HHI.FF ---
Face to Face Verification Diagnosis: (1) COPD (chronic obstructive pulmonary disease) (2) Hyperkalemia (3) Macrocytic anemia (4) Cirrhosis of liver (5) Hyperammonemia (6) Encephalopathy acute (7) Chronic kidney disease (CKD) stage G4/A1, severely decreased glomerular filtration rate (GFR) between 15-29 mL/min/1.73 square meter and albuminuria creatinine ratio less than 30 mg/g Home Health Nursing Order: Medical education Signs/symptoms of disease process Medication education-adverse effect Nursing assessment with vital signs I have seen patient Glenna Craig on 06/22/17. My clinical findings support the need for the requested home health care services because: Ltd mobility - disease progression Patient has SOB I certify that my clinical findings support that this patient is homebound because: Post-op weakness Babita Sandhu MD Jun 22, 2017 15:43
[2017-06-22] MEDS ORDERED: POTASSIUM CHLORIDE 25 MEQ EFFERVESCENT TAB PO ONE (15:45)
[2017-06-22] MEDS ORDERED: POTASSIUM CHLORIDE 10 MEQ CONTROLLED RELEASE TAB PO ONE (15:45)
--- NOTE | 2017-06-22 16:05 | HHI.PR ---
Subjective Remarks At the margin. She is satting lower abdominal pain at this time. Denies chest pain, shortness of breath. No nausea, vomiting, diarrhea or constipation Objective Vitals Vital Signs Date Time Temp Pulse Resp B/P (MAP) Pulse Ox O2 Delivery O2 Flow Rate FiO2 06/22/17 11:30 98.3 105 20 94/53 (67) 94 06/22/17 11:22 98.0 95 20 88/55 (66) 96 06/22/17 09:54 98.9 110 22 100/66 (77) 92 06/22/17 04:00 98.3 109 24 119/60 (79) 94 06/22/17 00:00 98.1 125 24 132/63 (86) 92 06/21/17 20:17 95 Nasal Cannula 4.00 06/21/17 18:00 128 I/O 06/21/17 06/21/17 06/21/17 06/22/17 06/22/17 06/22/17 07:00 15:00 23:00 07:00 15:00 23:00 Output Total 525 ml 500 ml Balance -525 ml -500 ml Output Urine Total 525 ml 500 ml # Voids 2 3 # Bowel Movements 2 4 Result Diagram: 06/22/17 0802 06/22/17 0802 Imaging Last Impressions Cyst Biopsy Asp-Paracentesis US 06/22/17 0600 Signed Impressions: Service Date/Time: Thursday, June 22, 2017 10:00 - CONCLUSION: Uncomplicated ultrasound guided paracentesis. Junior Desai Jr., MD Head CT 06/20/17 1540 Signed Impressions: Service Date/Time: Tuesday, June 20, 2017 16:42 - CONCLUSION: Negative for an acute process. Dwight Tellez MD FACR Chest X-Ray 06/20/17 1540 Signed Impressions: Service Date/Time: Tuesday, June 20, 2017 15:47 - CONCLUSION: Chronic appearing interstitial changes. Stable compared to the previous. Kevin Tellez MD Abdomen Ultrasound 06/20/17 0000 Signed Impressions: Service Date/Time: Tuesday, June 20, 2017 22:10 - CONCLUSION: Very cirrhotic appearing liver with extensive varices and ascites. The kidneys are echogenic and small. Sherman Lopez MD Objective Remarks GENERAL: 47-year-old female, resting in bed in no acute distress SKIN: Warm and dry. Chronic venous stasis bilateral lower extremities HEAD: Atraumatic. Normocephalic. EYES: Pupils equal and round about 2 mm and reactive. + scleral icterus. No injection or drainage. ENT: No nasal bleeding or discharge. Mucous membranes pink and moist. NECK: Trachea midline. No JVD. CARDIOVASCULAR: Regular rate and rhythm. S1, S2 no S4. Without murmur RESPIRATORY: Minutes breath sounds. Positive end expiratory wheeze.. Breath sounds equal bilaterally. GASTROINTESTINAL: Abdomen soft, protuberant. Slightly tender to deep palpation all 4 quadrants. MUSCULOSKELETAL: Extremities with trace lower extremity. NEUROLOGICAL: Awake and alert person only. No obvious cranial nerve defects. Motor grossly within normal limits. Five out of 5 muscle strength in the arms and legs. Slurred speech. PSYCHIATRIC: Infused Procedures none A/P Problem List: (1) Hyperkalemia ICD Code: E87.5 - Hyperkalemia (2) Gastroesophageal reflux disease ICD Code: K21.9 - Gastro-esophageal reflux disease without esophagitis (3) Esophageal varices ICD Code: I85.00 - Esophageal varices without bleeding (4) Hyperammonemia ICD Code: E72.20 - Disorder of urea cycle metabolism, unspecified (5) Macrocytic anemia ICD Code: D53.9 - Nutritional anemia, unspecified (6) Ascites ICD Code: R18.8 - Other ascites Status: Acute (7) Hepatitis C ICD Code: B19.20 - Hepatitis C Status: Chronic (8) Chronic kidney disease (CKD) stage G4/A1, severely decreased glomerular filtration rate (GFR) between 15-29 mL/min/1.73 square meter and albuminuria creatinine ratio less than 30 mg/g ICD Code: N18.4 - Chronic kidney disease, stage 4 (severe) Status: Chronic (9) HIV (human immunodeficiency virus infection) ICD Code: Z21 - HIV (human immunodeficiency virus infection) Status: Chronic (10) GERD (gastroesophageal reflux disease) ICD Code: K21.9 - GERD (gastroesophageal reflux disease) Status: Chronic (11) Thrombocytopenia ICD Code: D69.6 - Thrombocytopenia Status: Acute (12) Liver cirrhosis ICD Code: K74.60 - Unspecified cirrhosis of liver Status: Acute Assessment and Plan Neuro/Psych: Acute encephalopathy toxic metabolic secondary to elevated ammonia CT brain 06/20 revealed no acute intracranial findings Ammonia level is 128 - See GI. Holding hydroxyzine 25 mg daily with altered mental status. Resume when clinically indicated CV: History of heart murmur Follow-up on echocardiogram Patient is currently on no antihypertensives. Are normal saline at 84 cc an hour while nothing by mouth except meds Resp: Prior tobaccoism COPD Nasal cannula to maintain saturations greater than equal to 90% Incentive spirometry while awake Continue budesonide/formoterol 160/4.5 2 puffs twice a day/home medication with albuterol/ipratropium aerosols every 6 hours with albuterol aerosols every 2 hours. Dyspnea Chest x-ray 06/20 revealed chronic scarring psych is secondary to undergoing tobaccoism GI: Hyperammonia End-stage liver disease on transplant list at [facility] patient Elevated total bilirubin History of hepatitis C - treated Hypoalbuminemia Xifaxan 550 twice a day, lactulose 30 cc 4 times a day. On 15 cc twice a day at home. Recheck ammonia level in a.m. Recheck liver function tests in a.m. Patient is currently nothing by mouth except for medications IV pantoprazole for GI prophylaxis. On omeprazole 40 mg daily home Patient paracentesis 06/17 with 6200 cc taken off. : Zaldivar catheter if indicated for accurate I's and O's in a critically ill patient Endo: Sliding-scale insulin if indicated to maintain euglycemia Follow-up on TSH was 1.04 Renal: Chronic kidney disease stage IV to 5 Continue sodium bicarbonate 650 mg by mouth twice a day/home medication Gentle hydration Monitor urine output Accurate I's and O's Follow-up on urine eosinophils electrolytes. Abdominal ultrasound ordered Heme: Leukopenia Macrocytic anemia Thrombocytopenia Elevated INR Monitor CBC and coags daily. Follow trends. ID: HIV HSV prophylaxis Continue valacyclovir 1 g daily - really just a 500 mg daily in light of GFR less than 29 Efavirenz 600 mg at night and Emtricitabine/tenofovir 200/25 one tablet daily to be continued/HIV medications Started on cefepime 2 g IV 1 followed by 1 g daily for possible SBP Follow-up of abdominal ultrasound. May need repeat paracentesis Pharmacy consult is renally adjust dose FEN: Hyperkalemia Calcium gluconate 1 g, insulin/D50 and Kayexalate. Recheck in 3 Hours MSK: PT evaluate and treat Continue calcium vitamin D once reconcile medications completed with vitamin D2 was well defer to a.m. team Access - Utilize peripheral IV. Central line if indicated Prophylaxis - GI - pantoprazole - DVT - SCD/holding pharmacological prophylaxis in light of elevated coags Level III admission Code Status Full code Discussed Condition With Patient. Care plan discussed all questions answered. Discussed with the patient's PCP Dr. Jurado recommends hospice evaluation [facility]. Patient will have plurodex first and plans to go under hospice care aftre pleurodex placement in about a week. Patient had recent paracentesis and she can;t have pleurodex at this time, she can have pleurodex in about a week. To follow up as OP with her PCP and consultants. Problem Qualifiers (1) Gastroesophageal reflux disease: Qualified Codes: K21.9 - Gastro-esophageal reflux disease without esophagitis (2) Esophageal varices: Qualified Codes: I85.00 - Esophageal varices without bleeding (3) Ascites: Qualified Codes: R18.8 - Other ascites (4) Hepatitis C: Qualified Codes: B19.21 - Unspecified viral hepatitis C with hepatic coma (5) GERD (gastroesophageal reflux disease): Qualified Codes: K21.9 - Gastro-esophageal reflux disease without esophagitis (6) Liver cirrhosis: Qualified Codes: K74.60 - Unspecified cirrhosis of liver Babita Sandhu MD Jun 22, 2017 16:05
[2017-06-23] MEDS ORDERED: PATIENT OWN MEDICATION PO SCH (09:00)
== END 2017-06-22 17:02 | disposition hospice, home (50) | DRG 441 ==
LOC: NEPC 15:35 → NEDH 18:11 → HIME 20:15 → N05A 06-21 22:31
PROVIDERS: ADMIT Hospitalist; ATTEND Hospitalist
PROC: 0W9G3ZX Drainage of Peritoneal Cavity, Percutaneous Approach, Diagnostic (ICD-10-PCS; principal; 2017-06-22)
DX: K72.90 Hepatic failure, unspecified without coma (principal); B19.21 Unspecified viral hepatitis C with hepatic coma; B20 Human immunodeficiency virus [HIV] disease; G92 Toxic encephalopathy; I85.00 Esophageal varices without bleeding; D68.9 Coagulation defect, unspecified; Z76.82 Awaiting organ transplant status; N18.4 Chronic kidney disease, stage 4 (severe); R18.8 Other ascites; D69.6 Thrombocytopenia, unspecified; E87.5 Hyperkalemia; K21.9 Gastro-esophageal reflux disease without esophagitis; K74.60 Unspecified cirrhosis of liver; D53.9 Nutritional anemia, unspecified; E88.09 Other disorders of plasma-protein metabolism, not elsewhere classified; J44.9 Chronic obstructive pulmonary disease, unspecified; F17.200 Nicotine dependence, unspecified, uncomplicated; Z51.5 Encounter for palliative care; Z79.899 Other long term (current) drug therapy
CPT/HCPCS: 49083; 51702; 70450; 71010; 76700; 76937; 80053; 80307; 81001; 82042; 82140; 82150; 82248; 82550; 82945; 82948; 83605; 83615; 83690; 83735; 84100; 84157; 84439; 84443; 84484; 85025; 85384; 85610; 85730; 87040; 87070; 87086; 87205; 87641; 89051; 93005; 94150; 94640; 94664; 96360; C1729; C9113; J0692; J7030; P9047

== ENCOUNTER 2017-06-28 09:48 | Day surgery (SDC) | payer MEDICARE, MEDICAID ==
[~2017-06-28 09:48] MED LIST changes: +MIDO2.5T PO
[2017-06-28 10:34] VITALS: BP 101/53; PULSE 83; RESP 22; TEMP 98; O2SAT 90
[2017-06-28] MEDS ORDERED: LIDOCAINE HCL 1% 20 ML VIAL ONE (11:29)
[2017-06-28 12:25] VITALS: BP 102/51; PULSE 83; RESP 18; TEMP 97.6; O2SAT 93
[2017-06-28 12:40] VITALS: BP 86/46; PULSE 80; RESP 20; O2SAT 92
[2017-06-28] MEDS ORDERED: ALBUMIN HUMAN 25% 50 GM IV ONE (12:45)
[2017-06-28 13:03] VITALS: BP 102/48; PULSE 94; RESP 18; O2SAT 92
--- NOTE | 2017-06-28 13:12 | RADRPT ---
EXAM DATE/TIME: 06/28/2017 10:45 [facility] COMPARISON: US GUIDED ABD PARACENTESIS, June 22, 2017, 10:00. INDICATIONS : Ascites. MEDICAL HISTORY : Hepatitis C. Arthritis. Cirrhosis. Ascites. GERD. Chronic kidney disease.Thrombocytopenia. HIV. Head trauma. Migraines. COPD. Asthma. SURGICAL HISTORY : Tonsillectomy. section. Tubal ligation. Adenoidectomy. Benign tumor removed from left neck. Paracentesis. Blood transfusions. ENCOUNTER: Sequela ACUITY: 1 week PAIN SCORE: 10/10 LOCATION: Left lower quadrant FLUID: Total volume of 8,800 cc of clear, yellow fluid was removed. Fluid was discarded. Paracentesis was therapeutic only. Post procedure scanning reveals no hematoma or other complication. TECHNIQUE: 1. Ultrasound guidance for abdominal paracentesis. 2. Paracentesis. The risks, benefits, and alternatives to ultrasound guided paracentesis were explained to the patient in detail including the risk of bleeding and infection. Written and verbal informed consent was obt ained. With the patient on the ultrasound table, ultrasound imaging was used to select the most appropriate approach for paracentesis. Overlying skin was prepped and draped in the usual sterile fashion and wi th a local anesthetic, a dermatotomy was made with an 11 blade scalpel. A 6 [place]rain[place] [id number] ca theter was introduced into the peritoneal cavity and fluid was collected. The patient tolerated the procedure well and left the ultrasound suite in stable condition. CONCLUSION: Uncomplicated ultrasound guided paracentesis. Phoenix Hsu MD on June 28, 2017 at 13:11 Board Certified Radiologist. This report was verified electronically.
== END 2017-06-28 13:26 | disposition home or self-care (01) ==
LOC: HRAD 09:48 → HRIP 10:03 → HRAD 13:26
PROVIDERS: ATTEND Specialist
DX: R18.8 Other ascites (principal); K74.60 Unspecified cirrhosis of liver; B19.20 Unspecified viral hepatitis C without hepatic coma; K21.9 Gastro-esophageal reflux disease without esophagitis; J44.9 Chronic obstructive pulmonary disease, unspecified
CPT/HCPCS: 49083; 96365; C1729; P9047

== ENCOUNTER 2017-07-05 07:49 | Day surgery (SDC) | payer MEDICARE, MEDICAID ==
--- NOTE | 2017-07-05 09:27 | RADRPT ---
EXAM DATE/TIME: 07/05/2017 08:03 [facility] COMPARISON: US GUIDED ABD PARACENTESIS, June 28, 2017, 10:45. INDICATIONS : Ascites. MEDICAL HISTORY : Hepatitis C. Arthritis. Cirrhosis. Ascites. GERD. CKD. Thrombocytopenia. HIV. Head trauma. M igraines. COPD. Asthma. SURGICAL HISTORY : Tonsillectomy. section. Tubal ligation. Adenoidectomy. Benign tumor removed from left ne ck. Paracentesis. Blood transfusion. ENCOUNTER: Sequela ACUITY: 1 week PAIN SCORE: 0/10 LOCATION: Right lower quadrant FLUID: Total volume of 5850 cc of fluid was removed. Fluid was discarded. Paracentesis was therapeutic only. Post procedure scanning reveals no hematoma or other complication. TECHNIQUE: 1. Ultrasound guidance for abdominal paracentesis. 2. Paracentesis. The risks, benefits, and alternatives to ultrasound guided paracentesis were explained to the patient in detail including the risk of bleeding and infection. Written and verbal informed consent was obt ained. With the patient on the ultrasound table, ultrasound imaging was used to select the most appropriate approach for paracentesis. Overlying skin was prepped and draped in the usual sterile fashion and wi th a local anesthetic, a dermatotomy was made with an 11 blade scalpel. A 6 [place] Leonean [id number] ca theter was introduced into the peritoneal cavity and fluid was collected. The patient tolerated the procedure well and left the ultrasound suite in stable condition. CONCLUSION: Uncomplicated ultrasound guided paracentesis. Phoenix Hsu MD on July 05, 2017 at 9:24 Board Certified Radiologist. This report was verified electronically.
[2017-07-05 09:30] VITALS: BP 95/41; PULSE 83; RESP 18; TEMP 98; O2SAT 91
[2017-07-05] MEDS ORDERED: ALBUMIN HUMAN 25% 12.5GM-W/25GM FOR 37.5GM IV ONE (10:00)
[2017-07-05] MEDS ORDERED: ALBUMIN HUMAN 25% 25GM-W/12.5GM FOR 37.5GM IV ONE (10:00)
[2017-07-05 10:20] VITALS: BP 121/56; PULSE 86; RESP 20; O2SAT 92
[2017-07-05] MEDS ORDERED: LIDOCAINE HCL 1% 20 ML VIAL ONE (14:30)
== END 2017-07-05 10:45 | disposition home or self-care (01) ==
LOC: HRAD 07:49 → HRIP 07:58 → HRAD 10:45
PROVIDERS: ATTEND Specialist
DX: R18.8 Other ascites (principal); B19.20 Unspecified viral hepatitis C without hepatic coma; K21.9 Gastro-esophageal reflux disease without esophagitis; J44.9 Chronic obstructive pulmonary disease, unspecified
CPT/HCPCS: 49083; 96365; C1729

== ENCOUNTER 2017-07-07 06:39 | Day surgery (SDC) | payer MEDICARE, MEDICAID ==
[2017-07-07] VITALS (7 sets, daily range): BP systolic 92–106; BP diastolic 42–54; PULSE 76–86; RESP 16–20; TEMP 97.6–97.7; O2SAT 90–97
[~2017-07-07] VITALS: Ht 167.6 cm; Wt 63.6 kg
[2017-07-07] MEDS ORDERED: VITA500012 PO (07:19)
[2017-07-07] MEDS ORDERED: MORP10S2 PO (07:19)
[2017-07-07] MEDS ORDERED: SODIUM CHLORIDE 0.9% 1000 ML IV SCH (07:30)
[2017-07-07] MEDS ORDERED: ceFAZolin 2 GM PREMIX 50 ML - gastrostomy and jejunostomy initial insertion IV SCH (07:30)
[2017-07-07 07:31] LABS: AUTOMATED NEUTROPHIL # 1.4 TH/MM3 (1.8-7.7); BASOPHIL % 0.8 % (0.0-2.0); HEMATOCRIT 24.5 % (35.0-46.0); LYMPH % 13.9 % (9.0-44.0); LYMPHOCYTE # 0.3 TH/MM3 (1.0-4.8); MEAN CORPUSCULAR HEMOGLOBIN 32.7 PG (27.0-34.0); MEAN CORPUSCULAR HGB CONC 32.7 % (32.0-36.0); MONO % 16.5 % (0.0-8.0); NEUT % 66.8 % (16.0-70.0); PLATELET COUNT 60 TH/MM3 (150-450); RED BLOOD COUNT 2.45 MIL/MM3 (4.00-5.30); WHITE BLOOD COUNT 2.1 TH/MM3 (4.0-11.0)
[2017-07-07 07:34] LABS: HEMO FLAGS AUTO DIFF
[2017-07-07 07:39] LABS: APTT (PATIENT) 45.5 SEC (24.3-30.1); INTERNATIONAL NORMALIZED RATIO 1.5 RATIO; PROTHROMBIN TIME - PATIENT 16.6 SEC (9.8-11.6)
[2017-07-07 08:23] LABS: ACANTHOCYTES OCC (NORMAL); OVALOCYTES 1+ (NORMAL); PLATELET ESTIMATE SMEAR LOW (NORMAL); PLATELET MORPHOLOGY NORMAL (NORMAL); SCAN/DIFF AUTO DIFF CONFIRMED; TEARDROP RBCS 1+ (NORMAL)
[2017-07-07] MEDS ORDERED: MIDAZOLAM HCL 2 MG/2 ML VIAL ONE (08:47)
[2017-07-07] MEDS ORDERED: SODIUM BICARBONATE 8.4% INJ 50 ML ONE (09:25)
--- NOTE | 2017-07-07 09:50 | PD.RAD ---
Post Procedure Progress Note Pre Procedure Diagnosis: (1) Cirrhosis of liver (2) Ascites Post Procedure Diagnosis: (1) Cirrhosis of liver (2) Ascites Procedure Date: Jul 07, 2017 Supervising Radiologist: Kevin Tellez Estimated blood loss: 2cc Anesthesia: Local, Conscious Sedation Plan of Activity Patient to Unit: ROPU Patient Condition: Poor Additional Comments: ASPIRA drain placed without difficulty. 2 liters of ascities removed without difficulty. Full dictated report to follow See PACS Report for procedural detail/treatment Kevin Tellez MD Jul 07, 2017 09:50
--- NOTE | 2017-07-07 13:25 | RADRPT ---
EXAM DATE/TIME: 07/07/2017 08:30 [facility] COMPARISON: None available. INDICATIONS : Patient with chronic liver failure. Has weekly paracentesis. MEDICAL HISTORY : 1. Hep C 2. HIV 3. Thrombocytopenia 4. Herpes simplex 5. Chronic renal failure 6. Cirrhosis 7. COPD SURGICAL HISTORY : 1. Paracentesis ENCOUNTER: Initial ACUITY: 4-6 months PAIN SCORE: 0/10 FLUORO TIME: 1.8 minutes IMAGE SERIES: 1 SEDATION TIME: 45 minutes ACCESS: Right abdomin SEDATION: 1.) 2 mg midazolam (Versed) IV 2.) 125 mcg fentanyl (Sublimaze) IV Prophylactic antibiotics were administered with appropriate pre-procedure timing. DEVICE: 1. 15 Wallisian single lumen Aspira drainage catheter PROCEDURE : 1. Placement of a 15 Wallisian aspirat drainage catheter into the peritoneal cavity for drainage of asci james. 2. Conscious sedation with continuous EKG and Oximetry monitoring. The risks, benefits and alternatives to the procedure were explained and verbal and written consent w as obtained. The site was prepped in sterile fashion. Full sterile technique was used, including ca p, mask, sterile gloves and gown and a large sterile sheet. Hand hygiene and 2% chlorhexidine and Be tadine was utilized per protocol for cutaneous antisepsis with appropriate dry time for site. The sk in and subcutaneous tissues were infiltrated with local anesthetic solution. A suitable site was localized with ultrasound. The peritoneal cavity was accessed with micropuncture needle. The 4 Wallisian dilator was advanced into the abdominal cavity. The 0.018 wire was exchanged for a 0.035 wire. The tract was dilated. A 15 Wallisian peel-away sheath was advanced over the wire positio n within the peritoneal cavity. The ASPIRA drainage catheter was tunneled across the right flank. The catheter was advanced through t he peel-away sheath and positioned within the abdomen without difficulty. There was immediate return of a copious amount of ascites. Conscious sedation was performed with the prescribed dosages and duration as above in the presence of an independent trained radiology nurse to assist in the monitoring of the patient. EKG and oximetry remained stable throughout the procedure. CONCLUSION: 1. Successful placement of an ASPIRA drainage catheter for refractory ascites. Kevin Tellez MD on July 07, 2017 at 13:19 Board Certified Radiologist. This report was verified electronically.
== END 2017-07-07 13:05 | disposition home or self-care (01) ==
LOC: HROP 06:39 → HRIP 06:40 → HROP 13:05
PROVIDERS: ATTEND Specialist
DX: R18.8 Other ascites (principal); K72.10 Chronic hepatic failure without coma; B19.20 Unspecified viral hepatitis C without hepatic coma; K74.60 Unspecified cirrhosis of liver; N18.9 Chronic kidney disease, unspecified; J44.9 Chronic obstructive pulmonary disease, unspecified; D69.6 Thrombocytopenia, unspecified; B20 Human immunodeficiency virus [HIV] disease
CPT/HCPCS: 49418; 85025; 85610; 85730; 99152; 99153; C1729; J0690; J2250; J3010; J7030

== ENCOUNTER 2017-07-17 17:02 | Emergency (ER) | payer MEDICARE, MEDICAID ==
[~2017-07-17] VITALS: Ht 165.1 cm; Wt 65.0 kg
[~2017-07-17 17:02] MED LIST changes: -LOPE1TAB36; +LOPE1TAB36 PO; +MORP10S2 PO; -SUST600T PO; +VITA500012 PO
[2017-07-17 17:12] VITALS: BP 123/58; PULSE 96; RESP 25; TEMP 97.7; O2SAT 72
[2017-07-17 17:15] VITALS: RESP 25; O2SAT 92
--- NOTE | 2017-07-17 17:46 | PD ---
HPI Chief Complaint: Respiratory Distress Time Seen by Provider: 17:08 Travel History International Travel<30 days: No Contact w/Intl Traveler<30days: No Traveled to known affect area: No History of Present Illness HPI The patient was seen and examined in the presence of the nurse. This is a hospice patient who normally uses 4 L of oxygen around the clock for her COPD. She also has alcoholic liver disease and HIV. She went out to a. [facility] and did not take her oxygen. She became short of breath and a bystander called paramedics. She also notes that earlier in the day her abdominal drain fell out that she uses to decrease her ascites. She denies fever. No injury. Symptoms moderately severe. Duration is 2 hours. No alleviating factors. Symptoms exacerbated by her noncompliance with oxygen therapy and severe chronic diseases PFSH Past Medical History Arthritis: Yes (KNEES) Asthma: Yes (SINCE 2003) Autoimmune Disease: No Anxiety: Yes Depression: Yes Heart Rhythm Problems: No Cancer: Yes (BENIGN LESION REMOVED FROM LEFT NECK) Cardiovascular Problems: Yes (HEART MURMUR) High Cholesterol: No Chemotherapy: No Chest Pain: No Congestive Heart Failure: No Cirrhosis: Yes COPD: Yes Cerebrovascular Accident: No Diabetes: No Diminished Hearing: No Endocrine: No Gastrointestinal Disorders: Yes (ASCITES, HEP C) GERD: Yes Genitourinary: Yes Headaches: Yes Hepatitis: Yes (c) Hiatal Hernia: No Immune Disorder: Yes (HIV DX. 2000) Implanted Vascular Access Dvce: Yes Kidney Stones: No Musculoskeletal: Yes Neurologic: Yes Psychiatric: Yes Reproductive: Yes (LAST PERIOD 2008) Respiratory: Yes Immunizations Current: Yes Migraines: Yes Radiation Therapy: No Renal Failure: Yes Seizures: No Sickle Cell Disease: No Sleep Apnea: No Thyroid Disease: No Ulcer: No ?: Not Menopausal: Yes Tubal Ligation: Yes (1999) Past Surgical History Abdominal Surgery: No AICD: No Arteriovenous Shunt: No Body Medical Devices: TUBES TIED WITH METAL BANDS Cardiac Surgery: No Section: Yes (1st child ) Ear Surgery: No Endocrine Surgery: No Eye Surgery: No Genitourinary Surgery: No Gynecologic Surgery: Yes (/TUBAL LIGATION) Insulin Pump: No Joint Replacement: No Oral Surgery: No Pacemaker: No Thoracic Surgery: No Tonsillectomy: Yes (and adenoids) Other Surgery: Yes (lump removed from neck-non cancerous, paracentesis) Social History Alcohol Use: No Tobacco Use: No Substance Use: No Allergies-Medications (Allergen,Severity, Reaction): Coded Allergies: adhesive (Verified Allergy, Severe, 07/07/17) erythromycin base (Unverified Allergy, Severe, Anaphylaxis, 07/07/17) Reported Meds & Prescriptions Reported Meds & Active Scripts Active Symbicort Inh (Budesonide/Formoterol Fumarate) 160-4.5 Mcg/Act Aero 1 Puff INH Q12HR Reported Midodrine 2.5 Mg Tab 2.5 Mg PO DAILY Hydroxyzine HCl 25 Mg Tab 25 Mg PO DAILY Imodium Multi-Symptom Rel Cplt (Loperamide HCl/Simethicone) 2 Mg-125 Mg Tablet Lactulose Liq (Lactulose) 10 Gm/15 Ml Soln 15 Ml PO BID Zofran (Ondansetron HCl) 8 Mg Tab 8 Mg PO TID Vitamin D (Ergocalciferol (Vitamin D2)) 400 Unit Tablet 50,000 PO WEEKLY ONE TIME PER WEEK X6 WEEKS THEN DECREASE TO EVERY OTHER WEEK Ciprofloxacin (Ciprofloxacin HCl) 750 Mg Tab 750 Mg PO MONTHLY PRIOR TO PARACENTESIS Sodium Bicarbonate 650 Mg Tab 650 Mg PO BIDPC Omeprazole 40 Mg Cap 40 Mg PO DAILY Tuesday BEFORE MEALS Valacyclovir (Valacyclovir HCl) 1 Gm Tab 1,000 Mg PO DAILY Descovy (Emtricitabine-Tenofovir Alafenamide) 200-25 mg Tab 1 Tab PO DAILY Xifaxan (Rifaximin) 550 Mg Tab 550 Mg PO Q12HR Calcium 600 with Vitamin D (Calcium Carbonate-Cholecalciferol) 600-400 mg-Unit Tab 1 Tab PO BID Ergocalciferol 50,000 Unit Cap 50,000 Units PO Q7D Morphine Liq (Morphine Sulfate) 20 Mg/5 Ml Liq 25 Mg PO Q6HR PRN Review of Systems General / Constitutional: No: Fever Eyes: No: Visual changes HENT: No: Headaches Cardiovascular: Positive: Edema, No: Chest Pain or Discomfort Respiratory: Positive: Shortness of Breath Gastrointestinal: No: Abdominal Pain Genitourinary: No: Dysuria Musculoskeletal: Positive: Weakness, Edema, No: Pain Skin: No Rash Neurologic: Positive: Weakness Psychiatric: No: Depression Endocrine: No: Polydipsia Hematologic/Lymphatic: No: Easy Bruising Physical Exam Narrative GENERAL: Thin disheveled well-developed patient who is short of breath . SKIN: Focused skin assessment reveals no rash and nodules. Skin is Warm and dry. HEAD: Atraumatic. Normocephalic. EYES: Pupils equal and round. No scleral icterus. No injection or drainage. ENT: No nasal bleeding or discharge. Mucous membranes pink and moist. NECK: Trachea midline. No JVD. CARDIOVASCULAR: Regular rate and rhythm. No murmur appreciated. RESPIRATORY: Positive accessory muscle use. Clear to auscultation. Breath sounds equal bilaterally. GASTROINTESTINAL: Abdomen soft, non-tender, nondistended. Hepatic and splenic margins not palpable. Tiny hole right lower quadrant where her drain was. No drainage from it at this time MUSCULOSKELETAL: No obvious deformities. No clubbing. No cyanosis. No edema. NEUROLOGICAL: Awake and alert. No obvious cranial nerve deficits. Motor grossly within normal limits. Normal speech. PSYCHIATRIC: Appropriate mood and affect; insight and judgment poor . Data Data Last Documented VS Vital Signs Date Time Temp Pulse Resp B/P (MAP) Pulse Ox O2 Delivery O2 Flow Rate FiO2 07/17/17 18:30 92 20 118/65 (82) 98 Nasal Cannula 4.00 07/17/17 17:12 97.7 Orders Orders Electrocardiogram (07/17/17 ) Chest, Single Ap (07/17/17 ) Complete Blood Count With Diff (07/17/17 17:24) Prothrombin Time / Inr (Pt) (07/17/17 17:24) Act Partial Throm Time (Ptt) (07/17/17 17:24) Ondansetron Inj (Zofran Inj) (07/17/17 19:09) Ondansetron Inj (Zofran Inj) (07/17/17 19:15) Ed Discharge Order (07/17/17 19:14) Labs Laboratory Tests Test 07/17/17 17:32 White Blood Count 6.4 TH/MM3 Red Blood Count 3.25 MIL/MM3 Hemoglobin 10.4 GM/DL Hematocrit 32.7 % Mean Corpuscular Volume 100.6 FL Mean Corpuscular Hemoglobin 32.0 PG Mean Corpuscular Hemoglobin Concent 31.8 % Red Cell Distribution Width 18.5 % Platelet Count 87 TH/MM3 Mean Platelet Volume 10.6 FL Neutrophils (%) (Auto) 78.0 % Lymphocytes (%) (Auto) 7.0 % Monocytes (%) (Auto) 13.8 % Eosinophils (%) (Auto) 0.9 % Basophils (%) (Auto) 0.3 % Neutrophils # (Auto) 5.0 TH/MM3 Lymphocytes # (Auto) 0.4 TH/MM3 Monocytes # (Auto) 0.9 TH/MM3 Eosinophils # (Auto) 0.1 TH/MM3 Basophils # (Auto) 0.0 TH/MM3 CBC Comment AUTO DIFF Differential Comment AUTO DIFF CONFIRMED Platelet Estimate LOW Platelet Morphology Comment NORMAL Ovalocytes 1+ Prothrombin Time 14.6 SEC Prothromb Time International Ratio 1.4 RATIO Activated Partial Thromboplast Time 34.8 SEC MDM Medical Decision Making Medical Screen Exam Complete: Yes Emergency Medical Condition: Yes Medical Record Reviewed: Yes Differential Diagnosis COPD, pulmonary edema, pneumonia Narrative Course I have reviewed the patient's electronic medical record. Patient was hospitalized here last month. I reviewed that discharge summary. Also she had a outpatient radiology drain placed for her ascites about a week ago. IV placed CBC and coagulation studies were done in anticipation of replacement of ascitic drain as an outpatient in the near future I reviewed her chest x-ray looks the same as prior. No acute change or infiltrate I reviewed her EKG which shows sinus rhythm and no ST elevation or ectopy Placed her on oxygen mask to starting gradually weaned down CBC and coagulation studies are reviewed. She will barely meet standards for outpatient elective procedures. She doesn't platelet count that is slightly greater than 50,000 an INR slightly better than 1.5 Patient's saturation on room air is 95% now On her oxygen she is doing very well Stable for follow-up outpatient. She is given outpatient rope unit number to call tomorrow to set up this procedure which does not need to be emergently done. I don't think she needs to stay overnight in the hospital to get this placed tomorrow. Diagnosis Primary Impression: COPD exacerbation Additional Impressions: Abdominal varicosities Respiratory distress Additional Instructions: The patient was advised to follow up with their physician and return if they worsen. Wear oxygen 24 hours a day Called the outpatient radiology unit tomorrow morning to schedule replacement ascitic drain Med/Other Pt SpecificInfo: Other Disposition: 01 DISCHARGE HOME Condition: Stable Devaughn Taylor MD Jul 17, 2017 17:46
--- NOTE | 2017-07-17 17:53 | RADRPT ---
EXAM DATE/TIME: 07/17/2017 17:37 [facility] COMPARISON: CHEST SINGLE AP, June 20, 2017, 15:47. INDICATIONS : Short of breath. MEDICAL HISTORY : None. SURGICAL HISTORY : None. ENCOUNTER: Initial ACUITY: 1 day PAIN SCORE: 7/10 LOCATION: Bilateral chest FINDINGS: A single view of the chest demonstrates the lungs to be symmetrically aerated without evidence of mas s, infiltrate or effusion. The cardiomediastinal contours are unremarkable. Osseous structures are intact. CONCLUSION: No acute disease. No significant change has occurred. Bradley Ortega MD on July 17, 2017 at 17:51 Board Certified Radiologist. This report was verified electronically.
[2017-07-17 18:23] LABS: BASOPHIL % 0.3 % (0.0-2.0); EOSINOPHIL # 0.1 TH/MM3 (0-0.4); EOSINOPHIL % 0.9 % (0.0-4.0); HEMATOCRIT 32.7 % (35.0-46.0); LYMPHOCYTE # 0.4 TH/MM3 (1.0-4.8); MEAN CELL VOLUME 100.6 FL (80.0-100.0); MEAN CORPUSCULAR HGB CONC 31.8 % (32.0-36.0); MONO % 13.8 % (0.0-8.0); PLATELET COUNT 87 TH/MM3 (150-450); RED BLOOD COUNT 3.25 MIL/MM3 (4.00-5.30); RED CELL DISTRIBUTION WIDTH 18.5 % (11.6-17.2); WHITE BLOOD COUNT 6.4 TH/MM3 (4.0-11.0)
[2017-07-17 18:26] LABS: HEMO FLAGS AUTO DIFF
[2017-07-17 18:30] VITALS: BP 118/65; PULSE 92; RESP 20; O2SAT 98
[2017-07-17 18:32] LABS: APTT (PATIENT) 34.8 SEC (24.3-30.1); INTERNATIONAL NORMALIZED RATIO 1.4 RATIO; PROTHROMBIN TIME - PATIENT 14.6 SEC (9.8-11.6)
[2017-07-17 18:45] LABS: OVALOCYTES 1+ (NORMAL); PLATELET ESTIMATE SMEAR LOW (NORMAL); PLATELET MORPHOLOGY NORMAL (NORMAL)
[2017-07-17 18:46] LABS: SCAN/DIFF AUTO DIFF CONFIRMED
[2017-07-17] MEDS ORDERED: ONDANSETRON HCL 4 MG/2 ML VIAL ONE (19:09)
[2017-07-17] MEDS ORDERED: ONDANSETRON HCL 4 MG/2 ML VIAL IV PUSH ONE (19:15)
--- NOTE | 2017-07-18 19:07 | EKG ---
Date Performed: 07/17/2017 Time Performed: 17:16:14 PTAGE: 47 years EKG: Sinus rhythm NORMAL ECG INTERPRETATION BASED ON A DEFAULT AGE OF 40 YEARS PREVIOUS TRACING : 06/20/2017 17.57 Compared to prior tracing no significant change DOCTOR: Cachorro Cabezas Interpretating Date/Time 07/18/2017 19:05:54
== END 2017-07-17 20:19 | disposition home or self-care (01) ==
LOC: NEPE 17:02
DX: J44.1 Chronic obstructive pulmonary disease with (acute) exacerbation (principal); F10.20 Alcohol dependence, uncomplicated; K74.60 Unspecified cirrhosis of liver; K21.9 Gastro-esophageal reflux disease without esophagitis; N19 Unspecified kidney failure; J44.9 Chronic obstructive pulmonary disease, unspecified; Z21 Asymptomatic human immunodeficiency virus [HIV] infection status; Z87.19 Personal history of other diseases of the digestive system; Z86.19 Personal history of other infectious and parasitic diseases
CPT/HCPCS: 71010; 85025; 85610; 85730; 93005; 96374; 99285; J2405

== ENCOUNTER 2017-07-22 07:25 | Day surgery (SDC) | payer MEDICARE, MEDICAID ==
[~2017-07-22] VITALS: Ht 167.6 cm; Wt 65.9 kg
[2017-07-22] MEDS ORDERED: GELATIN 12 MM/7 MM FOAM ONE (07:26)
[2017-07-22] MEDS ORDERED: IOHEXOL 350 MG/ML 50 ML BTL (for RAD DIAG) OTHER ONE (07:26)
[2017-07-22 07:40] VITALS: BP 109/54; PULSE 107; RESP 20; TEMP 97.7; O2SAT 90
[2017-07-22] MEDS ORDERED: VANCOMYCIN 1000 MG/NS 250 ML - implanted port/tunneled catheter IV SCH ×2 (08:30)
[2017-07-22] MEDS ORDERED: ceFAZolin 2 GM PREMIX 50 ML - implanted port/tunneled catheter insertion IV SCH (08:30)
[2017-07-22] MEDS ORDERED: SODIUM CHLORIDE 0.9% 1000 ML IV SCH (08:30)
[2017-07-22] MEDS ORDERED: ONDANSETRON HCL 4 MG/2 ML VIAL IV PUSH ONE (08:45)
[2017-07-22] MEDS ORDERED: MIDAZOLAM HCL 5 MG/5 ML VIAL ONE (10:53)
[2017-07-22] MEDS ORDERED: LIDOCAINE 1%/EPINEPHrine 1:100,000 SOLN 20 ML VIAL ONE (11:05)
[2017-07-22] MEDS ORDERED: THROMBIN (TOPICAL) 5,000 UNIT VIAL ONE (11:41)
[2017-07-22 12:07] VITALS: BP 72/37; PULSE 85; RESP 18; TEMP 97.4; O2SAT 92
--- NOTE | 2017-07-22 12:12 | PD.RAD ---
Post Procedure Progress Note Pre Procedure Diagnosis: (1) Liver cirrhosis (2) Ascites Post Procedure Diagnosis: (1) Liver cirrhosis Procedure Date: Jul 22, 2017 Supervising Radiologist: Jeison Yu Proceduralist/Assist: Mary Hazel, RT(R)(CV), Geena Goins RT(R) Anesthesia: Local, Analgesia, Conscious Sedation Plan of Activity Patient to Unit: ROPU Patient Condition: Good See PACS Report for procedural detail/treatment Drainage Procedure Procedure 1 Imaging Guidance: Fluoroscopy Side: Right Procedure Type: Peritoneal Catheter Tunneled Procedure: Evaluation (Tract) Findings: Very small amt of fluid from old Aspira catheter tract in right abdomen. Was able to probe tract and re-enter cavity but catheter directed anteriorly and cephalad. Unable to direcvt into deep pelvis. Tract embolized with thrombin and gel-foam slurry and access site dermatotome sealed with derma-gallagher adhesive. Can re-evaluate next week for ascites and new catheter placement. Jeison Yu MD Jul 22, 2017 12:12
[2017-07-22 12:22] VITALS: BP 88/34; PULSE 79; RESP 16; O2SAT 92
[2017-07-22 12:52] VITALS: BP 81/32; PULSE 82; RESP 16; O2SAT 92
[2017-07-22 13:22] VITALS: BP 79/39; PULSE 87; RESP 18; O2SAT 95
--- NOTE | 2017-07-22 13:53 | RADRPT ---
EXAM DATE/TIME: 07/22/2017 12:33 [facility] COMPARISON: No previous studies available for comparison. INDICATIONS : Patient with history of chronic liver failure in need of peritoneogram. 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 peritoneogram. 2. Evaluate previous Aspira tract, right flank. 3. Ultrasound evaluation of the abdomen for ascites. The risks, benefits and alternatives to the procedure were explained and verbal and written consent w as obtained. The site was prepped in sterile fashion. Full sterile technique was used, including ca p, mask, sterile gloves and gown and a large sterile sheet. Hand hygiene and 2% chlorhexidine and/or betadine/alcohol prep was utilized per protocol for cutaneous antisepsis. The skin and subcutaneous tissues were infiltrated with local anesthetic solution. Sonographic images of the abdomen showed no detectable ascites. A very small amount of ascites was leaking from the inferior dermatotomy site. This was probed with a hockey-stick catheter. Contrast injection opacified the tract but I did not clearly identify contras t in the peritoneal cavity. A catheter and Roadrunner Glidewire were then manipulated through the tra ct and I was eventually able to access the peritoneal cavity. Contrast injection showed appropriate p osition. However, the catheter was directed anteriorly and superiorly. I could not redirect the camila ter and wire into the dependent portion of the deep pelvis. Therefore, attempts at replacing this cat heter were abandoned. Attempts to traverse the plaque did induce a small amount of bleeding. An attempt to seal the tract, a slurry of contrast and Gelfoam was injected under fluoroscopic guidance through the subcutaneous tu nnel. The access and exit dermatotomies were then sealed with Dermabond adhesive. Pressure dressing w as placed over the access dermatotomy in attempt to eliminate ongoing drainage from the old access si te. CONCLUSION: 1. No detectable ascites on ultrasound evaluation. 2. While I was able to traverse the previous tract and into the peritoneal cavity, I felt the cathete r position revealed favorable for affective home drainage. Therefore, no attempt was made to replace the catheter at this time. 3. The previous tract was sealed with Gelfoam and thrombin slurry, pressure dressing and Dermabond ad hesive. I scheduled the patient at [facility] on Tuesday, 07-27 for a limited ultrasoun d evaluation of the abdomen. If there is sufficient ascites, can attempt new Aspira drain catheter pl acement at that time Jeison Yu MD on July 22, 2017 at 13:36 Board Certified Radiologist. This report was verified electronically.
[2017-07-22 15:00] VITALS: BP 96/49; PULSE 87; RESP 18; O2SAT 95
== END 2017-07-22 15:10 | disposition home or self-care (01) ==
LOC: HROP 07:25 → HRIP 07:25 → HROP 15:10
PROVIDERS: ATTEND Specialist
DX: R18.8 Other ascites (principal); K74.60 Unspecified cirrhosis of liver; K72.10 Chronic hepatic failure without coma; N18.4 Chronic kidney disease, stage 4 (severe); I85.10 Secondary esophageal varices without bleeding; J44.9 Chronic obstructive pulmonary disease, unspecified; K21.9 Gastro-esophageal reflux disease without esophagitis; B19.20 Unspecified viral hepatitis C without hepatic coma; M19.90 Unspecified osteoarthritis, unspecified site; B20 Human immunodeficiency virus [HIV] disease
CPT/HCPCS: 49083; 49400; 74190; 99152; 99153; C1769; C1887; J0690; J2250; J2405; J3010; J3370; J7030; J7050; Q9967

== ENCOUNTER 2017-07-25 13:10 | Inpatient (IN) | payer MEDICARE, MEDICAID ==
[2017-07-25] VITALS (12 sets, daily range): BP systolic 63–93; BP diastolic 29–48; PULSE 50–120; RESP 16–22; TEMP 97.6–101; O2SAT 94–100
[~2017-07-25 13:10] MED LIST changes: -ERGO400T PO; -SODI650T PO
[2017-07-25] MEDS ORDERED: NOREPINEPHRINE 4 MG/4 ML AMP ONE (13:19)
[2017-07-25] MEDS ORDERED: SODIUM CHLOR 0.9% 1000 ML INJ 1,000 ML IV SCH (13:27)
[2017-07-25] MEDS ORDERED: ETOMIDATE 20 MG/10 ML VIAL IV PUSH ONE (13:30)
[2017-07-25] MEDS ORDERED: SODIUM CHLOR 0.9% 1000 ML INJ 1,000 ML IV ONE (13:30)
[2017-07-25] MEDS ORDERED: SODIUM CHLORIDE 0.9% FLUSH 10 ML FLUSH IV FLUSH PRN ×2 (13:30→17:45)
[2017-07-25] MEDS ORDERED: SUCCINYLCHOLINE CHLORIDE 100 MG/5 ML SYRINGE IV PUSH ONE (13:30)
[2017-07-25] MEDS ORDERED: PIPERACIL-TAZO 4.5 GM PREMIX 100 ML IV ONE (13:30)
[2017-07-25] MEDS ORDERED: VANCOMYCIN INJ 1,000 MG in SODIUM CHLOR 0.9% 250 ML INJ 250 ML IV ONE (13:30)
--- NOTE | 2017-07-25 14:04 | RADRPT ---
EXAM DATE/TIME: 07/25/2017 13:35 [facility] COMPARISON: CHEST SINGLE AP, July 17, 2017, 17:37. INDICATIONS : Post CODE. MEDICAL HISTORY : Chronic obstructive pulmonary disease. HIV. Hepatitis C. SURGICAL HISTORY : section. Tubal ligation. ENCOUNTER: Initial ACUITY: 1 day PAIN SCORE: Non-responsive. LOCATION: Bilateral chest FINDINGS: A single view of the chest demonstrates mild elevation of the left hemidiaphragm. Lungs otherwise tam ar. Interval placement of an endotracheal tube with the tip at the origin of the right mainstem bronc hus. CONCLUSION: 1. Interval intubation with the endotracheal tube tip at the origin of the right mainstem bronchus. T his should probably be backed off a centimeter or 2. 2. Lungs are clear. Minimal elevation of the left hemidiaphragm. Jeison Yu MD on July 25, 2017 at 13:57 Board Certified Radiologist. This report was verified electronically.
[2017-07-25 14:08] LABS: AUTOMATED NEUTROPHIL # 10.9 TH/MM3 (1.8-7.7); BASOPHIL % 0.2 % (0.0-2.0); EOSINOPHIL % 0.1 % (0.0-4.0); HEMATOCRIT 32.4 % (35.0-46.0); LYMPH % 3.9 % (9.0-44.0); LYMPHOCYTE # 0.5 TH/MM3 (1.0-4.8); MEAN CELL VOLUME 110.5 FL (80.0-100.0); MEAN CORPUSCULAR HEMOGLOBIN 31.1 PG (27.0-34.0); MONO % 11.4 % (0.0-8.0); NEUT % 84.4 % (16.0-70.0); PLATELET COUNT 142 TH/MM3 (150-450); RED BLOOD COUNT 2.93 MIL/MM3 (4.00-5.30); RED CELL DISTRIBUTION WIDTH 19.7 % (11.6-17.2); WHITE BLOOD COUNT 12.9 TH/MM3 (4.0-11.0)
[2017-07-25 14:10] LABS: HEMO FLAGS AUTO DIFF; MEAN CORPUSCULAR HGB CONC 28.1 % (32.0-36.0)
[2017-07-25 14:15] LABS: BLOOD, URINE NEG (NEG); COMMENT (UR) CATH-CULT NOT IND; CULTURE IF INDICATED CATH CULTURE NOT IND; GLUCOSE,URINE NEG (NEG); HYALINE CAST, URINE 12 /lpf (RARE); KETONE, URINE NEG (NEG); MUCUS URINE FEW /lpf (OCC); NITRITE,URINE NEG (NEG); PH, URINE 5.5 (5.0-8.5); SQUAMOUS EPITHELIAL CELL URINE <1 /hpf (0-5); URINE COLOR YELLOW (YELLW/STRAW)
[2017-07-25 14:16] LABS: APTT (PATIENT) 82.1 SEC (24.3-30.1); INTERNATIONAL NORMALIZED RATIO 2.6 RATIO; PROTHROMBIN TIME - PATIENT 26.1 SEC (9.8-11.6)
[2017-07-25] MEDS ORDERED: SODIUM BICARBONATE 8.4% INJ 50 MEQ/50 ML SYR IV PUSH ONE ×2 (14:30→18:30)
[2017-07-25 14:37] LABS: BANDS 1 % (0-6); CORRECTED NUCLEATED RBC 7 /100 WBC (0-0); MYELOCYTES 1 % (0-0); POLYS (SEG NEUTROPHILS) 83 % (16-70); WBC DIFF SAMPLE 100
[2017-07-25 14:39] LABS: OVALOCYTES 1+ (NORMAL); PLATELET ESTIMATE SMEAR LOW (NORMAL); PLATELET MORPHOLOGY NORMAL (NORMAL); SCAN/DIFF FINAL DIFF MANUAL; TEARDROP RBCS 1+ (NORMAL); TOXIC GRANULATION 1+ (NORMAL)
[2017-07-25 14:45] LABS: ACETAMINOPHEN 3.2 MCG/ML (10.0-30.0); ALCOHOL LESS THAN 3 MG/DL (0-5); ALKALINE PHOSPHATASE 185 U/L (45-117); ALT (GPT) 74 U/L (10-53); ANION GAP 18 MEQ/L (5-15); AST (GOT) 359 U/L (15-37); BICARBONATE 9.4 MEQ/L (21.0-32.0); BLOOD UREA NITROGEN 130 MG/DL (7-18); CHLORIDE 109 MEQ/L (98-107); CREATINE KINASE 172 U/L (26-192); GLOMERULAR FILTRATION RATE 6 ML/MIN (>89); SODIUM (NA) 136 MEQ/L (136-145); TOTAL BILIRUBIN ADULT 2.7 MG/DL (0.2-1.0)
[2017-07-25 14:47] LABS: POTASSIUM 7.2 MEQ/L (3.5-5.1)
[2017-07-25 14:58] LABS: BLOOD GAS BASE EXCESS -23.7 mmol/L (-2-2); BLOOD GAS HCO3 7 mmol/L (22-26); BLOOD GAS METHEMOGLOBIN 0.8 % (0-2); BLOOD GAS O2 HGB SATURATION 90 % (90-100); BLOOD GAS OXYGEN CONTENT 9.2 Vol % (12.0-20.0); BLOOD GAS PCO2 48 mmHg (38-42); BLOOD GAS PO2 106 mmHG (61-120); BLOOD GAS TOTAL HGB 7.2 G/DL (12.0-16.0); TEMP CORR TO 98.6
[2017-07-25 14:59] LABS: CRITICAL VALUE YES; DRAW SITE LT RADIAL; FIO2 100 %; NUMBER OF ARTERIAL PUNCTURES 1; OXYGEN DEVICE VENTILATOR; STAT YES; ULNAR PULSE PRESENT; VENT SETTINGS AC/14/500/PEEP10
--- NOTE | 2017-07-25 15:37 | PD ---
HPI Chief Complaint: Respiratory Distress Time Seen by Provider: 13:27 Travel History International Travel<30 days: No Contact w/Intl Traveler<30days: No Traveled to known affect area: No History of Present Illness HPI Patient is a 47-year-old female who presents emergency department for evaluation after cardiac arrest. Patient apparently has a history of liver disease and is on hospice. History obtained from EMS as well as the patient's mother who is here. Patient apparently had been on hospice for about the past 2 weeks, she had an evaluation by a home hospice nurse today who apparently found her altered, 911 was called and they stated the patient was obtunded on their arrival with a GCS of 3, initially with pulses on scene the patient was being prepared for transportation and on placing the patient on their monitor found her to have asystole. The patient's pulses were rechecked and were unable to be located, chest compressions and ACLS was started, the patient was found to have a blood sugar in the 20s, she was given D10, she is also has a history of morphine use at home and was given 2 g of Narcan prior to arrival which had no effect. The patient did have [place] after a short course of CPR, she was asystole and then sinus tachycardia. Patient's daughter states the patient is full code, she also has a living will that states that she should be kept alive until her children can have a chance to say goodbye. Further history is extremely limited by the patient's comatose status. PFSH Past Medical History Arthritis: Yes (KNEES) Asthma: Yes (SINCE 2003) Autoimmune Disease: Yes (HIV) Anxiety: Yes Depression: Yes Heart Rhythm Problems: No Cancer: Yes (BENIGN LESION REMOVED FROM LEFT NECK) Cardiovascular Problems: Yes (HEART MURMUR) High Cholesterol: No Chemotherapy: No Chest Pain: No Congestive Heart Failure: No Cirrhosis: Yes COPD: Yes Cerebrovascular Accident: No Diabetes: No Diminished Hearing: No Endocrine: No Gastrointestinal Disorders: Yes (ASCITES, HEP C) GERD: Yes Genitourinary: Yes Headaches: Yes Hepatitis: Yes (c) Hiatal Hernia: No Heparin Induced Thrombocytopen: No Hypertension: No Immune Disorder: Yes (HIV DX. 2000) Implanted Vascular Access Dvce: Yes Kidney Stones: No Medical other: Yes Musculoskeletal: Yes Neurologic: Yes Psychiatric: Yes Reproductive: Yes (LAST PERIOD 2008) Respiratory: Yes Immunizations Current: Yes Migraines: Yes Radiation Therapy: No Renal Failure: Yes Seizures: No Sickle Cell Disease: No Sleep Apnea: No Thyroid Disease: No Ulcer: No ?: Not Menopausal: Yes Tubal Ligation: Yes (1999) Past Surgical History Abdominal Surgery: No AICD: No Arteriovenous Shunt: No Body Medical Devices: TUBES TIED WITH METAL BANDS Cardiac Surgery: No Section: Yes (1st child ) Ear Surgery: No Endocrine Surgery: No Eye Surgery: No Genitourinary Surgery: No Gynecologic Surgery: Yes (/TUBAL LIGATION) Insulin Pump: No Joint Replacement: No Neurologic Surgery: No Oral Surgery: No Pacemaker: No Thoracic Surgery: No Tonsillectomy: Yes (and adenoids) Other Surgery: Yes (lump removed from neck-non cancerous, paracentesis) Social History Alcohol Use: No Tobacco Use: No Substance Use: No Allergies-Medications (Allergen,Severity, Reaction): Coded Allergies: adhesive (Verified Allergy, Severe, 07/22/17) erythromycin base (Unverified Allergy, Severe, Anaphylaxis, 07/22/17) Reported Meds & Prescriptions Reported Meds & Active Scripts Active Symbicort Inh (Budesonide/Formoterol Fumarate) 160-4.5 Mcg/Act Aero 1 Puff INH Q12HR Reported Ergocalciferol 50,000 Unit Cap 50,000 Units PO Q7D Morphine Liq (Morphine Sulfate) 20 Mg/5 Ml Liq 25 Mg PO Q6HR PRN Midodrine 2.5 Mg Tab 2.5 Mg PO DAILY Hydroxyzine HCl 25 Mg Tab 25 Mg PO DAILY Imodium Multi-Symptom Rel Cplt (Loperamide HCl/Simethicone) 2 Mg-125 Mg Tablet 1 Tab PO DIRECTED Lactulose Liq (Lactulose) 10 Gm/15 Ml Soln 15 Ml PO BID Zofran (Ondansetron HCl) 8 Mg Tab 8 Mg PO TID Ciprofloxacin (Ciprofloxacin HCl) 750 Mg Tab 750 Mg PO MONTHLY PRIOR TO PARACENTESIS Omeprazole 40 Mg Cap 40 Mg PO MOWEFR Take 1 capsule (40mg) daily on Tuesday,Tuesday and Tuesday Valacyclovir (Valacyclovir HCl) 1 Gm Tab 1,000 Mg PO DAILY Descovy (Emtricitabine-Tenofovir Alafenamide) 200-25 mg Tab 1 Tab PO DAILY Xifaxan (Rifaximin) 550 Mg Tab 550 Mg PO Q12HR Calcium 600 with Vitamin D (Calcium Carbonate-Cholecalciferol) 600-400 mg-Unit Tab 1 Tab PO BID Review of Systems ROS Limitations: Altered Mental Status Physical Exam Exam Limitations: Altered Mental Status Narrative GENERAL: Well-developed, cachectic female, Combitube in place to bag valve ventilation, GCS of 3. Appears chronically ill. SKIN: Focused skin assessment pale and cool HEAD: Atraumatic. Normocephalic. EYES: Pupils are pinpoint, glassy, dried corneas.. ENT: No nasal bleeding or discharge. Mucous membranes pink and moist. There is dried blood on the patient's vocal cords. NECK: Trachea midline. No JVD. CARDIOVASCULAR: Regular rhythm with tachycardia, no MG R. 2+ bilateral equal pulses felt in all 4 extremities. RESPIRATORY: No accessory muscle use. Clear to auscultation. Breath sounds equal bilaterally. GASTROINTESTINAL: Abdomen soft, non-tender, nondistended. Hepatic and splenic margins not palpable. MUSCULOSKELETAL: No obvious deformities. No clubbing. No cyanosis. No edema. NEUROLOGICAL: GCS of 3, obtunded, intubated with mechanical ventilation Data Data Last Documented VS Vital Signs Date Time Temp Pulse Resp B/P (MAP) Pulse Ox O2 Delivery O2 Flow Rate FiO2 07/25/17 16:45 99 100 07/25/17 16:40 100 16 82/45 (57) Ventilator 07/25/17 14:18 101.0 Orders Orders Norepinephrine Inj (Levophed Inj) (07/25/17 13:19) Electrocardiogram (07/25/17 13:27) Ammonia (07/25/17 13:27) Complete Blood Count With Diff (07/25/17 13:27) Comprehensive Metabolic Panel (07/25/17 13:27) Creatine Kinase (Cpk) (07/25/17 13:27) Prothrombin Time / Inr (Pt) (07/25/17 13:27) Act Partial Throm Time (Ptt) (07/25/17 13:27) Troponin I (07/25/17 13:27) Thyroid Stimulating Hormone (07/25/17 13:27) Urinalysis - C+S If Indicated (07/25/17 13:27) Lactic Acid Sepsis Protocol (07/25/17 13:27) Arterial Blood Gas (Abg) (07/25/17 13:27) Blood Culture (07/25/17 13:27) Chest, Single Ap (07/25/17 13:27) Ct Brain W/O Iv Contrast(Rout) (07/25/17 13:27) Blood Glucose (07/25/17 13:27) Ecg Monitoring (07/25/17 13:27) Iv Access Insert/Monitor (07/25/17 13:27) Oximetry (07/25/17 13:27) Sodium Chloride 0.9% Flush (Ns Flush) (07/25/17 13:30) Sodium Chlor 0.9% 1000 Ml Inj (Ns 1000 M (07/25/17 13:27) Drug Screen, Random Urine (07/25/17 13:27) Alcohol (Ethanol) (07/25/17 13:27) Tylenol (Acetaminophen) (07/25/17 13:27) Salicylates (Aspirin) (07/25/17 13:27) Ct Cerv Spine W/O Contrast (07/25/17 ) Urinary Catheter Management HUMBERTO.Q8H (07/25/17 13:27) Succinylcholine Inj (Quelicin Inj) (07/25/17 13:30) Etomidate Inj (Amidate Inj) (07/25/17 13:30) Vancomycin Inj (Vancomycin Inj) (07/25/17 13:30) Piperacil-Tazo 4.5 Gm Premix (Zosyn 4.5 (07/25/17 13:30) Type And Screen (07/25/17 13:27) Sodium Chlor 0.9% 1000 Ml Inj (Ns 1000 M (07/25/17 13:30) Insert Ng Tube (07/25/17 13:27) Act Partial Throm Time (Ptt) (07/25/17 14:24) Prothrombin Time / Inr (Pt) (07/25/17 14:24) Sodium Bicarbonate 8.4% Inj (Sodium Bica (07/25/17 14:30) Dopamine Inj Premix (Dopamine Inj Premix (07/25/17 15:45) Terbutaline Inj (Brethine Inj) (07/25/17 15:45) Red Blood Cells (Rbc) (07/25/17 15:32) Fresh Frozen Plasma (Ffp) (07/25/17 15:32) Blood Product Administration (07/25/17 15:32) Sodium Chlor 0.9% 250 Ml Inj (Ns 250 Ml (07/25/17 15:45) Pantoprazole Inj (Protonix Inj) (07/25/17 15:45) Octreotide Inj (Sandostatin Inj) (07/25/17 15:45) Calcium Gluconate Inj (Calcium Gluconate (07/25/17 17:00) Admit Order (Ed Use Only) (07/25/17 ) Labs Laboratory Tests Test 07/25/17 13:30 07/25/17 13:35 07/25/17 14:08 07/25/17 14:30 White Blood Count 12.9 TH/MM3 Red Blood Count 2.93 MIL/MM3 Hemoglobin 9.1 GM/DL Hematocrit 32.4 % Mean Corpuscular Volume 110.5 FL Mean Corpuscular Hemoglobin 31.1 PG Mean Corpuscular Hemoglobin Concent 28.1 % Red Cell Distribution Width 19.7 % Platelet Count 142 TH/MM3 Mean Platelet Volume 10.5 FL Neutrophils (%) (Auto) 84.4 % Lymphocytes (%) (Auto) 3.9 % Monocytes (%) (Auto) 11.4 % Eosinophils (%) (Auto) 0.1 % Basophils (%) (Auto) 0.2 % Neutrophils # (Auto) 10.9 TH/MM3 Lymphocytes # (Auto) 0.5 TH/MM3 Monocytes # (Auto) 1.5 TH/MM3 Eosinophils # (Auto) 0.0 TH/MM3 Basophils # (Auto) 0.0 TH/MM3 CBC Comment AUTO DIFF Differential Total Cells Counted 100 Neutrophils % (Manual) 83 % Band Neutrophils % 1 % Lymphocytes % 5 % Monocytes % 10 % Neutrophils # (Manual) 11.0 TH/MM3 Myelocytes 1 % Nucleated Red Blood Cells 7 /100 WBC Differential Comment FINAL DIFF MANUAL Toxic Granulation 1+ Platelet Estimate LOW Platelet Morphology Comment NORMAL Tear Drop Cells 1+ Ovalocytes 1+ Prothrombin Time 26.1 SEC Prothromb Time International Ratio 2.6 RATIO Activated Partial Thromboplast Time 82.1 SEC Urine Color YELLOW Urine Turbidity CLEAR Urine pH 5.5 Urine Specific Stem 1.016 Urine Protein TRACE mg/dL Urine Glucose (UA) NEG mg/dL Urine Ketones NEG mg/dL Urine Occult Blood NEG Urine Nitrite NEG Urine Bilirubin NEG Urine Urobilinogen LESS THAN 2.0 MG/DL Urine Leukocyte Esterase NEG Urine RBC LESS THAN 1 /hpf Urine WBC 1 /hpf Urine Squamous Epithelial Cells <1 /hpf Urine Hyaline Casts 12 /lpf Urine Mucus FEW /lpf Microscopic Urinalysis Comment CATH-CULT NOT IND Blood Urea Nitrogen 130 MG/DL Creatinine 7.24 MG/DL Random Glucose 122 MG/DL Total Protein 4.7 GM/DL Albumin 2.1 GM/DL Calcium Level 8.1 MG/DL Alkaline Phosphatase 185 U/L Aspartate Amino Transf (AST/SGOT) 359 U/L Alanine Aminotransferase (ALT/SGPT) 74 U/L Total Bilirubin 2.7 MG/DL Sodium Level 136 MEQ/L Potassium Level 7.2 MEQ/L Chloride Level 109 MEQ/L Carbon Dioxide Level 9.4 MEQ/L Anion Gap 18 MEQ/L Estimat Glomerular Filtration Rate 6 ML/MIN Total Creatine Kinase 172 U/L Troponin I 1.22 NG/ML Thyroid Stimulating Hormone 3rd Gen 1.810 uIU/ML Salicylates Level LESS THAN 1.7 MG/DL Urine Opiates Screen POS Acetaminophen Level 3.2 MCG/ML Urine Barbiturates Screen NEG Urine Amphetamines Screen NEG Urine Benzodiazepines Screen POS Urine Cocaine Screen NEG Urine Cannabinoids Screen NEG Ethyl Alcohol Level LESS THAN 3 MG/DL Lactic Acid Level 9.2 mmol/L Blood Gas Puncture Site LT RADIAL Blood Gas Patient Temperature 98.6 Blood Gas HCO3 7 mmol/L Blood Gas Base Excess -23.7 mmol/L Blood Gas Oxygen Saturation 90 % Arterial Blood pH 6.82 Arterial Blood Partial Pressure CO2 48 mmHg Arterial Blood Partial Pressure O2 106 mmHG Arterial Blood Oxygen Content 9.2 Vol % Arterial Blood Carboxyhemoglobin 1.0 % Arterial Blood Methemoglobin 0.8 % Blood Gas Hemoglobin 7.2 G/DL Oxygen Delivery Device VENTILATOR Blood Gas Ventilator Setting AC/14/500/PEEP10 Blood Gas Inspired Oxygen 100 % Ammonia 474 MCMOL/L [facility] Medical Decision Making Medical Screen Exam Complete: Yes Emergency Medical Condition: Yes Differential Diagnosis Metabolic abnormality, hypovolemia, esophageal bleeding, cardiac arrest, coagulopathy, narcotic overdose, Tylenol overdose, Narrative Course Is a 47-year-old critically ill female presents emergency department after asystolic cardiac arrest. Apparently altered for the past 48 hours according to her mother. The patient has multiple laboratory abnormalities including critical hyperkalemia, critical metabolic acidosis with a pH is 6.8. Lactic acid of 9, she has coagulopathy and the patient has been putting out blood in her NG tube consistent with an esophageal variceal bleed. She is fairly anemic , she is in acute kidney failure, liver failure, heart failure, she is requiring pressors to keep her blood pressure up after 3 L normal saline were given by bolus. She was intubated in the emergency department, overall my impression of the patient is critically ill very poor prognosis. The patient given coagulopathy and upper GI bleeding has indications for transfusion of FFP and RBCs, was informed by nursing staff of the patient's mother had arrived, I discussed with mother the patient's wishes, I will found out that the patient does have a living will that states that she has 2 children as surrogates and she is to be kept alive until they have a chance to say goodbye to her. We have located a copy of this living will in the patient' s chart, it does confirm this history. The mother states that she thinks her daughter has suffered enough given her HIV and her chronic liver disease and thinks that is time to let her go. I have come to find out that the patient is estranged from her children and has not seen them in 6 years. I stented multiple times to call the son and daughter as her phone numbers are on this living will. Initially after had no success. This presents a significant ethical conundrum and the patient was discussed with the hospital criminal attorney. We discussed with the patient is critically ill and likely not to have any neurological survival after this event. Discussed how the children could not be reached but mother would like to withdrawal advanced life support. At this time given the fairly explicit instructions in the patient's living well I was advised that the patient should have continued care and advanced life support for a reasonable period of time to attempt to make contact with these children. This recommendation was discussed with the patient's mother who is agreeable after discussing that this is the patient's wishes. Ultimately I was able to make contact with the patient's son, he took some time and then called me back and informed me that he would like to proceed with withdrawal advanced life support, he was unable to make contact with his sister. I informed him that I would have to again discussed this matter with a legal/ethical advisor. Patient was again discussed with legal and the patient does not have consent of the majority of her children to proceed, furthermore her daughter is actually listed as the primary surrogate. Unfortunately no contact could be made with the daughter. At this time continued on her the patient's wishes as outlined in the living will we are proceeding with blood transfusion and FFP transfusion. The patient was also given calcium gluconate by IV, she is nearly maxed out on Levophed and a second pressor was added which is dopamine. Patient was ultimately discussed with Dr. Montague as well as Dr. Nicole, I discussed the history as above and my impression that the patient is critically ill and despite all these advanced interventions is unlikely to survive the night. At this time on 2 pressors with her level of metabolic derangement, it is my impression that further chest compressions would be of medical futility. I communicated this to the family that if she should code again I would be highly reluctant to dedicate more resources towards a patient who has probably less than 1% possibility to return to any meaningful life after this event. This was discussed with Dr. Montague as well as Dr. Nicole who are agreeable. Critical Care Narrative Aggregate critical care time was 95 minutes. Time to perform other separately billable procedures was not included in the critical care time. My time did not include minutes spent treating any other patients simultaneously or on activities that did not directly contribute to the patient's treatment. The services I provided to this patient were to treat and/or prevent clinically significant deterioration that could result in: , disability, organ failure I provided critical care services requiring my management, as noted below: Chart data review, documentation time, medication orders and management, vital sign assessments/reviewing monitor data, ordering and reviewing lab tests, ordering and interpreting/reviewing x-rays and diagnostic studies, care of the patient and discussion of the patient with the admitting physicians. Procedures Procedure Narrative INTUBATION: The patient was put in optimal position for the procedure. Rapid sequence intubation was initiated by me using 20 milligrams of etomidate IV and 100 milligrams of succinylcholine IV. The patient was intubated with a 80 cuffed endotracheal tube. Tube placement was confirmed by visualization of the tube and balloon passing through the cords, capnometry and subsequent chest x-ray showed the patient was right mainstem. Tube was withdrawn 2 cm.. Breath sounds were equal and well aerated bilaterally postintubation. No breath sounds over stomach. Patient tolerated procedure well. Diagnosis Primary Impression: Cardiac arrest Additional Impressions: Asystole Coagulopathy Sepsis Aspiration into airway Hyperkalemia Acute kidney failure Upper GI bleeding HIV (human immunodeficiency virus infection) Admitting Information Admitting Physician Requests: Admit Condition: Critical Panchito Álvarez MD Jul 25, 2017 15:37
[2017-07-25] MEDS ORDERED: OCTREOTIDE INJ 100 MCG/ML VIAL IV PUSH ONE (15:45)
[2017-07-25] MEDS ORDERED: PANTOPRAZOLE SODIUM 40 MG VIAL IV PUSH ONE (15:45)
[2017-07-25] MEDS ORDERED: TERBUTALINE INJ 1 MG/ML AMP SQ PRN ×2 (15:45→18:45)
[2017-07-25] MEDS ORDERED: SODIUM CHLOR 0.9% 250 ML INJ 250 ML IV ONE (15:45)
[2017-07-25 15:55] LABS: LACTIC ACID GHOST NOT REPORTABLE
[2017-07-25] MEDS: DOPamine INJ PREMIX 500 ML IV PRN ×3 (16:02→18:12)
--- NOTE | 2017-07-25 16:49 | RADRPT ---
EXAM DATE/TIME: 07/25/2017 16:10 [facility] COMPARISON: CT BRAIN W/O CONTRAST, June 20, 2017, 16:42. INDICATIONS : Altered mental status. RADIATION DOSE: 56.35 CTDIvol (mGy) MEDICAL HISTORY : HIV. Hepatitis C. Chronic obstructive pulmonary disease. SURGICAL HISTORY : Tubal ligation. ENCOUNTER: Initial ACUITY: 1 day PAIN SCALE: Non-responsive LOCATION: Bilateral head TECHNIQUE: Multiple contiguous axial images were obtained of the head. Using automated exposure control and adj ustment of the mA and/or kV according to patient size, radiation dose was kept as low as reasonably a chievable to obtain optimal diagnostic quality images. DICOM format image data is available electro nically for review and comparison. FINDINGS: CEREBRUM: The ventricles are normal for age. No evidence of midline shift, mass lesion, hemorrhage or acute in farction. No extra-axial fluid collections are seen. POSTERIOR FOSSA: The cerebellum and brainstem are intact. The 4th ventricle is midline. The cerebellopontine angle i s unremarkable. EXTRACRANIAL: The visualized portion of the orbits is intact. SKULL: The calvaria is intact. No evidence of skull fracture. CONCLUSION: Negative for acute process; lack of intravenous contrast does make detection of subtle abnormalities difficult. Dwight Tellez MD FACR on July 25, 2017 at 16:46 Board Certified Radiologist. This report was verified electronically.
--- NOTE | 2017-07-25 16:59 | RADRPT ---
EXAM DATE/TIME: 07/25/2017 16:11 [facility] COMPARISON: No previous studies available for comparison. INDICATIONS : Trauma, possible fall today. RADIATION DOSE: 35.15 CTDIvol (mGy) ; Patient motion MEDICAL HISTORY : HIV. Hepatitis C. Chronic obstructive pulmonary disease. SURGICAL HISTORY : Tubal ligation. ENCOUNTER: Initial ACUITY: 1 day PAIN SCALE: Non-responsive LOCATION: Bilateral neck TECHNIQUE: Volumetric scanning of the cervical spine was performed. Multiplanar reconstructions in the sagittal, coronal and oblique axial planes were performed. Using automated exposure control and adjustment o f the mA and/or kV according to patient size, radiation dose was kept as low as reasonably achievable to obtain optimal diagnostic quality images. DICOM format image data is available electronically f or review and comparison. FINDINGS: Sagittal and coronal reconstructions show normal flow degenerative disc disease, most severe at C5-6 with significant loss of disc height and associated marginal spurring. Minimal grade 1 anterolisthesi s of C4 on 5 and minimal grade 1 retrolisthesis C5 on 6. Vertebral body heights are maintained withou t fracture. There is some air fluid levels identified in the sphenoid sinuses with fluid density seen in the posterior nasopharynx possibly related to recent intubation. C2-C3: The bony spinal canal is normal in size. No evidence of disc bulge or herniation. The neural forami na are bilaterally patent. C3-C4: The bony spinal canal is normal in size. No evidence of disc bulge or herniation. The neural forami na are bilaterally patent. C4-C5: The bony spinal canal is normal in size. No evidence of disc bulge or herniation. The neural forami na are bilaterally patent. C5-C6: The bony spinal canal is normal in size. No evidence of disc bulge or herniation. The neural forami na are bilaterally patent. C6-C7: The bony spinal canal is normal in size. No evidence of disc bulge or herniation. The neural forami na are bilaterally patent. C7-T1: The bony spinal canal is normal in size. No evidence of disc bulge or herniation. The neural forami na are bilaterally patent. CONCLUSION: 1. Degenerative changes most prominent at C4-5 and C5-6. Minimal grade 1 anterolisthesis of C4-5 and minimal grade 1 retrolisthesis C5 on 6. 2. No fracture. Jeison Yu MD on July 25, 2017 at 16:53 Board Certified Radiologist. This report was verified electronically.
[2017-07-25] MEDS ORDERED: CALCIUM GLUCONATE INJ 2 GM in DEXTROSE 5% IN WATER 100ML INJ 100 ML IV ONE ×2 (17:00)
[2017-07-25] MEDS ORDERED: MAGNESIUM HYDROXIDE SUSP 30 ML CUP PO PRN (17:45)
[2017-07-25] MEDS ORDERED: ONDANSETRON HCL 4 MG/2 ML VIAL IV PUSH PRN (17:45)
[2017-07-25] MEDS ORDERED: MISCELLANEOUS NURSING INFORMATION XX SCH (17:45)
[2017-07-25] MEDS ORDERED: SENNOSIDES 8.6 MG TAB PO PRN (17:45)
[2017-07-25] MEDS ORDERED: LACTULOSE SYRUP 20 GM/30 ML CUP PO PRN (17:45)
[2017-07-25] MEDS ORDERED: CHLORHEXIDINE GLUCONATE 2 % 1 PACK (2 CLOTHS) TOP PRN (17:45)
[2017-07-25] MEDS ORDERED: BISACODYL 10 MG SUPP RECTAL PRN (17:45)
[2017-07-25] MEDS ORDERED: SODIUM BICARBONATE 8.4% INJ 150 MEQ in SODIUM CHLOR 0.9% 1000 ML INJ 850 ML IV SCH (18:00)
[2017-07-25] MEDS: OCTREOTIDE INJ 500 MCG in SODIUM CHLORID 0.9% 500 ML INJ 499.5 ML IV SCH (18:24)
[2017-07-25] MEDS ORDERED: GLUCAGON 1 MG/ML VIAL OTHER PRN (18:30)
[2017-07-25] MEDS ORDERED: INSULIN HUMAN REGULAR 1,000 UNITS/10 ML VIAL IV PUSH SCH (18:30)
[2017-07-25] MEDS ORDERED: PHYTONADIONE INJ 10 MG in SODIUM CHLORIDE 0.9% INJ 50 ML IV ONE (18:30)
[2017-07-25] MEDS ORDERED: DEXTROSE 50% IN WATER 50 ML SYRINGE IV PUSH ONE (18:30)
[2017-07-25] MEDS: SODIUM BICARBONATE 8.4% INJ 150 MEQ in DEXTROSE 5% IN WATE 1000ML INJ 1,000 ML IV SCH ×2 (18:30)
[2017-07-25] MEDS ORDERED: DEXTROSE 50% IN WATER 50 ML VIAL(D50) IV PUSH PRN (18:30)
[2017-07-25] MEDS ORDERED: SODIUM POLYSTYRENE SULFONATE SUSP 15 GM/60 ML CUP PO ONE (18:45)
[2017-07-25] MEDS ORDERED: PIPERACIL-TAZO 3.375 GM PREMIX 50 ML IV SCH (18:45)
[2017-07-25] MEDS ORDERED: PHENYLEPHRINE INJ 40 MG in DEXTROSE 5% IN WATE 500 ML INJ 496 ML IV PRN ×2 (18:45)
[2017-07-25] MEDS: INSULIN NovoLIN REGULAR SUPPLEMENTAL SCALE SQ SCH ×2 (19:00→23:00)
[2017-07-25] MEDS ORDERED: PIPERACIL-TAZO 2.25 GM PREMIX 50 ML IV SCH (19:00)
[2017-07-25] MEDS: PANTOPRAZOLE INJ 80 MG in SODIUM CHLORIDE 0.9% INJ 100 ML IV SCH (19:24)
--- NOTE | 2017-07-25 19:47 | MH ---
cc: MEGAN NJ M.D. DATE OF ADMISSION 07/25/2017 DATE OF 1970 HISTORY OF THE PRESENT ILLNESS The patient is a 47-year-old female with past medical history of hepatitis C, end-stage liver disease, HIV who was found unresponsive by paramedics slumped over in her chair in cardiac arrest. ACLS protocol was initiated and the patient had successful return of spontaneous circulation. Also she had a Combitube in the field. On arrival to the ED she was intubated with succinylcholine and etomidate and placed on full mechanical ventilation. Her ABG postintubation showed severe metabolic acidosis with a pH of 6.82, PCO2 was 48, pAO2 106, bicarb 7, saturation of 98%. The patient was hypotensive and was started on Levophed and dopamine drips. A CT scan of the brain in the ED negative for acute process. In addition she had a cervical spine CT which showed degenerative changes. No acute fracture. Chest x-ray postintubation showed ET tube tip at the origin of the right mainstem bronchus, otherwise clear lungs and minimal elevation of the left hemidiaphragm. Her laboratory data significant for acute renal failure with a BUN 130, creatinine 7.24. Hyperkalemia with potassium level 7.2 and severe lactic acidosis with lactic acid level of 9.2. Also the patient was coagulopathic with an INR of 2.6 and had elevated ammonia level 474. Also her troponin was measured at 1.22. In the ED she was given 2 grams of calcium gluconate, octreotide, Protonix, sodium bicarb, vancomycin and Zosyn. Her initial hemoglobin level was 9.1 and INR of 2.6. When seen in the ED the patient unresponsive with her pupils fixed and dilated, and unresponsive. She is scheduled to receive 2 units of PRBCs and 4 units of fresh frozen plasma. PAST MEDICAL HISTORY Significant for: 1. Hepatitis C. 2. HIV. PAST SURGICAL HISTORY 1. Previous tubal ligation. 2. Previous . ALLERGIES ERYTHROMYCIN. FAMILY HISTORY Reviewed and noncontributory to current present illness. SOCIAL HISTORY The patient has history of tobacco and alcohol use. MEDICATIONS Include: 1. Ciprofloxacin. 2. Rifaximin. 3. Valacyclovir. 4. Lactulose. 5. Zofran. 6. Vitamin D. REVIEW OF SYSTEMS As per the history of present illness, the rest of the review of symptoms unobtainable. PHYSICAL EXAMINATION GENERAL: A 47-year-old female, critically ill and intubated on multiple pressors. VITAL SIGNS: Temperature of 101.0, pulse of 117, blood pressure 90/41. Vent setting assist control rate of 14, tidal volume 500, PEEP of 10, 100% FIO2. HEENT: Atraumatic, normocephalic. Pupils fixed and dilated and nonreactive to light. NECK: Supple. No JVD, adenopathy or thyromegaly. Trachea midline. Orally intubated. CARDIOVASCULAR: Tachycardiac, normal S1-S2. No murmurs, rubs or gallops noted. LUNGS: Pulmonary exam bilateral equal air entry. No rales or wheezing. ABDOMEN: Soft, nontender, no distension. Positive bowel sounds. EXTREMITIES: No cyanosis, clubbing, edema. NEUROLOGIC: Intubated, unresponsive. LABORATORY DATA Blood gas pH 6.82, CO2 48, pAO2 106, bicarb 7, saturation 90%. Sodium 136, potassium 7.2, chloride 109, CO2 9.4. Anion gap 18, BUN 130, creatinine 7.24, glucose 122, lactic acid 9.2, AST 359, ALT 74, total bilirubin 2.7, ammonia 474. Troponin 1.22. WBC 12.9, hemoglobin 9.1, hematocrit 32, platelet count of 142. INR 2.6. PT 26.1, PTT 82.1. Urinalysis negative for nitrite, leukocyte esterase, one white blood cell. Urine drug screen positive for opiates and benzodiazepines. IMAGING Radiographic studies, CT scan of the brain negative for acute process. Cervical spine CT showed no fracture, degenerative changes most at C4-C5 and C5-C6 level. Chest x-ray showed ET tube at the tip of the right mainstem bronchus and clear lungs. IMPRESSION 1. Acute hypercapnic and hypoxic respiratory failure. 2. Status post cardiopulmonary arrest. 3. Likely anoxic brain injury. 4. Acute renal failure. 5. Hyperkalemia. 6. Lactic acidemia. 7. End-stage liver disease. 8. Coagulopathy secondary to liver disease. 9. Hepatic encephalopathy with elevated ammonia level. 10. Leukocytosis. 11. Elevated troponin. 12. Anemia and thrombocytopenia. 13. History of hepatitis C. 14. HIV. RECOMMENDATIONS 1. Monitor neurological status. CT scan of the brain in the ED negative for acute process. Will place on lactulose 30 ml four times daily and rifaximin 550 mg b.i.d. Monitor ammonia level. 2. Continue with vent support and maintain sats above 92%. 3. Bronchodilators in the form of DuoNeb q.6h and will initiate ICU vent bundle. 4. Increase respiratory rate to 20 and tidal volume to 550. 5. Will retract the ET tube 2 cm from the lilian. 6. Continue with pressors and maintain MAP greater 65 mmHg. 7. Serial lactic acid monitoring. 8. Place on stress dose steroids in the form of hydrocortisone 100 mg IV q.8h, first dose now. 9. Monitor renal function Is and Os and avoid nephrotoxins. She was given 2 grams of calcium gluconate in the ED. Will give 7 units IV insulin, D50, Kayexalate 30 grams, additional 2 ampules of sodium bicarb and we will place on bicarb drip D5W with 3 ampules of bicarb at 150 an hour. Repeat BMP in 2 hours. 10. Keep n.p.o. for now and place on a Protonix and octreotide drips. IV fluids as stated above. 11. Continue with broad-spectrum antibiotics in the form of Zosyn and vancomycin. Monitor for signs infections which include fever and WBC. I will follow up on blood cultures. A chest x-ray postintubation showed no obvious infiltrates or effusions and her urinalysis negative for a UTI. 12. Monitor CBC and coags. The patient is scheduled to receive 2 units of PRBCs along with 4 units of FFP. Will give vitamin K 10 mg IV x1. 13. Place on sliding scale insulin with Accu-Chek q. 4-hour to maintain euglycemia. 14. GI prophylaxis. We will place on Protonix drip and DVT prophylaxis with SCDs. Chemical anticoagulation prophylaxis contraindicated in the setting of a possible GI bleed secondary to esophageal varices. In addition the patient is coagulopathic on arrival. 15. Discussed with the patient's mom who was present at the bedside. According to the patient's living will she wanted to be kept alive until her children say their goodbyes. Her son called and spoke to the ED physician and agreed to make the patient DNR. However, we are still waiting until the daughter calls back prior to making the patient DNR based on the patient's living will request. 16. The patient is critically ill with multiple organ failure. Critical care time 60 minutes excluding procedures. MD LAILA Pride/KK /6:41 PM /7:13 PM
[2017-07-25] MEDS: CHLORHEXIDINE 0.12% (ORAL KIT) 15 ML CUP MT SCH (20:00)
[2017-07-25] MEDS: LACTULOSE SYRUP 20 GM/30 ML CUP PO SCH ×2 (21:00→22:39)
[2017-07-25] MEDS ORDERED: FAMOTIDINE 20 MG/2 ML VIAL IV PUSH SCH (21:00)
[2017-07-25] MEDS: HYDROCORTISONE SOD SUCCINATE 100 MG VIAL IV PUSH SCH (22:39)
[2017-07-25] MEDS: DOCUSATE SODIUM 50 MG/SENNA 8.6 MG TAB PO SCH (22:40)
[2017-07-25] MEDS: PIPERACIL-TAZO 2.25 GM PREMIX 50 ML IV SCH (22:40)
[2017-07-25] MEDS: SODIUM CHLORIDE 0.9% FLUSH 10 ML FLUSH IV FLUSH SCH (22:40)
[2017-07-25] MEDS: RIFAXIMIN 550 MG TAB PO SCH (22:40)
[2017-07-26] VITALS (10 sets, daily range): BP systolic 73–81; BP diastolic 32–38; PULSE 79–125; RESP 16–22; TEMP 98.3–98.7; O2SAT 43–100
[2017-07-26] MEDS: SODIUM BICARBONATE 8.4% INJ 150 MEQ in DEXTROSE 5% IN WATE 1000ML INJ 1,000 ML IV SCH ×4 (02:10→08:31)
[2017-07-26] MEDS ORDERED: NOREPINEPHRINE 4 MG/D5W 250 ML IV PRN (02:15)
[2017-07-26] MEDS: INSULIN NovoLIN REGULAR SUPPLEMENTAL SCALE SQ SCH ×2 (03:00→07:00)
[2017-07-26] MEDS ORDERED: CHLORHEXIDINE GLUCONATE 2 % 1 PACK (2 CLOTHS) TOP SCH (04:00)
[2017-07-26] MEDS: OCTREOTIDE INJ 500 MCG in SODIUM CHLORID 0.9% 500 ML INJ 499.5 ML IV SCH (04:24)
[2017-07-26] MEDS: PANTOPRAZOLE INJ 80 MG in SODIUM CHLORIDE 0.9% INJ 100 ML IV SCH (05:24)
[2017-07-26] MEDS: DOPamine INJ PREMIX 500 ML IV PRN (06:44)
[2017-07-26] MEDS: PIPERACIL-TAZO 2.25 GM PREMIX 50 ML IV SCH ×2 (06:45→10:00)
[2017-07-26] MEDS: HYDROCORTISONE SOD SUCCINATE 100 MG VIAL IV PUSH SCH (06:46)
--- NOTE | 2017-07-26 07:20 | HHI.CCPN ---
Subjective Remarks/Hospital Course The patient is a 47-year-old female with past medical history of hepatitis C, end-stage liver disease, HIV who was found unresponsive by paramedics slumped over in her chair in cardiac arrest. ACLS protocol was initiated and the patient had successful return of spontaneous circulation. Also she had a Combitube in the field. On arrival to the ED she was intubated with succinylcholine and etomidate and placed on full mechanical ventilation. Her ABG postintubation showed severe metabolic acidosis with a pH of 6.82, PCO2 was 48, pAO2 106, bicarb 7, saturation of 98%. The patient was hypotensive and was started on Levophed and dopamine drips. A CT scan of the brain in the ED negative for acute process. In addition she had a cervical spine CT which showed degenerative changes. No acute fracture. Chest x-ray postintubation showed ET tube tip at the origin of the right mainstem bronchus, otherwise clear lungs and minimal elevation of the left hemidiaphragm. Her laboratory data significant for acute renal failure with a BUN 130, creatinine 7.24. Hyperkalemia with potassium level 7.2 and severe lactic acidosis with lactic acid level of 9.2. Also the patient was coagulopathic with an INR of 2.6 and had elevated ammonia level 474. Also her troponin was measured at 1.22. In the ED she was given 2 grams of calcium gluconate, octreotide, Protonix, sodium bicarb, vancomycin and Zosyn. Her initial hemoglobin level was 9.1 and INR of 2.6. When seen in the ED the patient unresponsive with her pupils fixed and dilated, and unresponsive. She is scheduled to receive 2 units of PRBCs and 4 units of fresh frozen plasma. Subjective: 07/26:No change overnight. Hospice was consulted and had a conference call with the patient's son and daughter in the presence of the patient's mother at the bedside. A plan for admission to [facility] is pending this am. The family has requested comfort care measures and are awaiting consents/ signatures for admission to Hospice in order to initiate and provide for their wishes. The patient remains unresponsive , pupils fixed and dilated , agonal respirations with BP 60/30's. The family has request no aggressive measures since admission and to discontinue blood transfusions. They want her "just to be comfortable". Objective Vital Signs Date Time Temp Pulse Resp B/P (MAP) Pulse Ox O2 Delivery O2 Flow Rate FiO2 07/26/17 06:46 81 65/31 07/26/17 03:54 95 100 07/26/17 00:00 98.3 22 07/25/17 19:05 Ventilator Result Diagram: 07/25/17 1330 07/25/17 1330 Other Results Laboratory Tests Test 07/25/17 14:08 Blood Gas Puncture Site LT RADIAL Blood Gas Patient Temperature 98.6 Blood Gas HCO3 7 mmol/L (22-26) Blood Gas Base Excess -23.7 mmol/L (-2-2) Blood Gas Oxygen Saturation 90 % (90-100) Arterial Blood pH 6.82 (7.380-7.420) Arterial Blood Partial Pressure CO2 48 mmHg (38-42) Arterial Blood Partial Pressure O2 106 mmHG (61-120) Arterial Blood Oxygen Content 9.2 Vol % (12.0-20.0) Arterial Blood Carboxyhemoglobin 1.0 % (0-4) Arterial Blood Methemoglobin 0.8 % (0-2) Blood Gas Hemoglobin 7.2 G/DL (12.0-16.0) Oxygen Delivery Device VENTILATOR Blood Gas Ventilator Setting AC/14/500/PEEP10 Blood Gas Inspired Oxygen 100 % Imaging Last Impressions Head CT 07/25/17 1327 Signed Impressions: Service Date/Time: Tuesday, July 25, 2017 16:10 - CONCLUSION: Negative for acute process; lack of intravenous contrast does make detection of subtle abnormalities difficult. Dwight Tellez MD FACR Chest X-Ray 07/25/17 1327 Signed Impressions: Service Date/Time: Tuesday, July 25, 2017 13:35 - CONCLUSION: 1. Interval intubation with the endotracheal tube tip at the origin of the right mainstem bronchus. This should probably be backed off a centimeter or 2. 2. Lungs are clear. Minimal elevation of the left hemidiaphragm. Jeison Yu MD Cervical Spine CT 07/25/17 0000 Signed Impressions: Service Date/Time: Tuesday, July 25, 2017 16:11 - CONCLUSION: 1. Degenerative changes most prominent at C4-5 and C5-6. Minimal grade 1 anterolisthesis of C4-5 and minimal grade 1 retrolisthesis C5 on 6. 2. No fracture. Jeison Yu MD Objective Remarks GENERAL: This is a critically ill appearing nonresponsive female patient SKIN: Warm and dry. HEAD: Atraumatic. Normocephalic. EYES: Pupils equal, round and fixed. No scleral icterus. No injection or drainage. ENT: No nasal bleeding or discharge. Mucous membranes pink and moist. NECK: Trachea midline. No JVD. CARDIOVASCULAR: Tachycardic rate, regular rhythm. MAP 40 RESPIRATORY: No accessory muscle use. Clear to auscultation. Breath sounds equal bilaterally. GASTROINTESTINAL: Abdomen soft distended, with fluid wave/ascites. No guarding. MUSCULOSKELETAL: Extremities without clubbing, cyanosis, or edema. No obvious deformities. NEUROLOGICAL: GCS 3T. Nonresponsive. Does not withdraw to pain. No corneal, lid or gag reflex Urinary Catheter: Yes Vascular Central Line Catheter: No A/P Assessment and Plan This is a critically ill female patient with multiple comorbidities, previously under [facility] care with ESLD terminal illness. Found unresponsive asystolic, with ROSC after 5-7 minutes in the field. The patient remains nonresponsive, with absent reflexes, hemodynamic instability on maximal doses of vasopressors with a MAP of only 40. During the night to healthcare surrogates which are her children were contacted and request was made to make the patient comfortable. No aggressive measures plan for admission to [facility] this a.m., family with tentative plan for initiation of comfort care measures. Plan by systems: Neurologic: Hepatic encephalopathy GCS 3T-on no sedation since admission Continued neurochecks per ICU protocol Respiratory: Acute hypoxemic respiratory failure Intubated emergently Cardiovascular: Cardiogenic shock Status post asystolic cardiac arrest Multiorgan system failure Hypotension Patient currently on maximum doses of norepinephrine and dopamine infusion MAP ranging 40 Renal: Maintain Zaldivar catheter -- Strict I/Os FEN/GI: Hyperkalemia Acute kidney injury End-stage liver disease Initially hyperkalemic potassium 7.2, in the ED the patient received 2 g of calcium chloride, 2 A of sodium bicarbonate Upon admission to ICU the patient was placed on sodium bicarbonate infusion Heme/ID: Coagulopathy Hepatitis C HIV INR upon presentation 2.8, patient received FFP, request from family no further blood/product transfusions Endocrine: Severe Hypoglycemia Glucose initially 28, received 2 A of D50 in ED -- SSI Prophylaxis: GI Prophylaxis Protonix DVT Prophylaxis -- SCDs No prophylaxis at this time secondary to coagulopathy Lines: Peripheral IVs 3. At request of family no aggressive measures no central line placed Dispo: my billing statement This patient remains critically ill with one or more organ systems which are or may become a threat to life. I have spent in excess of 52 minutes discontinuously in the care and management of this patient. This time is exclusive of procedures, and includes, but is not limited to, evaluation of the patient, review of the medical record, discussions with family, consultants, nursing staff, or respiratory therapy, and documentation in the medical record. [id number]-contacted the [facility], spoke with Rajesh campos for hospice vaccine customer representative to report to the hospital for completion of paperwork for admission to hospice, with the intent of initiation of comfort care measures. Mother at bedside, updated her on patient status. Answered all her questions. Tentative plan is for initiation of comfort care measures Physician Sihlpi Schmitt MD Jul 26, 2017 07:20
[2017-07-26] MEDS: CHLORHEXIDINE 0.12% (ORAL KIT) 15 ML CUP MT SCH (08:00)
[2017-07-26] MEDS: DOCUSATE SODIUM 50 MG/SENNA 8.6 MG TAB PO SCH (08:19)
[2017-07-26] MEDS: SODIUM CHLORIDE 0.9% FLUSH 10 ML FLUSH IV FLUSH SCH (08:19)
[2017-07-26] MEDS: LACTULOSE SYRUP 20 GM/30 ML CUP PO SCH (08:19)
[2017-07-26] MEDS: RIFAXIMIN 550 MG TAB PO SCH (08:19)
[2017-07-26] MEDS ORDERED: HYDROmorphone HCL PF 2 MG/ML VIAL IV PUSH ONE ×2 (10:30→10:45)
[2017-07-26] MEDS ORDERED: LORazepam 2 MG/ML VIAL IV PUSH ONE ×2 (10:30→10:45)
[2017-07-26] MEDS ORDERED: HYOSCYAMINE 0.5 MG/ML AMP IV PUSH ONE (10:30)
--- NOTE | 2017-07-26 10:42 | PD.CONS ---
Consult Service Palliative Care Consult Requested By Dr. Montague Primary Care Physician Kevin Jurado MD Reason for Consultation a. To assist with evaluation and management of symptoms including:dyspnea, anxiety, pain. b. To assist medical decision maker(s) with: better understanding of current medical conditions; weighing benefits/burdens of medical treatment options; making medical treatment decisions. HPI History of Present Illness Patient is a 47-year-old patient with a past medical history of hepatitis C, cirrhosis, end-stage liver failure, HIV was found unresponsive by paramedics slumped over in her chair and in cardiac arrest 07/25/2017. Patient has been on [facility] for about a week. ACLS protocol was initiated and patient was resuscitated. Patient was intubated in the ER and was transferred to the ICU. CT of the brain shows negative is negative for acute process and there is no fractures. * Temperature is 90.2, respirations 16, blood pressure 63/29, pulse is 94 * WBCs 12.9, hemoglobin is 9.1, hematocrit 32.4, platelet is 142 * Sodium is 136, potassium is 7.2, chloride 19, bicarbonate was 9.4, BUN is 1:30 , Maylin was 7.24, lactic acid is 9.2 * Alkaline phosphatase is 471, troponin I is 1.2 * PTT 26.1, INR is 2.6, PTT is a 2.1, fibrinogen is 50 Patient started on multiple pressors, intubated. July 26, 2017. Patient remains intubated patient unresponsive pupils fixed. Hospice was consulted and conference call was made by patient's son and daughter in the process of patient's mother at the bedside. Family endorse transition again and to comfort measures. Patient despite on the ventilator has agonal respiration and blood pressure are 60s over 30s despite pressors. Palliative care was consulted to review goals of care and to help with compassionate extubation a ventilator. On my visit patient is on responsive intubated. Patient's mother is at the bedside. She is stepfather at the bedside. Hospice was also at the bedside. We were amenable for comfort medications, exhibits B&C were completed and witnessed. Family reemphasize"just want her to be comfortable, She's been through so much." Function/Cognitive Trajectory Has been hospice for a week. Prior to that she has been having generalized pain. Patient getting weaker, functionally declining. Review of Systems ROS Limitations: Clinical Condition Constitutional: COMPLAINS OF: Fatigue Eyes: DENIES: Diplopia Cardiovascular: COMPLAINS OF: Dyspnea on Exertion, Lower Extremity Edema Gastrointestinal: COMPLAINS OF: Abdominal pain Musculoskeletal: COMPLAINS OF: Joint Swelling (generalized pain) Integumentary: COMPLAINS OF: Abnormal pigmentation (jaundice) Hematologic/Lymphatics: DENIES: Lymphadenopathy Psychiatric: COMPLAINS OF: Confusion Past Family Social History Coded Allergies: adhesive (Verified Allergy, Severe, 07/22/17) erythromycin base (Unverified Allergy, Severe, Anaphylaxis, 07/22/17) Past Medical History Cirrhosis Hepatitis C HIV Past Surgical History Tubal ligation Reported Medications Ergocalciferol 50,000 Unit Cap 50,000 Units PO Q7D Morphine Liq (Morphine Sulfate) 20 Mg/5 Ml Liq 25 Mg PO Q6HR PRN Midodrine 2.5 Mg Tab 2.5 Mg PO DAILY Hydroxyzine HCl 25 Mg Tab 25 Mg PO DAILY Imodium Multi-Symptom Rel Cplt (Loperamide HCl/Simethicone) 2 Mg-125 Mg Tablet 1 Tab PO DIRECTED Lactulose Liq (Lactulose) 10 Gm/15 Ml Soln 15 Ml PO BID Zofran (Ondansetron HCl) 8 Mg Tab 8 Mg PO TID Ciprofloxacin (Ciprofloxacin HCl) 750 Mg Tab 750 Mg PO MONTHLY PRIOR TO PARACENTESIS Omeprazole 40 Mg Cap 40 Mg PO MOWEFR Take 1 capsule (40mg) daily on Tuesday,Tuesday and Tuesday Valacyclovir (Valacyclovir HCl) 1 Gm Tab 1,000 Mg PO DAILY Descovy (Emtricitabine-Tenofovir Alafenamide) 200-25 mg Tab 1 Tab PO DAILY Xifaxan (Rifaximin) 550 Mg Tab 550 Mg PO Q12HR Calcium 600 with Vitamin D (Calcium Carbonate-Cholecalciferol) 600-400 mg-Unit Tab 1 Tab PO BID Current Medications Medications (Trade) Dose Ordered Sig/Arianne Route Start Time Stop Time Status Last Admin Pantoprazole Sodium 80 mg/ Sodium Chloride 100 ml @ 10 mls/hr Q10H IV 07/25/17 19:24 Family History no family hx. 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 Has son and daughter. Mother is there to support her Isela Irene (mother). Tamera Bermudez [phone]. (primary health care surrogate) Loi Fan [phone].(2nd [facility] healthcare surrogate Was on [facility]. Spiritual/Cultural Factors Jainism. Health Care Surrogate: Copy in medical record Health Care Surrogate(s): Tamera Bermudez [phone]. (primary health care surrogate) Loi Fan [phone].(2nd [facility] healthcare surrogate Family/friends goals: Transition to comfort. Compression extubation from ventilator and remove from life-support. Physical Exam Vital Signs Date Time Temp Pulse Resp B/P (MAP) Pulse Ox O2 Delivery O2 Flow Rate FiO2 07/26/17 08:16 81 73/32 07/26/17 08:16 81 73/32 07/26/17 08:06 91 100 07/26/17 06:46 81 65/31 07/26/17 06:44 81 66/28 07/26/17 06:00 111 07/26/17 04:00 98 07/26/17 04:00 98 76/35 (49) 96 07/26/17 03:54 95 100 07/26/17 02:00 104 07/26/17 00:25 99 100 07/26/17 00:00 98.3 125 22 81/38 (52) 100 07/26/17 00:00 125 07/25/17 22:00 107 07/25/17 20:00 113 07/25/17 20:00 97.6 113 18 81/38 (52) 100 07/25/17 20:00 113 07/25/17 20:00 97.6 113 18 85/36 (52) 100 07/25/17 19:05 110 18 83/41 (55) 100 Ventilator 100 07/25/17 18:12 116 90/41 07/25/17 17:48 120 18 93/48 (63) 95 Ventilator 100 07/25/17 17:30 119 83/37 07/25/17 16:45 99 100 07/25/17 16:40 100 16 82/45 (57) 100 Ventilator 100 07/25/17 16:02 102 75/35 07/25/17 15:20 50 22 69/32 (44) 98 Ventilator 100 07/25/17 14:20 100 Ventilator 100 07/25/17 14:18 101.0 104 18 71/35 (47) 100 Ventilator 100 07/25/17 13:31 100 07/25/17 13:22 106 16 78/39 (52) 99 Ventilator 100 07/25/17 13:19 72 74/35 07/25/17 13:18 99 100 07/25/17 13:17 92 16 63/29 (40) 94 07/26/17 07/27/17 19:00 07:00 Intake Total 824 ml Balance 824 ml Intake IV Total 824 ml Exam CONSTITUTIONAL/GENERAL: Frail middle age female intubated TUBES/LINES/DRAINS: ET tube, Zaldivar catheter, PIV SKIN: Some jaundice, HEAD: Atraumatic. Normocephalic. EYES: Pupils sluggish. There is icteric sclera ENT: Hearing could not be examined due to level of consciousness. Nose without bleeding or purulent drainage. Throat ET tube NECK: Trachea midline. No palpable thyroid enlargement or nodularity. CARDIOVASCULAR: Regular rate and rhythm faint heart rate heart sounds. RESPIRATORY/CHEST: Symmetric, faint rhonchi bilaterally. GASTROINTESTINAL: Abdomen soft, distended GENITOURINARY: Without palpable bladder distension. Zaldivar catheter in place. MUSCULOSKELETAL: Extremity has 2+ edema on all 4 extremity LYMPHATICS: No palpable cervical or supraclavicular adenopathy. NEUROLOGICAL: Unresponsive PSYCHIATRIC: Could not elicit her exam Diagnostic Tests Laboratory Laboratory Tests Test 07/25/17 13:30 07/25/17 13:35 07/25/17 14:08 07/25/17 14:30 White Blood Count 12.9 TH/MM3 (4.0-11.0) Red Blood Count 2.93 MIL/MM3 (4.00-5.30) Hemoglobin 9.1 GM/DL (11.6-15.3) Hematocrit 32.4 % (35.0-46.0) Mean Corpuscular Volume 110.5 FL (80.0-100.0) Mean Corpuscular Hemoglobin 31.1 PG (27.0-34.0) Mean Corpuscular Hemoglobin Concent 28.1 % (32.0-36.0) Red Cell Distribution Width 19.7 % (11.6-17.2) Platelet Count 142 TH/MM3 (150-450) Mean Platelet Volume 10.5 FL (7.0-11.0) Neutrophils (%) (Auto) 84.4 % (16.0-70.0) Lymphocytes (%) (Auto) 3.9 % (9.0-44.0) Monocytes (%) (Auto) 11.4 % (0.0-8.0) Eosinophils (%) (Auto) 0.1 % (0.0-4.0) Basophils (%) (Auto) 0.2 % (0.0-2.0) Neutrophils # (Auto) 10.9 TH/MM3 (1.8-7.7) Lymphocytes # (Auto) 0.5 TH/MM3 (1.0-4.8) Monocytes # (Auto) 1.5 TH/MM3 (0-0.9) Eosinophils # (Auto) 0.0 TH/MM3 (0-0.4) Basophils # (Auto) 0.0 TH/MM3 (0-0.2) CBC Comment AUTO DIFF Differential Total Cells Counted 100 Neutrophils % (Manual) 83 % (16-70) Band Neutrophils % 1 % (0-6) Lymphocytes % 5 % (9-44) Monocytes % 10 % (0-8) Neutrophils # (Manual) 11.0 TH/MM3 (1.8-7.7) Myelocytes 1 % (0-0) Nucleated Red Blood Cells 7 /100 WBC (0-0) Differential Comment FINAL DIFF MANUAL Toxic Granulation 1+ (NORMAL) Platelet Estimate LOW (NORMAL) Platelet Morphology Comment NORMAL (NORMAL) Tear Drop Cells 1+ (NORMAL) Ovalocytes 1+ (NORMAL) Prothrombin Time 26.1 SEC (9.8-11.6) Prothromb Time International Ratio 2.6 RATIO Activated Partial Thromboplast Time 82.1 SEC (24.3-30.1) Urine Color YELLOW (YELLW/STRAW) Urine Turbidity CLEAR (CLEAR) Urine pH 5.5 (5.0-8.5) Urine Specific [place] 1.016 (1.002-1.035) Urine Protein TRACE mg/dL (NEG-TRACE) Urine Glucose (UA) NEG mg/dL (NEG) Urine Ketones NEG mg/dL (NEG) Urine Occult Blood NEG (NEG) Urine Nitrite NEG (NEG) Urine Bilirubin NEG (NEG) Urine Urobilinogen LESS THAN 2.0 MG/DL (LESS Urine Leukocyte Esterase NEG (NEG) Urine RBC LESS THAN 1 /hpf (0-3) Urine WBC 1 /hpf (0-5) Urine Squamous Epithelial Cells <1 /hpf (0-5) Urine Hyaline Casts 12 /lpf (RARE) Urine Mucus FEW /lpf (OCC) Microscopic Urinalysis Comment CATH-CULT NOT IND Blood Urea Nitrogen 130 MG/DL (7-18) Creatinine 7.24 MG/DL (0.50-1.00) Random Glucose 122 MG/DL (74-106) Total Protein 4.7 GM/DL (6.4-8.2) Albumin 2.1 GM/DL (3.4-5.0) Calcium Level 8.1 MG/DL (8.5-10.1) Alkaline Phosphatase 185 U/L (45-117) Aspartate Amino Transf (AST/SGOT) 359 U/L (15-37) Alanine Aminotransferase (ALT/SGPT) 74 U/L (10-53) Total Bilirubin 2.7 MG/DL (0.2-1.0) Sodium Level 136 MEQ/L (136-145) Potassium Level 7.2 MEQ/L (3.5-5.1) Chloride Level 109 MEQ/L (98-107) Carbon Dioxide Level 9.4 MEQ/L (21.0-32.0) Anion Gap 18 MEQ/L (5-15) Estimat Glomerular Filtration Rate 6 ML/MIN (>89) Total Creatine Kinase 172 U/L (26-192) Troponin I 1.22 NG/ML (0.02-0.05) Thyroid Stimulating Hormone 3rd Gen 1.810 uIU/ML (0.358-3.740) Salicylates Level LESS THAN 1.7 MG/DL Urine Opiates Screen POS (NEG) Acetaminophen Level 3.2 MCG/ML (10.0-30.0) Urine Barbiturates Screen NEG (NEG) Urine Amphetamines Screen NEG (NEG) Urine Benzodiazepines Screen POS (NEG) Urine Cocaine Screen NEG (NEG) Urine Cannabinoids Screen NEG (NEG) Ethyl Alcohol Level LESS THAN 3 MG/DL (0-5) Lactic Acid Level 9.2 mmol/L (0.4-2.0) Blood Gas Puncture Site LT RADIAL Blood Gas Patient Temperature 98.6 Blood Gas HCO3 7 mmol/L (22-26) Blood Gas Base Excess -23.7 mmol/L (-2-2) Blood Gas Oxygen Saturation 90 % (90-100) Arterial Blood pH 6.82 (7.380-7.420) Arterial Blood Partial Pressure CO2 48 mmHg (38-42) Arterial Blood Partial Pressure O2 106 mmHG (61-120) Arterial Blood Oxygen Content 9.2 Vol % (12.0-20.0) Arterial Blood Carboxyhemoglobin 1.0 % (0-4) Arterial Blood Methemoglobin 0.8 % (0-2) Blood Gas Hemoglobin 7.2 G/DL (12.0-16.0) Oxygen Delivery Device VENTILATOR Blood Gas Ventilator Setting AC/14/500/PEEP10 Blood Gas Inspired Oxygen 100 % Ammonia 474 MCMOL/L (11-32) Test 07/25/17 18:59 07/25/17 21:49 Nasal Screen MRSA (PCR) MRSA NOT DETECTED (NOT Fibrinogen 50 mg/dL (227-377) Result Diagram: 07/25/17 1330 07/25/17 1330 Microbiology Microbiology Date/Time Source Procedure Growth Status 07/25/17 13:35 Blood Peripheral Aerobic Blood Culture Pending Received 07/25/17 13:35 Blood Peripheral Anaerobic Blood Culture Pending Received 07/25/17 13:30 Blood Peripheral Aerobic Blood Culture Pending Received 07/25/17 13:30 Blood Peripheral Anaerobic Blood Culture Pending Received Patient/Family Conference Present at Family Conference: Patient's mother, and stepfather Family Conference Time (mins): 24 Family Conference Location: Bedside Issues Discussed: * Palliative care role, purpose, approach * Additional medical, psychosocial, and spiritual history * Patients general health, functional status, and cognitive changes in the months leading up to the current hospitalization * Patient/family understanding of the current medical problems * Patient/family understanding of prognosis * Patients goals of care as best understood from advance directives and/or conversations and/or values * Current medical treatment options and benefits/burdens of those options * Likely scenarios comparing ongoing aggressive care with a transition to comfort measures only * Questions answered to the best of my ability * Palliative care contact information provided Assessment and Plan Disease Oriented Problem List: (1) Respiratory failure (2) HIV (human immunodeficiency virus infection) (3) ALVERTO (acute kidney injury) (4) GI bleed (5) Anemia (6) COPD (chronic obstructive pulmonary disease) (7) Cirrhosis of liver (8) Hyperammonemia (9) Acute kidney failure (10) Sepsis Symptom Scale: (1) Dyspnea 0-10 Scale: Unable to quantify (2) Anxiety 0-10 Scale: Unable to quantify (3) Pain 0-10 Scale: Unable to quantify Comment: generalized pain. 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 Patient is not has 2 children. Mother is there to support her Isela Irene (mother). Daughter Rip Bermudez [phone]. (primary health care surrogate) Loi Fan [phone].([address] [facility] healthcare surrogate Spiritual: Jainism Legal:Daughter Rip Bermudez [phone]. (primary health care surrogate) Loi Fan [phone].([address] [facility] healthcare surrogate Ethical issues impacting care: None Important Contacts Mother is there to support her Isela Irene (mother). Daughter Rip Bermudez [phone]. (primary health care surrogate) Loi Fan [phone][address] [facility] healthcare surrogate} Prognosis 47-year-old, with end-stage liver, respiratory failure, cardiopulmonary failure , coagulopathy. Patient prognosis is poor and dying. Despite multiple pressures patient remains hypotensive. Patient is hospice appropriate. Code Status: No Code Plan == capacity- no capacity to make medical decisions, and will not regain it. == Medical decision Maker/ Pt's daughter Glenis Primary (Primary Health Care Surrogate). Pt's son Brandt (secondary). == Goals: family accepted to transfer to [facility] , and patients family , Glenis, Brandt, and pt's mother Ms. Irene all endorse transition to comfort measures only. Exhibits B and C completed by Primary Health Care Surrogate and medical team. It was witnessed. Family amenable to comfort meds, and transition to compassionate extubation , peaceful . == Dyspnea- due to respiratory failure. Dilaudid will be available. == Pain- generalized- per family. - Dilaudid will be available. Anxiety- associated with decline. Ativan will be available. == Palliative Care, will follow as clinical condition evolves to manage symptoms. Thank you for the opportunity to participate in the care of Ms. Craig. Attestation To help prompt me to consider important information that might be impacting today's encounter and assessment, information from prior notes written by myself or my colleagues may have been "brought forward" into today's note. My signature on this note, however, is an attestation that I personally performed the exam, history, and/or decision-making noted today, and, unless otherwise indicated, the interactions with patient, family, and staff as well as the review of records all occurred today. I also attest that the listed assessment and stated plan reflect my best clinical judgment today based on the combination of historical information, prior notes, and today's exam/ interactions. When time spent is documented, it refers only to time spent today by the signer, or if indicated, combined time spent today by collaborating physician/nurse practitioner. Theo Esquivel MD Jul 26, 2017 10:42
[2017-07-26] MEDS ORDERED: FUROSEMIDE 20 MG/2 ML VIAL IV PUSH PRN (11:00)
[2017-07-26] MEDS ORDERED: ACETAMINOPHEN 650 MG SUPP RECTAL PRN (11:00)
[2017-07-26] MEDS ORDERED: BISACODYL 10 MG SUPP RECTAL PRN (11:00)
[2017-07-26] MEDS ORDERED: LORazepam 2 MG/ML VIAL IV PUSH PRN ×3 (11:00)
[2017-07-26] MEDS ORDERED: HYDROmorphone HCL PF 2 MG/ML VIAL IV PUSH PRN ×2 (11:00)
--- NOTE | 2017-07-26 11:33 | HHI.DS ---
Summary Note Date of : Jul 26, 2017 Time Of : 11:20 Admission Date Jul 25, 2017 at 17:25 Admitting Diagnosis Multi-Organ Failure. S/P cardiac arrest. Diagnosis at Time of : (1) Acute kidney failure ICD Code: N17.9 - Acute kidney failure, unspecified Diagnosis: Principal (2) Coagulopathy ICD Code: D68.9 - Coagulation defect, unspecified (3) Cardiac arrest ICD Code: I46.9 - Cardiac arrest, cause unspecified Diagnosis: Principal (4) Liver cirrhosis ICD Code: K74.60 - Unspecified cirrhosis of liver (5) Ascites ICD Code: R18.8 - Other ascites Diagnosis: Principal (6) Abdominal varicosities ICD Code: I86.8 - Varicose veins of other specified sites (7) COPD exacerbation ICD Code: J44.1 - COPD exacerbation Diagnosis: Secondary (8) HIV (human immunodeficiency virus infection) ICD Code: Z21 - HIV (human immunodeficiency virus infection) Diagnosis: Secondary (9) Hepatitis C ICD Code: B19.20 - Hepatitis C (10) Macrocytic anemia ICD Code: D53.9 - Nutritional anemia, unspecified Diagnosis: Secondary (11) Nutrition, metabolism, and development symptoms ICD Code: R63.8 - Nutrition, metabolism, and development symptoms Diagnosis: Secondary (12) Splenomegaly ICD Code: R16.1 - Splenomegaly, not elsewhere classified Diagnosis: Secondary (13) Thrombocytopenia ICD Code: D69.6 - Thrombocytopenia Diagnosis: Principal (14) End stage liver disease ICD Code: K72.90 - Hepatic failure, unspecified without coma Diagnosis: Principal CBC/BMP: 07/25/17 1330 07/25/17 1330 Significant Findings Laboratory Tests Test 07/25/17 13:30 07/25/17 13:35 07/25/17 14:08 07/25/17 14:30 White Blood Count 12.9 TH/MM3 (4.0-11.0) Red Blood Count 2.93 MIL/MM3 (4.00-5.30) Hemoglobin 9.1 GM/DL (11.6-15.3) Hematocrit 32.4 % (35.0-46.0) Mean Corpuscular Volume 110.5 FL (80.0-100.0) Mean Corpuscular Hemoglobin Concent 28.1 % (32.0-36.0) Red Cell Distribution Width 19.7 % (11.6-17.2) Platelet Count 142 TH/MM3 (150-450) Neutrophils (%) (Auto) 84.4 % (16.0-70.0) Lymphocytes (%) (Auto) 3.9 % (9.0-44.0) Monocytes (%) (Auto) 11.4 % (0.0-8.0) Neutrophils # (Auto) 10.9 TH/MM3 (1.8-7.7) Lymphocytes # (Auto) 0.5 TH/MM3 (1.0-4.8) Monocytes # (Auto) 1.5 TH/MM3 (0-0.9) Neutrophils % (Manual) 83 % (16-70) Lymphocytes % 5 % (9-44) Monocytes % 10 % (0-8) Neutrophils # (Manual) 11.0 TH/MM3 (1.8-7.7) Myelocytes 1 % (0-0) Nucleated Red Blood Cells 7 /100 WBC (0-0) Toxic Granulation 1+ (NORMAL) Platelet Estimate LOW (NORMAL) Tear Drop Cells 1+ (NORMAL) Ovalocytes 1+ (NORMAL) Prothrombin Time 26.1 SEC (9.8-11.6) Activated Partial Thromboplast Time 82.1 SEC (24.3-30.1) Urine Mucus FEW /lpf (OCC) Blood Urea Nitrogen 130 MG/DL (7-18) Creatinine 7.24 MG/DL (0.50-1.00) Random Glucose 122 MG/DL (74-106) Total Protein 4.7 GM/DL (6.4-8.2) Albumin 2.1 GM/DL (3.4-5.0) Calcium Level 8.1 MG/DL (8.5-10.1) Alkaline Phosphatase 185 U/L (45-117) Aspartate Amino Transf (AST/SGOT) 359 U/L (15-37) Alanine Aminotransferase (ALT/SGPT) 74 U/L (10-53) Total Bilirubin 2.7 MG/DL (0.2-1.0) Potassium Level 7.2 MEQ/L (3.5-5.1) Chloride Level 109 MEQ/L (98-107) Carbon Dioxide Level 9.4 MEQ/L (21.0-32.0) Anion Gap 18 MEQ/L (5-15) Estimat Glomerular Filtration Rate 6 ML/MIN (>89) Troponin I 1.22 NG/ML (0.02-0.05) Salicylates Level LESS THAN 1.7 MG/DL Urine Opiates Screen POS (NEG) Acetaminophen Level 3.2 MCG/ML (10.0-30.0) Urine Benzodiazepines Screen POS (NEG) Lactic Acid Level 9.2 mmol/L (0.4-2.0) Blood Gas HCO3 7 mmol/L (22-26) Blood Gas Base Excess -23.7 mmol/L (-2-2) Arterial Blood pH 6.82 (7.380-7.420) Arterial Blood Partial Pressure CO2 48 mmHg (38-42) Arterial Blood Oxygen Content 9.2 Vol % (12.0-20.0) Blood Gas Hemoglobin 7.2 G/DL (12.0-16.0) Ammonia 474 MCMOL/L (11-32) Test 07/25/17 18:59 07/25/17 21:49 Fibrinogen 50 mg/dL (227-377) Imaging Last Impressions Head CT 07/25/17 1327 Signed Impressions: Service Date/Time: Tuesday, July 25, 2017 16:10 - CONCLUSION: Negative for acute process; lack of intravenous contrast does make detection of subtle abnormalities difficult. Dwight Tellez MD FACR Chest X-Ray 07/25/17 1327 Signed Impressions: Service Date/Time: Tuesday, July 25, 2017 13:35 - CONCLUSION: 1. Interval intubation with the endotracheal tube tip at the origin of the right mainstem bronchus. This should probably be backed off a centimeter or 2. 2. Lungs are clear. Minimal elevation of the left hemidiaphragm. Jeison Yu MD Cervical Spine CT 07/25/17 0000 Signed Impressions: Service Date/Time: Tuesday, July 25, 2017 16:11 - CONCLUSION: 1. Degenerative changes most prominent at C4-5 and C5-6. Minimal grade 1 anterolisthesis of C4-5 and minimal grade 1 retrolisthesis C5 on 6. 2. No fracture. Jeison Yu MD Hospital Course The patient is a 47-year-old female with past medical history of hepatitis C, end-stage liver disease, HIV who was found unresponsive by paramedics slumped over in her chair in cardiac arrest. ACLS protocol was initiated and the patient had successful return of spontaneous circulation. Also she had a Combitube in the field. On arrival to the ED she was intubated with succinylcholine and etomidate and placed on full mechanical ventilation. Her ABG postintubation showed severe metabolic acidosis with a pH of 6.82, PCO2 was 48, pAO2 106, bicarb 7, saturation of 98%. The patient was hypotensive and was started on Levophed and dopamine drips. A CT scan of the brain in the ED negative for acute process. In addition she had a cervical spine CT which showed degenerative changes. No acute fracture. Chest x-ray postintubation showed ET tube tip at the origin of the right mainstem bronchus, otherwise clear lungs and minimal elevation of the left hemidiaphragm. Her laboratory data significant for acute renal failure with a BUN 130, creatinine 7.24. Hyperkalemia with potassium level 7.2 and severe lactic acidosis with lactic acid level of 9.2. Also the patient was coagulopathic with an INR of 2.6 and had elevated ammonia level 474. Also her troponin was measured at 1.22. In the ED she was given 2 grams of calcium gluconate, octreotide, Protonix, sodium bicarb, vancomycin and Zosyn. Her initial hemoglobin level was 9.1 and INR of 2.6. When seen in the ED the patient unresponsive with her pupils fixed and dilated, and unresponsive. She is scheduled to receive 2 units of PRBCs and 4 units of fresh frozen plasma. 07/26:No change overnight. Hospice was consulted and had a conference call with the patient's son and daughter in the presence of the patient's mother at the bedside. A plan for admission to [facility] is pending this am. The family has requested comfort care measures and are awaiting consents/ signatures for admission to Hospice in order to initiate and provide for their wishes. The patient remains unresponsive , pupils fixed and dilated , agonal respirations with BP 60/30's. The family has request no aggressive measures since admission and to discontinue blood transfusions. They want her "just to be comfortable". Comfort care measures instituted, with mother and at bedside,patient prior to removal of endotracheal tube/and ventilator withdrawal time of 11 :20 AM Shilpi Montague MD Jul 26, 2017 11:33
[2017-07-26] MEDS ORDERED: LORazepam 2 MG/ML VIAL IV PUSH SCH (12:00)
[2017-07-26] MEDS ORDERED: HYDROmorphone HCL PF 2 MG/ML VIAL IV PUSH SCH (12:00)
--- NOTE | 2017-07-26 12:42 | EKG ---
Date Performed: 07/25/2017 Time Performed: 13:37:49 PTAGE: 47 years EKG: SINUS TACHYCARDIA LOW QRS VOLTAGE IN EXTREMITY LEADS INFERIOR MYOCARDIAL INFARCTION ABNORMA L ECG Since PREVIOUS TRACING , no significant change noted DOCTOR: Parish Landry Interpretating Date/Time 07/26/2017 12:40:34
== END 2017-07-26 11:20 | disposition expired | DRG 208 ==
LOC: NEPC 13:10 → NEDA 17:25 → HIME 18:50
PROVIDERS: ADMIT Anesthesiology; ATTEND Anesthesiology
PROC: 5A1935Z Respiratory Ventilation, Less than 24 Consecutive Hours (ICD-10-PCS; principal; 2017-07-25)
PROC: 0BH17EZ Insertion of Endotracheal Airway into Trachea, Via Natural or Artificial Opening (ICD-10-PCS; 2017-07-25)
DX: J96.01 Acute respiratory failure with hypoxia (principal); B20 Human immunodeficiency virus [HIV] disease; N17.9 Acute kidney failure, unspecified; R57.0 Cardiogenic shock; G93.1 Anoxic brain damage, not elsewhere classified; I85.01 Esophageal varices with bleeding; J96.02 Acute respiratory failure with hypercapnia; R18.8 Other ascites; D68.4 Acquired coagulation factor deficiency; N18.4 Chronic kidney disease, stage 4 (severe); E87.2 Acidosis; J44.1 Chronic obstructive pulmonary disease with (acute) exacerbation; D69.6 Thrombocytopenia, unspecified; E87.5 Hyperkalemia; K72.90 Hepatic failure, unspecified without coma; R74.8 Abnormal levels of other serum enzymes; B19.20 Unspecified viral hepatitis C without hepatic coma; R00.0 Tachycardia, unspecified; M19.90 Unspecified osteoarthritis, unspecified site; K74.60 Unspecified cirrhosis of liver; K21.9 Gastro-esophageal reflux disease without esophagitis; I50.9 Heart failure, unspecified; Z51.5 Encounter for palliative care; F41.9 Anxiety disorder, unspecified; D53.9 Nutritional anemia, unspecified; R16.1 Splenomegaly, not elsewhere classified; E16.2 Hypoglycemia, unspecified; Z87.891 Personal history of nicotine dependence
CPT/HCPCS: 31500; 36600; 51702; 70450; 71010; 72125; 80053; 80307; 81001; 82140; 82550; 82805; 83605; 84443; 84484; 85007; 85027; 85384; 85610; 85730; 86850; 86900; 86901; 86920; 87040; 87641; 93005; 94002; 94003; 96361; 96365; 96368; 96375; 99292; C9113; J0330; J0610; J1265; J1720; J2354; J2543; J3370; J7030; J7050